=== PATIENT | male | born 1965 | race Two or more races ===

== ENCOUNTER 2017-03-05 12:26 | Inpatient (IN) | payer MEDICAID ==
[~2017-03-05] VITALS: Ht 182.9 cm; Wt 83.9 kg
[~2017-03-05 12:26] MED LIST: ACETAMINOP500 MG/51 GT; ATIVAN0.5 MG GT; COREG12.5 MG GT; DEPAKENE L250 MG/5 M GT; FERROUS SU220 MG/53 GT; KEPPRA LIQ100 MG/1 M GT; MULTIVITAM9 MG/15 M1 GT; NORCO 5-325 TA1 EACH GT; RESTORIL15 MG GT; RISPERDAL0.25 MG ORAL; SEROQUEL25 MG GT; SPIRONOLACTONE25 MG GT; VALPROIC A250 MG/5 M GT; VITAMIN D1000 UNI1 GT
[2017-03-05 12:37] VITALS: BP 99/69
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
[2017-03-05] MEDS ORDERED: Haloperidol 5mg/ml Inj IM ONE (13:15)
[2017-03-05] MEDS ORDERED: Midazolam 2mg/2ml Inj IVP ONE (13:15)
[2017-03-05 13:25] LABS: MEAN CORPUSCULAR HEMOGLOBIN 34.4 PG (27.0-31.0); MEAN CORPUSCULAR HGB CONC 34.8 G/DL (32.0-36.0); MEAN CORPUSCULAR VOLUME 99 FL (80-99); MEAN PLATELET VOLUME 8.7 FL (6.5-10.1); PLATELET COUNT 139 K/UL (150-450); RED BLOOD COUNT 4.11 M/UL (4.70-6.10); RED CELL DISTRIBUTION WIDTH 11.6 % (11.6-14.8); WHITE BLOOD COUNT 5.2 K/UL (4.8-10.8)
[2017-03-05 13:37] LABS: TROPONIN I < 0.30 ng/mL (<=0.30)
[2017-03-05 13:40] LABS: ALANINE AMINOTRANSFERASE 12 U/L (3-41); ALBUMIN/GLOBULIN RATIO 1.3 (1.0-2.7); ANION GAP 12 (5-15); ASPARTATE AMINO TRANSFERASE 20 U/L (5-40); CALCIUM 9.7 mg/dL (8.6-10.2); CARBON DIOXIDE 27 mEQ/L (20-30); CHLORIDE 100 mEQ/L (98-107); CREATININE 0.8 mg/dL (0.7-1.2); GLOMERULAR FILTRATION RATE > 60 mL/min (>60); HEMOLYSIS 12; POTASSIUM 4.1 mEQ/L (3.4-4.9); SODIUM 139 mEQ/L (135-145); TOTAL PROTEIN 7.4 g/dL (6.6-8.7)
[2017-03-05 13:45] VITALS: BP 114/88
[2017-03-05 13:50] LABS: CKMB 2.8 ng/mL (< 6.7)
[2017-03-05 13:52] LABS: BAND NEUTROPHILS % (MANUAL) 0 % (0-8); BASOPHILS % (MANUAL) 0 % (0-2); EOSINOPHILS % (MANUAL) 1 % (0-3); LYMPHOCYTES % (MANUAL) 41 % (20-45); NEUTROPHILS % (MANUAL) 46 % (45-75); PLATELET ESTIMATE DECREASED; PLATELET MORPHOLOGY NORMAL; TOTAL CELLS COUNTED 100
[2017-03-05 14:23] LABS: APPEARANCE,URINE CLEAR; KETONES,URINE NEGATIVE (NEGATIVE); LEUKOCYTE ESTERASE ,URINE 1+ (NEGATIVE); NITRITE,URINE NEGATIVE (NEGATIVE); PH,URINE 7 (4.5-8.0); PROTEIN,URINE 1+ (NEGATIVE); UROBILINOGEN,URINE 4 MG/DL (0.0-1.0)
[2017-03-05 14:24] LABS: BACTERIA,URINE OCCASIONAL /HPF; RBC,URINE 0-2 /HPF (0 - 0); SQUAMOUS EPITHELIAL CELL,UR OCCASIONAL /LPF (NONE/OCC)
--- NOTE | 2017-03-05 14:39 | Diagnostic Imaging Report ---
Indications: Altered mental status Technique: Spiral acquisitions obtained through the brain. Angled axial and coronal 5 x 5 mm slices were reconstructed. Total dose length product 1487 mGycm. CTDI vol(s) 70 mGy. Dose reduction achieved using automated exposure control Comparison: 03/14/2016 Findings: Exam is somewhat limited, due to limited ability the patient to cooperate. Again demonstrated is a large right frontotemporoparietal craniectomy defect. Again demonstrated is extensive underlying frontal, parietal, and temporal encephalomalacia, resultant ex vacuo dilatation of the right lateral ventricle. Less extensive but still large area of encephalomalacia is also seen in the left parietal and posterior temporal lobe. When compared to the prior study, the cranial contents herniates somewhat more beyond the expected confines of the calvarium than previously and the ventricular dilatation appears slightly increased. There is also generalized enlargement of ventricles and extra axial CSF spaces. The amount of cystic encephalomalacia may have increased somewhat since prior study. No acute hemorrhage. The included orbits and sinuses are unremarkable. The mastoids are clear. No definite mass effect. Normal eason-white differentiation. Impression: Large right frontotemporoparietal craniectomy, with extensive underlying encephalomalacia. There is interim slight increase in degree of herniation of cranial contents into the craniectomy defect. The significance of this is uncertain. Large area of encephalomalacia in the left temporal and parietal lobes. Negative for acute intracranial bleed. No definite mass effect. Rightward midline shift is presumably an extra-axial phenomenon. The CT scanner at [facility] is accredited by the [employer] and the scans are performed using protocols designed to limit radiation exposure to as low as reasonably achievable to attain images of sufficient resolution adequate for diagnostic evaluation.
[2017-03-05] MEDS ORDERED: Mylanta II UD 30ml ORAL PRN (14:45)
[2017-03-05] MEDS ORDERED: Miralax 17gm pkt ORAL PRN (14:45)
[2017-03-05] MEDS ORDERED: Zolpidem 5mg tab ORAL PRN (14:45)
[2017-03-05] MEDS ORDERED: Norco 5mg/325mg tab GT PRN (14:45)
[2017-03-05] MEDS ORDERED: LORazepam Inj 2mg/ml 1ml IV PRN (14:45)
[2017-03-05] MEDS ORDERED: DOCUSATE SODIU100 MG GT (14:48)
[2017-03-05] MEDS ORDERED: MILK OF MA2400 MG/10 ORAL (14:48)
[2017-03-05] MEDS ORDERED: BENZTROPINE MESY1 MG GT (14:48)
[2017-03-05] MEDS ORDERED: QUETIAPINE FUMA25 MG GT (14:51)
--- NOTE | 2017-03-05 14:54 | Diagnostic Imaging Report ---
Indication: Chest pain Technique: One view of the chest Comparison: 03/31/2016 Findings: Left chest bifocal AICD is again demonstrated. The heart is upper limits of normal in size. The lungs and pleural spaces are clear Impression: No acute process. Findings as noted
[2017-03-05 15:54] VITALS: BP 122/43
--- NOTE | 2017-03-05 18:29 | History and Physical ---
History of Present Illness General Date patient seen: Mar 05, 2017 Reason for Hospitalization: General Complaint Present Illness HPI 51 year old male with OBI, s/p craniotomy, seizures, psychiatric disorder presented from nursing facility with reports of agitation In route the patient was given 5 mg of Versed and present ed to ER fairly sedated Patient is responsive to physical stimuli. There are no other information available. Allergies: Coded Allergies: No Known Allergies (Unverified , 03/14/16) Medication History Scheduled Benztropine Mesylate* (Benztropine Mesylate*), 0.5 MG GT BID, (Reported) Carvedilol (Coreg), 12.5 MG GT BID, (Reported) Cholecalciferol (Vitamin D3)* (Vitamin D*), 5,000 UNITS GT DAILY, (Reported) Docusate Sodium* (Docusate Sodium*), 100 MG GT TWICE A DAY, (Reported) Ferrous Sulfate (Ferrous Sulfate), 7.5 ML GT BID, (Reported) Levetiracetam (Keppra), 5 ML GT BID, (Reported) Levetiracetam (Keppra), 1,000 MG GT Q12HR Lorazepam* (Ativan*), 0.5 MG GT EVERY 4 HOURS, (Reported) Magnesium Hydroxide* (Milk Of Magnesia*), 30 ML ORAL EVERY 8 HOURS, (Reported) Multivits W-Min/Ferrous Gluc (Multivitamin-Mineral Liquid), 15 ML GT DAILY, ( Reported) Quetiapine Fumarate* (Seroquel*), 25 MG GT THREE TIMES A DAY, (Reported) Quetiapine Fumarate* (Seroquel*), 25 MG GT BID, (Reported) Risperidone* (Risperdal*), 0.5 MG ORAL TID Spironolactone* (Aldactone*), 25 MG GT DAILY, (Reported) Valproate Sodium (Valproic Acid), 5 ML GT BID, (Reported) Valproic Acid (Valproic Acid), 500 MG GT EVERY 12 HOURS Scheduled PRN Acetaminophen (Acetaminophen), 640 MG GT EVERY 6 HOURS PRN for mild pain, ( Reported) Hydrocodone Bit/Acetaminophen 5-325* ([place] 5-325*), 1 TAB GT EVERY 8 HOURS PRN for For Pain, (Reported) Temazepam* (Restoril*), 15 MG GT BEDTIME PRN for Insomnia, (Reported) Patient History Healthcare decision maker Resuscitation status Full Code Advanced Directive on File Past Medical/Surgical History Past Medical/Surgical History: (1) Agitation (2) Feeding by G-tube (3) Neurologic disorder Review of Systems All Other Systems: negative except mentioned in HPI Physical Exam General Appearance: cachetic Lines, tubes and drains: peripheral HEENT: normocephalic, atraumatic Neck: non-tender, normal alignment Respiratory/Chest: chest wall non-tender, lungs clear Cardiovascular/Chest: normal peripheral pulses, normal rate Last 24 Hour Vital Signs Date Time Temp Pulse Resp B/P Pulse Ox O2 Delivery O2 Flow Rate FiO2 03/05/17 15:54 96.5 91 15 122/43 98 Room Air 03/05/17 15:25 94 20 134/74 96 Room Air 03/05/17 13:45 81 20 114/88 99 Room Air 03/05/17 12:37 20 99/69 99 Room Air 03/05/17 12:34 83 20 99/69 99 Room Air Laboratory Tests Test 03/05/17 13:00 03/05/17 13:15 White Blood Count 5.2 K/UL (4.8-10.8) Red Blood Count 4.11 M/UL (4.70-6.10) L Hemoglobin 14.1 G/DL (14.2-18.0) L Hematocrit 40.6 % (42.0-52.0) L Mean Corpuscular Volume 99 FL (80-99) Mean Corpuscular Hemoglobin 34.4 PG (27.0-31.0) H Mean Corpuscular Hemoglobin Concent 34.8 G/DL (32.0-36.0) Red Cell Distribution Width 11.6 % (11.6-14.8) Platelet Count 139 K/UL (150-450) L Mean Platelet Volume 8.7 FL (6.5-10.1) Neutrophils (%) (Auto) % (45.0-75.0) Lymphocytes (%) (Auto) % (20.0-45.0) Monocytes (%) (Auto) % (1.0-10.0) Eosinophils (%) (Auto) % (0.0-3.0) Basophils (%) (Auto) % (0.0-2.0) Differential Total Cells Counted 100 Neutrophils % (Manual) 46 % (45-75) Lymphocytes % (Manual) 41 % (20-45) Monocytes % (Manual) 12 % (1-10) H Eosinophils % (Manual) 1 % (0-3) Basophils % (Manual) 0 % (0-2) Band Neutrophils 0 % (0-8) Platelet Estimate Decreased L Platelet Morphology Normal Sodium Level 139 mEQ/L (135-145) Potassium Level 4.1 mEQ/L (3.4-4.9) Chloride Level 100 mEQ/L (98-107) Carbon Dioxide Level 27 mEQ/L (20-30) Anion Gap 12 (5-15) Blood Urea Nitrogen 22 mg/dL (7-23) Creatinine 0.8 mg/dL (0.7-1.2) Estimat Glomerular Filtration Rate > 60 mL/min (>60) Glucose Level 77 mg/dL (74-106) Calcium Level 9.7 mg/dL (8.6-10.2) Total Bilirubin 0.4 mg/dL (0.0-1.2) Aspartate Amino Transf (AST/SGOT) 20 U/L (5-40) Alanine Aminotransferase (ALT/SGPT) 12 U/L (3-41) Alkaline Phosphatase 68 U/L (40-129) Total Creatine Kinase 117 U/L (38-174) Creatine Kinase MB 2.8 ng/mL (< 6.7) Creatine Kinase MB Relative Index 2.3 Troponin I < 0.30 ng/mL (<=0.30) Total Protein 7.4 g/dL (6.6-8.7) Albumin 4.3 g/dL (3.5-5.2) Globulin 3.1 g/dL Albumin/Globulin Ratio 1.3 (1.0-2.7) Valproic Acid (Depakene) Level 93 ug/mL (50-100) Urine Color Yellow Urine Appearance Clear Urine pH 7 (4.5-8.0) Urine Specific [place] 1.005 (1.005-1.035) Urine Protein 1+ (NEGATIVE) H Urine Glucose (UA) Negative (NEGATIVE) Urine Ketones Negative (NEGATIVE) Urine Occult Blood Negative (NEGATIVE) Urine Nitrite Negative (NEGATIVE) Urine Bilirubin Negative (NEGATIVE) Urine Urobilinogen 4 MG/DL (0.0-1.0) H Urine Leukocyte Esterase 1+ (NEGATIVE) H Urine RBC 0-2 /HPF (0 - 0) H Urine WBC 2-4 /HPF (0 - 0) Urine Squamous Epithelial Cells Occasional /LPF Urine Bacteria Occasional /HPF (NONE) Height (Feet): 6 Height (Inches): 0.00 Weight (Pounds): 185 Medications Current Medications Medications (Trade) Dose Ordered Sig/[place] Route PRN Reason Start Time Stop Time Status Last Admin Dose Admin Acetaminophen (Tylenol) 650 mg Q4H PRN ORAL fever 03/05/17 14:45 04/04/17 14:44 Acetaminophen/ Hydrocodone Bitart ([place] 5/325) 1 tab Q8H PRN GT For Pain 4-6 03/05/17 14:45 03/12/17 14:44 Al Hydroxide/Mg Hydroxide (Mylanta II) 30 ml Q6H PRN ORAL dyspepsia 03/05/17 14:45 04/04/17 14:44 Carvedilol (Coreg) 12.5 mg BID GT 03/05/17 18:00 04/04/17 17:59 Dextrose (Dextrose 50%) STAT PRN IV Hypoglycemia 03/05/17 14:45 04/04/17 14:44 Levetiracetam (Keppra) 1,000 mg Q12HR GT 03/05/17 21:00 04/04/17 20:59 Lorazepam (Ativan 2mg/ml 1ml) 0.5 mg Q4H PRN IV For Anxiety 03/05/17 14:45 03/12/17 14:44 03/05/17 17:40 Morphine Sulfate (Morphine Sulfate) 1 mg Q4H PRN IVP For Pain 7-10 03/05/17 14:45 03/12/17 14:44 Ondansetron HCl (Zofran) 4 mg Q6H PRN IVP Nausea & Vomiting 03/05/17 14:45 04/04/17 14:44 Polyethylene Glycol (Miralax) 17 gm HSPRN PRN ORAL Constipation 03/05/17 14:45 04/04/17 14:44 Quetiapine Fumarate (SEROquel) 25 mg THREE TIMES A DAY GT 03/05/17 18:00 04/04/17 17:59 Risperidone (RisperDAL) 0.5 mg TID GT 03/05/17 18:00 04/04/17 17:59 Temazepam (Restoril) 15 mg HSPRN PRN GT Insomnia 03/05/17 14:45 03/12/17 14:44 Valproic Acid (Depakene) 500 mg EVERY 12 HOURS GT 03/05/17 21:00 04/04/17 20:59 Zolpidem Tartrate (Ambien) 5 mg HSPRN PRN ORAL Insomnia 03/05/17 14:45 04/04/17 14:44 UNV Assessment/Plan Problem List: (1) Encephalopathy acute ICD Codes: G93.40 - Encephalopathy, unspecified SNOMED: 2707407 (2) Tachycardia ICD Codes: R00.0 - Tachycardia, unspecified SNOMED: 2020268 (3) Feeding by G-tube ICD Codes: Z93.1 - Gastrostomy status SNOMED: 506218270, 993363164 (4) Psychomotor agitation ICD Codes: R45.1 - Restlessness and agitation SNOMED: 80214757 Assessment/Plan telemetry monitoring b/o tachycardia psych evaluation. resume gtube feeding resume psych meds BRIDGET SUMMERS Mar 05, 2017 18:29
[2017-03-05] MEDS: Carvedilol 12.5mg tab GT SCH (18:47)
[2017-03-05 19:44] VITALS: BP 129/84
[2017-03-05] MEDS: levETIRAcetam 500mg/5ml Liquid GT SCH (21:07)
[2017-03-05] MEDS: Valproic Acid 250mg/5ml Liquid GT SCH (21:07)
[2017-03-05] MEDS: LORazepam Inj 2mg/ml 1ml IV PRN (23:32)
[2017-03-06 03:14] VITALS: BP 144/81
[2017-03-06] MEDS: LORazepam Inj 2mg/ml 1ml IV PRN ×3 (03:52→22:24)
[2017-03-06 07:11] VITALS: BP 116/78
--- NOTE | 2017-03-06 07:44 | Pulmonology Progress Note ---
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 psychomotor agitation psychiatric disorder hx of R craniectomy 2 to cerebral hemorrhage seizure disorder functional quadriplegia PLAN OF CARE tele CT head no acute IC pathology on tele due to initial tachy ST on tele, no A fib BB continue lipid panel with elevated TG and LDL recheck in 3 months TSH WNL venous Duplex psych eval psych meds resumed seizure precautions, continue Depakote and Keppra sitter at the bedside transfer to [place] case discussed and evaluated by supervising physician Subjective Allergies: Coded Allergies: No Known Allergies (Unverified , 03/14/16) Subjective anxious, no chest pain no SOB sitter at the bedside for safety Objective Last 24 Hour Vital Signs Date Time Temp Pulse Resp B/P Pulse Ox O2 Delivery O2 Flow Rate FiO2 03/06/17 07:11 98.6 78 22 116/78 98 Room Air 03/06/17 03:14 144/81 03/06/17 00:00 79 03/05/17 20:00 70 03/05/17 19:44 98.3 62 22 129/84 95 Room Air 03/05/17 18:47 67 122/43 03/05/17 16:00 98 03/05/17 15:54 96.5 91 15 122/43 98 Room Air 03/05/17 15:25 94 20 134/74 96 Room Air 03/05/17 13:45 81 20 114/88 99 Room Air 03/05/17 12:37 20 99/69 99 Room Air 03/05/17 12:34 83 20 99/69 99 Room Air Intake and Output 03/05/17 03/06/17 19:00 07:00 Intake Total 0 ml Balance 0 ml Intake Oral 0 ml # Voids 2 2 # Bowel Movements 1 General Appearance: no acute distress HEENT: other - R scalp defect 2 to craniectomy Respiratory/Chest: chest wall non-tender, lungs clear, no respiratory distress , no accessory muscle use Cardiovascular: normal rate, regular rhythm - SR on tele with some PAC and PVC Abdomen: soft, non tender, non distended, other - G tube Extremities: no edema, pedal pulses normal Neurologic/Psychiatric: abnormal gait, other - Left hemiparesis Musculoskeletal: atrophy - BLE Laboratory Tests 03/05/17 13:00: White Blood Count 5.2, Red Blood Count 4.11L, Hemoglobin 14.1L, Hematocrit 40.6L , Mean Corpuscular Volume 99, Mean Corpuscular Hemoglobin 34.4H, Mean Corpuscular Hemoglobin Concent 34.8, Red Cell Distribution Width 11.6, Platelet Count 139L, Mean Platelet Volume 8.7, Neutrophils (%) (Auto) , Lymphocytes (%) ( Auto) , Monocytes (%) (Auto) , Eosinophils (%) (Auto) , Basophils (%) (Auto) , Differential Total Cells Counted 100, Neutrophils % (Manual) 46, Lymphocytes % ( Manual) 41, Monocytes % (Manual) 12H, Eosinophils % (Manual) 1, Basophils % ( Manual) 0, Band Neutrophils 0, Platelet Estimate DecreasedL, Platelet Morphology Normal, Sodium Level 139, Potassium Level 4.1, Chloride Level 100, Carbon Dioxide Level 27, Anion Gap 12, Blood Urea Nitrogen 22, Creatinine 0.8, Estimat Glomerular Filtration Rate > 60, Glucose Level 77, Calcium Level 9.7, Total Bilirubin 0.4, Aspartate Amino Transf (AST/SGOT) 20, Alanine Aminotransferase (ALT/SGPT) 12, Alkaline Phosphatase 68, Total Creatine Kinase 117, Creatine Kinase MB 2.8, Creatine Kinase MB Relative Index 2.3, Troponin I < 0.30, Total Protein 7.4, Albumin 4.3, Globulin 3.1, Albumin/Globulin Ratio 1.3 , Valproic Acid (Depakene) Level 93 03/05/17 13:15: Urine Color Yellow, Urine Appearance Clear, Urine pH 7, Urine Specific [place] 1.005, Urine Protein 1+H, Urine Glucose (UA) Negative, Urine Ketones Negative, Urine Occult Blood Negative, Urine Nitrite Negative, Urine Bilirubin Negative, Urine Urobilinogen 4H, Urine Leukocyte Esterase 1+H, Urine RBC 0-2H, Urine WBC 2 -4, Urine Squamous Epithelial Cells Occasional, Urine Bacteria Occasional Current Medications Medications (Trade) Dose Ordered Sig/[place] Route PRN Reason Start Time Stop Time Status Last Admin Dose Admin Acetaminophen (Tylenol) 650 mg Q4H PRN ORAL fever 03/05/17 14:45 04/04/17 14:44 Acetaminophen/ Hydrocodone Bitart ([place] 5/325) 1 tab Q8H PRN GT For Pain 4-6 03/05/17 14:45 03/12/17 14:44 Al Hydroxide/Mg Hydroxide (Mylanta II) 30 ml Q6H PRN ORAL dyspepsia 03/05/17 14:45 04/04/17 14:44 Carvedilol (Coreg) 12.5 mg BID GT 03/05/17 18:00 04/04/17 17:59 03/05/17 18:47 Dextrose (Dextrose 50%) STAT PRN IV Hypoglycemia 03/05/17 14:45 04/04/17 14:44 Levetiracetam (Keppra) 1,000 mg Q12HR GT 03/05/17 21:00 04/04/17 20:59 03/05/17 21:07 Lorazepam (Ativan 2mg/ml 1ml) 2 mg Q4H PRN IV For Anxiety 03/05/17 18:45 03/12/17 18:44 03/06/17 03:52 Morphine Sulfate (Morphine Sulfate) 1 mg Q4H PRN IVP For Pain 7-10 03/05/17 14:45 03/12/17 14:44 Ondansetron HCl (Zofran) 4 mg Q6H PRN IVP Nausea & Vomiting 03/05/17 14:45 04/04/17 14:44 Polyethylene Glycol (Miralax) 17 gm HSPRN PRN ORAL Constipation 03/05/17 14:45 04/04/17 14:44 Quetiapine Fumarate (SEROquel) 25 mg THREE TIMES A DAY GT 03/05/17 18:00 04/04/17 17:59 03/05/17 18:45 Risperidone (RisperDAL) 0.5 mg TID GT 03/05/17 18:00 04/04/17 17:59 03/05/17 18:45 Valproic Acid (Depakene) 500 mg EVERY 12 HOURS GT 03/05/17 21:00 04/04/17 20:59 03/05/17 21:07 Zolpidem Tartrate (Ambien) 5 mg HSPRN PRN ORAL Insomnia 03/05/17 14:45 04/04/17 14:44 Nancy Zambrano NP ([facility]) Mar 06, 2017 07:44
[2017-03-06 08:04] LABS: RED BLOOD COUNT 4.24 M/UL (4.70-6.10); WHITE BLOOD COUNT 4.6 K/UL (4.8-10.8)
[2017-03-06 08:05] LABS: BASOPHILS % (AUTO) 0.9 % (0.0-2.0); EOSINOPHILS % (AUTO) 2.6 % (0.0-3.0); LYMPHOCYTES % (AUTO) 36.8 % (20.0-45.0); MEAN CORPUSCULAR HEMOGLOBIN 35.2 PG (27.0-31.0); MEAN CORPUSCULAR HGB CONC 35.4 G/DL (32.0-36.0); MEAN CORPUSCULAR VOLUME 99 FL (80-99); MEAN PLATELET VOLUME 9.7 FL (6.5-10.1); NEUTROPHILS % (AUTO) 50.8 % (45.0-75.0); PLATELET COUNT 134 K/UL (150-450); RED CELL DISTRIBUTION WIDTH 11.5 % (11.6-14.8)
[2017-03-06 08:52] LABS: ALANINE AMINOTRANSFERASE 14 U/L (3-41); ALBUMIN/GLOBULIN RATIO 1.3 (1.0-2.7); ANION GAP 13 (5-15); ASPARTATE AMINO TRANSFERASE 32 U/L (5-40); CALCIUM 9.8 mg/dL (8.6-10.2); CARBON DIOXIDE 26 mEQ/L (20-30); CHLORIDE 105 mEQ/L (98-107); CHOLESTEROL 184 mg/dL (< 200); CHOLESTEROL/HDL RATIO 4.5 (3.3-4.4); CREATININE 0.7 mg/dL (0.7-1.2); GLOMERULAR FILTRATION RATE > 60 mL/min (>60); HEMOLYSIS 15; LDL CHOLESTEROL (CALC.) 107 mg/dL (60-99); POTASSIUM 3.9 mEQ/L (3.4-4.9); SODIUM 144 mEQ/L (135-145); TOTAL PROTEIN 7.6 g/dL (6.6-8.7)
[2017-03-06] MEDS: Carvedilol 12.5mg tab GT SCH ×2 (09:00→17:32)
[2017-03-06] MEDS: levETIRAcetam 500mg/5ml Liquid GT SCH ×2 (09:08→20:24)
[2017-03-06] MEDS: Valproic Acid 250mg/5ml Liquid GT SCH ×2 (09:09→20:23)
[2017-03-06 11:49] VITALS: BP 127/81
[2017-03-06 16:01] VITALS: BP 127/82
[2017-03-06 20:00] VITALS: BP 111/69
[2017-03-06] MEDS: Morphine Sulfate 2mg/ml Inj IVP PRN (23:29)
[2017-03-07] VITALS: BP 123/70
[2017-03-07 04:00] VITALS: BP 132/70
[2017-03-07] MEDS: Morphine Sulfate 2mg/ml Inj IVP PRN (04:09)
[2017-03-07] MEDS: LORazepam Inj 2mg/ml 1ml IV PRN ×2 (07:14→12:52)
[2017-03-07] MEDS: levETIRAcetam 500mg/5ml Liquid GT SCH ×2 (09:00→21:20)
[2017-03-07] MEDS: Valproic Acid 250mg/5ml Liquid GT SCH ×2 (09:44→21:19)
[2017-03-07] MEDS: Carvedilol 12.5mg tab GT SCH ×2 (09:47→18:46)
--- NOTE | 2017-03-07 10:58 | Pulmonology Progress Note ---
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 psychomotor agitation psychiatric disorder hx of R craniectomy 2 to cerebral hemorrhage seizure disorder functional quadriplegia PLAN OF CARE on tele due to intiial atchy ( resolved) CT head no acute IC pathology BB continue lipid panel with elevated TG and LDL recheck in 3 months TSH WNL venous Duplex psych eval psych meds resumed seizure precautions, continue Depakote and Keppra sitter at the bedside transfer to [place] and await for psych eval case discussed and evaluated by supervising physician Subjective Allergies: Coded Allergies: No Known Allergies (Unverified , 03/14/16) Subjective anxious, banging on the side rail no chest pain no SOB sitter at the bedside for safety Objective Last 24 Hour Vital Signs Date Time Temp Pulse Resp B/P Pulse Ox O2 Delivery O2 Flow Rate FiO2 03/07/17 09:47 90 140/70 03/07/17 04:39 97.8 03/07/17 04:00 97.8 80 20 132/70 99 Room Air 03/07/17 01:28 97.8 03/07/17 00:00 97.8 97 22 123/70 99 Room Air 03/06/17 20:00 97.8 82 20 111/69 99 Room Air 03/06/17 17:32 86 127/82 03/06/17 16:01 98.0 86 20 127/82 96 Room Air 03/06/17 12:00 80 03/06/17 11:49 97.8 88 20 127/81 97 Room Air Intake and Output 03/06/17 03/07/17 19:00 07:00 Intake Total 350 ml Balance 350 ml Free Water 20 ml Tube Feeding 330 ml # Voids 2 3 Objective General Appearance: no acute distress HEENT: other - R scalp defect 2 to craniectomy Respiratory/Chest: chest wall non-tender, lungs clear, no respiratory distress , no accessory muscle use Cardiovascular: normal rate, regular rhythm - SR on tele with some PAC and PVC Abdomen: soft, non tender, non distended, other - G tube Extremities: no edema, pedal pulses normal Neurologic/Psychiatric: abnormal gait, other - Left hemiparesis Musculoskeletal: atrophy - BLE Microbiology Date/Time Source Procedure Growth Status 03/05/17 13:15 Nasal Nares MRSA Culture - Final NO METHICILLIN RESISTANT STAPH AUREUS... Complete Current Medications Medications (Trade) Dose Ordered Sig/[place] Route PRN Reason Start Time Stop Time Status Last Admin Dose Admin Acetaminophen (Tylenol) 650 mg Q4H PRN ORAL fever 03/05/17 14:45 04/04/17 14:44 Acetaminophen/ Hydrocodone Bitart ([place] 5/325) 1 tab Q8H PRN GT For Pain 4-6 03/05/17 14:45 03/12/17 14:44 03/07/17 00:29 Al Hydroxide/Mg Hydroxide (Mylanta II) 30 ml Q6H PRN ORAL dyspepsia 03/05/17 14:45 04/04/17 14:44 Carvedilol (Coreg) 12.5 mg BID GT 03/05/17 18:00 04/04/17 17:59 03/07/17 09:47 Dextrose (Dextrose 50%) STAT PRN IV Hypoglycemia 03/05/17 14:45 04/04/17 14:44 Levetiracetam (Keppra) 1,000 mg Q12HR GT 03/05/17 21:00 04/04/17 20:59 03/07/17 09:00 Lorazepam (Ativan 2mg/ml 1ml) 2 mg Q4H PRN IV For Anxiety 03/05/17 18:45 03/12/17 18:44 03/07/17 07:14 Morphine Sulfate (Morphine Sulfate) 1 mg Q4H PRN IVP For Pain 7-10 03/05/17 14:45 03/12/17 14:44 03/07/17 04:09 Ondansetron HCl (Zofran) 4 mg Q6H PRN IVP Nausea & Vomiting 03/05/17 14:45 04/04/17 14:44 Polyethylene Glycol (Miralax) 17 gm HSPRN PRN ORAL Constipation 03/05/17 14:45 04/04/17 14:44 Quetiapine Fumarate (SEROquel) 25 mg THREE TIMES A DAY GT 03/05/17 18:00 04/04/17 17:59 03/07/17 09:47 Risperidone (RisperDAL) 0.5 mg TID GT 03/05/17 18:00 04/04/17 17:59 03/07/17 09:47 Valproic Acid (Depakene) 500 mg EVERY 12 HOURS GT 03/05/17 21:00 04/04/17 20:59 03/07/17 09:44 Zolpidem Tartrate (Ambien) 5 mg HSPRN PRN ORAL Insomnia 03/05/17 14:45 04/04/17 14:44 Juan Manuel ([facility])Nancy NP Mar 07, 2017 10:58
[2017-03-07 12:21] VITALS: BP 98/56
[2017-03-07] MEDS ORDERED: Sterile Water Irrig 1000ml IRRIG ONE (15:47)
--- NOTE | 2017-03-07 17:12 | Cardiology Report ---
APPROVED REPORT EKG Measurement Heart [id number] Sinus rhythm with occasional premature ventricular complexes Incomplete left bundle branch block Borderline ECG
--- NOTE | 2017-03-07 17:48 | Diagnostic Imaging Report ---
APPROVED REPORT CPT Code: 63551 Present Symptoms Lower Extremity Pain: Bilateral Comments: Difficult study due to the patient being combartive. BILATERAL: Imaging reveals a patent deep venous system bilaterally. There is no evidence of thrombus within the femoral, popliteal or tibial segments. The greater saphenous veins are also within normal limits. Doppler indicates normal spontaneous flow within these segments.
--- NOTE | 2017-03-07 18:14 | Consultation ---
History of Present Illness General Date patient seen: Mar 07, 2017 Chief Complaint: General Complaint Present Illness HPI 51 year old male with OBI, s/p craniotomy, seizures, psychiatric disorder presented from nursing facility with reports of agitation In route the patient was given 5 mg of Versed and present ed sedated, During the eval the pt is agitated and banging his head against the bed rails. the pt was confused and was unable to remain focused. disorganized. has cognitive impairment. Allergies: Coded Allergies: No Known Allergies (Unverified , 03/14/16) Medication History Scheduled Benztropine Mesylate* (Benztropine Mesylate*), 0.5 MG GT BID, (Reported) Carvedilol (Coreg), 12.5 MG GT BID, (Reported) Cholecalciferol (Vitamin D3)* (Vitamin D*), 5,000 UNITS GT DAILY, (Reported) Docusate Sodium* (Docusate Sodium*), 100 MG GT TWICE A DAY, (Reported) Ferrous Sulfate (Ferrous Sulfate), 7.5 ML GT BID, (Reported) Levetiracetam (Keppra), 5 ML GT BID, (Reported) Levetiracetam (Keppra), 1,000 MG GT Q12HR Lorazepam* (Ativan*), 0.5 MG GT EVERY 4 HOURS, (Reported) Magnesium Hydroxide* (Milk Of Magnesia*), 30 ML ORAL EVERY 8 HOURS, (Reported) Multivits W-Min/Ferrous Gluc (Multivitamin-Mineral Liquid), 15 ML GT DAILY, ( Reported) Quetiapine Fumarate* (Seroquel*), 25 MG GT THREE TIMES A DAY, (Reported) Quetiapine Fumarate* (Seroquel*), 25 MG GT BID, (Reported) Risperidone* (Risperdal*), 0.5 MG ORAL TID Spironolactone* (Aldactone*), 25 MG GT DAILY, (Reported) Valproate Sodium (Valproic Acid), 5 ML GT BID, (Reported) Valproic Acid (Valproic Acid), 500 MG GT EVERY 12 HOURS Scheduled PRN Acetaminophen (Acetaminophen), 640 MG GT EVERY 6 HOURS PRN for mild pain, ( Reported) Hydrocodone Bit/Acetaminophen 5-325* ([place] 5-325*), 1 TAB GT EVERY 8 HOURS PRN for For Pain, (Reported) Temazepam* (Restoril*), 15 MG GT BEDTIME PRN for Insomnia, (Reported) Patient History Limited by: medical condition History Provided By: Patient, Medical Record, PMD Healthcare decision maker Resuscitation status Full Code Advanced Directive on File Past Medical/Surgical History Past Medical/Surgical History: (1) Proteinuria (2) Thrombocytopenia (3) Psychomotor agitation (4) Agitation (5) Neurologic disorder (6) Feeding by G-tube (7) Encephalopathy acute (8) Tachycardia (9) Schizophrenia Review of Systems Psychiatric: Reports: anxiety, emotional problems, hallucinations, prior hx Physical Exam General Appearance: no apparent distress, confused, agitated Neurologic: disoriented Last 24 Hour Vital Signs Date Time Temp Pulse Resp B/P Pulse Ox O2 Delivery O2 Flow Rate FiO2 03/07/17 12:21 98.1 57 22 98/56 92 Room Air 03/07/17 09:47 90 140/70 03/07/17 04:39 97.8 03/07/17 04:00 97.8 80 20 132/70 99 Room Air 03/07/17 01:28 97.8 03/07/17 00:00 97.8 97 22 123/70 99 Room Air 03/06/17 20:00 97.8 82 20 111/69 99 Room Air Intake and Output 03/06/17 03/07/17 19:00 07:00 Intake Total 350 ml Balance 350 ml Free Water 20 ml Tube Feeding 330 ml # Voids 2 3 Height (Feet): 6 Height (Inches): 0.00 Weight (Pounds): 185 Medications Current Medications Medications (Trade) Dose Ordered Sig/[place] Route PRN Reason Start Time Stop Time Status Last Admin Dose Admin Acetaminophen (Tylenol) 650 mg Q4H PRN ORAL fever 03/07/17 18:45 04/06/17 18:44 Acetaminophen/ Hydrocodone Bitart ([place] 5/325) 1 tab Q8H PRN GT For Pain 4-6 03/07/17 22:45 03/14/17 22:44 Al Hydroxide/Mg Hydroxide (Mylanta II) 30 ml Q6H PRN ORAL dyspepsia 03/07/17 20:45 04/06/17 20:44 Carvedilol (Coreg) 12.5 mg BID GT 03/07/17 18:00 04/06/17 17:59 Dextrose (Dextrose 50%) STAT PRN IV Hypoglycemia 03/08/17 14:45 04/07/17 14:44 Levetiracetam (Keppra) 1,000 mg Q12HR GT 03/07/17 21:00 04/06/17 20:59 Lorazepam (Ativan 2mg/ml 1ml) 2 mg EVERY 6 HOURS PRN IV For Anxiety 03/08/17 00:00 03/15/17 00:00 Morphine Sulfate (Morphine Sulfate) 1 mg Q4H PRN IVP For Pain 7-10 03/07/17 18:45 03/14/17 18:44 Ondansetron HCl (Zofran) 4 mg Q6H PRN IVP Nausea & Vomiting 03/07/17 20:45 04/06/17 20:44 Polyethylene Glycol (Miralax) 17 gm HSPRN PRN ORAL Constipation 03/08/17 14:45 04/07/17 14:44 Quetiapine Fumarate (SEROquel) 50 mg Q4H PRN GT agitation 03/07/17 21:00 04/06/17 20:59 Valproic Acid (Depakene) 500 mg EVERY 12 HOURS GT 03/07/17 21:00 04/06/17 20:59 Zolpidem Tartrate (Ambien) 5 mg HSPRN PRN ORAL Insomnia 03/08/17 14:45 04/07/17 14:44 Assessment/Plan Status: not improved, unchanged Assessment/Plan Delirium Agitation head trauma -dc risperdal -seroquel 50q 4hr/prn -decrease ativan -dc Jeffrey Rollins M.D. Mar 07, 2017 18:14
[2017-03-07] MEDS ORDERED: Zolpidem 5mg tab ORAL PRN (18:30)
[2017-03-07 18:40] VITALS: BP 110/56
[2017-03-07] MEDS ORDERED: Morphine Sulfate 2mg/ml Inj IVP PRN (18:45)
[2017-03-07] MEDS ORDERED: LORazepam Inj 2mg/ml 1ml IV PRN ×2 (18:45)
[2017-03-07 20:00] VITALS: BP 109/55
[2017-03-07] MEDS ORDERED: Mylanta II UD 30ml ORAL PRN (20:45)
[2017-03-08] VITALS: BP 105/46
[2017-03-08] MEDS ORDERED: LORazepam Inj 2mg/ml 1ml IV PRN
--- NOTE | 2017-03-08 01:45 | Progress Note ---
DATE: 03/07/2017 SUBJECTIVE: The patient is awake, alert, afebrile. He is not agitated. PHYSICAL EXAMINATION: VITAL SIGNS: Blood pressure is 98/66, his pulse is 57, respirations 22, and temperature 98.1 degrees. HEENT: Eyes were normal. ENT, mucous membranes were moist and intact. NECK: Supple with no JVD without lymph nodes. LUNGS: Clear. HEART: Normal sounds with irregular beats. There is no S3, S4, or pericardial rub. ABDOMEN: Soft and nontender with normal bowel sounds. Gastrostomy site is clean. EXTREMITIES: Warm without cyanosis, clubbing, or edema. LABORATORY DATA: No new laboratory data is available at the time of this dictation. His last laboratory tests are from 03/06/2017 in ICU the patient refused laboratory taking as he does frequently in the extended care facility. However, the patient will need psychiatric assessment prior to discharge as well as 2D echo cardiomyopathy, ejection fraction 20, however, clinically, congestive heart failure is stage 2 by [place] [employer] classification or class C by [place] [employer] classification. A 2D echo has been ordered. Geo Pop M.D. DR: CELIO JOB#: [id number] CC:
[2017-03-08 04:00] VITALS: BP 140/83
[2017-03-08 07:50] VITALS: BP 108/67
[2017-03-08] MEDS: Valproic Acid 250mg/5ml Liquid GT SCH ×2 (08:00→20:56)
[2017-03-08] MEDS: levETIRAcetam 500mg/5ml Liquid GT SCH ×2 (08:00→20:56)
[2017-03-08] MEDS: Carvedilol 12.5mg tab GT SCH ×2 (08:01→18:00)
[2017-03-08] MEDS: Norco 5mg/325mg tab GT PRN (08:03)
--- NOTE | 2017-03-08 10:46 | Consultation ---
DATE OF CONSULTATION: RHEUMATOLOGICAL CONSULTATION REASON FOR CONSULTATION: I was asked by Dr. Molina to assess this 51-year-old patient on his admission to [facility] telemetry unit. HISTORY OF PRESENT ILLNESS: The patient is a resident of an extended care facility where he has been in stable condition for the last two years. 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 He was discharged with tracheostomy and gastrostomy and remained one year respirator dependent. More than a year ago, he was successfully weaned from the respirator. He is known to have chronic psychosis for many years that was aggravated by the traumatic brain injury. He had seizure disorder following his injury. He developed seizure in more than a year ago. He has intermittent atrial fibrillation secondary to cardiomyopathy with ejection fraction of 20, however, he is in congestive heart failure stage II by [place] Heart Association Classification. He had multiple swallowing evaluations and failed either to complete the test or either to swallow. The last one was few months ago. He had AICD inserted more than three years ago at [facility]. However, he is able to communicate verbally and has multiple episodes during which he is compliant, communicative, interrupted by acute psychotic episode. He has been followed by psychiatrist for the last several days. ALLERGIES: No known drug allergies. Medications: The patient is on levetiracetam 1000 mg q.12 h., folic acid 500 mg q.12 hours. He is currently on lorazepam 2 mg IV push q.4 h. p.r.n. He is on carvedilol 12.5 mg b.i.d., Seroquel 25 mg t.i.d., and Risperdal 0.5 mg b.i.d. He is on hydrocodone one tablet 04:05 temazepam 15 mg at bedtime. He has multiple p.r.n. medications for motility disorder. He did receive 04:[address] hospital as well as haloperidol. Family History: Medical history of his parents is unknown. They are in [place] and 05:12. He has one sister in good health. He has no children. Social History: He is single. He was born in [place] and medically following up here for many years prior to 05:24. He was unemployed as well. HABITS: The patient does not smoke, drink, or use illicit drugs. Clean for three years. REVIEW OF SYSTEMS: The patient is unable to give any information regarding his state of health. PHYSICAL EXAMINATION: VITAL SIGNS: Blood pressure is 116/78, pulse is 78, respirations 22, and temperature 98.6. HEENT: Eyes were normal. Pupils were round, equal, and reactive to light. Sclerae was white. Conjunctiva was pink. Extraocular movements could not be assessed, but probably normal. Temporal arteries were palpable bilaterally. There was no bilateral temporal wasting. Visual smallwood to confrontation. Neglect sign could not be assessed. ENT, mucous membranes 06:14 were not dehydrated. Auditory canals were clear and tympanic membranes could not be visualized. Nasal cavity was not congested. Nasal septum was intact. Soft palate was free of ulcerations. Pharynx was clear from exudate and tonsillar hypertrophy. Uvula alise to phonation. Tongue was moist, midline, and normally papillated. NECK: Supple. There was no goiter. No mass. No lymphadenopathy. There was no JVD, no bruit. Carotid upstroke was 2+. Tracheostomy site was closed and clean. LUNGS: Clear. HEART: PMI was at fifth left intercostal space in midclavicular line. Normal S1 and normal S2. There was no murmur. No arrhythmia. No S3. No S4. No pericardial rub. ABDOMEN: Soft and nontender without organomegaly. There were no masses palpable. Normal bowel sounds without bruit. There was no guarding. No rebound tenderness. No ascites. No hernia. No CVA tenderness. Liver span was 8 cm, mostly nontender. EXTREMITIES: No cyanosis, no clubbing, and no edema. Extremities were warm. NEUROLOGIC: Reflexes in biceps, triceps, and brachioradialis were present. Patellar retinaculum was present. Plantars were in extension on the right, flexion on the left. Cranial nerves from II through XII were symmetric and equal. Cerebellar function, there was no tremor. No nystagmus. No extrapyramidal rigidity. Sensory exam to pinprick, cotton touch, position, and motor strength could not be assessed because of the patient's agitation, but presumed normal except the right hemiparesis of the patient. LABORATORY DATA: Hemoglobin 14.1, hematocrit 40.6, MCV of 79, WBC of 5.2, and platelets 139,000. His BUN and creatinine is 22 and 0.8 respectively. Sodium is 129, potassium 4.1, chloride 100, and CO2 is 27. His liver function tests are normal. His troponin was undetected. His albumin is 4.3 and total protein is 7.4. IMPRESSION AND PLAN: 1. The patient has hypoxia in the extended care facility, for which reason the patient was transferred by emergency medical services 911 and not by regular ambulance. 2. The patient has multiple chronic medical syndromes, 09:14 is chronic psychosis with agitation. In addition, the patient has chronic obstructive pulmonary disease, cardiomyopathy, hyperlipidemia, hypervitaminosis D, status post craniotomy, status post tracheostomy, and decannulation. The patient is already undergoing extensive examination. Psychiatric customs consultant has been called to assist in the management of this case. Geo Pop M.D. DR: ARMINDA JOB#: [id number] CC:
[2017-03-08 12:07] VITALS: BP 99/54
--- NOTE | 2017-03-08 13:10 | Wound Care Consultation ---
Wound Assessment Wound Assessment #1: Wound Number: #1 Wound Present on Admission: Yes New Wound: No Status Change of Wound: No Wound Location Body Site Modif: left, anterior Wound Location Body Site: toe - big Wound Type: traumatic injury Karen Test: Does not Karen Wound Thickness: Partial Thickness Wound Length: 1.5 Wound Width: 1.0 Wound Depth: 0.1 Percent of Wound Primera/Red: 100 Wound Drainage Description: Serosanguineous Wound Drainage Amount: Scant Wound Drainage Odor: None/Absent Tissue Surrounding Wound: Intact Wound General Appearance: Reddened Wound Assessment #2: Wound Number: #2 Wound Present on Admission: Yes New Wound: No Status Change of Wound: No Wound Location Body Site Modif: left, lower Wound Location Body Site: leg Wound Type: scab - scattered Karen Test: Does not Karen Wound Drainage Amount: None Wound Drainage Odor: None/Absent Tissue Surrounding Wound: Intact Wound General Appearance: Asymptomatic Wound Assessment #3: Wound Number: #3 Wound Present on Admission: Yes New Wound: No Status Change of Wound: No Wound Location Body Site Modif: left Wound Location Body Site: hand Wound Type: traumatic injury Karen Test: Does not Karen Wound Thickness: Partial Thickness Wound Length: 4.0 Wound Width: 4.0 Wound Depth: 0.1 Percent of Wound Primera/Red: 100 Wound Drainage Amount: None Wound Drainage Odor: None/Absent Tissue Surrounding Wound: Intact Wound General Appearance: Reddened, Draining Wound Comment #1 Skin tear on left hand #2 Left lower leg with scattered scabs #3 Left anterior big toe skin tear Recommendation -Turn and reposition -Keep clean and dry -Optimize nutrition -Local wound care per protocol -Offload both heels -Heel protector on both heels -Assess and f/u accordingly for any changes MICHEL HOPPER RN Mar 08, 2017 13:10
[2017-03-08] MEDS ORDERED: Zolpidem 5mg tab ORAL PRN (14:45)
[2017-03-08] MEDS ORDERED: Miralax 17gm pkt ORAL PRN (14:45)
[2017-03-08 15:36] VITALS: BP 99/65
--- NOTE | 2017-03-08 19:15 | Pulmonology Progress Note ---
Assessment/Plan Problems: (1) Encephalopathy acute (2) Tachycardia (3) Feeding by G-tube (4) Psychomotor agitation Assessment/Plan xr today respiratory treatment f/u clinically psych evaluation appreciated Subjective ROS Limited/Unobtainable: No Interval Events: was SOB and wheezing Allergies: Coded Allergies: No Known Allergies (Unverified , 03/14/16) Objective Last 24 Hour Vital Signs Date Time Temp Pulse Resp B/P Pulse Ox O2 Delivery O2 Flow Rate FiO2 03/08/17 18:00 82 99/65 03/08/17 15:36 97.2 82 19 99/65 97 Nasal Cannula 2.0 03/08/17 12:07 97.0 75 19 99/54 95 Nasal Cannula 2.0 03/08/17 08:01 94 108/67 03/08/17 07:50 97.0 94 21 108/67 95 Nasal Cannula 2.0 03/08/17 04:00 97.2 60 20 140/83 98 Nasal Cannula 2.0 03/08/17 00:00 97.0 81 20 105/46 97 Nasal Cannula 2.0 03/07/17 20:00 98.6 89 21 109/55 93 Room Air Intake and Output 03/07/17 03/08/17 19:00 07:00 Intake Total 350 ml Balance 350 ml Free Water 200 ml Tube Feeding 150 ml # Voids 2 5 General Appearance: WD/WN HEENT: normocephalic, atraumatic Respiratory/Chest: chest wall non-tender, lungs clear Cardiovascular: normal peripheral pulses, normal rate Abdomen: normal bowel sounds, soft, non tender Genitourinary: normal external genitalia Extremities: no cyanosis Neurologic/Psychiatric: legal support manager II-XII grossly normal Lymphatic: no neck adenopathy Musculoskeletal: normal muscle bulk Current Medications Medications (Trade) Dose Ordered Sig/[place] Route PRN Reason Start Time Stop Time Status Last Admin Dose Admin Acetaminophen (Tylenol) 650 mg Q4H PRN ORAL fever 03/07/17 18:45 04/06/17 18:44 Acetaminophen/ Hydrocodone Bitart ([place] 5/325) 1 tab Q8H PRN GT For Pain 4-6 03/07/17 22:45 03/14/17 22:44 03/08/17 08:03 Al Hydroxide/Mg Hydroxide (Mylanta II) 30 ml Q6H PRN ORAL dyspepsia 03/07/17 20:45 04/06/17 20:44 Carvedilol (Coreg) 12.5 mg BID GT 03/07/17 18:00 04/06/17 17:59 03/07/17 18:46 Dextrose (Dextrose 50%) STAT PRN IV Hypoglycemia 03/08/17 14:45 04/07/17 14:44 Levetiracetam (Keppra) 1,000 mg Q12HR GT 03/07/17 21:00 04/06/17 20:59 03/08/17 08:00 Lorazepam (Ativan 2mg/ml 1ml) 2 mg EVERY 6 HOURS PRN IV For Anxiety 03/07/17 18:45 03/14/17 18:44 03/07/17 18:46 Morphine Sulfate (Morphine Sulfate) 1 mg Q4H PRN IVP For Pain 7-10 03/07/17 18:45 03/14/17 18:44 Ondansetron HCl (Zofran) 4 mg Q6H PRN IVP Nausea & Vomiting 03/07/17 20:45 04/06/17 20:44 Polyethylene Glycol (Miralax) 17 gm HSPRN PRN ORAL Constipation 03/08/17 14:45 04/07/17 14:44 Quetiapine Fumarate (SEROquel) 50 mg Q4H PRN GT agitation 03/07/17 21:00 04/06/17 20:59 03/08/17 08:00 Valproic Acid (Depakene) 500 mg EVERY 12 HOURS GT 03/07/17 21:00 04/06/17 20:59 03/08/17 08:00 Zolpidem Tartrate (Ambien) 5 mg HSPRN PRN ORAL Insomnia 03/07/17 18:30 04/06/17 18:29 03/07/17 21:20 BRIDGET SUMMERS Mar 08, 2017 19:15
[2017-03-08 19:55] VITALS: BP 87/61
--- NOTE | 2017-03-08 22:30 | Progress Note ---
DATE: 03/08/2017 SUBJECTIVE: The patient is calmer and was found asleep, more cooperative, and less agitated. No self injurious behavior. MENTAL STATUS EXAMINATION: The patient is confused. No behavior issues. Mood is neutral. Affect is constricted. Congruent with mood. Thought process is concrete. Thought content, no suicidal or homicidal ideation. ASSESSMENT: Stable. PLAN: The patient will be continued on current medication. We will continue to follow and readjust the medications. Jeffrey Stern M.D. DR: DINA JOB#: [id number] CC:
[2017-03-09 00:28] VITALS: BP 99/69
[2017-03-09 04:00] VITALS: BP 96/56
[2017-03-09 08:00] VITALS: BP 100/55
[2017-03-09] MEDS: Carvedilol 12.5mg tab GT SCH (08:43)
[2017-03-09] MEDS: Norco 5mg/325mg tab GT PRN (08:43)
[2017-03-09] MEDS: Valproic Acid 250mg/5ml Liquid GT SCH (08:43)
[2017-03-09] MEDS: levETIRAcetam 500mg/5ml Liquid GT SCH (08:44)
--- NOTE | 2017-03-09 08:44 | Cardiology Report ---
APPROVED REPORT EXAM: Two-dimensional and M-mode echocardiogram with Doppler and color Doppler. INDICATION Pericardial disease M-Mode DIMENSIONS IVSd1.6 (0.7-1.1cm)Left Atrium (MM)2.9 (1.6-4.0cm) LVDd5.0 (3.5-5.6cm)Aortic Root2.9 (2.0-3.7cm) PWd0.9 (0.7-1.1cm)Aortic Cusp Exc.2.0 (1.5-2.0cm) LVDs4.3 (2.5-4.0cm) PWs1.3 cm Technically difficult study due to poor acoustic windows. Normal left ventricular chamber size. Mid to distal septal and apical septal hypokinesis. Left ventricular ejection fraction estimated to be 50 %. Mild left ventricular hypertrophy. Small posterior pericardial fat or effusion. Mild bi-atrial enlargement by 2D. Focal aortic valve sclerosis with adequate cusp excursion Thickened mitral valve leaflets with normal excursion. Mitral annulus and aortic root calcification. Pulmonic valve not well visualized. Normal tricuspid valve structure. IVC is normal in size with physiological collapse. Probable pacemaker wire present in the right side chambers. A color flow and spectral Doppler study was performed and revealed: No aortic regurgitation. Mild mitral regurgitation (2 jets). Left ventricular diastolic dysfunction grade 1. No tricuspid regurgitation.
--- NOTE | 2017-03-09 10:15 | Progress Note ---
DATE: 03/08/2017 SUBJECTIVE: The patient assessed yesterday by the psychiatrist, who has made several changes in psychiatric management. PHYSICAL EXAMINATION: VITAL SIGNS: Blood pressure is 87/61, his pulse is 78, respirations were 18, and temperature 98.1 degrees. HEENT: Eyes were normal. ENT, mucous membranes were moist and intact. NECK: Supple with no JVD without lymph nodes. LUNGS: Clear. HEART: Normal sounds with regular beat. There is no tachycardia at rest. ABDOMEN: Soft and nontender with normal bowel sounds. Gastrostomy site is clean. EXTREMITIES: Warm without cyanosis, clubbing, or edema. LABORATORY DATA: No new laboratory data was available at the time of this dictation. IMPRESSION AND PLAN: The patient has severe agitation. had been discontinued q.4 h. Benzodiazepine would be reduced. Benztropine will be discontinued. Repeat laboratory tests will be done in the morning. The patient's condition is moderately improved, but he remained agitated and he cannot be discharged in this status back to the extended care facility. Geo Pop M.D. DR: Nilam JOB#: [id number] CC:
[2017-03-09 10:41] LABS: BASOPHILS % (AUTO) 0.2 % (0.0-2.0); EOSINOPHILS % (AUTO) 1.4 % (0.0-3.0); LYMPHOCYTES % (AUTO) 21.3 % (20.0-45.0); MEAN CORPUSCULAR HGB CONC 35.2 G/DL (32.0-36.0); MEAN CORPUSCULAR VOLUME 99 FL (80-99); MEAN PLATELET VOLUME 9.3 FL (6.5-10.1); MONOCYTES % (AUTO) 10.1 % (1.0-10.0); PLATELET COUNT 124 K/UL (150-450); RED BLOOD COUNT 3.69 M/UL (4.70-6.10); RED CELL DISTRIBUTION WIDTH 11.4 % (11.6-14.8); WHITE BLOOD COUNT 6.3 K/UL (4.8-10.8)
[2017-03-09 10:59] LABS: ALANINE AMINOTRANSFERASE 11 U/L (3-41); ALBUMIN/GLOBULIN RATIO 1.1 (1.0-2.7); ANION GAP 12 (5-15); ASPARTATE AMINO TRANSFERASE 23 U/L (5-40); CALCIUM 9.3 mg/dL (8.6-10.2); CARBON DIOXIDE 27 mEQ/L (20-30); CHLORIDE 108 mEQ/L (98-107); CREATININE 0.8 mg/dL (0.7-1.2); GLOMERULAR FILTRATION RATE > 60 mL/min (>60); HEMOLYSIS 5; MAGNESIUM 2.2 mg/dL (1.7-2.5); POTASSIUM 3.9 mEQ/L (3.4-4.9); SODIUM 147 mEQ/L (135-145)
--- NOTE | 2017-03-09 11:43 | Diagnostic Imaging Report ---
Indications: Shortness of breath Technique: Portable AP chest Findings: Comparison: 03/05/17 Cardiac silhouette remains normal in size. Pulmonary vasculature remains within normal limits. Lungs and pleura remain clear. Left chest wall pacemaker remains in place.. IMPRESSION: No evidence of acute disease, unchanged Stable chronic changes as described
[2017-03-09 12:00] VITALS: BP 89/47
--- NOTE | 2017-03-09 15:13 | Pulmonology Progress Note ---
Assessment/Plan Problems: (1) Encephalopathy acute (2) Tachycardia (3) Feeding by G-tube (4) Psychomotor agitation Assessment/Plan cxr from today reviewed, all clear. respiratory treatment f/u clinically psych evaluation appreciated dc to snif Subjective ROS Limited/Unobtainable: No Constitutional: Reports: no symptoms HEENT: Repors: no symptoms Respiratory: Reports: no symptoms Allergies: Coded Allergies: No Known Allergies (Unverified , 03/14/16) Objective Last 24 Hour Vital Signs Date Time Temp Pulse Resp B/P Pulse Ox O2 Delivery O2 Flow Rate FiO2 03/09/17 12:00 98.1 87 19 89/47 97 Nasal Cannula 03/09/17 10:50 97.9 03/09/17 08:43 69 100/55 03/09/17 08:00 97.9 69 19 100/55 96 Nasal Cannula 03/09/17 04:00 98.1 90 18 96/56 93 Nasal Cannula 2.0 03/09/17 00:28 98.2 78 19 99/69 100 Nasal Cannula 2.5 03/08/17 19:55 98.1 78 18 87/61 99 Nasal Cannula 2.5 03/08/17 18:00 82 99/65 03/08/17 15:36 97.2 82 19 99/65 97 Nasal Cannula 2.0 Intake and Output 03/08/17 03/09/17 19:00 07:00 Intake Total 430 ml 30 ml Balance 430 ml 30 ml Free Water 100 ml Tube Feeding 330 ml 30 ml # Voids 1 3 General Appearance: WD/WN HEENT: normocephalic, atraumatic Respiratory/Chest: chest wall non-tender, lungs clear Cardiovascular: normal peripheral pulses, normal rate Extremities: no cyanosis Neurologic/Psychiatric: smocker II-XII grossly normal, abnormal gait Laboratory Tests 03/09/17 10:30: White Blood Count 6.3, Red Blood Count 3.69L, Hemoglobin 12.9L, Hematocrit 36.7L , Mean Corpuscular Volume 99, Mean Corpuscular Hemoglobin 35.0H, Mean Corpuscular Hemoglobin Concent 35.2, Red Cell Distribution Width 11.4L, Platelet Count 124L, Mean Platelet Volume 9.3, Neutrophils (%) (Auto) 67.0, Lymphocytes (%) (Auto) 21.3, Monocytes (%) (Auto) 10.1H, Eosinophils (%) (Auto) 1.4, Basophils (%) (Auto) 0.2, Sodium Level 147H, Potassium Level 3.9, Chloride Level 108H, Carbon Dioxide Level 27, Anion Gap 12, Blood Urea Nitrogen 25H, Creatinine 0.8, Estimat Glomerular Filtration Rate > 60, Glucose Level 116H, Calcium Level 9.3, Phosphorus Level 3.0, Magnesium Level 2.2, Total Bilirubin 0.8, Aspartate Amino Transf (AST/SGOT) 23, Alanine Aminotransferase (ALT/SGPT) 11, Alkaline Phosphatase 64, Total Protein 7.0, Albumin 3.8, Globulin 3.2, Albumin/Globulin Ratio 1.1 Current Medications Medications (Trade) Dose Ordered Sig/[place]onte Route PRN Reason Start Time Stop Time Status Last Admin Dose Admin Acetaminophen (Tylenol) 650 mg Q4H PRN ORAL fever 03/07/17 18:45 04/06/17 18:44 Acetaminophen/ Hydrocodone Bitart ([place] 5/325) 1 tab Q8H PRN GT For Pain 4-6 03/07/17 22:45 03/14/17 22:44 03/09/17 08:43 Al Hydroxide/Mg Hydroxide (Mylanta II) 30 ml Q6H PRN ORAL dyspepsia 03/07/17 20:45 04/06/17 20:44 Carvedilol (Coreg) 12.5 mg BID GT 03/07/17 18:00 04/06/17 17:59 03/07/17 18:46 Dextrose (Dextrose 50%) STAT PRN IV Hypoglycemia 03/08/17 14:45 04/07/17 14:44 Levetiracetam (Keppra) 1,000 mg Q12HR GT 03/07/17 21:00 04/06/17 20:59 03/09/17 08:44 Lorazepam (Ativan 2mg/ml 1ml) 2 mg EVERY 6 HOURS PRN IV For Anxiety 03/07/17 18:45 03/14/17 18:44 03/07/17 18:46 Morphine Sulfate (Morphine Sulfate) 1 mg Q4H PRN IVP For Pain 7-10 03/07/17 18:45 03/14/17 18:44 Ondansetron HCl (Zofran) 4 mg Q6H PRN IVP Nausea & Vomiting 03/07/17 20:45 04/06/17 20:44 Polyethylene Glycol (Miralax) 17 gm HSPRN PRN ORAL Constipation 03/08/17 14:45 04/07/17 14:44 Quetiapine Fumarate (SEROquel) 50 mg Q4H PRN GT agitation 03/07/17 21:00 04/06/17 20:59 03/09/17 13:55 Valproic Acid (Depakene) 500 mg EVERY 12 HOURS GT 03/07/17 21:00 04/06/17 20:59 03/09/17 08:43 Zolpidem Tartrate (Ambien) 5 mg HSPRN PRN ORAL Insomnia 03/07/17 18:30 04/06/17 18:29 03/07/17 21:20 BRIDGET SUMMERS Mar 09, 2017 15:13
[2017-03-09 16:01] VITALS: BP 100/60
--- NOTE | 2017-03-10 00:30 | Progress Note ---
DATE: 03/09/2017 SUBJECTIVE: The patient has been calmer last night. Note that he has been on one-to-one for safety issues and agitation. The patient is now presenting with self injuries behaviors. He is still confused, disoriented, and not engaged during the evaluation. MENTAL STATUS EXAMINATION: The patient was found in no acute distress. Still has episodes of agitation. Mood is neutral during the evaluation. Affect is constricted, congruent with mood. Thought process is concrete. Thought content, there is no suicidal or homicidal ideation. Cognition is impaired. ASSESSMENT: 1. Encephalopathy. 2. Agitation. PLAN: 1. We will continue the Seroquel 50 mg q.4 hours as needed. 2. We will continue to follow and readjust the medication. Jeffrey Stern M.D. DR: GALINA JOB#: [id number] CC:
--- NOTE | 2017-03-11 10:54 | Discharge Summary ---
Discharge Summary Hospital Course Date of Admission Mar 05, 2017 at 13:20 Date of Discharge Mar 09, 2017 at 18:00 Admitting Diagnosis encephalopathy, ams HPI Raheem Jimenez is a 51 year old male who was admitted on Mar 05, 2017 at 13:20 for Encephalopathy, Altered Mental Status Hospital Course [id number] Discharge Discharge Disposition Patient was discharged to snf Discharge Diagnoses: Kirstin Avila NP Mar 11, 2017 10:54
--- NOTE | 2017-03-12 06:01 | Discharge Summary 2 SIG ---
DATE OF ADMISSION: 03/05/2017 DATE OF DISCHARGE: 03/09/2017 CONSULTANTS: 1. Jeffrey Stern M.D. 2. Geo Pop M.D. BRIEF HOSPITAL COURSE: The patient is a 51-year-old male with organic brain injury, status post craniotomy, seizure disorder, and psychiatric disorder, presented from long term facility due to reports of agitation. He was found to be agitated and was aggressive physically. En route, was given 5 mg of Versed and on arrival to ED, was fairly sedated, responsive to physical stimuli. On work-up at ED, Depakote level 93. Head CT showed a large right frontotemporoparietal craniectomy with extensive encephalomalacia, negative for acute intracranial bleed with a rightward midline shift presumably extraaxial phenomenon. He was then admitted to telemetry for acute encephalopathy and agitation. The patient is not appropriate candidate for alf and required further inpatient intervention. He was provided a sitter for patient safety and was placed on seizure precautions. He was continued on Depakote and Keppra. He was initially tachycardic on presentation, which eventually resolved. He had psychiatric evaluation done. The patient remained confused and unable to focus. He was disorganized and had cognitive impairment. Risperdal and benztropine were discontinued and was given Seroquel q.4 hours p.r.n. He was eventually downgraded to medical floor. Venous duplex of lower extremity was negative for DVT. He had echocardiogram done that showed left ventricular ejection fraction of 50% with grade 1 diastolic dysfunction. Chest x-ray was clear. He came in with a skin tear on the left hand and left big toe and was provided local wound care.The patient was eventually discharged back to SNF. FINAL DIAGNOSES: 1. Acute encephalopathy. 2. Tachycardia. 3. Psychomotor agitation. 4. Feeding by G-tube. 5. Paroxysmal atrial fibrillation. 6. 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 7. Right craniectomy secondary to cerebral hemorrhage. 8. Seizure disorder. 9. Agitation. 10. Delirium. 11. Head trauma. 12. Skin tear on left hand and foot, present on admission. DISPOSITION: The patient was discharged to [place]. DISCHARGE MEDICATIONS: Refer to medication list. Aris Molina M.D. I have been assigned to dictate discharge summary on this account and I was not involved in the patient's management. Kristin Avila N.P. DR: MIRELLA JOB#: [id number] CC: BLAKE
== END 2017-03-09 18:00 | DRG 52 ==
LOC: EDBD 12:26 → EMR 12:55 → EDBEDREQ 13:04 → 2E 13:20 → EDBEDREQ 13:34 → 4W 03-07 15:13
DX: G93.41 Metabolic encephalopathy (principal); I50.9 Heart failure, unspecified; Z43.0 Encounter for attention to tracheostomy; I48.0 Paroxysmal atrial fibrillation; I69.354 Hemiplegia and hemiparesis following cerebral infarction affecting left non-dominant side; R13.10 Dysphagia, unspecified; G40.909 Epilepsy, unspecified, not intractable, without status epilepticus; Z95.810 Presence of automatic (implantable) cardiac defibrillator; R53.2 Functional quadriplegia; Z43.1 Encounter for attention to gastrostomy; R45.1 Restlessness and agitation; R41.0 Disorientation, unspecified; F20.9 Schizophrenia, unspecified; Z87.820 Personal history of traumatic brain injury; F28 Other psychotic disorder not due to a substance or known physiological condition; E78.5 Hyperlipidemia, unspecified; S91.112A Laceration without foreign body of left great toe without damage to nail, initial encounter; X58.XXXA Exposure to other specified factors, initial encounter; R00.0 Tachycardia, unspecified
CPT/HCPCS: 36415; 70450; 71010; 80053; 80061; 80164; 81003; 82550; 82553; 82962; 83735; 84100; 84443; 84484; 85007; 85025; 87081; 93005; 93306; 93970; J2250

== ENCOUNTER 2018-09-06 14:21 | Inpatient (IN) | payer MEDICAID ==
[~2018-09-06] VITALS: Ht 175.3 cm; Wt 82.1 kg
[~2018-09-06 14:21] MED LIST changes: +BENZTROPINE MESY1 MG GT; +DOCUSATE SODIU100 MG GT; +MILK OF MA2400 MG/10 ORAL; +QUETIAPINE FUMA25 MG GT
--- NOTE | 2018-09-06 14:40 | Emergency Room Report ---
History of Present Illness General Chief Complaint: Dyspnea/Respdistress Source: EMS Present Illness HPI Patient is a 53-year-old male brought in by EMS after increased difficulty breathing. Patient was noted to have DNR status. Patient had previous history of tracheostomy placement. At this is been removed. Patient had unspecified encephalopathy and generalized weakness. Prior history of seizure disorder and had been on Keppra. Patient was also on Depakote history is limited by patient' s mental status and acuity. Patient was noted to be markedly short of breath. Allergies: Coded Allergies: No Known Allergies (Unverified , 03/14/16) Nursing Documentation-[facility] Past Medical History: No History, Except For Hx Hypertension: Yes Hx Pacemaker: Yes Hx Cancer: No Hx Gastrointestinal Problems: Yes - GERD History Of Psychiatric Problem: Yes - BIPOLAR, SCHIZO Hx Neurological Problems: Yes Hx Cerebrovascular Accident: Yes - Cerebral hemorrhage Hx Seizures: Yes - EPILEPSY Hx Speech Problem: Yes Hx Weakness: Yes - L sided hemiparesis Physical Exam Vital Signs Date Time Temp Pulse Resp B/P (MAP) Pulse Ox O2 Delivery O2 Flow Rate FiO2 09/06/18 14:18 117 37 145/106 73 Room Air Sp02 EP Interpretation: abnormal General Appearance: alert, Chronically Ill ENT: dry mucus membranes Neck: limited range of motion Respiratory: respiratory distress, wheezing Cardiovascular #1: normal inspection, JVD Gastrointestinal: normal inspection, non tender, soft Neurologic: responsive, motor weakness - moves upper extremity, other - confused Skin: cyanosis, diaphoresis Procedures Critical Care Time Critical Care Time Patient had a critical medical condition which untreated could potentially result in life or limb threatening injury. Total critical care time excluding procedures approximately 45 minutes. Medical Decision Making Diagnostic Impression: Primary Impression: Acute respiratory failure Additional Impressions: Encephalopathy acute Metabolic acidosis ER Course Patient is a 53-year-old male presented after increased shortness of breath. Differential diagnosis include was not limited to congestive heart failure, pneumothorax, COPD exacerbation among others. Because of complexity of patient' s case laboratory testing and imaging studies were ordered.Patient was noted to have severe difficulty breathing. Per patient's paperwork patient is not to be intubated or resuscitated. Patient started on BiPAP. Patient was given IV fluids as well as IV antibiotics. Patient was noted to have initial metabolic acidosis with initial lactate greater than 5. Patient was noted to have improvement and repeat lactate. Patient was noted to have some drop in his blood pressure. Patient was admitted to stepdown unit. Dr. Axel Saez was contacted for inpatient management due to covering physician for Dr. Kong. Laboratory Tests Test 09/06/18 14:40 White Blood Count 10.0 K/UL (4.8-10.8) Red Blood Count 4.44 M/UL (4.70-6.10) L Hemoglobin 15.1 G/DL (14.2-18.0) Hematocrit 45.1 % (42.0-52.0) Mean Corpuscular Volume 102 FL (80-99) H Mean Corpuscular Hemoglobin 34.0 PG (27.0-31.0) H Mean Corpuscular Hemoglobin Concent 33.5 G/DL (32.0-36.0) Red Cell Distribution Width 12.9 % (11.6-14.8) Platelet Count 149 K/UL (150-450) L Mean Platelet Volume 9.1 FL (6.5-10.1) Neutrophils (%) (Auto) 69.3 % (45.0-75.0) Lymphocytes (%) (Auto) 22.4 % (20.0-45.0) Monocytes (%) (Auto) 6.0 % (1.0-10.0) Eosinophils (%) (Auto) 1.3 % (0.0-3.0) Basophils (%) (Auto) 1.0 % (0.0-2.0) Sodium Level 148 MMOL/L (136-145) H Potassium Level 4.4 MMOL/L (3.5-5.1) Chloride Level 107 MMOL/L (98-107) Carbon Dioxide Level 26 MMOL/L (21-32) Anion Gap 15 mmol/L (5-15) Blood Urea Nitrogen 27 mg/dL (7-18) H Creatinine 1.3 MG/DL (0.55-1.30) Estimate Glomerular Filtration Rate 57.7 mL/min (>60) Glucose Level 397 MG/DL (74-106) H Lactic Acid Level 5.70 mmol/L (0.4-2.0) H 2.90 mmol/L (0.66-2.22) H Calcium Level 8.7 MG/DL (8.5-10.1) Phosphorus Level 8.0 MG/DL (2.5-4.9) H Magnesium Level 2.1 MG/DL (1.8-2.4) Total Bilirubin 0.7 MG/DL (0.2-1.0) Aspartate Amino Transferase (AST) 18 U/L (15-37) Alanine Aminotransferase (ALT) 13 U/L (12-78) Alkaline Phosphatase 69 U/L (46-116) Total Creatine Kinase 100 U/L (26-308) Creatine Kinase MB 1.2 NG/ML (0.0-3.6) Creatine Kinase MB Relative Index 1.2 Troponin I 0.018 ng/mL (0.000-0.056) Total Protein 8.0 G/DL (6.4-8.2) Albumin 3.2 G/DL (3.4-5.0) L Globulin 4.8 g/dL Albumin/Globulin Ratio 0.7 (1.0-2.7) L Urine Color Yellow Urine Appearance Cloudy Urine pH 5 (4.5-8.0) Urine Specific [place] 1.020 (1.005-1.035) Urine Protein 3+ (NEGATIVE) H Urine Glucose (UA) Negative (NEGATIVE) Urine Ketones 1+ (NEGATIVE) H Urine Blood 4+ (NEGATIVE) H Urine Nitrite Negative (NEGATIVE) Urine Bilirubin Negative (NEGATIVE) Urine Urobilinogen 1 MG/DL (0.0-1.0) H Urine Leukocyte Esterase 2+ (NEGATIVE) H Urine RBC 40-60 /HPF (0 - 0) H Urine WBC 40-60 /HPF (0 - 0) H Urine Squamous Epithelial Cells Few /LPF (NONE/OCC) Urine Bacteria Few /HPF (NONE) Urine Coarse Granular Casts 0-2 /LPF (NONE) H Differential Total Cells Counted Neutrophils % (Manual) Lymphocytes % (Manual) Monocytes % (Manual) Eosinophils % (Manual) Basophils % (Manual) Band Neutrophils Platelet Estimate Platelet Morphology Red Blood Cell Morphology Test 09/07/18 09:20 Arterial Blood pH 7.428 (7.350-7.450) Arterial Blood Partial Pressure CO2 42.7 mmHg (35.0-45.0) Arterial Blood Partial Pressure O2 181.5 mmHg (75.0-100.0) H Arterial Blood HCO3 27.6 mmol/L (22.0-26.0) H Arterial Blood Oxygen Saturation 98.8 % (95-100) Arterial Blood Base Excess 2.9 (-2-2) H Booker Test Positive Last Vital Signs Date Time Temp Pulse Resp B/P (MAP) Pulse Ox O2 Delivery O2 Flow Rate FiO2 09/06/18 14:18 117 37 145/106 73 Room Air Status: unchanged Disposition: ADMITTED INPATIENT Condition: Serious Hudson Hawley MD Sep 06, 2018 14:40
[2018-09-06] MEDS ORDERED: Albuterol/Ipratropium 3ml neb HHN ONE (14:45)
--- NOTE | 2018-09-06 15:26 | NUR ---
ED Nurse Note: Pt BIBA from [facility] due to low oxygen saturation. Pt appeared blue in color upon arrival to the ED. Pt was appeared to be restless. ERMD ordered bipap with settings of 12/ RW 16 at 100%. Pt skin cool to touch and clammy. Pt nonverbal and a DNR. Pt's eye red in color. Pt saturation went up to 100% on bipap. Xray has been completed.
[2018-09-06 15:28] VITALS: BP 145/106
[2018-09-06] MEDS ORDERED: Piperacillin/Tazobactam 3.375 GM in NS 110 ML IVPB ONE (15:30)
[2018-09-06 15:31] LABS: EOSINOPHILS % (AUTO) 1.3 % (0.0-3.0); HEMATOCRIT 45.1 % (42.0-52.0); HEMOGLOBIN 15.1 G/DL (14.2-18.0); LYMPHOCYTES % (AUTO) 22.4 % (20.0-45.0); MEAN CORPUSCULAR VOLUME 102 FL (80-99); NEUTROPHILS % (AUTO) 69.3 % (45.0-75.0); PLATELET COUNT 149 K/UL (150-450); RED BLOOD COUNT 4.44 M/UL (4.70-6.10); RED CELL DISTRIBUTION WIDTH 12.9 % (11.6-14.8)
[2018-09-06 15:36] LABS: ANION GAP 15 mmol/L (5-15); BLOOD UREA NITROGEN 27 mg/dL (7-18); CALCIUM 8.7 MG/DL (8.5-10.1); CARBON DIOXIDE 26 MMOL/L (21-32); CHLORIDE 107 MMOL/L (98-107); CREATININE 1.3 MG/DL (0.55-1.30); POTASSIUM 4.4 MMOL/L (3.5-5.1); SODIUM 148 MMOL/L (136-145)
[2018-09-06 15:50] LABS: ALANINE AMINOTRANSFERASE 13 U/L (12-78); ALBUMIN 3.2 G/DL (3.4-5.0); ALBUMIN/GLOBULIN RATIO 0.7 (1.0-2.7); ALKALINE PHOSPHATASE 69 U/L (46-116); ASPARTATE AMINO TRANSFERASE 18 U/L (15-37); BILIRUBIN,TOTAL 0.7 MG/DL (0.2-1.0); CKMB 1.2 NG/ML (0.0-3.6); CREATINE KINASE 100 U/L (26-308)
--- NOTE | 2018-09-06 15:56 | NUR ---
ED Nurse Note: Pt noted to have a gtube site on the mid abdomen. Dressing dry and intact.
[2018-09-06 16:50] VITALS: BP 80/58
[2018-09-06] MEDS ORDERED: Acetaminophen 650mg/20.3ml GT PRN (17:00)
[2018-09-06] MEDS ORDERED: Miralax 17gm pkt ORAL PRN (17:00)
[2018-09-06] MEDS ORDERED: Albuterol/Ipratropium 3ml neb HHN PRN (17:00)
--- NOTE | 2018-09-06 17:19 | Diagnostic Imaging Report ---
Indication: Chest pain, shortness of breath Technique: One view of the chest Comparison: 03/09/2017 Findings: Interim development of bilateral interstitial and airspace opacities, left greater than right, mostly perihilar an infrahilar on the left, suprahilar on the right. The pleural spaces are grossly clear. The heart size is upper limits of normal. Left chest AICD is again demonstrated Impression: Bilateral left greater than right infiltrates versus edema
--- NOTE | 2018-09-06 17:21 | NUR ---
ED Nurse Note: Lactic acid reflex sent down to lab.
--- NOTE | 2018-09-06 17:31 | NUR ---
ED Nurse Note: Roberta telephone report to HETAL Ayala. Waiting for admission packet.
--- NOTE | 2018-09-06 17:44 | NUR ---
ED Nurse Note: Pt transferred up to unit w/ RT and RN. No acute distress noted. Pt did not have belongings.
--- NOTE | 2018-09-06 17:50 | NUR ---
NURSE NOTES: Received patient from ER. Placed comfortably in bed by 4 staff. Patient is agitated and combative at this time. Placed patient on Bipap per order. Contact isolation observed. Condom catheter placed. One bowel movement noted. GT noted. Will admit to SDU standard level of care. host/hostess restaurant applied.
[2018-09-06 18:00] VITALS: BP 103/62
[2018-09-06] MEDS ORDERED: Benztropine 1mg tab GT SCH (18:00)
--- NOTE | 2018-09-06 19:24 | NUR ---
HAND-OFF: Report given to Raegan Collier RN.
--- NOTE | 2018-09-06 19:25 | NUR ---
NURSE NOTES: Received patient from [facility] FONG.Patient is confused and agitated. on BiPAP / 60% rate 16 with good seal around mask, no leaks. no respiratory distress noted. SR w/BBB on monitor. BP 121/76 HR 77 Temp 97.9. no sign of pain at this time.condom cath in place with straw urine . skin intact. keep clean and dry. 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
[2018-09-06 20:00] VITALS: BP 121/76
[2018-09-06] MEDS ORDERED: Vancomycin 1.5gm/D5W 275ml IVPB SCH (20:00)
[2018-09-06] MEDS ORDERED: CRANBERRY425 MG GT (20:41)
[2018-09-06] MEDS ORDERED: QUETIAPINE FUMA50 MG GT (20:48)
[2018-09-06] MEDS ORDERED: OMEPRAZOLE20 M2 GT (20:48)
[2018-09-06] MEDS ORDERED: MULTIVITAMINS1 EAC8 GT (20:48)
[2018-09-06] MEDS ORDERED: LEVETIRACE100 MG/1 M GT (20:48)
[2018-09-06] MEDS ORDERED: MELATONIN3 MG GT (20:48)
[2018-09-06] MEDS ORDERED: DEPAKENE L250 MG/5 M GT (20:48)
[2018-09-06] MEDS ORDERED: BACITRACIN ZIN1 EACH TOPIC (20:51)
[2018-09-06] MEDS: Benztropine 1mg tab GT SCH (22:04)
[2018-09-06] MEDS: levETIRAcetam 500mg/5ml Liquid GT SCH (22:05)
[2018-09-06] MEDS: Piperacillin/Tazobactam 3.375 GM in NS 110 ML IVPB SCH (22:05)
[2018-09-06] MEDS: Valproic Acid 250mg/5ml Liquid GT SCH (22:05)
[2018-09-06] MEDS: Heparin 5000 units/ml inj SUBQ SCH (22:07)
[2018-09-06] MEDS ORDERED: ACETAMINOP160 MG/5 M GT (22:33)
[2018-09-07] VITALS (11 sets, daily range): BP systolic 106–137; BP diastolic 63–89
[2018-09-07] MEDS ORDERED: Haloperidol 5mg/ml Inj IM PRN
[2018-09-07 00:09] LABS: BILIRUBIN, URINE NEGATIVE (NEGATIVE); GLUCOSE, URINE (UA) NEGATIVE (NEGATIVE); KETONES,URINE 1+ (NEGATIVE); LEUKOCYTE ESTERASE ,URINE 2+ (NEGATIVE); NITRITE,URINE NEGATIVE (NEGATIVE); PH,URINE 5 (4.5-8.0); PROTEIN,URINE 3+ (NEGATIVE); UROBILINOGEN,URINE 1 MG/DL (0.0-1.0)
[2018-09-07 00:19] LABS: APPEARANCE,URINE CLOUDY; COLOR,URINE YELLOW
--- NOTE | 2018-09-07 02:33 | NUR ---
NURSE NOTES: patient asleep . continue on BiPAP with no respiratory distress noted.o2 saturation is 98-100%.SR w/ BBB on monitor. HR of 82. no sign of pain. no episode of seizures. keep patient comfortable.
[2018-09-07 06:21] LABS: HEMATOCRIT 34.1 % (42.0-52.0); HEMOGLOBIN 11.7 G/DL (14.2-18.0); MEAN CORPUSCULAR VOLUME 99 FL (80-99); PLATELET COUNT 88 K/UL (150-450); RED BLOOD COUNT 3.46 M/UL (4.70-6.10); RED CELL DISTRIBUTION WIDTH 12.8 % (11.6-14.8); WHITE BLOOD COUNT 5.9 K/UL (4.8-10.8)
[2018-09-07 06:55] LABS: ALBUMIN 2.6 G/DL (3.4-5.0); ANION GAP 7 mmol/L (5-15); BLOOD UREA NITROGEN 28 mg/dL (7-18); CALCIUM 8.5 MG/DL (8.5-10.1); CARBON DIOXIDE 30 MMOL/L (21-32); CHLORIDE 112 MMOL/L (98-107); CREATININE 0.8 MG/DL (0.55-1.30); POTASSIUM 3.8 MMOL/L (3.5-5.1); SODIUM 149 MMOL/L (136-145)
[2018-09-07] MEDS: Piperacillin/Tazobactam 3.375 GM in NS 110 ML IVPB SCH ×2 (07:15→14:19)
--- NOTE | 2018-09-07 07:33 | NUR ---
HAND-OFF: Report given to DONAVANRN at bedside using SBAR.no respiratory distress noted with BiPAP.
--- NOTE | 2018-09-07 07:34 | NUR ---
NURSE NOTES: Received patient from HETAL Carlin. Patient in bed and currently on bipap. No respiratory distress. scene painter in placed. IV site is asymptomatic. Bed in lowest position with side rails up. Will continue to follow plan of care.
[2018-09-07] MEDS: Vancomycin 750mg/NS 275ml IVPB SCH ×4 (08:29→20:32)
[2018-09-07] MEDS: Valproic Acid 250mg/5ml Liquid GT SCH ×2 (08:29→20:33)
[2018-09-07] MEDS: Benztropine 1mg tab GT SCH ×2 (08:30→20:33)
[2018-09-07] MEDS: levETIRAcetam 500mg/5ml Liquid GT SCH ×2 (08:30→20:33)
[2018-09-07] MEDS: Heparin 5000 units/ml inj SUBQ SCH ×2 (08:31→20:34)
[2018-09-07] MEDS ORDERED: Pantoprazole Inj IV SCH (09:00)
--- NOTE | 2018-09-07 10:20 | NUR ---
*-* INSRUANCE *-* ALL CLINICALS HAVE BEEN FAXED Elle [facility] NCM: PEND F:[phone]
--- NOTE | 2018-09-07 10:21 | Consultation ---
History of Present Illness General Chief Complaint: Dyspnea/Respdistress Present Illness HPI 53-year-old male with hx of schizophrenia who brought in by EMS after increased difficulty breathing. The pt is pw waxing and waning of consciousness. the pt has psychomotor agitation and is responding to internal stimuli. the pt has memory impairment. the pt is delirious and is unable to provide any hx. Allergies: Coded Allergies: No Known Allergies (Unverified , 03/14/16) Medication History Scheduled Bacitracin Zinc* (Bacitracin Zinc*), 1 APPLIC TOPIC DAILY, (Reported) Benztropine Mesylate* (Benztropine Mesylate*), 0.5 MG GT BID, (Reported) Carvedilol (Coreg), 12.5 MG GT BID, (Reported) Cranberry Extract (Cranberry), 425 MG GT BID, (Reported) Levetiracetam* (Levetiracetam*), 1,500 MG GT BID, (Reported) Melatonin (Melatonin), 3 MG GT BEDTIME, (Reported) Multivitamin With Minerals (Multivitamins With Minerals*), 1 TAB GT DAILY, ( Reported) Omeprazole (Omeprazole), 20 MG GT DAILY, (Reported) Quetiapine Fumarate* (Quetiapine Fumarate*), 50 MG GT BID, (Reported) Spironolactone* (Aldactone*), 25 MG GT DAILY, (Reported) Valproic Acid (Valproic Acid), 500 MG GT TID, (Reported) Scheduled PRN Acetaminophen (Acetaminophen), 640 MG GT EVERY 6 HOURS PRN for mild pain, ( Reported) Acetaminophen 160MG/5ML* (Acetaminophen*), 20 ML GT Q4HR PRN for Pain Scale (3-5 ), (Reported) Acetaminophen 160MG/5ML* (Acetaminophen*), 20 ML GT Q4HR PRN for Mild Pain/Temp > 100.5, (Reported) Magnesium Hydroxide* (Milk Of Magnesia*), 30 ML ORAL EVERY 8 HOURS PRN for Constipation, (Reported) Discontinued Medications Cholecalciferol (Vitamin D3)* (Vitamin D*), 5,000 UNITS GT DAILY, (Reported) Discontinued Reason: Pt stopped taking med Docusate Sodium* (Docusate Sodium*), 100 MG GT TWICE A DAY, (Reported) Discontinued Reason: Pt stopped taking med Ferrous Sulfate (Ferrous Sulfate), 7.5 ML GT BID, (Reported) Discontinued Reason: Pt stopped taking med Hydrocodone Bit/Acetaminophen 5-325* ([place] 5-325*), 1 TAB GT EVERY 8 HOURS PRN for For Pain, (Reported) Discontinued Reason: Pt stopped taking med Levetiracetam (Keppra), 1,000 MG GT Q12HR Discontinued Reason: Pt stopped taking med Lorazepam* (Ativan*), 0.5 MG GT EVERY 4 HOURS, (Reported) Discontinued Reason: Pt stopped taking med Multivits W-Min/Ferrous Gluc (Multivitamin-Mineral Liquid), 15 ML GT DAILY, ( Reported) Discontinued Reason: Prescription changed Quetiapine Fumarate* (Seroquel*), 25 MG GT BID, (Reported) Discontinued Reason: Prescription changed Risperidone* (Risperdal*), 0.5 MG ORAL TID Discontinued Reason: Pt stopped taking med Temazepam* (Restoril*), 15 MG GT BEDTIME PRN for Insomnia, (Reported) Discontinued Reason: Pt stopped taking med Valproate Sodium (Valproic Acid), 5 ML GT BID, (Reported) Discontinued Reason: Pt stopped taking med Valproic Acid (Valproic Acid), 500 MG GT EVERY 12 HOURS Discontinued Reason: Pt stopped taking med Patient History Limited by: medical condition History Provided By: Medical Record, PMD Healthcare decision maker GABRIELA CLAYTON Resuscitation status Do Not Resuscitate Advanced Directive on File No Past Medical/Surgical History Past Medical/Surgical History: (1) Psychomotor agitation (2) Agitation (3) Feeding by G-tube (4) Tachycardia (5) Proteinuria (6) Schizophrenia (7) Thrombocytopenia (8) Neurologic disorder (9) Encephalopathy acute (10) Respiratory failure (11) Respiratory distress Review of Systems Psychiatric: Reports: prior hx, hallucinations ROS Narrative the moans and yells at times. Physical Exam General Appearance: lethargic - waxing and waning , confused, agitated Neurologic: depressed affect Last 24 Hour Vital Signs Date Time Temp Pulse Resp B/P (MAP) Pulse Ox O2 Delivery O2 Flow Rate FiO2 09/07/18 08:57 75 18 99 Facial 60 09/07/18 08:00 Bi-pap 09/07/18 08:00 60 09/07/18 08:00 98.1 79 21 114/75 (88) 100 09/07/18 07:44 74 09/07/18 07:05 78 18 99 Facial 60 09/07/18 05:10 74 19 99 Facial 60 09/07/18 04:00 97.8 79 16 124/75 (91) 96 09/07/18 04:00 60 09/07/18 04:00 Bi-pap 09/07/18 04:00 74 09/07/18 03:30 70 16 98 Full Face 60 09/07/18 01:30 71 16 99 Full Face 60 09/07/18 00:00 74 09/07/18 00:00 60 09/07/18 00:00 98.2 77 17 110/63 (79) 99 09/07/18 00:00 Bi-pap 09/06/18 23:47 71 16 99 Facial 60 09/06/18 21:30 70 18 100 Facial 60 09/06/18 20:00 60 09/06/18 20:00 74 09/06/18 20:00 97.9 77 17 121/76 (91) 100 09/06/18 20:00 Bi-pap 09/06/18 19:30 72 18 99 Facial 60 09/06/18 19:00 Bi-pap 09/06/18 18:37 77 09/06/18 18:00 96.3 78 29 103/62 (76) 100 09/06/18 17:43 98.3 89 10 103/54 100 Bi-pap 09/06/18 17:00 105 30 100 Facial 100 09/06/18 16:50 98.2 91 24 80/58 100 Bi-pap 100 09/06/18 15:28 98.2 109 33 145/106 100 Bi-pap 100 09/06/18 15:28 109 33 Bi-pap 100 09/06/18 14:40 100 30 99 Bi-pap 100 09/06/18 14:30 113 36 98 Facial 100 09/06/18 14:30 110 34 94 Bi-pap 100 09/06/18 14:18 117 37 145/106 73 Room Air Intake and Output 09/06/18 09/07/18 19:00 07:00 Intake Total 2200 ml 560.0 ml Output Total 800 ml Balance 2200 ml -240.0 ml Intake Free Water 150 ml IV Total 2200 ml 110.0 ml Tube Feeding 300 ml Output Urine Total 800 ml # Bowel Movements 1 Laboratory Tests Test 09/06/18 14:40 09/06/18 17:00 09/06/18 23:30 09/07/18 02:40 White Blood Count 10.0 K/UL (4.8-10.8) 5.9 K/UL (4.8-10.8) Red Blood Count 4.44 M/UL (4.70-6.10) L 3.46 M/UL (4.70-6.10) L Hemoglobin 15.1 G/DL (14.2-18.0) 11.7 G/DL (14.2-18.0) L Hematocrit 45.1 % (42.0-52.0) 34.1 % (42.0-52.0) L Mean Corpuscular Volume 102 FL (80-99) H 99 FL (80-99) Mean Corpuscular Hemoglobin 34.0 PG (27.0-31.0) H 33.8 PG (27.0-31.0) H Mean Corpuscular Hemoglobin Concent 33.5 G/DL (32.0-36.0) 34.3 G/DL (32.0-36.0) Red Cell Distribution Width 12.9 % (11.6-14.8) 12.8 % (11.6-14.8) Platelet Count 149 K/UL (150-450) L 88 K/UL (150-450) L Mean Platelet Volume 9.1 FL (6.5-10.1) 8.7 FL (6.5-10.1) Neutrophils (%) (Auto) 69.3 % (45.0-75.0) % (45.0-75.0) Lymphocytes (%) (Auto) 22.4 % (20.0-45.0) % (20.0-45.0) Monocytes (%) (Auto) 6.0 % (1.0-10.0) % (1.0-10.0) Eosinophils (%) (Auto) 1.3 % (0.0-3.0) % (0.0-3.0) Basophils (%) (Auto) 1.0 % (0.0-2.0) % (0.0-2.0) Sodium Level 148 MMOL/L (136-145) H 149 MMOL/L (136-145) H Potassium Level 4.4 MMOL/L (3.5-5.1) 3.8 MMOL/L (3.5-5.1) Chloride Level 107 MMOL/L (98-107) 112 MMOL/L (98-107) H Carbon Dioxide Level 26 MMOL/L (21-32) 30 MMOL/L (21-32) Anion Gap 15 mmol/L (5-15) 7 mmol/L (5-15) Blood Urea Nitrogen 27 mg/dL (7-18) H 28 mg/dL (7-18) H Creatinine 1.3 MG/DL (0.55-1.30) 0.8 MG/DL (0.55-1.30) Estimat Glomerular Filtration Rate 57.7 mL/min (>60) > 60 mL/min (>60) Glucose Level 397 MG/DL (74-106) H 91 MG/DL (74-106) # Lactic Acid Level 5.70 mmol/L (0.4-2.0) H 2.90 mmol/L (0.66-2.22) H Calcium Level 8.7 MG/DL (8.5-10.1) 8.5 MG/DL (8.5-10.1) Phosphorus Level 8.0 MG/DL (2.5-4.9) H 3.0 MG/DL (2.5-4.9) Magnesium Level 2.1 MG/DL (1.8-2.4) Total Bilirubin 0.7 MG/DL (0.2-1.0) Aspartate Amino Transf (AST/SGOT) 18 U/L (15-37) Alanine Aminotransferase (ALT/SGPT) 13 U/L (12-78) Alkaline Phosphatase 69 U/L (46-116) Total Creatine Kinase 100 U/L (26-308) Creatine Kinase MB 1.2 NG/ML (0.0-3.6) Creatine Kinase MB Relative Index 1.2 Troponin I 0.018 ng/mL (0.000-0.056) Total Protein 8.0 G/DL (6.4-8.2) Albumin 3.2 G/DL (3.4-5.0) L 2.6 G/DL (3.4-5.0) L Globulin 4.8 g/dL Albumin/Globulin Ratio 0.7 (1.0-2.7) L Urine Color Yellow Urine Appearance Cloudy Urine pH 5 (4.5-8.0) Urine Specific [place] 1.020 (1.005-1.035) Urine Protein 3+ (NEGATIVE) H Urine Glucose (UA) Negative (NEGATIVE) Urine Ketones 1+ (NEGATIVE) H Urine Blood 4+ (NEGATIVE) H Urine Nitrite Negative (NEGATIVE) Urine Bilirubin Negative (NEGATIVE) Urine Urobilinogen 1 MG/DL (0.0-1.0) H Urine Leukocyte Esterase 2+ (NEGATIVE) H Urine RBC 40-60 /HPF (0 - 0) H Urine WBC 40-60 /HPF (0 - 0) H Urine Squamous Epithelial Cells Few /LPF (NONE/OCC) Urine Bacteria Few /HPF (NONE) Urine Coarse Granular Casts 0-2 /LPF (NONE) H Neutrophils % (Manual) Pending Lymphocytes % (Manual) Pending Platelet Estimate Pending Platelet Morphology Pending Test 09/07/18 09:20 Arterial Blood pH 7.428 (7.350-7.450) Arterial Blood Partial Pressure CO2 42.7 mmHg (35.0-45.0) Arterial Blood Partial Pressure O2 181.5 mmHg (75.0-100.0) H Arterial Blood HCO3 27.6 mmol/L (22.0-26.0) H Arterial Blood Oxygen Saturation 98.8 % (95-100) Arterial Blood Base Excess 2.9 (-2-2) H Booker Test Positive Height (Feet): 5 Height (Inches): 9.00 Weight (Pounds): 181 Medications Current Medications Medications (Trade) Dose Ordered Sig/[place] Route PRN Reason Start Time Stop Time Status Last Admin Dose Admin Acetaminophen (Tylenol) 650 mg Q4H PRN GT FEVER 09/06/18 17:00 10/06/18 16:59 Albuterol/ Ipratropium (Albuterol/ Ipratropium) 3 ml Q4H PRN HHN Shortness of Breath 09/06/18 17:00 09/11/18 16:59 Benztropine Mesylate (Cogentin) 0.5 mg EVERY 12 HOURS GT 09/06/18 21:00 10/06/18 17:59 09/07/18 08:30 Dextrose (Dextrose 50%) 25 ml Q30M PRN IV Hypoglycemia 09/06/18 17:00 10/06/18 16:59 Dextrose (Dextrose 50%) 50 ml Q30M PRN IV Hypoglycemia 09/06/18 17:00 10/06/18 16:59 Heparin Sodium (Porcine) (Heparin 5000 units/ml) 5,000 units EVERY 12 HOURS SUBQ 09/06/18 21:00 10/06/18 20:59 09/06/18 22:07 Levetiracetam (Keppra) 1,000 mg Q12HR GT 09/06/18 21:00 10/06/18 20:59 09/07/18 08:30 Ondansetron HCl (Zofran) 4 mg Q6H PRN IVP Nausea & Vomiting 09/06/18 17:00 10/06/18 16:59 Pantoprazole (Protonix) 40 mg DAILY IV 09/07/18 09:00 10/07/18 08:59 09/07/18 08:29 Piperacillin Sod/ Tazobactam Sod 3.375 gm/Sodium Chloride 110 ml @ 27.5 mls/hr Q8H IVPB 09/06/18 23:00 09/13/18 22:59 09/07/18 07:15 Polyethylene Glycol (Miralax) 17 gm DAILYPRN PRN ORAL Constipation 09/06/18 17:00 10/06/18 16:59 Quetiapine Fumarate (SEROquel) 25 mg BID GT 09/06/18 18:00 10/06/18 17:59 09/07/18 08:30 Risperidone (RisperDAL) 0.5 mg TID ORAL 09/06/18 18:00 10/06/18 17:59 09/07/18 08:29 Temazepam (Restoril) 15 mg HSPRN PRN ORAL Insomnia 09/06/18 17:00 09/13/18 16:59 Valproic Acid (Depakene) 500 mg EVERY 12 HOURS GT 09/06/18 21:00 10/06/18 20:59 09/07/18 08:29 Vancomycin HCl (Vanco rx to dose) 1 ea DAILY PRN MISC Per rx protocol 09/06/18 17:45 10/06/18 17:44 Vancomycin HCl 750 mg/Sodium Chloride 275 ml @ 183.333 mls/hr Q12H IVPB 09/07/18 08:00 09/12/18 07:59 09/07/18 08:29 Assessment/Plan Problem List: (1) Schizophrenia ICD Codes: F20.9 - Schizophrenia, unspecified SNOMED: 88960424 (2) acute toxic encephalopathy Status: unchanged Assessment/Plan dc Risperdal increase Seroquel 25mg po tid Haldol IM prn for agitation soft restraints Jeffrey Stern MD Sep 07, 2018 10:20
[2018-09-07] MEDS ORDERED: Haloperidol Lactate 5 MG in D5W 55 ML IVPB PRN (10:30)
--- NOTE | 2018-09-07 10:57 | NUR ---
NURSE NOTES: Dr. Molina aware of patient's sodium of 149 and PLT 88. Hold Heparin.
--- NOTE | 2018-09-07 11:33 | Pulmonolgy Critical Care Note ---
Critical Care - Asmt/Plan Problems: (1) Acute respiratory failure (2) ICD (implantable cardioverter-defibrillator) in place (3) History of schizophrenia (4) Feeding by G-tube Respiratory: monitor respiratory rate, CXR Cardiac: continue to monitor HR/BP Renal: F/U I&O Infectious Disease: check cultures Gastrointestinal: continue feedings/current rate Endocrine: monitor blood sugar Hematologic: monitor H/H, transfuse if hgb<8.5 Neurologic: PRN Ativan, keep patient comfortable Prophylaxis: Protonix Disposition: keep in ICU Time Spent (Minutes): 40 Notes Reviewed: renal Discussed with: nurses, consultants, case management coordinatormanager client - Objective Last 24 Hour Vital Signs Date Time Temp Pulse Resp B/P (MAP) Pulse Ox O2 Delivery O2 Flow Rate FiO2 09/07/18 11:00 83 26 99 Facial 40 09/07/18 08:57 75 18 99 Facial 60 09/07/18 08:00 Bi-pap 09/07/18 08:00 60 09/07/18 08:00 98.1 79 21 114/75 (88) 100 09/07/18 07:44 74 09/07/18 07:05 78 18 99 Facial 60 09/07/18 05:10 74 19 99 Facial 60 09/07/18 04:00 97.8 79 16 124/75 (91) 96 09/07/18 04:00 60 09/07/18 04:00 Bi-pap 09/07/18 04:00 74 09/07/18 03:30 70 16 98 Full Face 60 09/07/18 01:30 71 16 99 Full Face 60 09/07/18 00:00 74 09/07/18 00:00 60 09/07/18 00:00 98.2 77 17 110/63 (79) 99 09/07/18 00:00 Bi-pap 09/06/18 23:47 71 16 99 Facial 60 09/06/18 21:30 70 18 100 Facial 60 09/06/18 20:00 60 09/06/18 20:00 74 09/06/18 20:00 97.9 77 17 121/76 (91) 100 09/06/18 20:00 Bi-pap 09/06/18 19:30 72 18 99 Facial 60 09/06/18 19:00 Bi-pap 09/06/18 18:37 77 09/06/18 18:00 96.3 78 29 103/62 (76) 100 09/06/18 17:43 98.3 89 10 103/54 100 Bi-pap 09/06/18 17:00 105 30 100 Facial 100 09/06/18 16:50 98.2 91 24 80/58 100 Bi-pap 100 09/06/18 15:28 98.2 109 33 145/106 100 Bi-pap 100 09/06/18 15:28 109 33 Bi-pap 100 09/06/18 14:40 100 30 99 Bi-pap 100 09/06/18 14:30 113 36 98 Facial 100 09/06/18 14:30 110 34 94 Bi-pap 100 09/06/18 14:18 117 37 145/106 73 Room Air Status: awake Condition: critical HEENT: atraumatic, normocephalic Lungs: rales, rhonchi Heart: HR/BP stable Abdomen: soft, non-tender Extremities: no C/C/E, edema Decubiti: location Critical Care - Subjective ROS Limited/Unobtainable: Yes Interval Events: still on BIPAP Condition: critical IV Access: PICC FI02: 40 Vent Support Breath Rate: 16 Vent Support Mode: BiLevel Sputum Amount: None Tube Feeding Amount: 30 I&O: Intake and Output 09/06/18 09/07/18 19:00 07:00 Intake Total 2200 ml 560.0 ml Output Total 800 ml Balance 2200 ml -240.0 ml Intake Free Water 150 ml IV Total 2200 ml 110.0 ml Tube Feeding 300 ml Output Urine Total 800 ml # Bowel Movements 1 CXR: bilateral pulmonary edema Labs: Laboratory Tests Test 09/06/18 14:40 09/06/18 17:00 09/06/18 23:30 09/07/18 02:40 White Blood Count 10.0 K/UL (4.8-10.8) 5.9 K/UL (4.8-10.8) Red Blood Count 4.44 M/UL (4.70-6.10) L 3.46 M/UL (4.70-6.10) L Hemoglobin 15.1 G/DL (14.2-18.0) 11.7 G/DL (14.2-18.0) L Hematocrit 45.1 % (42.0-52.0) 34.1 % (42.0-52.0) L Mean Corpuscular Volume 102 FL (80-99) H 99 FL (80-99) Mean Corpuscular Hemoglobin 34.0 PG (27.0-31.0) H 33.8 PG (27.0-31.0) H Mean Corpuscular Hemoglobin Concent 33.5 G/DL (32.0-36.0) 34.3 G/DL (32.0-36.0) Red Cell Distribution Width 12.9 % (11.6-14.8) 12.8 % (11.6-14.8) Platelet Count 149 K/UL (150-450) L 88 K/UL (150-450) L Mean Platelet Volume 9.1 FL (6.5-10.1) 8.7 FL (6.5-10.1) Neutrophils (%) (Auto) 69.3 % (45.0-75.0) % (45.0-75.0) Lymphocytes (%) (Auto) 22.4 % (20.0-45.0) % (20.0-45.0) Monocytes (%) (Auto) 6.0 % (1.0-10.0) % (1.0-10.0) Eosinophils (%) (Auto) 1.3 % (0.0-3.0) % (0.0-3.0) Basophils (%) (Auto) 1.0 % (0.0-2.0) % (0.0-2.0) Sodium Level 148 MMOL/L (136-145) H 149 MMOL/L (136-145) H Potassium Level 4.4 MMOL/L (3.5-5.1) 3.8 MMOL/L (3.5-5.1) Chloride Level 107 MMOL/L (98-107) 112 MMOL/L (98-107) H Carbon Dioxide Level 26 MMOL/L (21-32) 30 MMOL/L (21-32) Anion Gap 15 mmol/L (5-15) 7 mmol/L (5-15) Blood Urea Nitrogen 27 mg/dL (7-18) H 28 mg/dL (7-18) H Creatinine 1.3 MG/DL (0.55-1.30) 0.8 MG/DL (0.55-1.30) Estimat Glomerular Filtration Rate 57.7 mL/min (>60) > 60 mL/min (>60) Glucose Level 397 MG/DL (74-106) H 91 MG/DL (74-106) # Lactic Acid Level 5.70 mmol/L (0.4-2.0) H 2.90 mmol/L (0.66-2.22) H Calcium Level 8.7 MG/DL (8.5-10.1) 8.5 MG/DL (8.5-10.1) Phosphorus Level 8.0 MG/DL (2.5-4.9) H 3.0 MG/DL (2.5-4.9) Magnesium Level 2.1 MG/DL (1.8-2.4) Total Bilirubin 0.7 MG/DL (0.2-1.0) Aspartate Amino Transf (AST/SGOT) 18 U/L (15-37) Alanine Aminotransferase (ALT/SGPT) 13 U/L (12-78) Alkaline Phosphatase 69 U/L (46-116) Total Creatine Kinase 100 U/L (26-308) Creatine Kinase MB 1.2 NG/ML (0.0-3.6) Creatine Kinase MB Relative Index 1.2 Troponin I 0.018 ng/mL (0.000-0.056) Total Protein 8.0 G/DL (6.4-8.2) Albumin 3.2 G/DL (3.4-5.0) L 2.6 G/DL (3.4-5.0) L Globulin 4.8 g/dL Albumin/Globulin Ratio 0.7 (1.0-2.7) L Urine Color Yellow Urine Appearance Cloudy Urine pH 5 (4.5-8.0) Urine Specific [place] 1.020 (1.005-1.035) Urine Protein 3+ (NEGATIVE) H Urine Glucose (UA) Negative (NEGATIVE) Urine Ketones 1+ (NEGATIVE) H Urine Blood 4+ (NEGATIVE) H Urine Nitrite Negative (NEGATIVE) Urine Bilirubin Negative (NEGATIVE) Urine Urobilinogen 1 MG/DL (0.0-1.0) H Urine Leukocyte Esterase 2+ (NEGATIVE) H Urine RBC 40-60 /HPF (0 - 0) H Urine WBC 40-60 /HPF (0 - 0) H Urine Squamous Epithelial Cells Few /LPF (NONE/OCC) Urine Bacteria Few /HPF (NONE) Urine Coarse Granular Casts 0-2 /LPF (NONE) H Neutrophils % (Manual) Pending Lymphocytes % (Manual) Pending Platelet Estimate Pending Platelet Morphology Pending Test 09/07/18 09:20 Arterial Blood pH 7.428 (7.350-7.450) Arterial Blood Partial Pressure CO2 42.7 mmHg (35.0-45.0) Arterial Blood Partial Pressure O2 181.5 mmHg (75.0-100.0) H Arterial Blood HCO3 27.6 mmol/L (22.0-26.0) H Arterial Blood Oxygen Saturation 98.8 % (95-100) Arterial Blood Base Excess 2.9 (-2-2) H Booker Test Positive Aris Molina MD Sep 07, 2018 11:33
[2018-09-07] MEDS: Haloperidol 5mg/ml Inj IM PRN ×3 (11:47→19:53)
--- NOTE | 2018-09-07 13:45 | NUR ---
CARDIOLOGY : ATTENDED TO PT'S ROOM TWICE PT IS COMBATIVE AND AGITATED WOULDN'T ABLE TO DO 2-D ECHOCARDIOGRAM . RN IS AWARE .
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
--- NOTE | 2018-09-07 14:48 | NUR ---
DAIRY FARMERSUPERVISING FLOORPERSON 53 YO MALE BIBA FROM [facility] TO ER CC LOW O2 SAT ON RA 73% SI: RESP. FAILURE T. 98.2 HR 117 RR 37 B/P 145/106 BIPAP 12/5 FIO2 100% NA 148 BUN 27 LACTID ACID 5.70 UA+PROTEIN, KETONES,BLOOD,UROBILINOGEN,LEUKOCYTE ESTERASE, RBC,WBC,SQUAMOUS EPITH CELL, BACTERIA CXR= BILATERAL LEFT GREATER THAN RIGHT INFILTRATES VS EDEMA IS: VANCO IV ZOSYN IV IV BOLUS NS X 1 LITER FLAGYL IV DUONEB HHN ADMITTED TO STEP DOWN @ 1745 STEP DOWN STATUS DCP RETURN TO [facility]
--- NOTE | 2018-09-07 15:56 | Cardiology Report ---
APPROVED REPORT EKG Measurement Heart [id number] Sinus tachycardia Ventricular pre-excitation, WPW pattern type B Abnormal ECG
--- NOTE | 2018-09-07 16:11 | NUR ---
NURSE NOTES: Vapor Coater Jackie at bedside and not able to do the 2dEcho because patient is agitated.
[2018-09-07] MEDS ORDERED: dilTIAZem HCl 25mg/5ml Inj IVP SCH (18:00)
--- NOTE | 2018-09-07 18:00 | NUR ---
NURSE NOTES: Patient had an episode of Afib with PVCs. Made Dr. Juarez aware. Received order for cardizem x1. Carried out.
--- NOTE | 2018-09-07 19:00 | NUR ---
NURSE NOTES: Dr. Arnold at bedside. Made aware that patient's HR is still 135-140s even after administering cardizem. Also, aware that patient is very agitated.
--- NOTE | 2018-09-07 19:05 | History & Physical ---
History and Physical History & Physicial Dictated for Int Med-Dr Saez no. [id number]. Delvis Arnold MD Sep 07, 2018 19:05
--- NOTE | 2018-09-07 19:29 | NUR ---
HAND-OFF: Report given to HETAL Jarquin.
--- NOTE | 2018-09-07 19:30 | NUR ---
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
[2018-09-07] MEDS ORDERED: LORazepam Inj 2mg/ml 1ml IV SCH (20:00)
--- NOTE | 2018-09-07 20:00 | NUR ---
NURSE NOTES: Called regarding patient's condition,episodes of V Tach and HR 201,massage left waiting for Dr's respond.Charge nurse aware
--- NOTE | 2018-09-07 20:25 | NUR ---
NURSE NOTES: Dr. Cantu called back,received a new order to transfer to ICU,and Troponin STAT in a morning.
--- NOTE | 2018-09-07 20:45 | NUR ---
NURSE NOTES: Patient has a prolong VTach and HR 194,Ativan administered,pt anxious and combative,will continue to monitor and preparing to transfer pt.to ICU
--- NOTE | 2018-09-07 20:50 | NUR ---
NURSE NOTES: aware regarding pt's condition,Nursing district plant supervisor notified
--- NOTE | 2018-09-07 21:00 | History and Physical Report ---
DATE OF ADMISSION: 09/06/2018 CHIEF COMPLAINT: The patient is a 53-year-old male, who presents with chief complaint of shortness of breath. HISTORY OF PRESENT ILLNESS: The patient has history of organic brain injury. The patient is a resident of [facility], [place]. The patient has history of previous tracheostomy which has now been reversed. According to staff at [facility], the patient became short of breath on September 06, 2018. The patient was transferred to [facility]. The patient is admitted with dyspnea to rule out pneumonia. REVIEW OF SYSTEMS: Unable to assess secondary to the patient's mental status. PAST MEDICAL HISTORY: Significant for: 1. Organic brain injury. 2. Status post craniotomy. 3. Seizure disorder. 4. Dysphagia. 5. Gastroesophageal reflux disease. 6. Schizophrenia. PAST SURGICAL HISTORY: Significant for: 1. Tracheostomy. 2. Craniotomy. 3. G-tube placement. CURRENT MEDICATIONS: 1. Tylenol 650 mg per G-tube q.4 h. p.r.n. 2. Spironolactone 25 mg per G-tube daily. 3. Benztropine 0.5 mg per G-tube twice daily. 4. Coreg 12.5 mg per G-tube twice daily. 5. Keppra 1000 mg per G-tube twice daily. 6. Melatonin 3 mg per G-tube nightly. 7. Multivitamin per G-tube daily. 8. Omeprazole 20 mg per G-tube daily. 9. Seroquel 50 mg per G-tube twice daily. 10. Valproic acid 500 mg per G-tube 3 times daily. ALLERGIES: No known drug allergies. SOCIAL HISTORY: The patient is a resident of [facility]. The patient denies alcohol or tobacco use. PHYSICAL EXAMINATION: VITAL SIGNS: Temperature 98.2, blood pressure over 54-58, respiratory rate 24-30, pulse 91-105. GENERAL: The patient is a well-developed and well-nourished male, who is essentially nonverbal. The patient only moans. HEENT: Eyes, pupils equal and responsive to light and accommodation. Extraocular movements are intact. NECK: Supple without lymphadenopathy. CHEST: Lungs are clear to auscultation bilaterally without wheezes or rales. CARDIOVASCULAR: Regular rate. S1 and S2 are normal without murmurs, rubs, or gallops. ABDOMEN: Soft, nontender, and nondistended. Positive bowel sounds. No evidence of hepatosplenomegaly. Currently, no rebound or guarding noted. EXTREMITIES: Negative for clubbing, cyanosis, or edema. RECTAL: Not performed. GENITAL: Not performed. NEUROLOGICAL: Cranial nerves II through XII are grossly intact without focal deficits. LABORATORY STUDIES: WBC 10.0, hemoglobin 15.1, hematocrit 45.1, platelets 149,000. Sodium 148, potassium 4.4, chloride 107, CO2 26, BUN 27, creatinine 1.3, glucose elevated at 397. Lactic acid 5.7. Urinalysis showed 4+ blood, 2+ leukocyte esterase with 40-60 rbc's and 40-60 wbc's. Chest x-ray was reported as bilateral left greater than right infiltrates. ASSESSMENT: This is a 53-year-old male with: 1. Dyspnea. 2. Pneumonia. 3. Atrial fibrillation. 4. Seizure disorder. 5. Dysphagia. 6. Gastroesophageal reflux disease. 7. Schizophrenia. TREATMENT: 1. Pneumonia/dyspnea. A Pulmonary consultation has been obtained with Dr. Aris Molina. The patient is currently on a Venturi mask. The patient has been started empirically on vancomycin and Zosyn. We will follow recommendations of Pulmonary. 2. Seizure disorder. Continue Keppra and Depakote as above. 3. Dysphagia. The patient is currently receiving G-tube feeds. 4. Gastroesophageal reflux disease. Continue omeprazole as above. 5. Schizophrenia. A psychiatric consultation has been obtained with Dr. Stern. 6. Atrial fibrillation. A Cardiology consultation is pending. Delvis Arnold M.D. DR: Leigha JOB#: [id number] CC:
--- NOTE | 2018-09-07 21:00 | NUR ---
NURSE NOTES: Report given to HETAL Power.Patient transfer to ICU,no respiratory distress noted
--- NOTE | 2018-09-07 21:20 | NUR ---
NURSE NOTES: Pt transferred to ICU for prolonged episodes of V-tach and a.fib. Current HR: 107. BP: 127/84. RR: 50. O2 saturation: 99%. Pt remains agitated. Alternative measures provided to reduce agitation. playground monitor shows ST. Pt currently on bipap 12/5 @60%. Gt in place with jevity 1.2 running at 30 ml/hr. Condom catheter present, in place, and draining well. No skin issues noted. Pt has a LH20g. Awaiting result of troponin. Will continue to monitor and with patients plan of care.
--- NOTE | 2018-09-07 21:55 | NUR ---
NURSE NOTES: Dr. Cantu contacted in regards of troponin level. Awaiting return call.
[2018-09-07] MEDS ORDERED: Miralax 17gm pkt ORAL PRN (22:00)
[2018-09-07] MEDS ORDERED: Acetaminophen 650mg/20.3ml GT PRN (22:00)
--- NOTE | 2018-09-07 22:30 | NUR ---
NURSE NOTES: Pt now resting comfortably. No longer agitated at the moment. VSS. Will continue to monitor.
[2018-09-07] MEDS ORDERED: Vancomycin 1 GM in D5W 275 ML IV SCH (23:00)
[2018-09-08] VITALS (30 sets, daily range): BP systolic 83–121; BP diastolic 63–93
[2018-09-08] MEDS ORDERED: Haloperidol 5mg/ml Inj IM PRN
[2018-09-08] MEDS: LORazepam Inj 2mg/ml 1ml IV PRN ×4 (00:44→13:17)
[2018-09-08] MEDS: Piperacillin/Tazobactam 3.375 GM in NS 110 ML IVPB SCH ×4 (00:45→22:47)
--- NOTE | 2018-09-08 00:45 | NUR ---
NURSE NOTES: Pt experiencing agitation. 02 saturation decreased. FiO2 increased to 80% and ativan given. Will continue to monitor.
--- NOTE | 2018-09-08 02:00 | NUR ---
NURSE NOTES: Pt currently resting comfortable. VSS. Will continue to monitor.
--- NOTE | 2018-09-08 04:00 | NUR ---
NURSE NOTES: Pt cleaned. Agitation noted. HR erratic. Otherwise VSS. Cardizem increased to 7.5 mg/hr. Will continue to monitor.
[2018-09-08 05:44] LABS: BASOPHILS % (AUTO) 0.4 % (0.0-2.0); EOSINOPHILS % (AUTO) 0.8 % (0.0-3.0); HEMATOCRIT 36.7 % (42.0-52.0); HEMOGLOBIN 12.8 G/DL (14.2-18.0); LYMPHOCYTES % (AUTO) 21.9 % (20.0-45.0); MEAN CORPUSCULAR VOLUME 98 FL (80-99); MONOCYTES % (AUTO) 8.8 % (1.0-10.0); PLATELET COUNT 102 K/UL (150-450); RED BLOOD COUNT 3.75 M/UL (4.70-6.10); RED CELL DISTRIBUTION WIDTH 12.4 % (11.6-14.8); WHITE BLOOD COUNT 5.1 K/UL (4.8-10.8)
[2018-09-08 06:37] LABS: ALANINE AMINOTRANSFERASE 15 U/L (12-78); ALBUMIN 2.9 G/DL (3.4-5.0); ALBUMIN/GLOBULIN RATIO 0.8 (1.0-2.7); ALKALINE PHOSPHATASE 62 U/L (46-116); ANION GAP 7 mmol/L (5-15); ASPARTATE AMINO TRANSFERASE 21 U/L (15-37); BILIRUBIN,TOTAL 0.6 MG/DL (0.2-1.0); BLOOD UREA NITROGEN 22 mg/dL (7-18); CALCIUM 8.6 MG/DL (8.5-10.1); CARBON DIOXIDE 34 MMOL/L (21-32); CHLORIDE 110 MMOL/L (98-107); CREATININE 0.8 MG/DL (0.55-1.30); POTASSIUM 3.5 MMOL/L (3.5-5.1); SODIUM 150 MMOL/L (136-145)
--- NOTE | 2018-09-08 07:55 | NUR ---
RESPIRATORY NOTE: pt on bipap, foam tape has been replaced. no redness or skin tears visible. pt tachypneic with slight agitation when replacing tape. will wean off bipap and cont to monitor.
[2018-09-08] MEDS ORDERED: Vancomycin 750 MG in NS 275 ML IVPB SCH (08:00)
[2018-09-08] MEDS: Vancomycin 750mg/NS 275ml IVPB SCH ×6 (08:00→23:49)
--- NOTE | 2018-09-08 08:00 | NUR ---
NURSE NOTES: Received patient from HETAL [employer]. Current HR: 110. BP: 120/70. RR: 22. O2 saturation: 99%. Pt currently on bipap 12/ @50%. Gt in place with jevity 1.2 running at 30 ml/hr. Condom catheter present, in place, and draining well. No skin issues noted. Pt has a LH20g. Safety measures in place, repositioned patient, side rails padded. Will continue to monitor and with patients plan of care.
[2018-09-08] MEDS: Benztropine 1mg tab GT SCH ×2 (09:00→20:55)
[2018-09-08] MEDS: levETIRAcetam 500mg/5ml Liquid GT SCH ×2 (09:00→20:57)
[2018-09-08] MEDS: Valproic Acid 250mg/5ml Liquid GT SCH ×2 (09:00→20:56)
[2018-09-08] MEDS: Heparin 5000 units/ml inj SUBQ SCH ×2 (09:00→20:58)
[2018-09-08] MEDS: Pantoprazole Inj IV SCH (09:00)
--- NOTE | 2018-09-08 09:57 | NUR ---
RADIOLOGY DEPT CHEST X-RAY DONE.-P.DYE
--- NOTE | 2018-09-08 10:00 | NUR ---
NURSE NOTES: Pt on venturi mask 55%, tolerating well. HR down to 88. Patient asleep at the moment. will continue plan of care.
--- NOTE | 2018-09-08 10:26 | Pulmonolgy Critical Care Note ---
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 Critical Care - Objective Last 24 Hour Vital Signs Date Time Temp Pulse Resp B/P (MAP) Pulse Ox O2 Delivery O2 Flow Rate FiO2 09/08/18 09:21 Venturi Mask 12.0 50 09/08/18 09:21 96 Venturi Mask 12.0 50 09/08/18 07:54 128 29 95 Facial 40 09/08/18 07:00 119 24 119/73 (88) 96 09/08/18 06:30 114 27 109/69 (82) 97 09/08/18 06:00 98.9 117 26 110/79 (89) 98 09/08/18 05:30 116 27 113/88 (96) 98 09/08/18 05:05 112 28 98 Facial 40 09/08/18 05:00 124 26 110/87 (95) 93 09/08/18 04:30 103 20 83/67 (72) 95 09/08/18 04:00 Bi-pap 09/08/18 04:00 40 09/08/18 04:00 91 09/08/18 04:00 104 21 94/63 (73) 98 09/08/18 03:30 108 20 118/82 (94) 98 09/08/18 03:00 85 20 109/77 (88) 98 09/08/18 02:52 90 20 100 Facial 40 09/08/18 02:30 84 20 109/86 (94) 97 09/08/18 02:00 87 20 100/71 (81) 98 09/08/18 01:30 86 23 100/71 (81) 97 09/08/18 01:22 87 23 100 Facial 40 09/08/18 01:00 86 22 107/71 (83) 100 09/08/18 00:00 Bi-pap 09/08/18 00:00 98.6 86 22 105/70 (82) 100 09/08/18 00:00 94 09/07/18 23:33 82 22 100 Facial 40 09/07/18 23:30 84 21 119/77 (91) 100 09/07/18 23:00 88 23 106/73 (84) 100 09/07/18 22:46 90 111/81 09/07/18 22:37 87 22 111/81 (91) 100 09/07/18 22:00 99 27 124/89 (101) 100 09/07/18 21:40 107 34 100 Facial 40 09/07/18 21:17 110 35 127/84 (98) 100 09/07/18 20:00 Venturi Mask 09/07/18 20:00 97.3 146 44 137/76 (96) 95 09/07/18 20:00 40 09/07/18 19:43 201 09/07/18 19:00 147 09/07/18 18:03 84 123/83 09/07/18 17:25 88 09/07/18 16:00 40 09/07/18 16:00 84 09/07/18 16:00 98.8 78 24 123/83 (96) 98 09/07/18 16:00 Venturi Mask 09/07/18 12:00 Bi-pap 09/07/18 12:00 60 09/07/18 12:00 98.6 83 22 125/78 (94) 100 09/07/18 11:50 82 09/07/18 11:00 83 26 99 Facial 40 Status: other - agitated Condition: critical HEENT: atraumatic Neck: full ROM Lungs: rales, rhonchi Heart: HR/BP stable Abdomen: soft, non-tender Extremities: edema Decubiti: location Micro: Microbiology Date/Time Source Procedure Growth Status 09/06/18 14:40 Blood Blood Culture - Preliminary NO GROWTH AFTER 24 HOURS Resulted 09/06/18 14:20 Blood Blood Culture - Preliminary NO GROWTH AFTER 24 HOURS Resulted 09/06/18 15:30 Nasal Nares MRSA Culture - Final NO METHICILLIN RESISTANT STAPH AUREUS... Complete 09/06/18 23:30 Urine,Clean Catch Urine Culture - Preliminary NO GROWTH AFTER 24 HOURS Resulted 09/06/18 15:30 Rectum VRE Culture - Final NO VANCOMYCIN RESISTANT ENTEROCOCCUS ... Complete Critical Care - Subjective ROS Limited/Unobtainable: Yes Interval Events: transferred to ICU b/o episode of afib, currently on cardizem drip Condition: critical EKG Rhythm: Sinus Rhythm FI02: 50 Vent Support Breath Rate: 16 Vent Support Mode: BiLevel Sputum Amount: None Tube Feeding Amount: 30 I&O: Intake and Output 09/07/18 09/08/18 19:00 07:00 Intake Total 778.053 ml 487.42 ml Output Total 2300 ml 650 ml Balance -1521.947 ml -162.58 ml Intake Free Water 60 ml IV Total 388.053 ml 157.42 ml Tube Feeding 330 ml 330 ml Output Urine Total 2300 ml 650 ml # Voids 2 # Bowel Movements 1 CXR: bilateral edema, infiltrate Labs: Laboratory Tests Test 09/07/18 20:51 09/07/18 21:10 09/08/18 04:25 09/08/18 06:45 Arterial Blood pH 7.419 (7.350-7.450) Arterial Blood Partial Pressure CO2 48.7 mmHg (35.0-45.0) H Arterial Blood Partial Pressure O2 66.2 mmHg (75.0-100.0) L Arterial Blood HCO3 30.8 mmol/L (22.0-26.0) H Arterial Blood Oxygen Saturation 93.7 % (95-100) L Arterial Blood Base Excess 5.6 (-2-2) H Booker Test Positive Troponin I 0.067 ng/mL (0.000-0.056) 0.351 ng/mL (0.000-0.056) White Blood Count 5.1 K/UL (4.8-10.8) Red Blood Count 3.75 M/UL (4.70-6.10) L Hemoglobin 12.8 G/DL (14.2-18.0) L Hematocrit 36.7 % (42.0-52.0) L Mean Corpuscular Volume 98 FL (80-99) Mean Corpuscular Hemoglobin 34.2 PG (27.0-31.0) H Mean Corpuscular Hemoglobin Concent 34.9 G/DL (32.0-36.0) Red Cell Distribution Width 12.4 % (11.6-14.8) Platelet Count 102 K/UL (150-450) L Mean Platelet Volume 8.7 FL (6.5-10.1) Neutrophils (%) (Auto) 68.0 % (45.0-75.0) Lymphocytes (%) (Auto) 21.9 % (20.0-45.0) Monocytes (%) (Auto) 8.8 % (1.0-10.0) Eosinophils (%) (Auto) 0.8 % (0.0-3.0) Basophils (%) (Auto) 0.4 % (0.0-2.0) Sodium Level 150 MMOL/L (136-145) H Potassium Level 3.5 MMOL/L (3.5-5.1) Chloride Level 110 MMOL/L (98-107) H Carbon Dioxide Level 34 MMOL/L (21-32) H Anion Gap 7 mmol/L (5-15) Blood Urea Nitrogen 22 mg/dL (7-18) H Creatinine 0.8 MG/DL (0.55-1.30) Estimat Glomerular Filtration Rate > 60 mL/min (>60) Glucose Level 114 MG/DL (74-106) H Calcium Level 8.6 MG/DL (8.5-10.1) Total Bilirubin 0.6 MG/DL (0.2-1.0) Aspartate Amino Transf (AST/SGOT) 21 U/L (15-37) Alanine Aminotransferase (ALT/SGPT) 15 U/L (12-78) Alkaline Phosphatase 62 U/L (46-116) Pro-B-Type Natriuretic Peptide 3724 pg/mL (0-125) H Total Protein 6.7 G/DL (6.4-8.2) Albumin 2.9 G/DL (3.4-5.0) L Globulin 3.8 g/dL Albumin/Globulin Ratio 0.8 (1.0-2.7) L Vancomycin Level Trough 5.1 ug/mL (5.0-12.0) Aris Molina MD Sep 08, 2018 10:26
[2018-09-08] MEDS ORDERED: LORazepam Inj 2mg/ml 1ml IV PRN ×2 (10:30)
--- NOTE | 2018-09-08 10:46 | Diagnostic Imaging Report ---
Indication: Dyspnea Technique: One view of the chest Comparison: 09/06/2018 Findings: Diffuse interstitial and airspace parenchymal disease is again noted. This appears somewhat improved overall on the left, although still persistent. Appears stable in the right lower lobe. However, there is interim development of or increase in dense consolidation of the right upper lobe. The pleural spaces are clear. The heart is enlarged. There is a left chest AICD Impression: Markedly increased dense consolidation of the right upper lobe, over 2 days Slightly improved but persistent generalized interstitial airspace disease throughout the left lung and right lung base
[2018-09-08] MEDS: D5W w/KCl 20mEq 1,000 ML IV SCH (11:00)
--- NOTE | 2018-09-08 12:00 | NUR ---
NURSE NOTES: Pt resting in bed. On venturi mask 45%. VSS, in a.fib HR 95
--- NOTE | 2018-09-08 14:00 | NUR ---
NURSE NOTES: Pt resting in bed. changed and repositioned patient. will continue plan of care.
--- NOTE | 2018-09-08 15:04 | Diagnostic Imaging Report ---
APPROVED REPORT CPT Code: 12146 Present Symptoms Shortness of breath BILATERAL: Imaging reveals a patent deep venous system bilaterally. There is no evidence of thrombus within the common femoral, superficial femoral, popliteal or tibial segments. The greater saphenous veins are within normal limits. Doppler indicates normal spontaneous flow within these segments.
--- NOTE | 2018-09-08 15:07 | NUR ---
*-* INSRUANCE *-* ALL CLINICALS HAVE BEEN FAXED Elle [facility] NCM: PEND F:[phone]
--- NOTE | 2018-09-08 16:00 | NUR ---
NURSE NOTES: Pt RR in 30's switched to bipap and feeding is now off. will continue plan of care.
--- NOTE | 2018-09-08 16:21 | Cardiac Electrophysiology PN ---
Subjective Subjective [id number] Objective Last 24 Hour Vital Signs Date Time Temp Pulse Resp B/P (MAP) Pulse Ox O2 Delivery O2 Flow Rate FiO2 09/08/18 15:03 107 106/75 09/08/18 14:00 107 20 106/75 (85) 97 09/08/18 13:00 111 20 111/71 (84) 97 09/08/18 12:00 99.0 92 26 108/79 (89) 98 09/08/18 12:00 40 09/08/18 12:00 92 09/08/18 12:00 Bi-pap 09/08/18 11:00 95 20 106/71 (83) 97 09/08/18 10:00 85 24 100/73 (82) 96 09/08/18 09:21 Venturi Mask 12.0 50 09/08/18 09:21 96 Venturi Mask 12.0 50 09/08/18 09:00 95 24 110/75 (87) 96 09/08/18 08:00 40 09/08/18 08:00 88 09/08/18 08:00 98.9 110 26 121/79 (93) 98 09/08/18 08:00 Bi-pap 09/08/18 07:54 128 29 95 Facial 40 09/08/18 07:00 119 24 119/73 (88) 96 09/08/18 06:30 114 27 109/69 (82) 97 09/08/18 06:00 98.9 117 26 110/79 (89) 98 09/08/18 05:30 116 27 113/88 (96) 98 09/08/18 05:05 112 28 98 Facial 40 09/08/18 05:00 124 26 110/87 (95) 93 09/08/18 04:30 103 20 83/67 (72) 95 09/08/18 04:00 Bi-pap 09/08/18 04:00 40 09/08/18 04:00 91 09/08/18 04:00 104 21 94/63 (73) 98 09/08/18 03:30 108 20 118/82 (94) 98 09/08/18 03:00 85 20 109/77 (88) 98 09/08/18 02:52 90 20 100 Facial 40 09/08/18 02:30 84 20 109/86 (94) 97 09/08/18 02:00 87 20 100/71 (81) 98 09/08/18 01:30 86 23 100/71 (81) 97 09/08/18 01:22 87 23 100 Facial 40 09/08/18 01:00 86 22 107/71 (83) 100 09/08/18 00:00 Bi-pap 09/08/18 00:00 98.6 86 22 105/70 (82) 100 09/08/18 00:00 94 09/07/18 23:33 82 22 100 Facial 40 09/07/18 23:30 84 21 119/77 (91) 100 09/07/18 23:00 88 23 106/73 (84) 100 09/07/18 22:46 90 111/81 09/07/18 22:37 87 22 111/81 (91) 100 09/07/18 22:00 99 27 124/89 (101) 100 09/07/18 21:40 107 34 100 Facial 40 09/07/18 21:17 110 35 127/84 (98) 100 09/07/18 20:00 Venturi Mask 09/07/18 20:00 97.3 146 44 137/76 (96) 95 09/07/18 20:00 40 09/07/18 19:43 201 09/07/18 19:00 147 09/07/18 18:03 84 123/83 09/07/18 17:25 88 Intake and Output 09/07/18 09/08/18 19:00 07:00 Intake Total 778.053 ml 487.42 ml Output Total 2300 ml 650 ml Balance -1521.947 ml -162.58 ml Intake Free Water 60 ml IV Total 388.053 ml 157.42 ml Tube Feeding 330 ml 330 ml Output Urine Total 2300 ml 650 ml # Voids 2 # Bowel Movements 1 Laboratory Tests Test 09/07/18 20:51 09/07/18 21:10 09/08/18 04:25 09/08/18 06:45 Arterial Blood pH 7.419 (7.350-7.450) Arterial Blood Partial Pressure CO2 48.7 mmHg (35.0-45.0) H Arterial Blood Partial Pressure O2 66.2 mmHg (75.0-100.0) L Arterial Blood HCO3 30.8 mmol/L (22.0-26.0) H Arterial Blood Oxygen Saturation 93.7 % (95-100) L Arterial Blood Base Excess 5.6 (-2-2) H Booker Test Positive Troponin I 0.067 ng/mL (0.000-0.056) 0.351 ng/mL (0.000-0.056) White Blood Count 5.1 K/UL (4.8-10.8) Red Blood Count 3.75 M/UL (4.70-6.10) L Hemoglobin 12.8 G/DL (14.2-18.0) L Hematocrit 36.7 % (42.0-52.0) L Mean Corpuscular Volume 98 FL (80-99) Mean Corpuscular Hemoglobin 34.2 PG (27.0-31.0) H Mean Corpuscular Hemoglobin Concent 34.9 G/DL (32.0-36.0) Red Cell Distribution Width 12.4 % (11.6-14.8) Platelet Count 102 K/UL (150-450) L Mean Platelet Volume 8.7 FL (6.5-10.1) Neutrophils (%) (Auto) 68.0 % (45.0-75.0) Lymphocytes (%) (Auto) 21.9 % (20.0-45.0) Monocytes (%) (Auto) 8.8 % (1.0-10.0) Eosinophils (%) (Auto) 0.8 % (0.0-3.0) Basophils (%) (Auto) 0.4 % (0.0-2.0) Sodium Level 150 MMOL/L (136-145) H Potassium Level 3.5 MMOL/L (3.5-5.1) Chloride Level 110 MMOL/L (98-107) H Carbon Dioxide Level 34 MMOL/L (21-32) H Anion Gap 7 mmol/L (5-15) Blood Urea Nitrogen 22 mg/dL (7-18) H Creatinine 0.8 MG/DL (0.55-1.30) Estimat Glomerular Filtration Rate > 60 mL/min (>60) Glucose Level 114 MG/DL (74-106) H Calcium Level 8.6 MG/DL (8.5-10.1) Total Bilirubin 0.6 MG/DL (0.2-1.0) Aspartate Amino Transf (AST/SGOT) 21 U/L (15-37) Alanine Aminotransferase (ALT/SGPT) 15 U/L (12-78) Alkaline Phosphatase 62 U/L (46-116) Pro-B-Type Natriuretic Peptide 3724 pg/mL (0-125) H Total Protein 6.7 G/DL (6.4-8.2) Albumin 2.9 G/DL (3.4-5.0) L Globulin 3.8 g/dL Albumin/Globulin Ratio 0.8 (1.0-2.7) L Vancomycin Level Trough 5.1 ug/mL (5.0-12.0) Test 09/08/18 10:35 Troponin I 0.264 ng/mL (0.000-0.056) Microbiology Date/Time Source Procedure Growth Status 09/06/18 14:40 Blood Blood Culture - Preliminary NO GROWTH AFTER 24 HOURS Resulted 09/06/18 14:20 Blood Blood Culture - Preliminary NO GROWTH AFTER 24 HOURS Resulted 09/06/18 15:30 Nasal Nares MRSA Culture - Final NO METHICILLIN RESISTANT STAPH AUREUS... Complete 09/06/18 23:30 Urine,Clean Catch Urine Culture - Preliminary NO GROWTH AFTER 24 HOURS Resulted 09/06/18 15:30 Rectum VRE Culture - Final NO VANCOMYCIN RESISTANT ENTEROCOCCUS ... Complete Robby Cantu MD Sep 08, 2018 16:21
--- NOTE | 2018-09-08 19:05 | NUR ---
HAND-OFF: Report given to HETAL Marie.
--- NOTE | 2018-09-08 19:12 | NUR ---
RESPIRATORY NOTE: Received pt on BiPAP 06/22, backup rate 16, 40%. Pt on a Facial mask, skin intact, no redness/breakdowns noted. Foam tape applied on pt's nosebridge/cheeks/chin to prevent any irritations. Pt asleep, restless at this time. B/S buzz. diminished, nonproductive cough. BiPAP plugged into red outlet. Pt torelating current settings, no resp distress noted besides pt being agitated at this time. Will continue to monitor pt.
--- NOTE | 2018-09-08 19:50 | NUR ---
NURSE NOTES: PATIENT OPEN EYES, NO ANSWERING TO QUESTION, ON BIPAP I/E 06/22, RATE 16, FIO2 40%, O2 SATURATION 99% NOTED, ABDOMEN SOFT, G TUBE INTACT AND PATENT, ONGOING JEVITY 1.2 AT 30ML/HR, RESIDUE 20ML NOTED, PALPABLE HARD MATERIAL TO RLQ WITH OLD SURGERY SCAR, NO BOWEL MOVEMENT STATUS, CONDOM CATH INTACT, YELLOW URINE OUTED, PERIPHERAL LINE TO LEFT HAND INTACT AND PATENT, GOOD BLOOD RETURN NOTED, ONGOING DILTIAZEM 10MG/HR, D5W W/KCL 20MEQ AT 50ML/HR VIA PERIPHERAL LINE, KEPT SZ PRECAUTION AND HOB OVER 30 DEGREE, MADE LOWER BED POSITION, 2 POINT SOFT RESTRAINTS FOR SAFETY, PROVIDED CALL LIGHT WITHIN REACH, WILL CONTINUE TO MONITOR.
--- NOTE | 2018-09-08 20:00 | Internal Med Progress Note ---
Subjective Date of Service: Sep 08, 2018 Physician Name Delvis Arnold Attending Physician Axel Saez MD Current Medications Medications (Trade) Dose Ordered Sig/[place]onte Route PRN Reason Start Time Stop Time Status Last Admin Dose Admin Acetaminophen (Tylenol) 650 mg Q4H PRN GT FEVER 09/07/18 22:00 10/07/18 21:59 Albuterol/ Ipratropium (Albuterol/ Ipratropium) 3 ml Q4H PRN HHN Shortness of Breath 09/07/18 22:00 09/12/18 21:59 Benztropine Mesylate (Cogentin) 0.5 mg EVERY 12 HOURS GT 09/08/18 09:00 10/06/18 17:59 09/08/18 09:00 Carvedilol (Coreg) 3.125 mg EVERY 12 HOURS ORAL 09/08/18 21:00 10/08/18 20:59 Dextrose (Dextrose 50%) 25 ml Q30M PRN IV Hypoglycemia 09/07/18 22:00 10/06/18 16:59 Dextrose (Dextrose 50%) 50 ml Q30M PRN IV Hypoglycemia 09/07/18 22:00 10/06/18 16:59 Dextrose/ Electrolytes 1,000 ml @ 50 mls/hr Q20H IV 09/08/18 11:00 10/08/18 10:59 09/08/18 11:00 Diltiazem HCl 125 mg/Dextrose 125 ml @ 0 mls/hr Q24H IV 09/07/18 22:00 09/08/18 21:59 09/08/18 15:03 Furosemide (Lasix) 40 mg EVERY 12 HOURS IV 09/08/18 21:00 10/08/18 20:59 Haloperidol Lactate (Haldol) 5 mg Q4H PRN IM AGITATION 09/08/18 00:00 10/08/18 00:00 Heparin Sodium (Porcine) (Heparin 5000 units/ml) 5,000 units EVERY 12 HOURS SUBQ 09/08/18 09:00 10/06/18 20:59 Levetiracetam (Keppra) 1,000 mg Q12HR GT 09/08/18 09:00 10/06/18 20:59 09/08/18 09:00 Lisinopril (Zestril) 10 mg DAILY ORAL 09/09/18 09:00 10/09/18 08:59 Lorazepam (Ativan 2mg/ml 1ml) 1 mg Q2H PRN IV agitation 09/08/18 10:30 09/15/18 10:29 09/08/18 13:17 Ondansetron HCl (Zofran) 4 mg Q6H PRN IVP Nausea & Vomiting 09/07/18 22:00 10/06/18 21:59 Pantoprazole (Protonix) 40 mg DAILY IV 09/08/18 09:00 10/07/18 08:59 09/08/18 09:00 Piperacillin Sod/ Tazobactam Sod 3.375 gm/Sodium Chloride 110 ml @ 27.5 mls/hr Q8H IVPB 09/07/18 23:00 09/13/18 22:59 09/08/18 15:00 Polyethylene Glycol (Miralax) 17 gm DAILYPRN PRN ORAL Constipation 09/07/18 22:00 10/07/18 21:59 Quetiapine Fumarate (SEROquel) 100 mg TID GT 09/08/18 09:00 10/07/18 12:59 09/08/18 18:00 Temazepam (Restoril) 15 mg HSPRN PRN ORAL Insomnia 09/08/18 17:00 09/13/18 16:59 Valproic Acid (Depakene) 500 mg EVERY 12 HOURS GT 09/08/18 09:00 10/06/18 20:59 09/08/18 09:00 Vancomycin HCl (Vanco rx to dose) 1 ea DAILY PRN MISC Per rx protocol 09/08/18 09:00 10/06/18 17:44 Vancomycin HCl 750 mg/Sodium Chloride 275 ml @ 183.333 mls/hr Q8H IVPB 09/08/18 08:00 09/13/18 07:59 09/08/18 16:00 Allergies: Coded Allergies: No Known Allergies (Unverified , 03/14/16) ROS Limited/Unobtainable: Yes Subjective 53 YO M admitted with respiratory distress. Now pneumonia. Cover for Int Med- Dr Saez. ICU. On full face BIPAP Objective Last Vital Signs Date Time Temp Pulse Resp B/P (MAP) Pulse Ox O2 Delivery O2 Flow Rate FiO2 09/08/18 19:10 99 Bi-pap 40 09/08/18 19:10 101 32 09/08/18 19:00 113/70 (84) 09/08/18 16:00 98.2 09/08/18 09:21 12.0 Laboratory Tests Test 09/07/18 20:51 09/07/18 21:10 09/08/18 04:25 09/08/18 06:45 Arterial Blood pH 7.419 (7.350-7.450) Arterial Blood Partial Pressure CO2 48.7 mmHg (35.0-45.0) H Arterial Blood Partial Pressure O2 66.2 mmHg (75.0-100.0) L Arterial Blood HCO3 30.8 mmol/L (22.0-26.0) H Arterial Blood Oxygen Saturation 93.7 % (95-100) L Arterial Blood Base Excess 5.6 (-2-2) H Booker Test Positive Troponin I 0.067 ng/mL (0.000-0.056) 0.351 ng/mL (0.000-0.056) White Blood Count 5.1 K/UL (4.8-10.8) Red Blood Count 3.75 M/UL (4.70-6.10) L Hemoglobin 12.8 G/DL (14.2-18.0) L Hematocrit 36.7 % (42.0-52.0) L Mean Corpuscular Volume 98 FL (80-99) Mean Corpuscular Hemoglobin 34.2 PG (27.0-31.0) H Mean Corpuscular Hemoglobin Concent 34.9 G/DL (32.0-36.0) Red Cell Distribution Width 12.4 % (11.6-14.8) Platelet Count 102 K/UL (150-450) L Mean Platelet Volume 8.7 FL (6.5-10.1) Neutrophils (%) (Auto) 68.0 % (45.0-75.0) Lymphocytes (%) (Auto) 21.9 % (20.0-45.0) Monocytes (%) (Auto) 8.8 % (1.0-10.0) Eosinophils (%) (Auto) 0.8 % (0.0-3.0) Basophils (%) (Auto) 0.4 % (0.0-2.0) Sodium Level 150 MMOL/L (136-145) H Potassium Level 3.5 MMOL/L (3.5-5.1) Chloride Level 110 MMOL/L (98-107) H Carbon Dioxide Level 34 MMOL/L (21-32) H Anion Gap 7 mmol/L (5-15) Blood Urea Nitrogen 22 mg/dL (7-18) H Creatinine 0.8 MG/DL (0.55-1.30) Estimat Glomerular Filtration Rate > 60 mL/min (>60) Glucose Level 114 MG/DL (74-106) H Calcium Level 8.6 MG/DL (8.5-10.1) Total Bilirubin 0.6 MG/DL (0.2-1.0) Aspartate Amino Transf (AST/SGOT) 21 U/L (15-37) Alanine Aminotransferase (ALT/SGPT) 15 U/L (12-78) Alkaline Phosphatase 62 U/L (46-116) Pro-B-Type Natriuretic Peptide 3724 pg/mL (0-125) H Total Protein 6.7 G/DL (6.4-8.2) Albumin 2.9 G/DL (3.4-5.0) L Globulin 3.8 g/dL Albumin/Globulin Ratio 0.8 (1.0-2.7) L Vancomycin Level Trough 5.1 ug/mL (5.0-12.0) Test 09/08/18 10:35 09/08/18 16:50 Troponin I 0.264 ng/mL (0.000-0.056) 0.161 ng/mL (0.000-0.056) Microbiology Date/Time Source Procedure Growth Status 09/06/18 14:40 Blood Blood Culture - Preliminary NO GROWTH AFTER 24 HOURS Resulted 09/06/18 14:20 Blood Blood Culture - Preliminary NO GROWTH AFTER 24 HOURS Resulted 09/06/18 15:30 Nasal Nares MRSA Culture - Final NO METHICILLIN RESISTANT STAPH AUREUS... Complete 09/06/18 23:30 Urine,Clean Catch Urine Culture - Preliminary NO GROWTH AFTER 24 HOURS Resulted 09/06/18 15:30 Rectum VRE Culture - Final NO VANCOMYCIN RESISTANT ENTEROCOCCUS ... Complete Intake and Output 09/07/18 09/08/18 19:00 07:00 Intake Total 778.053 ml 487.42 ml Output Total 2300 ml 650 ml Balance -1521.947 ml -162.58 ml Intake Free Water 60 ml IV Total 388.053 ml 157.42 ml Tube Feeding 330 ml 330 ml Output Urine Total 2300 ml 650 ml # Voids 2 # Bowel Movements 1 Objective PHYSICAL EXAMINATION: VITAL SIGNS: Temperature 98.2, blood pressure over 54-58, respiratory rate 24-30, pulse 91-105. GENERAL: The patient is a well-developed and well-nourished male, who is essentially nonverbal. The patient only moans. HEENT: Eyes, pupils equal and responsive to light and accommodation. Extraocular movements are intact. NECK: Supple without lymphadenopathy. CHEST: FULL FACE BIPAP; with bilateral wheezes and rales. CARDIOVASCULAR: Regular rate. S1 and S2 are normal without murmurs, rubs, or gallops. ABDOMEN: Soft, nontender, and nondistended. Positive bowel sounds. No evidence of hepatosplenomegaly. Currently, no rebound or guarding noted. EXTREMITIES: Negative for clubbing, cyanosis, or edema. RECTAL: Not performed. GENITAL: Not performed. NEUROLOGICAL: Cranial nerves II through XII are grossly intact without focal deficits. Assessment/Plan Assessment/Plan ASSESSMENT: This is a 53-year-old male with: 1. Dyspnea. 2. Pneumonia. 3. Atrial fibrillation. 4. Seizure disorder. 5. Dysphagia. 6. Gastroesophageal reflux disease. 7. Schizophrenia. 8. RESPIRATORY FAILURE TREATMENT: 1. Pneumonia/dyspnea. A Pulmonary consultation has been obtained with Dr. Aris Molina. The patient is currently on a Venturi mask. Continue vancomycin and Zosyn. We will follow recommendations of Pulmonary. 2. Seizure disorder. Continue Keppra and Depakote as above. 3. Dysphagia. The patient is currently receiving G-tube feeds. 4. Gastroesophageal reflux disease. Continue omeprazole as above. 5. Schizophrenia. A psychiatric consultation has been obtained with Dr. Stern. 6. Atrial fibrillation. A Cardiology consultation is pending. 7. FULL FACE BIPAP; ICU STATUS Delvis Arnold MD Sep 08, 2018 20:00
--- NOTE | 2018-09-08 20:00 | Consultation ---
DATE OF CONSULTATION: 09/08/2018 CARDIAC ELECTROPHYSIOLOGY CONSULTATION CONSULTING PHYSICIAN: Robby Cantu M.D. REFERRING PHYSICIAN: Axel Saez M.D. REASON FOR CONSULTATION: Management of congestive heart failure as well as evaluation of the patient's defibrillator. HISTORY OF PRESENT ILLNESS: The patient is a 53-year-old gentleman with history of hypertension, congestive heart failure as well history of dual-chamber defibrillator implantation, who was brought in from [facility] for increasing shortness of breath. The patient was then transferred to [facility]. The patient also developed atrial fibrillation with rapid ventricular response, heart rate up to 150s. At my request, the patient was then transferred to intensive care unit and started on Cardizem drip. At the time of my evaluation, the patient is nonverbal, is unable to provide any information. REVIEW OF SYSTEMS: Cannot be obtained. PAST MEDICAL HISTORY: 1. Hypertension. 2. History of congestive heart failure. 3. Status post dual-chamber defibrillator. 4. Organic brain injury. 5. History of seizure disorder. 6. Dysphagia, status post PEG placement. 7. History of a craniotomy. 8. History of tracheostomy that was subsequently reversed. MEDICATIONS: Per reconciliation. PHYSICAL EXAMINATION: VITAL SIGNS: Blood pressure is 106/75, pulse 110, respirations 18. HEENT: Status post craniotomy and tracheostomy that has been closed. He is on face mask. LUNGS: Coarse rhonchi bilaterally, defibrillator in the left subclavian. CARDIOVASCULAR: Irregular S1 and S2 with no gallop. ABDOMEN: Soft. NG tube is intact. EXTREMITIES: No pitting edema. LABORATORY AND DIAGNOSTIC DATA: His labs show white count of 5.1, hemoglobin 12.8, hematocrit 36.7, and platelet count is 102. Sodium 150, potassium 3.5, BUN of 20, creatinine 0.8 and glucose of 114. Troponin is 0.06, 0.25, and 0.264. ASSESSMENT AND PLAN: 1. Non-ST elevation myocardial infarction, likely due to atrial fibrillation with rapid ventricular response. The patient's creatinine is within normal range. The echocardiogram has been done that showed ejection fraction of only 20% to 25%. 2. Severe cardiomyopathy with ejection fraction of only 25%. Start the patient on Lasix 40 mg IV b.i.d. Add Coreg 3.125 mg b.i.d. to his medical regimen as well as digoxin to try to control the rate. We will taper off Cardizem if possible. The patient would need LOVE inhibitor as well if the blood pressure allows. 3. Status post dual-chamber defibrillator, no information is available at this point. We will try to find the brand and interrogate device for further evaluation. 4. Dysphagia, status post PEG placement. 5. Respiratory failure. 6. History of schizophrenia. 7. History of traumatic brain injury. Thank you very much, Dr. Saez, for allowing me to participate in the care of this patient. Please do not hesitate to contact me for any questions regarding my evaluation. Sincerely, Robby Cantu M.D. DR: Servando JOB#: [id number] CC:
--- NOTE | 2018-09-08 21:15 | NUR ---
NURSE NOTES: PT'S SON WHO IS TD DECIDED PT'S CODE STATUS TO DNR BUT NO MEDICAL INTERVENTION STATUS AT THIS TIME. Addendum: 09/09/18 at 0257 by DOMINGO ARVIZU RN NURSE NOTES: WRONG PATIENT .
--- NOTE | 2018-09-08 22:00 | NUR ---
NURSE NOTES: REPOSITIONED, RELEASED RESTRAINTS AND REAPPLIED FOR SAFETY.
--- NOTE | 2018-09-08 23:30 | NUR ---
NURSE NOTES: PATIENT SLEEPING ON AND OFF STATUS, WILL CONTINUE TO MONITOR.
[2018-09-09] VITALS (25 sets, daily range): BP systolic 82–134; BP diastolic 51–113
[2018-09-09] MEDS: LORazepam Inj 2mg/ml 1ml IV PRN ×2 (01:31→20:33)
--- NOTE | 2018-09-09 01:31 | NUR ---
NURSE NOTES: PATIENT AGITATED, TRIED TO REMOVE LINE THAT GIVEN ATIVAN 1MG BY IVP PRN ORDERED FOR AGITATION, WILL CONTINUE TO MONITOR.
--- NOTE | 2018-09-09 02:26 | NUR ---
NURSE NOTES: PATIENT ASLEEP STATUS, MADE CALM ENVIRONMENT KEPT SZ PRECAUTION AND PROVIDED CALL LIGHT WITHIN REACH.
--- NOTE | 2018-09-09 04:30 | NUR ---
NURSE NOTES: MORNING CARE WAS DONE, NO BOWEL MOVEMENT STATUS.
--- NOTE | 2018-09-09 06:08 | NUR ---
NURSE NOTES: PATIENT ASLEEP STATUS, ONGOING DILTIAZEM 5MG/HR VIA PERIPHERAL LINE, WILL CONTINUE TO MONITOR.
[2018-09-09] MEDS: Piperacillin/Tazobactam 3.375 GM in NS 110 ML IVPB SCH ×3 (06:45→22:49)
[2018-09-09] MEDS: D5W w/KCl 20mEq 1,000 ML IV SCH (06:46)
--- NOTE | 2018-09-09 07:15 | NUR ---
RESPIRATORY NOTE: Received pt on Bipap /, 40% FiO2. Pt is tolerating well, resting comfortably in bed. No SOB or resp distress noted. Took off mask to check toleration and skin integrity. No redness or skin breakdown noted. Re-applied foam tapes to cheeks, chin and nose bridge to prevent skin breakdown. Alarms are set and audible, Bipap is plugged into the red outlet, ambu bag is at bedside. Will continue to monitor pt.
--- NOTE | 2018-09-09 07:23 | NUR ---
HAND-OFF: Report given to ANI/RN.
[2018-09-09 07:27] LABS: BASOPHILS % (AUTO) 0.8 % (0.0-2.0); EOSINOPHILS % (AUTO) 4.3 % (0.0-3.0); HEMATOCRIT 37.1 % (42.0-52.0); HEMOGLOBIN 12.9 G/DL (14.2-18.0); MEAN CORPUSCULAR VOLUME 97 FL (80-99); MONOCYTES % (AUTO) 8.2 % (1.0-10.0); NEUTROPHILS % (AUTO) 58.8 % (45.0-75.0); PLATELET COUNT 118 K/UL (150-450); RED BLOOD COUNT 3.84 M/UL (4.70-6.10); RED CELL DISTRIBUTION WIDTH 12.8 % (11.6-14.8); WHITE BLOOD COUNT 3.9 K/UL (4.8-10.8)
--- NOTE | 2018-09-09 08:00 | NUR ---
NURSE NOTES: PATIENT OPEN EYES, NO ANSWERING TO QUESTION, ON BIPAP I/E 06/22, RATE 16, FIO2 40%, O2 SATURATION 99% NOTED, ABDOMEN SOFT, G TUBE INTACT AND PATENT, ONGOING JEVITY 1.2 AT 30ML/HR, No RESIDUAL NOTED, PALPABLE HARD MATERIAL TO RLQ WITH OLD SURGERY SCAR, NO BOWEL MOVEMENT STATUS, CONDOM CATH INTACT, YELLOW URINE OUTED, PERIPHERAL LINE TO LEFT HAND INTACT AND PATENT, GOOD BLOOD RETURN NOTED, ONGOING DILTIAZEM 5MG/HR, D5W W/KCL 20MEQ AT 50ML/HR VIA PERIPHERAL LINE, KEPT SZ PRECAUTION AND HOB OVER 30 DEGREE, MADE LOWER BED POSITION, 2 POINT SOFT RESTRAINTS FOR SAFETY, PROVIDED CALL LIGHT WITHIN REACH, WILL CONTINUE TO MONITOR.
[2018-09-09 08:05] LABS: ALANINE AMINOTRANSFERASE 14 U/L (12-78); ALBUMIN 2.7 G/DL (3.4-5.0); ALBUMIN/GLOBULIN RATIO 0.6 (1.0-2.7); ALKALINE PHOSPHATASE 58 U/L (46-116); ANION GAP 4 mmol/L (5-15); ASPARTATE AMINO TRANSFERASE 20 U/L (15-37); BILIRUBIN,TOTAL 0.5 MG/DL (0.2-1.0); BLOOD UREA NITROGEN 22 mg/dL (7-18); CALCIUM 8.9 MG/DL (8.5-10.1); CARBON DIOXIDE 32 MMOL/L (21-32); CHLORIDE 110 MMOL/L (98-107); CREATININE 0.8 MG/DL (0.55-1.30); POTASSIUM 3.1 MMOL/L (3.5-5.1); SODIUM 146 MMOL/L (136-145)
[2018-09-09] MEDS: Lisinopril 10mg tab ORAL SCH (09:00)
[2018-09-09] MEDS: Pantoprazole Inj IV SCH (09:00)
[2018-09-09] MEDS: Heparin 5000 units/ml inj SUBQ SCH ×2 (09:00→20:37)
[2018-09-09] MEDS: levETIRAcetam 500mg/5ml Liquid GT SCH ×2 (09:00→20:36)
--- NOTE | 2018-09-09 09:44 | NUR ---
RADIOLOGY DEPT CHEST X-RAY DONE.-P.DYE
[2018-09-09] MEDS: Vancomycin 1gm/D5W 275ml IVPB SCH ×4 (09:52→17:00)
[2018-09-09] MEDS: Benztropine 1mg tab GT SCH ×2 (09:52→20:33)
[2018-09-09] MEDS: Valproic Acid 250mg/5ml Liquid GT SCH ×2 (09:54→20:33)
--- NOTE | 2018-09-09 10:00 | NUR ---
NURSE NOTES: PATIENT NOW ON VENTURI MASK 10 L 45% PER MD ORDER. TOLERATING WELL. nO DISTRESS NOTED. VSS. TURNED AND REPOSITIONED WITH CHARGE NURSE. WILL CONTINUE PLAN OF CARE.
--- NOTE | 2018-09-09 10:26 | Pulmonolgy Critical Care Note ---
Critical Care - Asmt/Plan Problems: (1) Acute respiratory failure (2) ICD (implantable cardioverter-defibrillator) in place (3) History of schizophrenia (4) Feeding by G-tube Respiratory: monitor respiratory rate, adjust FIO2, CXR Cardiac: continue pressors, continue to monitor HR/BP Renal: F/U I&O Infectious Disease: check cultures, continue antibiotics Gastrointestinal: continue feedings/current rate Endocrine: monitor blood sugar, check TSH Hematologic: monitor H/H, transfuse if hgb<8.5 Neurologic: PRN Morphine, keep patient comfortable Affect: PRN ativan Prophylaxis: Heparin Time Spent (Minutes): 30 Notes Reviewed: cardio, renal Critical Care - Objective Last 24 Hour Vital Signs Date Time Temp Pulse Resp B/P (MAP) Pulse Ox O2 Delivery O2 Flow Rate FiO2 09/09/18 09:52 112 120/90 09/09/18 09:20 124 35 95 Facial 40 09/09/18 09:00 120/90 09/09/18 08:00 Bi-pap 09/09/18 08:00 98.2 96 20 103/84 (90) 99 09/09/18 08:00 40 09/09/18 07:15 93 20 98 Facial 40 09/09/18 07:15 Bi-pap 40 09/09/18 07:15 99 Bi-pap 40 09/09/18 07:00 92 20 100/65 (77) 99 09/09/18 06:00 96 20 102/70 (81) 99 09/09/18 05:06 94 17 99 Facial 40 09/09/18 05:00 91 19 100/88 (92) 98 09/09/18 04:00 97.6 110 34 121/105 (110) 96 09/09/18 04:00 40 09/09/18 04:00 Bi-pap 09/09/18 03:10 80 21 99 Facial 40 09/09/18 03:09 100 09/09/18 03:00 91 18 91/71 (78) 99 09/09/18 02:00 98 21 101/57 (72) 97 09/09/18 01:20 113 30 98 Facial 40 09/09/18 01:00 99 31 127/98 (108) 97 09/09/18 00:00 97.6 85 25 101/79 (86) 98 09/09/18 00:00 Bi-pap 09/08/18 23:41 79 20 96 Facial 40 09/08/18 23:11 80 09/08/18 23:00 75 18 109/71 (84) 97 09/08/18 22:49 70 97/79 09/08/18 22:00 84 19 106/72 (83) 98 09/08/18 21:21 83 21 97 Facial 40 09/08/18 21:00 82 19 106/76 (86) 97 09/08/18 20:56 78 109/86 09/08/18 20:00 98.5 80 18 111/93 (99) 99 09/08/18 20:00 Bi-pap 09/08/18 20:00 40 09/08/18 19:12 114 09/08/18 19:10 99 Bi-pap 40 09/08/18 19:10 Bi-pap 40 09/08/18 19:10 101 32 99 Facial 40 09/08/18 19:00 88 20 113/70 (84) 97 09/08/18 18:00 89 20 95/69 (78) 97 09/08/18 17:31 84 17 96 Facial 40 09/08/18 17:00 95 20 99/75 (83) 97 09/08/18 16:00 40 09/08/18 16:00 82 09/08/18 16:00 98.2 92 25 110/80 (90) 98 09/08/18 16:00 Bi-pap 09/08/18 15:03 107 106/75 09/08/18 15:00 98 20 100/77 (85) 97 09/08/18 14:00 107 20 106/75 (85) 97 09/08/18 13:00 111 20 111/71 (84) 97 09/08/18 12:00 99.0 92 26 108/79 (89) 98 09/08/18 12:00 40 09/08/18 12:00 92 09/08/18 12:00 Venturi Mask 09/08/18 11:00 95 20 106/71 (83) 97 Status: sedated Condition: critical Neck: full ROM Heart: regular Abdomen: non-tender, active bowel sounds Extremities: edema Micro: Microbiology Date/Time Source Procedure Growth Status 09/06/18 14:40 Blood Blood Culture - Preliminary NO GROWTH AFTER 48 HOURS Resulted 09/06/18 14:20 Blood Blood Culture - Preliminary NO GROWTH AFTER 48 HOURS Resulted 09/06/18 15:30 Nasal Nares MRSA Culture - Final NO METHICILLIN RESISTANT STAPH AUREUS... Complete 09/06/18 23:30 Urine,Clean Catch Urine Culture - Final NO GROWTH AFTER 48 HOURS Complete 09/06/18 15:30 Rectum VRE Culture - Final NO VANCOMYCIN RESISTANT ENTEROCOCCUS ... Complete Critical Care - Subjective ROS Limited/Unobtainable: Yes Condition: critical EKG Rhythm: Sinus Rhythm FI02: 40 Vent Support Breath Rate: 16 Vent Support Mode: BiLevel Sputum Amount: None Tube Feeding Amount: 30 I&O: Intake and Output 09/08/18 09/09/18 19:00 07:00 Intake Total 1335.00 ml 1544.0 ml Output Total 650 ml 1100 ml Balance 685.00 ml 444.0 ml Intake Free Water 50 ml IV Total 1005.00 ml 1034.0 ml Tube Feeding 330 ml 360 ml Other 100 ml Output Urine Total 650 ml 1100 ml CXR: pulmonary edema Labs: Laboratory Tests Test 09/08/18 10:35 09/08/18 16:50 09/09/18 07:05 Troponin I 0.264 ng/mL (0.000-0.056) 0.161 ng/mL (0.000-0.056) White Blood Count 3.9 K/UL (4.8-10.8) L Red Blood Count 3.84 M/UL (4.70-6.10) L Hemoglobin 12.9 G/DL (14.2-18.0) L Hematocrit 37.1 % (42.0-52.0) L Mean Corpuscular Volume 97 FL (80-99) Mean Corpuscular Hemoglobin 33.7 PG (27.0-31.0) H Mean Corpuscular Hemoglobin Concent 34.8 G/DL (32.0-36.0) Red Cell Distribution Width 12.8 % (11.6-14.8) Platelet Count 118 K/UL (150-450) L Mean Platelet Volume 8.3 FL (6.5-10.1) Neutrophils (%) (Auto) 58.8 % (45.0-75.0) Lymphocytes (%) (Auto) 28.0 % (20.0-45.0) Monocytes (%) (Auto) 8.2 % (1.0-10.0) Eosinophils (%) (Auto) 4.3 % (0.0-3.0) H Basophils (%) (Auto) 0.8 % (0.0-2.0) Sodium Level 146 MMOL/L (136-145) H Potassium Level 3.1 MMOL/L (3.5-5.1) L Chloride Level 110 MMOL/L (98-107) H Carbon Dioxide Level 32 MMOL/L (21-32) Anion Gap 4 mmol/L (5-15) L Blood Urea Nitrogen 22 mg/dL (7-18) H Creatinine 0.8 MG/DL (0.55-1.30) Estimat Glomerular Filtration Rate > 60 mL/min (>60) Glucose Level 158 MG/DL (74-106) H Calcium Level 8.9 MG/DL (8.5-10.1) Total Bilirubin 0.5 MG/DL (0.2-1.0) Aspartate Amino Transf (AST/SGOT) 20 U/L (15-37) Alanine Aminotransferase (ALT/SGPT) 14 U/L (12-78) Alkaline Phosphatase 58 U/L (46-116) Pro-B-Type Natriuretic Peptide 2424 pg/mL (0-125) H Total Protein 6.9 G/DL (6.4-8.2) Albumin 2.7 G/DL (3.4-5.0) L Globulin 4.2 g/dL Albumin/Globulin Ratio 0.6 (1.0-2.7) L Vancomycin Level Trough 11.9 ug/mL (5.0-12.0) Aris Molina MD Sep 09, 2018 10:26
--- NOTE | 2018-09-09 10:50 | NUR ---
RESPIRATORY NOTE: Took pt off Bipap per Dr. Molina's order. Pt is on Venturi mask 10L 45% FiO2. Pt is tolerating well, no distress or SOB noted, saturates at 96%. RN Mally made aware.
[2018-09-09] MEDS ORDERED: Potassium Chloride 40 MEQ in Sodium Chloride 550 ML IVPB ONE (12:00)
--- NOTE | 2018-09-09 12:00 | NUR ---
NURSE NOTES: Patient turned and repositioned. Sister in law at bedside - language barrier as she is hebrew speaking. Updated as much as possible on plan of care. Will continue plan of care.
--- NOTE | 2018-09-09 12:11 | Diagnostic Imaging Report ---
Indication: Dyspnea Comparison: 09/08/2018 A single view chest radiograph was obtained. Findings: Vascular and interstitial prominence demonstrated. There is airspace disease at the left lung base and right upper lobe/perihilar region. Findings appear stable. Pacemaker again noted. Cardiomegaly is stable. 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 No change
--- NOTE | 2018-09-09 13:21 | Internal Med Progress Note ---
Subjective Physician Name Axel Saez Attending Physician Axel Saez MD Current Medications Medications (Trade) Dose Ordered Sig/Davonte Route PRN Reason Start Time Stop Time Status Last Admin Dose Admin Acetaminophen (Tylenol) 650 mg Q4H PRN GT FEVER 09/07/18 22:00 10/07/18 21:59 Albuterol/ Ipratropium (Albuterol/ Ipratropium) 3 ml Q4H PRN HHN Shortness of Breath 09/07/18 22:00 09/12/18 21:59 Benztropine Mesylate (Cogentin) 0.5 mg EVERY 12 HOURS GT 09/08/18 09:00 10/06/18 17:59 09/09/18 09:52 Carvedilol (Coreg) 3.125 mg EVERY 12 HOURS ORAL 09/08/18 21:00 10/08/18 20:59 09/09/18 09:52 Dextrose (Dextrose 50%) 25 ml Q30M PRN IV Hypoglycemia 09/07/18 22:00 10/06/18 16:59 Dextrose (Dextrose 50%) 50 ml Q30M PRN IV Hypoglycemia 09/07/18 22:00 10/06/18 16:59 Diltiazem HCl 125 mg/Dextrose 125 ml @ 0 mls/hr Q24H IV 09/08/18 22:15 09/09/18 22:14 09/08/18 22:49 Furosemide (Lasix) 40 mg EVERY 12 HOURS IV 09/08/18 21:00 10/08/18 20:59 09/09/18 09:53 Haloperidol Lactate (Haldol) 5 mg Q4H PRN IM AGITATION 09/08/18 00:00 10/08/18 00:00 Heparin Sodium (Porcine) (Heparin 5000 units/ml) 5,000 units EVERY 12 HOURS SUBQ 09/08/18 09:00 10/06/18 20:59 09/09/18 09:00 Levetiracetam (Keppra) 1,000 mg Q12HR GT 09/08/18 09:00 10/06/18 20:59 09/09/18 09:00 Lisinopril (Zestril) 10 mg DAILY ORAL 09/09/18 09:00 10/09/18 08:59 Lorazepam (Ativan 2mg/ml 1ml) 1 mg Q2H PRN IV agitation 09/08/18 10:30 09/15/18 10:29 09/09/18 01:31 Ondansetron HCl (Zofran) 4 mg Q6H PRN IVP Nausea & Vomiting 09/07/18 22:00 10/06/18 21:59 Pantoprazole (Protonix) 40 mg DAILY IV 09/08/18 09:00 10/07/18 08:59 09/09/18 09:00 Piperacillin Sod/ Tazobactam Sod 3.375 gm/Sodium Chloride 110 ml @ 27.5 mls/hr Q8H IVPB 09/07/18 23:00 09/13/18 22:59 09/09/18 06:45 Polyethylene Glycol (Miralax) 17 gm DAILYPRN PRN ORAL Constipation 09/07/18 22:00 10/07/18 21:59 Potassium Chloride 100 ml @ 100 mls/hr Q1H IVPB 09/09/18 13:00 09/09/18 16:59 09/09/18 12:29 Quetiapine Fumarate (SEROquel) 100 mg TID GT 09/08/18 09:00 10/07/18 12:59 09/09/18 12:29 Temazepam (Restoril) 15 mg HSPRN PRN ORAL Insomnia 09/08/18 17:00 09/13/18 16:59 Valproic Acid (Depakene) 500 mg EVERY 12 HOURS GT 09/08/18 09:00 10/06/18 20:59 09/09/18 09:54 Vancomycin HCl (Vanco rx to dose) 1 ea DAILY PRN MISC Per rx protocol 09/08/18 09:00 10/06/18 17:44 Vancomycin HCl 1 gm/Dextrose 275 ml @ 183.708 mls/hr Q8HR@0100,0900,1700 IVPB 09/09/18 09:00 09/14/18 08:59 09/09/18 09:52 Allergies: Coded Allergies: No Known Allergies (Unverified , 03/14/16) Subjective Patient is in ICU unable to follow command, weaned off the BiPAP, on a Ventimask at this time. Objective Last Vital Signs Date Time Temp Pulse Resp B/P (MAP) Pulse Ox O2 Delivery O2 Flow Rate FiO2 09/09/18 11:00 104 20 105/51 (69) 99 09/09/18 09:20 Facial 40 09/09/18 08:00 98.2 09/08/18 09:21 12.0 Laboratory Tests Test 09/08/18 16:50 09/09/18 07:05 Troponin I 0.161 ng/mL (0.000-0.056) White Blood Count 3.9 K/UL (4.8-10.8) L Red Blood Count 3.84 M/UL (4.70-6.10) L Hemoglobin 12.9 G/DL (14.2-18.0) L Hematocrit 37.1 % (42.0-52.0) L Mean Corpuscular Volume 97 FL (80-99) Mean Corpuscular Hemoglobin 33.7 PG (27.0-31.0) H Mean Corpuscular Hemoglobin Concent 34.8 G/DL (32.0-36.0) Red Cell Distribution Width 12.8 % (11.6-14.8) Platelet Count 118 K/UL (150-450) L Mean Platelet Volume 8.3 FL (6.5-10.1) Neutrophils (%) (Auto) 58.8 % (45.0-75.0) Lymphocytes (%) (Auto) 28.0 % (20.0-45.0) Monocytes (%) (Auto) 8.2 % (1.0-10.0) Eosinophils (%) (Auto) 4.3 % (0.0-3.0) H Basophils (%) (Auto) 0.8 % (0.0-2.0) Sodium Level 146 MMOL/L (136-145) H Potassium Level 3.1 MMOL/L (3.5-5.1) L Chloride Level 110 MMOL/L (98-107) H Carbon Dioxide Level 32 MMOL/L (21-32) Anion Gap 4 mmol/L (5-15) L Blood Urea Nitrogen 22 mg/dL (7-18) H Creatinine 0.8 MG/DL (0.55-1.30) Estimat Glomerular Filtration Rate > 60 mL/min (>60) Glucose Level 158 MG/DL (74-106) H Calcium Level 8.9 MG/DL (8.5-10.1) Total Bilirubin 0.5 MG/DL (0.2-1.0) Aspartate Amino Transf (AST/SGOT) 20 U/L (15-37) Alanine Aminotransferase (ALT/SGPT) 14 U/L (12-78) Alkaline Phosphatase 58 U/L (46-116) Pro-B-Type Natriuretic Peptide 2424 pg/mL (0-125) H Total Protein 6.9 G/DL (6.4-8.2) Albumin 2.7 G/DL (3.4-5.0) L Globulin 4.2 g/dL Albumin/Globulin Ratio 0.6 (1.0-2.7) L Vancomycin Level Trough 11.9 ug/mL (5.0-12.0) Microbiology Date/Time Source Procedure Growth Status 09/06/18 14:40 Blood Blood Culture - Preliminary Resulted 09/06/18 14:20 Blood Blood Culture - Preliminary NO GROWTH AFTER 48 HOURS Resulted 09/06/18 15:30 Nasal Nares MRSA Culture - Final NO METHICILLIN RESISTANT STAPH AUREUS... Complete 09/06/18 23:30 Urine,Clean Catch Urine Culture - Final NO GROWTH AFTER 48 HOURS Complete 09/06/18 15:30 Rectum VRE Culture - Final NO VANCOMYCIN RESISTANT ENTEROCOCCUS ... Complete Intake and Output 09/08/18 09/09/18 19:00 07:00 Intake Total 1335.00 ml 1544.0 ml Output Total 650 ml 1100 ml Balance 685.00 ml 444.0 ml Intake Free Water 50 ml IV Total 1005.00 ml 1034.0 ml Tube Feeding 330 ml 360 ml Other 100 ml Output Urine Total 650 ml 1100 ml Objective General: No acute distress the Ventimask, unable to follow commands. HEENT: NCAT, sclera anicteric, PERRL, scalp deformity on the right side. Neck: Supple, no significant jugular venous distention, Lungs: Decreased air in the bases, no Wheeze or Rales. Heart: Irregular status post of rate and rhythm, normal S1/S2, no murmur, AICD. Abdomen: soft, nontender, nondistended. Normoactive bowel sounds. PEG site is clean. Extremities: No Cyanosis , clubbing or edema. Neuro: Unable to follow commands however is moving the right extremity spontaneously. Assessment/Plan Assessment/Plan 1. Acute hypoxemic respiratory failure presently off the BiPAP. 2. Pneumonia. 3. Atrial fibrillation with RVR, rate better controlled now 4. Seizure disorder. 5. Dysphagia status post PEG placement, 6. Gastroesophageal reflux disease. 7. Schizophrenia. TREATMENT: 1. Pneumonia/dyspnea. A Pulmonary consultation has been obtained with Dr. Aris Molina. The patient is currently on a Venturi mask. Continue vancomycin and Zosyn. 2. Seizure disorder. Continue Keppra and Depakote as above. 3. Dysphagia. The patient is currently receiving G-tube feeds. 4. Gastroesophageal reflux disease. Continue omeprazole as above. 5. Schizophrenia. A psychiatric consultation has been obtained with Dr. Stern. 6. Atrial fibrillation. A Cardiology consultation is Dr. Cantu. 7. FULL FACE, off BIPAP; ICU STATUS Axel Saez MD Sep 09, 2018 13:21
--- NOTE | 2018-09-09 14:00 | NUR ---
NURSE NOTES: Few episodes of 4-[address] Saez notified. No new orders.
--- NOTE | 2018-09-09 16:00 | NUR ---
NURSE NOTES: Dr. Molina at bedside again, stated that he does not want patient on bipap EVER, even at night. Input MD order under other nursing orders. Will continue plam of care. stable at this time. Dr. Betancourt aware of gram + cocci in 1 bottle.
--- NOTE | 2018-09-09 16:54 | Consultation ---
History of Present Illness General Date patient seen: Sep 09, 2018 Chief Complaint: Dyspnea/Respdistress Present Illness HPI 53 y/o M with hx of HTN, CHF, severe cardiomyopathy EF 25% s/p AICD, GERD, schizophrenia, seizure disorder, dysphagia s/p peg, craniotomy, hx of trach now reversed, SNF resident presents to ED on 09/06 with SOB. Upon admission patient with Afib with RVR and was admitted to ICU. Allergies: Coded Allergies: No Known Allergies (Unverified , 03/14/16) Medication History Scheduled Bacitracin Zinc* (Bacitracin Zinc*), 1 APPLIC TOPIC DAILY, (Reported) Benztropine Mesylate* (Benztropine Mesylate*), 0.5 MG GT BID, (Reported) Carvedilol (Coreg), 12.5 MG GT BID, (Reported) Cranberry Extract (Cranberry), 425 MG GT BID, (Reported) Levetiracetam* (Levetiracetam*), 1,500 MG GT BID, (Reported) Melatonin (Melatonin), 3 MG GT BEDTIME, (Reported) Multivitamin With Minerals (Multivitamins With Minerals*), 1 TAB GT DAILY, ( Reported) Omeprazole (Omeprazole), 20 MG GT DAILY, (Reported) Quetiapine Fumarate* (Quetiapine Fumarate*), 50 MG GT BID, (Reported) Spironolactone* (Aldactone*), 25 MG GT DAILY, (Reported) Valproic Acid (Valproic Acid), 500 MG GT TID, (Reported) Scheduled PRN Acetaminophen (Acetaminophen), 640 MG GT EVERY 6 HOURS PRN for mild pain, ( Reported) Acetaminophen 160MG/5ML* (Acetaminophen*), 20 ML GT Q4HR PRN for Pain Scale (3-5 ), (Reported) Acetaminophen 160MG/5ML* (Acetaminophen*), 20 ML GT Q4HR PRN for Mild Pain/Temp > 100.5, (Reported) Magnesium Hydroxide* (Milk Of Magnesia*), 30 ML ORAL EVERY 8 HOURS PRN for Constipation, (Reported) Discontinued Medications Cholecalciferol (Vitamin D3)* (Vitamin D*), 5,000 UNITS GT DAILY, (Reported) Discontinued Reason: Pt stopped taking med Docusate Sodium* (Docusate Sodium*), 100 MG GT TWICE A DAY, (Reported) Discontinued Reason: Pt stopped taking med Ferrous Sulfate (Ferrous Sulfate), 7.5 ML GT BID, (Reported) Discontinued Reason: Pt stopped taking med Hydrocodone Bit/Acetaminophen 5-325* ([place] 5-325*), 1 TAB GT EVERY 8 HOURS PRN for For Pain, (Reported) Discontinued Reason: Pt stopped taking med Levetiracetam (Keppra), 1,000 MG GT Q12HR Discontinued Reason: Pt stopped taking med Lorazepam* (Ativan*), 0.5 MG GT EVERY 4 HOURS, (Reported) Discontinued Reason: Pt stopped taking med Multivits W-Min/Ferrous Gluc (Multivitamin-Mineral Liquid), 15 ML GT DAILY, ( Reported) Discontinued Reason: Prescription changed Quetiapine Fumarate* (Seroquel*), 25 MG GT BID, (Reported) Discontinued Reason: Prescription changed Risperidone* (Risperdal*), 0.5 MG ORAL TID Discontinued Reason: Pt stopped taking med Temazepam* (Restoril*), 15 MG GT BEDTIME PRN for Insomnia, (Reported) Discontinued Reason: Pt stopped taking med Valproate Sodium (Valproic Acid), 5 ML GT BID, (Reported) Discontinued Reason: Pt stopped taking med Valproic Acid (Valproic Acid), 500 MG GT EVERY 12 HOURS Discontinued Reason: Pt stopped taking med Patient History Healthcare decision maker GABRIELA CLAYTON Resuscitation status Do Not Resuscitate Advanced Directive on File No Patient History Narrative Pmhx: as above Shx: The patient is a resident of [facility]. The patient denies alcohol or tobacco use. Fhx: non contributory Review of Systems All Other Systems: negative except mentioned in HPI Physical Exam Physical Exam Narrative GENERAL: The patient is a well-developed and well-nourished male, who is essentially nonverbal. The patient only moans. HEENT: Eyes, pupils equal and responsive to light and accommodation. Extraocular movements are intact. NECK: Supple without lymphadenopathy. CHEST: Lungs are clear to auscultation bilaterally without wheezes or rales. CARDIOVASCULAR: Regular rate. S1 and S2 are normal without murmurs, rubs, or gallops. ABDOMEN: Soft, nontender, and nondistended. Positive bowel sounds. No evidence of hepatosplenomegaly. Currently, no rebound or guarding noted. EXTREMITIES: Negative for clubbing, cyanosis, or edema. NEUROLOGICAL: Cranial nerves II through XII are grossly intact without focal deficits. Last 24 Hour Vital Signs Date Time Temp Pulse Resp B/P (MAP) Pulse Ox O2 Delivery O2 Flow Rate FiO2 09/09/18 14:00 105 20 97/83 (88) 99 09/09/18 13:00 108 20 122/55 (77) 99 09/09/18 12:00 105 20 125/60 (81) 99 09/09/18 12:00 40 09/09/18 12:00 Bi-pap 09/09/18 11:00 104 20 105/51 (69) 99 09/09/18 10:50 89 22 96 09/09/18 10:00 110 20 82/51 (61) 99 09/09/18 09:52 112 120/90 09/09/18 09:20 124 35 95 Facial 40 09/09/18 09:00 120/90 09/09/18 09:00 100 20 120/84 (96) 99 09/09/18 08:00 79 09/09/18 08:00 Bi-pap 09/09/18 08:00 98.2 96 20 103/84 (90) 99 09/09/18 08:00 40 09/09/18 07:15 93 20 98 Facial 40 09/09/18 07:15 Bi-pap 40 09/09/18 07:15 99 Bi-pap 40 09/09/18 07:00 92 20 100/65 (77) 99 09/09/18 06:00 96 20 102/70 (81) 99 09/09/18 05:06 94 17 99 Facial 40 09/09/18 05:00 91 19 100/88 (92) 98 09/09/18 04:00 97.6 110 34 121/105 (110) 96 09/09/18 04:00 40 09/09/18 04:00 Bi-pap 09/09/18 03:10 80 21 99 Facial 40 09/09/18 03:09 100 09/09/18 03:00 91 18 91/71 (78) 99 09/09/18 02:00 98 21 101/57 (72) 97 09/09/18 01:20 113 30 98 Facial 40 09/09/18 01:00 99 31 127/98 (108) 97 09/09/18 00:00 97.6 85 25 101/79 (86) 98 09/09/18 00:00 Bi-pap 09/08/18 23:41 79 20 96 Facial 40 09/08/18 23:11 80 09/08/18 23:00 75 18 109/71 (84) 97 09/08/18 22:49 70 97/79 09/08/18 22:00 84 19 106/72 (83) 98 09/08/18 21:21 83 21 97 Facial 40 09/08/18 21:00 82 19 106/76 (86) 97 09/08/18 20:56 78 109/86 09/08/18 20:00 98.5 80 18 111/93 (99) 99 09/08/18 20:00 Bi-pap 09/08/18 20:00 40 09/08/18 19:12 114 09/08/18 19:10 99 Bi-pap 40 09/08/18 19:10 Bi-pap 40 09/08/18 19:10 101 32 99 Facial 40 09/08/18 19:00 88 20 113/70 (84) 97 09/08/18 18:00 89 20 95/69 (78) 97 09/08/18 17:31 84 17 96 Facial 40 09/08/18 17:00 95 20 99/75 (83) 97 Intake and Output 09/08/18 09/09/18 19:00 07:00 Intake Total 1335.00 ml 1544.0 ml Output Total 650 ml 1100 ml Balance 685.00 ml 444.0 ml Intake Free Water 50 ml IV Total 1005.00 ml 1034.0 ml Tube Feeding 330 ml 360 ml Other 100 ml Output Urine Total 650 ml 1100 ml Laboratory Tests Test 09/08/18 16:50 09/09/18 07:05 Troponin I 0.161 ng/mL (0.000-0.056) White Blood Count 3.9 K/UL (4.8-10.8) L Red Blood Count 3.84 M/UL (4.70-6.10) L Hemoglobin 12.9 G/DL (14.2-18.0) L Hematocrit 37.1 % (42.0-52.0) L Mean Corpuscular Volume 97 FL (80-99) Mean Corpuscular Hemoglobin 33.7 PG (27.0-31.0) H Mean Corpuscular Hemoglobin Concent 34.8 G/DL (32.0-36.0) Red Cell Distribution Width 12.8 % (11.6-14.8) Platelet Count 118 K/UL (150-450) L Mean Platelet Volume 8.3 FL (6.5-10.1) Neutrophils (%) (Auto) 58.8 % (45.0-75.0) Lymphocytes (%) (Auto) 28.0 % (20.0-45.0) Monocytes (%) (Auto) 8.2 % (1.0-10.0) Eosinophils (%) (Auto) 4.3 % (0.0-3.0) H Basophils (%) (Auto) 0.8 % (0.0-2.0) Sodium Level 146 MMOL/L (136-145) H Potassium Level 3.1 MMOL/L (3.5-5.1) L Chloride Level 110 MMOL/L (98-107) H Carbon Dioxide Level 32 MMOL/L (21-32) Anion Gap 4 mmol/L (5-15) L Blood Urea Nitrogen 22 mg/dL (7-18) H Creatinine 0.8 MG/DL (0.55-1.30) Estimat Glomerular Filtration Rate > 60 mL/min (>60) Glucose Level 158 MG/DL (74-106) H Calcium Level 8.9 MG/DL (8.5-10.1) Total Bilirubin 0.5 MG/DL (0.2-1.0) Aspartate Amino Transf (AST/SGOT) 20 U/L (15-37) Alanine Aminotransferase (ALT/SGPT) 14 U/L (12-78) Alkaline Phosphatase 58 U/L (46-116) Pro-B-Type Natriuretic Peptide 2424 pg/mL (0-125) H Total Protein 6.9 G/DL (6.4-8.2) Albumin 2.7 G/DL (3.4-5.0) L Globulin 4.2 g/dL Albumin/Globulin Ratio 0.6 (1.0-2.7) L Vancomycin Level Trough 11.9 ug/mL (5.0-12.0) Height (Feet): 5 Height (Inches): 9.00 Weight (Pounds): 181 Medications Current Medications Medications (Trade) Dose Ordered Sig/Davonte Route PRN Reason Start Time Stop Time Status Last Admin Dose Admin Acetaminophen (Tylenol) 650 mg Q4H PRN GT FEVER 09/07/18 22:00 10/07/18 21:59 Albuterol/ Ipratropium (Albuterol/ Ipratropium) 3 ml Q4H PRN HHN Shortness of Breath 09/07/18 22:00 09/12/18 21:59 Benztropine Mesylate (Cogentin) 0.5 mg EVERY 12 HOURS GT 09/08/18 09:00 10/06/18 17:59 09/09/18 09:52 Carvedilol (Coreg) 3.125 mg EVERY 12 HOURS ORAL 09/08/18 21:00 10/08/18 20:59 09/09/18 09:52 Dextrose (Dextrose 50%) 25 ml Q30M PRN IV Hypoglycemia 09/07/18 22:00 10/06/18 16:59 Dextrose (Dextrose 50%) 50 ml Q30M PRN IV Hypoglycemia 09/07/18 22:00 10/06/18 16:59 Diltiazem HCl 125 mg/Dextrose 125 ml @ 0 mls/hr Q24H IV 09/08/18 22:15 09/09/18 22:14 09/08/18 22:49 Furosemide (Lasix) 40 mg EVERY 12 HOURS IV 09/08/18 21:00 10/08/18 20:59 09/09/18 09:53 Haloperidol Lactate (Haldol) 5 mg Q4H PRN IM AGITATION 09/08/18 00:00 10/08/18 00:00 Heparin Sodium (Porcine) (Heparin 5000 units/ml) 5,000 units EVERY 12 HOURS SUBQ 09/08/18 09:00 10/06/18 20:59 09/09/18 09:00 Levetiracetam (Keppra) 1,000 mg Q12HR GT 09/08/18 09:00 10/06/18 20:59 09/09/18 09:00 Lisinopril (Zestril) 10 mg DAILY ORAL 09/09/18 09:00 10/09/18 08:59 Lorazepam (Ativan 2mg/ml 1ml) 1 mg Q2H PRN IV agitation 09/08/18 10:30 09/15/18 10:29 09/09/18 01:31 Morphine Sulfate (Morphine Sulfate) 2 mg Q4H PRN IVP Dyspnea 09/09/18 13:45 09/16/18 13:44 Ondansetron HCl (Zofran) 4 mg Q6H PRN IVP Nausea & Vomiting 09/07/18 22:00 10/06/18 21:59 Pantoprazole (Protonix) 40 mg DAILY IV 09/08/18 09:00 10/07/18 08:59 09/09/18 09:00 Piperacillin Sod/ Tazobactam Sod 3.375 gm/Sodium Chloride 110 ml @ 27.5 mls/hr Q8H IVPB 09/07/18 23:00 09/13/18 22:59 09/09/18 15:00 Polyethylene Glycol (Miralax) 17 gm DAILYPRN PRN ORAL Constipation 09/07/18 22:00 10/07/18 21:59 Potassium Chloride 100 ml @ 100 mls/hr Q1H IVPB 09/09/18 13:00 09/09/18 16:59 09/09/18 15:00 Quetiapine Fumarate (SEROquel) 100 mg TID GT 09/08/18 09:00 10/07/18 12:59 09/09/18 12:29 Temazepam (Restoril) 15 mg HSPRN PRN ORAL Insomnia 09/08/18 17:00 09/13/18 16:59 Valproic Acid (Depakene) 500 mg EVERY 12 HOURS GT 09/08/18 09:00 10/06/18 20:59 09/09/18 09:54 Vancomycin HCl (Vanco rx to dose) 1 ea DAILY PRN MISC Per rx protocol 09/08/18 09:00 10/06/18 17:44 Vancomycin HCl 1 gm/Dextrose 275 ml @ 183.708 mls/hr Q8HR@0100,0900,1700 IVPB 09/09/18 09:00 09/14/18 08:59 09/09/18 09:52 Assessment/Plan Assessment/Plan Abx: IV Vancomycin 09/06- Zosyn 09/06- Flagyl x1 09/06 Assessment: PNA -CXR: Bilateral left greater than right infiltrates versus edema Afebrile NO leukocytosis Gram positive bacteremia- real vs contaminant -09/06 Bcx 1/ GPC clusters Acute resp failure, on Bipap BLAS, SP HTN CHF severe cardiomyopathy EF 25% s/p AICD GERD schizophrenia seizure disorder dysphagia s/p peg craniotomy hx of trach now reversed SNF resident Plan: -COntinue empiric IV Vancomycin and Zosyn #4 pending cultures -Repeat Bcx x2, Sp cx -f/u cx -MOnitor CBC/CMP, temperatures -aspiration precautions Thank you for this consultation. Will continue to follow along with you. Discussed with Anju Delarosa M.D. Sep 09, 2018 16:54
--- NOTE | 2018-09-09 18:00 | NUR ---
NURSE NOTES: Patient turned and repositioned. No new orders at this time. Will continue plan of care.
--- NOTE | 2018-09-09 18:19 | Cardiac Electrophysiology PN ---
Assessment/Plan Assessment/Plan 1. Non-ST elevation myocardial infarction, likely due to atrial fibrillation with rapid ventricular response. The patient's creatinine is within normal range. The echocardiogram has been done that showed ejection fraction of only 20% to 25%. 2. Severe cardiomyopathy with ejection fraction of only 25%. On Lasix 40 mg IV bid, Lisinopril and Coreg 3.125 mg b.i.d. 3. Status post dual-chamber defibrillator. We will try to find the brand and interrogate device for further evaluation. 4. Atrial fib with RVR on Cardizem drip and Coreg and Digoxin 5. Respiratory failure on face Mask DNR 6. History of schizophrenia. 7. History of traumatic brain injury. 8. Dysphagia, status post PEG placement. TEODORO RN Subjective Subjective In ICU in atrial fib with RVR on Cardizem drip. On Face Mask. GT feeding Objective Last 24 Hour Vital Signs Date Time Temp Pulse Resp B/P (MAP) Pulse Ox O2 Delivery O2 Flow Rate FiO2 09/09/18 16:00 100 09/09/18 14:00 105 20 97/83 (88) 99 09/09/18 13:00 108 20 122/55 (77) 99 09/09/18 12:00 105 20 125/60 (81) 99 09/09/18 12:00 82 09/09/18 12:00 40 09/09/18 12:00 Bi-pap 09/09/18 11:00 104 20 105/51 (69) 99 09/09/18 10:50 89 22 96 09/09/18 10:00 110 20 82/51 (61) 99 09/09/18 09:52 112 120/90 09/09/18 09:20 124 35 95 Facial 40 09/09/18 09:00 120/90 09/09/18 09:00 100 20 120/84 (96) 99 09/09/18 08:00 79 09/09/18 08:00 Bi-pap 09/09/18 08:00 98.2 96 20 103/84 (90) 99 09/09/18 08:00 40 09/09/18 07:15 93 20 98 Facial 40 09/09/18 07:15 Bi-pap 40 09/09/18 07:15 99 Bi-pap 40 09/09/18 07:00 92 20 100/65 (77) 99 09/09/18 06:00 96 20 102/70 (81) 99 09/09/18 05:06 94 17 99 Facial 40 09/09/18 05:00 91 19 100/88 (92) 98 09/09/18 04:00 97.6 110 34 121/105 (110) 96 09/09/18 04:00 40 09/09/18 04:00 Bi-pap 09/09/18 03:10 80 21 99 Facial 40 09/09/18 03:09 100 09/09/18 03:00 91 18 91/71 (78) 99 09/09/18 02:00 98 21 101/57 (72) 97 09/09/18 01:20 113 30 98 Facial 40 09/09/18 01:00 99 31 127/98 (108) 97 09/09/18 00:00 97.6 85 25 101/79 (86) 98 09/09/18 00:00 Bi-pap 09/08/18 23:41 79 20 96 Facial 40 09/08/18 23:11 80 09/08/18 23:00 75 18 109/71 (84) 97 09/08/18 22:49 70 97/79 09/08/18 22:00 84 19 106/72 (83) 98 09/08/18 21:21 83 21 97 Facial 40 09/08/18 21:00 82 19 106/76 (86) 97 09/08/18 20:56 78 109/86 09/08/18 20:00 98.5 80 18 111/93 (99) 99 09/08/18 20:00 Bi-pap 09/08/18 20:00 40 09/08/18 19:12 114 09/08/18 19:10 99 Bi-pap 40 09/08/18 19:10 Bi-pap 40 09/08/18 19:10 101 32 99 Facial 40 09/08/18 19:00 88 20 113/70 (84) 97 Intake and Output 09/08/18 09/09/18 19:00 07:00 Intake Total 1335.00 ml 1544.0 ml Output Total 650 ml 1100 ml Balance 685.00 ml 444.0 ml Intake Free Water 50 ml IV Total 1005.00 ml 1034.0 ml Tube Feeding 330 ml 360 ml Other 100 ml Output Urine Total 650 ml 1100 ml Laboratory Tests Test 09/09/18 07:05 White Blood Count 3.9 K/UL (4.8-10.8) L Red Blood Count 3.84 M/UL (4.70-6.10) L Hemoglobin 12.9 G/DL (14.2-18.0) L Hematocrit 37.1 % (42.0-52.0) L Mean Corpuscular Volume 97 FL (80-99) Mean Corpuscular Hemoglobin 33.7 PG (27.0-31.0) H Mean Corpuscular Hemoglobin Concent 34.8 G/DL (32.0-36.0) Red Cell Distribution Width 12.8 % (11.6-14.8) Platelet Count 118 K/UL (150-450) L Mean Platelet Volume 8.3 FL (6.5-10.1) Neutrophils (%) (Auto) 58.8 % (45.0-75.0) Lymphocytes (%) (Auto) 28.0 % (20.0-45.0) Monocytes (%) (Auto) 8.2 % (1.0-10.0) Eosinophils (%) (Auto) 4.3 % (0.0-3.0) H Basophils (%) (Auto) 0.8 % (0.0-2.0) Sodium Level 146 MMOL/L (136-145) H Potassium Level 3.1 MMOL/L (3.5-5.1) L Chloride Level 110 MMOL/L (98-107) H Carbon Dioxide Level 32 MMOL/L (21-32) Anion Gap 4 mmol/L (5-15) L Blood Urea Nitrogen 22 mg/dL (7-18) H Creatinine 0.8 MG/DL (0.55-1.30) Estimat Glomerular Filtration Rate > 60 mL/min (>60) Glucose Level 158 MG/DL (74-106) H Calcium Level 8.9 MG/DL (8.5-10.1) Total Bilirubin 0.5 MG/DL (0.2-1.0) Aspartate Amino Transf (AST/SGOT) 20 U/L (15-37) Alanine Aminotransferase (ALT/SGPT) 14 U/L (12-78) Alkaline Phosphatase 58 U/L (46-116) Pro-B-Type Natriuretic Peptide 2424 pg/mL (0-125) H Total Protein 6.9 G/DL (6.4-8.2) Albumin 2.7 G/DL (3.4-5.0) L Globulin 4.2 g/dL Albumin/Globulin Ratio 0.6 (1.0-2.7) L Vancomycin Level Trough 11.9 ug/mL (5.0-12.0) Microbiology Date/Time Source Procedure Growth Status 09/06/18 23:30 Urine,Clean Catch Urine Culture - Final NO GROWTH AFTER 48 HOURS Complete Objective HEENT: Status post craniotomy and tracheostomy that has been closed. He is on face mask. LUNGS: Coarse rhonchi bilaterally, defibrillator in the left subclavian. CARDIOVASCULAR: Irregular S1 and S2 with no gallop. ABDOMEN: Soft. PEG is intact. EXTREMITIES: 1 plus pitting edema. Robby Cantu MD Sep 09, 2018 18:19
[2018-09-09] MEDS ORDERED: Digoxin 0.5mg/2ml Inj IVP SCH (18:30)
--- NOTE | 2018-09-09 18:30 | NUR ---
CASE MANAGEMENT: REVIEW SI: RESP FAILURE . A-FIB w/ RVR T 98.2 HR 124 RR 35 BP 82/51 SAT 95% BIPAP FIO2 40 WBC 3.9 NA 146 K 3.1 BNP 2424 IS: DIGOXIN IV X1 VANCO IV Q8HR CARDIZEM IV Q24HR LASIX IV Q12HR COREG PO Q12HR PROTONIX IV QD ICU STATUS DCP: PATIENT IS FROM [facility]
--- NOTE | 2018-09-09 19:11 | NUR ---
HAND-OFF: Report given to Isaac RN using SBAR. VSS. No distress noted.
--- NOTE | 2018-09-09 19:50 | NUR ---
NURSE NOTES: PATIENT OPEN EYES, NO ANSWERING TO QUESTION, ON VENTURI MASK, FIO2 45%, O2 SATURATION 95% NOTED, TRACH STOMA OPENED STATUS, ABDOMEN SOFT, G TUBE INTACT AND PATENT, ONGOING JEVITY 1.2 AT 30ML/HR, RESIDUE 60ML NOTED, PALPABLE HARD TO RLQ WITH OLD SURGERY SCAR AREA, NO BOWEL MOVEMENT STATUS, CONDOM CATH INTACT, YELLOW URINE OUTED, PERIPHERAL LINE TO BOTH FORE ARM AND RIGHT AC INTACT AND PATENT, GOOD BLOOD RETURN NOTED, ONGOING DILTIAZEM 8MG/HR, KEPT SZ PRECAUTION AND HOB OVER 30 DEGREE, MADE LOWER BED POSITION, 2 POINT SOFT RESTRAINTS FOR SAFETY, PROVIDED CALL LIGHT WITHIN REACH, WILL CONTINUE TO MONITOR.
[2018-09-09] MEDS ORDERED: Tubing IV Secondary IV ONE ×3 (20:24→20:59)
--- NOTE | 2018-09-09 20:33 | NUR ---
NURSE NOTES: PATIENT AGITATED, RESTLESSNESS AN TRIED TO OUT OF BED. GIVEN ATIVAN 1MG BY IVP PRN ORDERED, WILL CONTINUE TO MONITOR.
[2018-09-09] MEDS ORDERED: NS 275ml ONE ×2 (20:51→20:59)
[2018-09-09] MEDS: Morphine Sulfate 2mg/ml Inj(IV/IM USE ONLY) IVP PRN (21:26)
--- NOTE | 2018-09-09 21:26 | NUR ---
NURSE NOTES: TACHYPNEA OVER 34/MIN NOTED THAT GIVEN MORPHINE 2MG BY IVP SLOWLY PRN ORDERED, WILL CONTINUE TO MONITOR.
[2018-09-09] MEDS: Albuterol/Ipratropium 3ml neb HHN PRN (23:13)
--- NOTE | 2018-09-09 23:55 | NUR ---
NURSE NOTES: KEPT 2 POINT SOFT RESTRAINTS FOR SAFETY, REPOSITIONED, WILL CONTINUE PLAN OF CARE.
[2018-09-10] VITALS (27 sets, daily range): BP systolic 80–132; BP diastolic 62–92
[2018-09-10] MEDS: Vancomycin 1gm/D5W 275ml IVPB SCH ×6 (00:48→17:00)
--- NOTE | 2018-09-10 02:00 | NUR ---
NURSE NOTES: PATIENT ASLEEP STATUS.
[2018-09-10] MEDS: LORazepam Inj 2mg/ml 1ml IV PRN ×2 (03:08→09:30)
--- NOTE | 2018-09-10 03:08 | NUR ---
NURSE NOTES: PATIENT AGITATED, RESTLESSNESS AN TRIED TO OUT OF BED. GIVEN ATIVAN 1MG BY IVP PRN ORDERED, WILL CONTINUE TO MONITOR.
--- NOTE | 2018-09-10 04:20 | NUR ---
NURSE NOTES: PATIENT RESISTANCE TO CARE, TRIED TO REMOVE VENTURI MASK WHEN RELEASED RESTRAINTS, NO BOWEL MOVEMENT STATUS.
[2018-09-10] MEDS: Morphine Sulfate 2mg/ml Inj(IV/IM USE ONLY) IVP PRN (04:51)
--- NOTE | 2018-09-10 04:51 | NUR ---
NURSE NOTES: RESPIRATION IRREGULAR, LABORED, TACHYPNEA OVER 35/MIN NOTED, THAT GIVEN MORPHINE 2MG BY IVP SLOWLY PRN ORDERED, WILL CONTINUE TO MONITOR.
--- NOTE | 2018-09-10 05:26 | NUR ---
NURSE NOTES: RESPIRATION REGULAR, UNLABORED, O2 SATURATION 95% NOTED, MADE CALM ENVIRONMENT, WILL CONTINUE TO MONITOR.
[2018-09-10] MEDS: Piperacillin/Tazobactam 3.375 GM in NS 110 ML IVPB SCH ×3 (06:36→22:29)
--- NOTE | 2018-09-10 07:12 | NUR ---
HAND-OFF: Report given to HETAL Llamas.
[2018-09-10] MEDS: Albuterol/Ipratropium 3ml neb HHN PRN (07:19)
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
--- NOTE | 2018-09-10 08:00 | NUR ---
NURSE NOTES: Received patient from HETAL Gray. PATIENT OPEN EYES, NO ANSWERING TO QUESTION, ON VENTURI MASK, FIO2 45%, O2 SATURATION 97% NOTED, TRACH STOMA OPENED STATUS, ABDOMEN SOFT, G TUBE INTACT AND PATENT, ONGOING JEVITY 1.2 AT 30ML/HR, PALPABLE HARD TO RLQ WITH OLD SURGERY SCAR AREA, NO BOWEL MOVEMENT STATUS, CONDOM CATH INTACT, YELLOW URINE OUTED, PERIPHERAL LINE TO BOTH FORE ARM AND RIGHT AC INTACT AND PATENT, GOOD BLOOD RETURN NOTED, ONGOING DILTIAZEM 10MG/HR, KEPT SZ PRECAUTION AND HOB OVER 30 DEGREE, MADE LOWER BED POSITION, 2 POINT SOFT RESTRAINTS FOR SAFETY, PROVIDED CALL LIGHT WITHIN REACH, WILL CONTINUE TO MONITOR.
[2018-09-10] MEDS: Valproic Acid 250mg/5ml Liquid GT SCH ×2 (09:00→20:40)
[2018-09-10] MEDS: Benztropine 1mg tab GT SCH ×2 (09:00→20:40)
[2018-09-10] MEDS: levETIRAcetam 500mg/5ml Liquid GT SCH ×2 (09:00→20:41)
[2018-09-10] MEDS: Lisinopril 10mg tab ORAL SCH (09:00)
[2018-09-10] MEDS: Pantoprazole Inj IV SCH (09:00)
[2018-09-10] MEDS: Heparin 5000 units/ml inj SUBQ SCH ×2 (09:00→20:42)
--- NOTE | 2018-09-10 09:49 | Infectious Diseases Prog Note ---
Assessment/Plan Assessment/Plan Abx: IV Vancomycin 09/06- Zosyn 09/06- Flagyl x1 09/06 Assessment: PNA -CXR: Bilateral left greater than right infiltrates versus edema -sp cx p Afebrile NO leukocytosis Gram positive bacteremia- real vs contaminant -09/06 Bcx 1/4 GPC clusters; 09/09 Bcx p Acute resp failure, on Bipap- now on VM BLAS, SP HTN CHF severe cardiomyopathy EF 25% s/p AICD GERD schizophrenia seizure disorder dysphagia s/p peg craniotomy hx of trach now reversed SNF resident Plan: -COntinue empiric IV Vancomycin and Zosyn #5 pending cultures -09/06 SP Flagyl x1 -f/u Repeat Bcx x2, Sp cx -f/u cx -MOnitor CBC/CMP, temperatures -aspiration precautions Thank you for this consultation. Will continue to follow along with you. Discussed with RN Subjective Allergies: Coded Allergies: No Known Allergies (Unverified , 03/14/16) Subjective afebrile no leukocytosis on ICU VM 45%, 10 L repeat Bcx p Objective Vital Signs Last 24 Hour Vital Signs Date Time Temp Pulse Resp B/P (MAP) Pulse Ox O2 Delivery O2 Flow Rate FiO2 09/10/18 07:22 116 20 96 Venturi Mask 10.0 45 09/10/18 07:22 124 20 97 Venturi Mask 10.0 45 09/10/18 07:21 Venturi Mask 10.0 45 09/10/18 07:20 96 Venturi Mask 10.0 45 09/10/18 06:00 124 26 100/72 (81) 95 09/10/18 05:00 114 26 96/75 (82) 99 09/10/18 04:00 98.2 119 30 132/87 (102) 95 09/10/18 04:00 Venturi Mask 10.0 09/10/18 03:04 87 09/10/18 03:00 90 25 101/87 (92) 99 09/10/18 02:00 91 20 87/65 (72) 99 09/10/18 01:00 78 18 92/68 (76) 99 09/10/18 00:01 75 09/10/18 00:00 98.6 75 18 80/62 (68) 97 09/10/18 00:00 Venturi Mask 10.0 09/09/18 23:26 80 20 97 Venturi Mask 10.0 45 09/09/18 23:15 97 24 96 Venturi Mask 10.0 45 09/09/18 23:00 84 23 102/64 (77) 95 09/09/18 22:49 100 108/77 09/09/18 22:00 102 21 91/63 (72) 95 09/09/18 21:00 119 32 116/96 (103) 99 09/09/18 20:34 103 125/104 09/09/18 20:30 106 24 125/104 (111) 99 09/09/18 20:00 98.4 108 28 134/113 (120) 99 09/09/18 20:00 Venturi Mask 10.0 09/09/18 20:00 Venturi Mask 10.0 45 09/09/18 20:00 129 24 Venturi Mask 10.0 45 09/09/18 19:59 96 Venturi Mask 10.0 45 09/09/18 19:35 112 09/09/18 19:00 98 20 98/70 (79) 99 09/09/18 18:51 115 09/09/18 18:00 102 20 108/80 (89) 99 09/09/18 17:00 106 20 102/77 (85) 99 09/09/18 16:00 Bi-pap 09/09/18 16:00 100 09/09/18 16:00 108 20 100/80 (87) 99 09/09/18 15:00 98.6 110 20 95/77 (83) 99 09/09/18 14:00 105 20 97/83 (88) 99 09/09/18 13:00 108 20 122/55 (77) 99 09/09/18 12:00 105 20 125/60 (81) 99 09/09/18 12:00 82 09/09/18 12:00 40 09/09/18 12:00 Bi-pap 09/09/18 11:00 104 20 105/51 (69) 99 09/09/18 10:50 89 22 96 09/09/18 10:00 110 20 82/51 (61) 99 09/09/18 09:52 112 120/90 Height (Feet): 5 Height (Inches): 9.00 Weight (Pounds): 181 Objective GENERAL: The patient is a well-developed and well-nourished male, who is essentially nonverbal. The patient only moans. HEENT: Eyes, pupils equal and responsive to light and accommodation. Extraocular movements are intact. NECK: Supple without lymphadenopathy. CHEST: Lungs are clear to auscultation bilaterally without wheezes or rales. CARDIOVASCULAR: Regular rate. S1 and S2 are normal without murmurs, rubs, or gallops. ABDOMEN: Soft, nontender, and nondistended. Positive bowel sounds. No evidence of hepatosplenomegaly. Currently, no rebound or guarding noted. EXTREMITIES: Negative for clubbing, cyanosis, or edema. NEUROLOGICAL: Cranial nerves II through XII are grossly intact without focal deficits. Laboratory Tests Test 09/09/18 18:25 09/10/18 05:40 Digoxin Level < 0.2 NG/ML (0.5-2.0) L 0.4 NG/ML (0.5-2.0) L Current Medications Medications (Trade) Dose Ordered Sig/Davonte Route PRN Reason Start Time Stop Time Status Last Admin Dose Admin Acetaminophen (Tylenol) 650 mg Q4H PRN GT FEVER 09/07/18 22:00 10/07/18 21:59 Albuterol/ Ipratropium (Albuterol/ Ipratropium) 3 ml Q4H PRN HHN Shortness of Breath 09/07/18 22:00 09/12/18 21:59 09/10/18 07:19 Benztropine Mesylate (Cogentin) 0.5 mg EVERY 12 HOURS GT 09/08/18 09:00 10/06/18 17:59 09/09/18 20:33 Carvedilol (Coreg) 3.125 mg EVERY 12 HOURS ORAL 09/08/18 21:00 10/08/18 20:59 09/09/18 20:34 Dextrose (Dextrose 50%) 25 ml Q30M PRN IV Hypoglycemia 09/07/18 22:00 10/06/18 16:59 Dextrose (Dextrose 50%) 50 ml Q30M PRN IV Hypoglycemia 09/07/18 22:00 10/06/18 16:59 Digoxin (Lanoxin) 0.25 mg DAILY ORAL 09/10/18 09:00 10/10/18 08:59 Diltiazem HCl 125 mg/Dextrose 125 ml @ 0 mls/hr Q24H IV 09/09/18 22:00 09/10/18 21:59 09/09/18 22:49 Furosemide (Lasix) 40 mg EVERY 12 HOURS IV 09/08/18 21:00 10/08/18 20:59 09/09/18 20:34 Haloperidol Lactate (Haldol) 5 mg Q4H PRN IM AGITATION 09/08/18 00:00 10/08/18 00:00 Heparin Sodium (Porcine) (Heparin 5000 units/ml) 5,000 units EVERY 12 HOURS SUBQ 09/08/18 09:00 10/06/18 20:59 09/09/18 20:37 Levetiracetam (Keppra) 1,000 mg Q12HR GT 09/08/18 09:00 10/06/18 20:59 09/09/18 20:36 Lisinopril (Zestril) 10 mg DAILY ORAL 09/09/18 09:00 10/09/18 08:59 Lorazepam (Ativan 2mg/ml 1ml) 1 mg Q2H PRN IV agitation 09/08/18 10:30 09/15/18 10:29 09/10/18 03:08 Morphine Sulfate (Morphine Sulfate) 2 mg Q4H PRN IVP Dyspnea 09/09/18 13:45 09/16/18 13:44 09/10/18 04:51 Ondansetron HCl (Zofran) 4 mg Q6H PRN IVP Nausea & Vomiting 09/07/18 22:00 10/06/18 21:59 Pantoprazole (Protonix) 40 mg DAILY IV 09/08/18 09:00 10/07/18 08:59 09/09/18 09:00 Piperacillin Sod/ Tazobactam Sod 3.375 gm/Sodium Chloride 110 ml @ 27.5 mls/hr Q8H IVPB 09/07/18 23:00 09/13/18 22:59 09/10/18 06:36 Polyethylene Glycol (Miralax) 17 gm DAILYPRN PRN ORAL Constipation 09/07/18 22:00 10/07/18 21:59 Quetiapine Fumarate (SEROquel) 100 mg TID GT 09/08/18 09:00 10/07/18 12:59 09/09/18 18:17 Temazepam (Restoril) 15 mg HSPRN PRN ORAL Insomnia 09/08/18 17:00 09/13/18 16:59 Valproic Acid (Depakene) 500 mg EVERY 12 HOURS GT 09/08/18 09:00 10/06/18 20:59 09/09/18 20:33 Vancomycin HCl (Vanco rx to dose) 1 ea DAILY PRN MISC Per rx protocol 09/08/18 09:00 10/06/18 17:44 Vancomycin HCl 1 gm/Dextrose 275 ml @ 183.708 mls/hr Q8HR@0100,0900,1700 IVPB 09/09/18 09:00 09/14/18 08:59 09/10/18 00:48 Anju Cooper M.D. Sep 10, 2018 09:49
--- NOTE | 2018-09-10 10:00 | NUR ---
NURSE NOTES: turned, cleaned, repositioned pt. WIll continue plan of care.
--- NOTE | 2018-09-10 12:00 | NUR ---
NURSE NOTES: Patients vitals stable- in a.fib HR 95. cleaned, turned, repositioned.
--- NOTE | 2018-09-10 13:48 | Cardiac Electrophysiology PN ---
Assessment/Plan Assessment/Plan 1. Non-ST elevation myocardial infarction, likely due to atrial fibrillation with RVR. The patient's creatinine is within normal range. The echocardiogram showed EF 20% to 25%. 2. Severe cardiomyopathy with ejection fraction of only 25%. On Lasix 40 mg IV bid, Lisinopril. DC Coreg and Cardizem drip. 3. Status post dual-chamber defibrillator. We will try to find the brand and interrogate device for further evaluation. 4. Atrial fib with RVR . DC Cardizem drip and Coreg. Add Lopressor 50 bid and continue Digoxin 5. Respiratory failure on face Mask. DNR and DNI 6. History of schizophrenia. 7. History of traumatic brain injury. 8. Dysphagia, status post PEG placement. TEODORO RN Subjective Subjective In ICU in atrial fib withcontrolled rate on Cardizem drip 10 mg/hr. On Face Mask. Objective Last 24 Hour Vital Signs Date Time Temp Pulse Resp B/P (MAP) Pulse Ox O2 Delivery O2 Flow Rate FiO2 09/10/18 10:00 118 26 119/88 (98) 95 09/10/18 09:00 121 09/10/18 09:00 100/72 09/10/18 09:00 116 100/72 09/10/18 09:00 124 26 100/72 (81) 95 09/10/18 08:00 98.2 120 30 110/87 (95) 95 09/10/18 08:00 109 09/10/18 08:00 Venturi Mask 10.0 09/10/18 07:22 116 20 96 Venturi Mask 10.0 45 09/10/18 07:22 124 20 97 Venturi Mask 10.0 45 09/10/18 07:21 Venturi Mask 10.0 45 09/10/18 07:20 96 Venturi Mask 10.0 45 09/10/18 07:00 119 26 105/72 (83) 95 09/10/18 06:00 124 26 100/72 (81) 95 09/10/18 05:00 114 26 96/75 (82) 99 09/10/18 04:00 98.2 119 30 132/87 (102) 95 09/10/18 04:00 Venturi Mask 10.0 09/10/18 03:04 87 09/10/18 03:00 90 25 101/87 (92) 99 09/10/18 02:00 91 20 87/65 (72) 99 09/10/18 01:00 78 18 92/68 (76) 99 09/10/18 00:01 75 09/10/18 00:00 98.6 75 18 80/62 (68) 97 09/10/18 00:00 Venturi Mask 10.0 09/09/18 23:26 80 20 97 Venturi Mask 10.0 45 09/09/18 23:15 97 24 96 Venturi Mask 10.0 45 09/09/18 23:00 84 23 102/64 (77) 95 09/09/18 22:49 100 108/77 09/09/18 22:00 102 21 91/63 (72) 95 09/09/18 21:00 119 32 116/96 (103) 99 09/09/18 20:34 103 125/104 09/09/18 20:30 106 24 125/104 (111) 99 09/09/18 20:00 98.4 108 28 134/113 (120) 99 09/09/18 20:00 Venturi Mask 10.0 09/09/18 20:00 Venturi Mask 10.0 45 09/09/18 20:00 129 24 Venturi Mask 10.0 45 09/09/18 19:59 96 Venturi Mask 10.0 45 09/09/18 19:35 112 09/09/18 19:00 98 20 98/70 (79) 99 09/09/18 18:51 115 09/09/18 18:00 102 20 108/80 (89) 99 09/09/18 17:00 106 20 102/77 (85) 99 09/09/18 16:00 Bi-pap 09/09/18 16:00 100 09/09/18 16:00 108 20 100/80 (87) 99 09/09/18 15:00 98.6 110 20 95/77 (83) 99 09/09/18 14:00 105 20 97/83 (88) 99 Intake and Output 09/09/18 09/10/18 19:00 07:00 Intake Total 643 ml 907.0 ml Output Total 250 ml 850 ml Balance 393 ml 57.0 ml IV Total 283 ml 462.0 ml Tube Feeding 360 ml 345 ml Other 100 ml Output Urine Total 250 ml 850 ml Laboratory Tests Test 09/09/18 18:25 09/10/18 05:40 Digoxin Level < 0.2 NG/ML (0.5-2.0) L 0.4 NG/ML (0.5-2.0) L Objective HEENT: Status post craniotomy. Old tracheostomy is closed. He is on face mask. LUNGS: Coarse rhonchi bilaterally, defibrillator in the left subclavian. CARDIOVASCULAR: Irregular S1 and S2 with no gallop. ABDOMEN: Soft. PEG is intact. EXTREMITIES: 1 plus pitting edema. Robby Cantu MD Sep 10, 2018 13:48
[2018-09-10] MEDS ORDERED: Digoxin 0.5mg/2ml Inj IVP SCH (14:00)
--- NOTE | 2018-09-10 14:00 | NUR ---
NURSE NOTES: pt resting in bed. Dr. Cantu rounded. new orders in, will carry out.
--- NOTE | 2018-09-10 16:00 | NUR ---
NURSE NOTES: turned and repositioned patient. will continue plan of care.
--- NOTE | 2018-09-10 18:43 | Internal Med Progress Note ---
Subjective Date of Service: Sep 10, 2018 Physician Name Delvis Arnold Attending Physician Axel Saez MD Current Medications Medications (Trade) Dose Ordered Sig/Davonte Route PRN Reason Start Time Stop Time Status Last Admin Dose Admin Acetaminophen (Tylenol) 650 mg Q4H PRN GT FEVER 09/07/18 22:00 10/07/18 21:59 Albuterol/ Ipratropium (Albuterol/ Ipratropium) 3 ml Q4H PRN HHN Shortness of Breath 09/07/18 22:00 09/12/18 21:59 09/10/18 07:19 Benztropine Mesylate (Cogentin) 0.5 mg EVERY 12 HOURS GT 09/08/18 09:00 10/06/18 17:59 09/10/18 09:00 Dextrose (Dextrose 50%) 25 ml Q30M PRN IV Hypoglycemia 09/07/18 22:00 10/06/18 16:59 Dextrose (Dextrose 50%) 50 ml Q30M PRN IV Hypoglycemia 09/07/18 22:00 10/06/18 16:59 Digoxin (Lanoxin) 0.25 mg DAILY ORAL 09/10/18 09:00 10/10/18 08:59 09/10/18 09:00 Diltiazem HCl 125 mg/Dextrose 125 ml @ 0 mls/hr Q24H IV 09/09/18 22:00 09/10/18 21:59 09/09/18 22:49 Furosemide (Lasix) 40 mg EVERY 12 HOURS IV 09/08/18 21:00 10/08/18 20:59 09/10/18 09:00 Haloperidol Lactate (Haldol) 5 mg Q4H PRN IM AGITATION 09/08/18 00:00 10/08/18 00:00 Heparin Sodium (Porcine) (Heparin 5000 units/ml) 5,000 units EVERY 12 HOURS SUBQ 09/08/18 09:00 10/06/18 20:59 09/09/18 20:37 Levetiracetam (Keppra) 1,000 mg Q12HR GT 09/08/18 09:00 10/06/18 20:59 09/10/18 09:00 Lisinopril (Zestril) 10 mg DAILY ORAL 09/09/18 09:00 10/09/18 08:59 Lorazepam (Ativan 2mg/ml 1ml) 1 mg Q2H PRN IV agitation 09/08/18 10:30 09/15/18 10:29 09/10/18 09:30 Metoprolol Tartrate (Lopressor) 50 mg Q12HR PEG 09/10/18 21:00 10/10/18 20:59 Morphine Sulfate (Morphine Sulfate) 2 mg Q4H PRN IVP Dyspnea 09/09/18 13:45 09/16/18 13:44 09/10/18 04:51 Ondansetron HCl (Zofran) 4 mg Q6H PRN IVP Nausea & Vomiting 09/07/18 22:00 10/06/18 21:59 Pantoprazole (Protonix) 40 mg DAILY IV 09/08/18 09:00 10/07/18 08:59 09/10/18 09:00 Piperacillin Sod/ Tazobactam Sod 3.375 gm/Sodium Chloride 110 ml @ 27.5 mls/hr Q8H IVPB 09/07/18 23:00 09/13/18 22:59 09/10/18 15:00 Polyethylene Glycol (Miralax) 17 gm DAILYPRN PRN ORAL Constipation 09/07/18 22:00 10/07/18 21:59 Quetiapine Fumarate (SEROquel) 100 mg TID GT 09/08/18 09:00 10/07/18 12:59 09/10/18 18:10 Temazepam (Restoril) 15 mg HSPRN PRN ORAL Insomnia 09/08/18 17:00 09/13/18 16:59 Valproic Acid (Depakene) 500 mg EVERY 12 HOURS GT 09/08/18 09:00 10/06/18 20:59 09/10/18 09:00 Vancomycin HCl (Vanco rx to dose) 1 ea DAILY PRN MISC Per rx protocol 09/08/18 09:00 10/06/18 17:44 Vancomycin HCl 1 gm/Dextrose 275 ml @ 183.708 mls/hr Q8HR@0100,0900,1700 IVPB 09/09/18 09:00 09/14/18 08:59 09/10/18 17:00 Allergies: Coded Allergies: No Known Allergies (Unverified , 03/14/16) ROS Limited/Unobtainable: Yes Subjective 53 YO M admitted with respiratory distress. Now pneumonia. Cover for [facility]- Dr Saez. ICU. Tolerating venturi mask Objective Last Vital Signs Date Time Temp Pulse Resp B/P (MAP) Pulse Ox O2 Delivery O2 Flow Rate FiO2 09/10/18 18:00 79 26 107/79 (88) 95 09/10/18 16:00 98.2 09/10/18 16:00 Venturi Mask 10.0 09/10/18 07:22 45 Laboratory Tests Test 09/10/18 05:40 Digoxin Level 0.4 NG/ML (0.5-2.0) L Intake and Output 09/09/18 09/10/18 19:00 07:00 Intake Total 643 ml 907.0 ml Output Total 250 ml 850 ml Balance 393 ml 57.0 ml IV Total 283 ml 462.0 ml Tube Feeding 360 ml 345 ml Other 100 ml Output Urine Total 250 ml 850 ml Objective PHYSICAL EXAMINATION: VITAL SIGNS: Temperature 98.2, blood pressure over 54-58, respiratory rate 24-30, pulse 91-105. GENERAL: The patient is a well-developed and well-nourished male, who is essentially nonverbal. The patient only moans. HEENT: Eyes, pupils equal and responsive to light and accommodation. Extraocular movements are intact. NECK: Supple without lymphadenopathy. CHEST: FULL FACE BIPAP; with bilateral wheezes and rales. CARDIOVASCULAR: Regular rate. S1 and S2 are normal without murmurs, rubs, or gallops. ABDOMEN: Soft, nontender, and nondistended. Positive bowel sounds. No evidence of hepatosplenomegaly. Currently, no rebound or guarding noted. EXTREMITIES: Negative for clubbing, cyanosis, or edema. RECTAL: Not performed. GENITAL: Not performed. NEUROLOGICAL: Cranial nerves II through XII are grossly intact without focal deficits. Assessment/Plan Assessment/Plan ASSESSMENT: This is a 53-year-old male with: 1. Dyspnea. 2. Pneumonia. 3. Atrial fibrillation. 4. Seizure disorder. 5. Dysphagia. 6. Gastroesophageal reflux disease. 7. Schizophrenia. 8. RESPIRATORY FAILURE TREATMENT: 1. Pneumonia/dyspnea. A Pulmonary consultation has been obtained with Dr. Aris Molina. The patient is currently on a Venturi mask. Continue vancomycin and Zosyn. We will follow recommendations of Pulmonary. 2. Seizure disorder. Continue Keppra and Depakote as above. 3. Dysphagia. The patient is currently receiving G-tube feeds. 4. Gastroesophageal reflux disease. Continue omeprazole as above. 5. Schizophrenia. A psychiatric consultation has been obtained with Dr. Stern. 6. Atrial fibrillation. A Cardiology consultation is pending. 7. Venturi mask; ICU STATUS Delvis Arnold MD Sep 10, 2018 18:43
--- NOTE | 2018-09-10 19:04 | NUR ---
HAND-OFF: Report given to HETAL Storm. VSS.
--- NOTE | 2018-09-10 19:30 | NUR ---
NURSE NOTES: Received pt in no apparent distress; calm, half asleep and opens eyes to name. Confused. No breathing difficulty noted; on 40% VM, saturating 96-98. No seizure activity noted. Afib on the monitor but rate controlled. afebrile. BP stable. PIV site on RFA intact; Cardizem gtt still infusing at 2.5mg/h. Bilat soft wrist restraint on.Beds padded; in low position and call light within reach. Will continue to monitor HR/rhythm and will DC Cardizem gtt. Condom cath intact; skin intact.
[2018-09-10] MEDS: Metoprolol Tartrate 50mg tab PEG SCH (20:42)
--- NOTE | 2018-09-10 21:00 | NUR ---
NURSE NOTES: Calm, asleep still on restraints. Condom cath intact. Noted some pacer spikes occasionally. BP stable. Off Cardizem gtt. Heparin dose held due to low platelets.Duplex scan of BLE negative. SCD's applied.
[2018-09-11] VITALS (22 sets, daily range): BP systolic 88–124; BP diastolic 54–93
--- NOTE | 2018-09-11 | NUR ---
NURSE NOTES: Calm and asleep. VSS. No distress, afebrile. Still on controlled Afib. Continues on 40% VM, sats 97%
[2018-09-11] MEDS: Vancomycin 1gm/D5W 275ml IVPB SCH ×6 (00:34→16:03)
--- NOTE | 2018-09-11 02:00 | NUR ---
NURSE NOTES: sleeping, no distress. No seizures. VSS
--- NOTE | 2018-09-11 04:00 | NUR ---
NURSE NOTES: Awake, alert confused and combative, restless. Ativan 1mg IV given. AM care done after pt settled down. No BM, skin dry and intact
[2018-09-11] MEDS: LORazepam Inj 2mg/ml 1ml IV PRN ×3 (04:26→20:10)
--- NOTE | 2018-09-11 06:00 | NUR ---
NURSE NOTES: Started a new saline lock on left hand using g20 angiocath. LFA PIV site still intact. IV running at TKO
[2018-09-11 06:19] LABS: BASOPHILS % (AUTO) 1.2 % (0.0-2.0); EOSINOPHILS % (AUTO) 6.4 % (0.0-3.0); HEMATOCRIT 41.4 % (42.0-52.0); HEMOGLOBIN 14.5 G/DL (14.2-18.0); LYMPHOCYTES % (AUTO) 27.9 % (20.0-45.0); MEAN CORPUSCULAR VOLUME 95 FL (80-99); MONOCYTES % (AUTO) 12.2 % (1.0-10.0); NEUTROPHILS % (AUTO) 52.3 % (45.0-75.0); PLATELET COUNT 174 K/UL (150-450); RED BLOOD COUNT 4.34 M/UL (4.70-6.10); RED CELL DISTRIBUTION WIDTH 12.2 % (11.6-14.8); WHITE BLOOD COUNT 4.2 K/UL (4.8-10.8)
[2018-09-11] MEDS: Piperacillin/Tazobactam 3.375 GM in NS 110 ML IVPB SCH ×3 (06:29→23:25)
--- NOTE | 2018-09-11 06:30 | NUR ---
NURSE NOTES: Restless, combative, confused and agitated. Ativan 1 mg IVP given
[2018-09-11 06:35] LABS: ANION GAP 4 mmol/L (5-15); BLOOD UREA NITROGEN 25 mg/dL (7-18); CALCIUM 9.2 MG/DL (8.5-10.1); CARBON DIOXIDE 35 MMOL/L (21-32); CHLORIDE 106 MMOL/L (98-107); POTASSIUM 4.3 MMOL/L (3.5-5.1); SODIUM 145 MMOL/L (136-145)
--- NOTE | 2018-09-11 07:09 | NUR ---
HAND-OFF: Report given to Mitchell Reese RN.
--- NOTE | 2018-09-11 07:40 | NUR ---
NURSE NOTES: Received the patient from HETAL Correia. Patient resting in bed, easily arousable, opens eyes spontaneously. Patient on venturi mask, fio2 45%, O2 sat 97%. No acute distres noted. Afib with HR 70-80s noted on the design verification engineer. Gtube intact, running Jevity 1.2 at 30ml/hr. HOB elevated. condom cath intact. Right forearm 20G and left hand 20G intact, asymptomatic. Seizure precaution. Bed in lowest position, locked, side rails upx3, bed alarms on. Will continue to monitor.
[2018-09-11] MEDS: Benztropine 1mg tab GT SCH ×2 (08:26→20:10)
[2018-09-11] MEDS: Pantoprazole Inj IV SCH (08:26)
[2018-09-11] MEDS: Lisinopril 10mg tab ORAL SCH (08:26)
[2018-09-11] MEDS: Valproic Acid 250mg/5ml Liquid GT SCH ×2 (08:27→20:09)
[2018-09-11] MEDS: Metoprolol Tartrate 50mg tab PEG SCH ×2 (08:27→20:10)
[2018-09-11] MEDS: Heparin 5000 units/ml inj SUBQ SCH ×2 (08:29→20:11)
[2018-09-11] MEDS: levETIRAcetam 500mg/5ml Liquid GT SCH ×2 (08:29→20:09)
--- NOTE | 2018-09-11 09:57 | NUR ---
CASE MANAGEMENT: REVIEW SI: RESP FAILURE . A-FIB w/ RVR T 98.0 HR 84 RR 19 BP 88/68 SAT 97% VENTURI MASK 10.0 WBC 4.2 BUN 25 IS: DIGOXIN PO QD VANCO IV Q8HR LASIX IV Q12HR PROTONIX IV QD KEPPRA GT Q12HR ICU STATUS DCP: PATIENT IS FROM [facility]
--- NOTE | 2018-09-11 10:37 | NUR ---
NURSE NOTES: patient was turned and repositioned. condom cath intact. vss.
--- NOTE | 2018-09-11 12:13 | NUR ---
NURSE NOTES: Patient asleep in bed, comfortably. no acute distress noted. vss.
--- NOTE | 2018-09-11 14:33 | NUR ---
NURSE NOTES: Patient was turned and repositioned. patient kept clean and dry. Controlled Afib, HR in 80-90s noted.
--- NOTE | 2018-09-11 16:05 | Cardiac Electrophysiology PN ---
Assessment/Plan Assessment/Plan 1. Non-ST elevation myocardial infarction, likely due to atrial fibrillation with RVR. The patient's creatinine is within normal range. EF 20% to 25%. 2. Severe cardiomyopathy with ejection fraction of only 25%. On Lasix 40 mg IV bid, Lisinopril 10 and Lopressor 50 bid 3. Status post dual-chamber defibrillator. Awaiting interrogate device for further evaluation. 4. Atrial fib with RVR. Off Cardizem drip. On Lopressor 50 bid and continue Digoxin 5. Respiratory failure on face Mask. DNR and DNI 6. History of schizophrenia. 7. History of traumatic brain injury. 8. Dysphagia, status post PEG placement. TEODORO RN Subjective Subjective In ICU in atrial fib with controlled rate . Off Cardizem drip Objective Last 24 Hour Vital Signs Date Time Temp Pulse Resp B/P (MAP) Pulse Ox O2 Delivery O2 Flow Rate FiO2 09/11/18 15:00 90 21 91/67 (75) 93 09/11/18 14:00 89 20 96/62 (73) 96 09/11/18 13:00 94 20 95/72 (80) 94 09/11/18 12:00 86 09/11/18 12:00 Venturi Mask 10.0 09/11/18 12:00 98.8 93 24 104/82 (89) 100 09/11/18 11:00 86 20 100/61 (74) 96 09/11/18 10:00 76 18 95/79 (84) 97 09/11/18 09:00 83 21 95/54 (68) 97 09/11/18 08:27 92 113/60 09/11/18 08:27 97 09/11/18 08:26 113/60 09/11/18 08:00 Venturi Mask 10.0 09/11/18 08:00 96 09/11/18 08:00 98.6 91 23 99/69 (79) 95 09/11/18 07:05 92 23 113/60 (77) 97 09/11/18 06:04 99 28 113/93 (100) 98 09/11/18 05:00 88 20 98/57 (71) 96 09/11/18 04:00 97 09/11/18 04:00 98.4 94 23 102/79 (87) 97 09/11/18 04:00 Venturi Mask 10.0 09/11/18 03:00 81 19 104/79 (87) 98 09/11/18 02:00 78 20 104/74 (84) 97 09/11/18 01:05 84 19 88/68 (75) 97 09/11/18 00:00 78 09/11/18 00:00 Venturi Mask 10.0 09/11/18 00:00 98.0 78 22 101/75 (84) 97 09/10/18 23:00 74 20 101/77 (85) 98 09/10/18 22:00 71 20 97/65 (76) 96 09/10/18 21:30 73 21 101/72 (82) 96 09/10/18 21:00 81 22 101/75 (84) 97 09/10/18 20:42 83 119/89 09/10/18 20:30 84 21 119/89 (99) 96 09/10/18 20:00 Venturi Mask 10.0 45 09/10/18 20:00 Venturi Mask 10.0 09/10/18 20:00 80 09/10/18 20:00 83 21 102/77 (85) 95 09/10/18 20:00 97 Venturi Mask 10.0 45 09/10/18 19:30 98.6 77 18 104/92 (96) 95 09/10/18 19:00 74 26 106/82 (90) 95 09/10/18 18:00 79 26 107/79 (88) 95 09/10/18 17:00 77 26 90/72 (78) 95 09/10/18 16:00 98.2 85 30 108/87 (94) 95 09/10/18 16:00 Venturi Mask 10.0 09/10/18 16:00 85 Intake and Output 09/10/18 09/11/18 18:59 06:59 Intake Total 1194.124 ml 958.708 ml Output Total 1400 ml 1000 ml Balance -205.876 ml -41.292 ml IV Total 834.124 ml 598.708 ml Tube Feeding 360 ml 360 ml Output Urine Total 1400 ml 1000 ml Laboratory Tests Test 09/11/18 05:50 White Blood Count 4.2 K/UL (4.8-10.8) L Red Blood Count 4.34 M/UL (4.70-6.10) L Hemoglobin 14.5 G/DL (14.2-18.0) Hematocrit 41.4 % (42.0-52.0) L Mean Corpuscular Volume 95 FL (80-99) Mean Corpuscular Hemoglobin 33.4 PG (27.0-31.0) H Mean Corpuscular Hemoglobin Concent 35.0 G/DL (32.0-36.0) Red Cell Distribution Width 12.2 % (11.6-14.8) Platelet Count 174 K/UL (150-450) Mean Platelet Volume 8.9 FL (6.5-10.1) Neutrophils (%) (Auto) 52.3 % (45.0-75.0) Lymphocytes (%) (Auto) 27.9 % (20.0-45.0) Monocytes (%) (Auto) 12.2 % (1.0-10.0) H Eosinophils (%) (Auto) 6.4 % (0.0-3.0) H Basophils (%) (Auto) 1.2 % (0.0-2.0) Sodium Level 145 MMOL/L (136-145) Potassium Level 4.3 MMOL/L (3.5-5.1) Chloride Level 106 MMOL/L (98-107) Carbon Dioxide Level 35 MMOL/L (21-32) H Anion Gap 4 mmol/L (5-15) L Blood Urea Nitrogen 25 mg/dL (7-18) H Creatinine 1.0 MG/DL (0.55-1.30) Estimat Glomerular Filtration Rate > 60 mL/min (>60) Glucose Level 90 MG/DL (74-106) Calcium Level 9.2 MG/DL (8.5-10.1) Microbiology Date/Time Source Procedure Growth Status 09/09/18 18:25 Blood Blood Culture - Preliminary NO GROWTH AFTER 24 HOURS Resulted 09/09/18 18:10 Blood Blood Culture - Preliminary NO GROWTH AFTER 24 HOURS Resulted Objective HEENT: Status post craniotomy. Old tracheostomy is closed. He is on face mask. LUNGS: Coarse rhonchi bilaterally, defibrillator in the left subclavian. CARDIOVASCULAR: Irregular S1 and S2 with no gallop. ABDOMEN: Soft. PEG is intact. EXTREMITIES: 1 plus pitting edema. Robby Cantu MD Sep 11, 2018 16:05
--- NOTE | 2018-09-11 16:24 | NUR ---
NURSE NOTES: Dr. Cantu at bedside, updated on pt's condition. Okay to transfer to [facility]
--- NOTE | 2018-09-11 17:39 | NUR ---
NURSE NOTES: Patient sleeping in bed, no acute distress noted. vss. patient was repositioned. SCDs on BLE.
--- NOTE | 2018-09-11 18:39 | Internal Med Progress Note ---
Subjective Date of Service: Sep 11, 2018 Physician Name Delvis Arnold Attending Physician Axel Saez MD Current Medications Medications (Trade) Dose Ordered Sig/[place]onte Route PRN Reason Start Time Stop Time Status Last Admin Dose Admin Acetaminophen (Tylenol) 650 mg Q4H PRN GT FEVER 09/07/18 22:00 10/07/18 21:59 Albuterol/ Ipratropium (Albuterol/ Ipratropium) 3 ml Q4H PRN HHN Shortness of Breath 09/07/18 22:00 09/12/18 21:59 09/10/18 07:19 Benztropine Mesylate (Cogentin) 0.5 mg EVERY 12 HOURS GT 09/08/18 09:00 10/06/18 17:59 09/11/18 08:26 Dextrose (Dextrose 50%) 25 ml Q30M PRN IV Hypoglycemia 09/07/18 22:00 10/06/18 16:59 Dextrose (Dextrose 50%) 50 ml Q30M PRN IV Hypoglycemia 09/07/18 22:00 10/06/18 16:59 Digoxin (Lanoxin) 0.25 mg DAILY ORAL 09/10/18 09:00 10/10/18 08:59 09/11/18 08:27 Furosemide (Lasix) 40 mg EVERY 12 HOURS IV 09/08/18 21:00 10/08/18 20:59 09/11/18 08:26 Haloperidol Lactate (Haldol) 5 mg Q4H PRN IM AGITATION 09/08/18 00:00 10/08/18 00:00 Heparin Sodium (Porcine) (Heparin 5000 units/ml) 5,000 units EVERY 12 HOURS SUBQ 09/08/18 09:00 10/06/18 20:59 09/11/18 08:29 Levetiracetam (Keppra) 1,000 mg Q12HR GT 09/08/18 09:00 10/06/18 20:59 09/11/18 08:29 Lisinopril (Zestril) 10 mg DAILY ORAL 09/09/18 09:00 10/09/18 08:59 09/11/18 08:26 Lorazepam (Ativan 2mg/ml 1ml) 1 mg Q2H PRN IV agitation 09/08/18 10:30 09/15/18 10:29 09/11/18 06:37 Metoprolol Tartrate (Lopressor) 50 mg Q12HR PEG 09/10/18 21:00 10/10/18 20:59 09/11/18 08:27 Morphine Sulfate (Morphine Sulfate) 2 mg Q4H PRN IVP Dyspnea 09/09/18 13:45 09/16/18 13:44 09/10/18 04:51 Ondansetron HCl (Zofran) 4 mg Q6H PRN IVP Nausea & Vomiting 09/07/18 22:00 10/06/18 21:59 Pantoprazole (Protonix) 40 mg DAILY IV 09/08/18 09:00 10/07/18 08:59 09/11/18 08:26 Piperacillin Sod/ Tazobactam Sod 3.375 gm/Sodium Chloride 110 ml @ 27.5 mls/hr Q8H IVPB 09/07/18 23:00 09/13/18 22:59 09/11/18 14:40 Polyethylene Glycol (Miralax) 17 gm DAILYPRN PRN ORAL Constipation 09/07/18 22:00 10/07/18 21:59 Quetiapine Fumarate (SEROquel) 100 mg TID GT 09/08/18 09:00 10/07/18 12:59 09/11/18 17:09 Temazepam (Restoril) 15 mg HSPRN PRN ORAL Insomnia 09/08/18 17:00 09/13/18 16:59 Valproic Acid (Depakene) 500 mg EVERY 12 HOURS GT 09/08/18 09:00 10/06/18 20:59 09/11/18 08:27 Vancomycin HCl (Vanco rx to dose) 1 ea DAILY PRN MISC Per rx protocol 09/08/18 09:00 10/06/18 17:44 Vancomycin HCl 1 gm/Dextrose 275 ml @ 183.708 mls/hr Q8HR@0100,0900,1700 IVPB 09/09/18 09:00 09/14/18 08:59 09/11/18 16:03 Allergies: Coded Allergies: No Known Allergies (Unverified , 03/14/16) ROS Limited/Unobtainable: Yes Subjective 53 YO M admitted with respiratory distress. Now pneumonia. Cover for Int Med- Dr Saez. ICU. Tolerating venturi mask Objective Last Vital Signs Date Time Temp Pulse Resp B/P (MAP) Pulse Ox O2 Delivery O2 Flow Rate FiO2 09/11/18 18:00 99 21 117/75 (89) 99 09/11/18 16:00 Venturi Mask 10.0 09/11/18 16:00 98.8 09/10/18 20:00 45 Laboratory Tests Test 09/11/18 05:50 White Blood Count 4.2 K/UL (4.8-10.8) L Red Blood Count 4.34 M/UL (4.70-6.10) L Hemoglobin 14.5 G/DL (14.2-18.0) Hematocrit 41.4 % (42.0-52.0) L Mean Corpuscular Volume 95 FL (80-99) Mean Corpuscular Hemoglobin 33.4 PG (27.0-31.0) H Mean Corpuscular Hemoglobin Concent 35.0 G/DL (32.0-36.0) Red Cell Distribution Width 12.2 % (11.6-14.8) Platelet Count 174 K/UL (150-450) Mean Platelet Volume 8.9 FL (6.5-10.1) Neutrophils (%) (Auto) 52.3 % (45.0-75.0) Lymphocytes (%) (Auto) 27.9 % (20.0-45.0) Monocytes (%) (Auto) 12.2 % (1.0-10.0) H Eosinophils (%) (Auto) 6.4 % (0.0-3.0) H Basophils (%) (Auto) 1.2 % (0.0-2.0) Sodium Level 145 MMOL/L (136-145) Potassium Level 4.3 MMOL/L (3.5-5.1) Chloride Level 106 MMOL/L (98-107) Carbon Dioxide Level 35 MMOL/L (21-32) H Anion Gap 4 mmol/L (5-15) L Blood Urea Nitrogen 25 mg/dL (7-18) H Creatinine 1.0 MG/DL (0.55-1.30) Estimat Glomerular Filtration Rate > 60 mL/min (>60) Glucose Level 90 MG/DL (74-106) Calcium Level 9.2 MG/DL (8.5-10.1) Microbiology Date/Time Source Procedure Growth Status 09/09/18 18:25 Blood Blood Culture - Preliminary NO GROWTH AFTER 24 HOURS Resulted 09/09/18 18:10 Blood Blood Culture - Preliminary NO GROWTH AFTER 24 HOURS Resulted Intake and Output 09/10/18 09/11/18 19:00 07:00 Intake Total 1386.332 ml 715.000 ml Output Total 1400 ml 1000 ml Balance -13.668 ml -285.000 ml IV Total 1026.332 ml 385.000 ml Tube Feeding 360 ml 330 ml Output Urine Total 1400 ml 1000 ml Objective PHYSICAL EXAMINATION: VITAL SIGNS: Temperature 98.2, blood pressure over 54-58, respiratory rate 24-30, pulse 91-105. GENERAL: The patient is a well-developed and well-nourished male, who is essentially nonverbal. The patient only moans. HEENT: Eyes, pupils equal and responsive to light and accommodation. Extraocular movements are intact. NECK: Supple without lymphadenopathy. CHEST: FULL FACE BIPAP; with bilateral wheezes and rales. CARDIOVASCULAR: Regular rate. S1 and S2 are normal without murmurs, rubs, or gallops. ABDOMEN: Soft, nontender, and nondistended. Positive bowel sounds. No evidence of hepatosplenomegaly. Currently, no rebound or guarding noted. EXTREMITIES: Negative for clubbing, cyanosis, or edema. RECTAL: Not performed. GENITAL: Not performed. NEUROLOGICAL: Cranial nerves II through XII are grossly intact without focal deficits. Assessment/Plan Assessment/Plan ASSESSMENT: This is a 53-year-old male with: 1. Dyspnea. 2. Pneumonia. 3. Atrial fibrillation. 4. Seizure disorder. 5. Dysphagia. 6. Gastroesophageal reflux disease. 7. Schizophrenia. 8. RESPIRATORY FAILURE TREATMENT: 1. Pneumonia/dyspnea. A Pulmonary consultation has been obtained with Dr. Aris Molina. The patient is currently on a Venturi mask. Continue vancomycin and Zosyn. We will follow recommendations of Pulmonary. 2. Seizure disorder. Continue Keppra and Depakote as above. 3. Dysphagia. The patient is currently receiving G-tube feeds. 4. Gastroesophageal reflux disease. Continue omeprazole as above. 5. Schizophrenia. A psychiatric consultation has been obtained with Dr. Stern. 6. Atrial fibrillation. A Cardiology consultation is pending. 7. Venturi mask; ICU STATUS Delvis Arnold MD Sep 11, 2018 18:39
--- NOTE | 2018-09-11 19:00 | NUR ---
NURSE NOTES: Received the patient from HETAL Amaya. Patient resting in bed, easily arousable, opens eyes spontaneously. Patient on venturi mask, fio2 45%, O2 sat 96%. No acute distres noted. Afib with HR 90s-110 noted on the traffic monitor specialist. Gtube intact, running Jevity 1.2 at 30ml/hr. HOB elevated. condom cath intact. Right forearm 20G and left hand 20G intact, asymptomatic. Seizure precaution. Bed in lowest position, locked, side rails upx3, bed alarms on. Will continue to monitor.
--- NOTE | 2018-09-11 19:05 | NUR ---
HAND-OFF: Report given to HETAL Talavera.
--- NOTE | 2018-09-11 19:18 | Consultation ---
History of Present Illness General Date patient seen: Sep 11, 2018 Chief Complaint: Dyspnea/Respdistress Present Illness Allergies: Coded Allergies: No Known Allergies (Unverified , 03/14/16) Medication History Scheduled Bacitracin Zinc* (Bacitracin Zinc*), 1 APPLIC TOPIC DAILY, (Reported) Benztropine Mesylate* (Benztropine Mesylate*), 0.5 MG GT BID, (Reported) Carvedilol (Coreg), 12.5 MG GT BID, (Reported) Cranberry Extract (Cranberry), 425 MG GT BID, (Reported) Levetiracetam* (Levetiracetam*), 1,500 MG GT BID, (Reported) Melatonin (Melatonin), 3 MG GT BEDTIME, (Reported) Multivitamin With Minerals (Multivitamins With Minerals*), 1 TAB GT DAILY, ( Reported) Omeprazole (Omeprazole), 20 MG GT DAILY, (Reported) Quetiapine Fumarate* (Quetiapine Fumarate*), 50 MG GT BID, (Reported) Spironolactone* (Aldactone*), 25 MG GT DAILY, (Reported) Valproic Acid (Valproic Acid), 500 MG GT TID, (Reported) Scheduled PRN Acetaminophen (Acetaminophen), 640 MG GT EVERY 6 HOURS PRN for mild pain, ( Reported) Acetaminophen 160MG/5ML* (Acetaminophen*), 20 ML GT Q4HR PRN for Pain Scale (3-5 ), (Reported) Acetaminophen 160MG/5ML* (Acetaminophen*), 20 ML GT Q4HR PRN for Mild Pain/Temp > 100.5, (Reported) Magnesium Hydroxide* (Milk Of Magnesia*), 30 ML ORAL EVERY 8 HOURS PRN for Constipation, (Reported) Discontinued Medications Cholecalciferol (Vitamin D3)* (Vitamin D*), 5,000 UNITS GT DAILY, (Reported) Discontinued Reason: Pt stopped taking med Docusate Sodium* (Docusate Sodium*), 100 MG GT TWICE A DAY, (Reported) Discontinued Reason: Pt stopped taking med Ferrous Sulfate (Ferrous Sulfate), 7.5 ML GT BID, (Reported) Discontinued Reason: Pt stopped taking med Hydrocodone Bit/Acetaminophen 5-325* ([place] 5-325*), 1 TAB GT EVERY 8 HOURS PRN for For Pain, (Reported) Discontinued Reason: Pt stopped taking med Levetiracetam (Keppra), 1,000 MG GT Q12HR Discontinued Reason: Pt stopped taking med Lorazepam* (Ativan*), 0.5 MG GT EVERY 4 HOURS, (Reported) Discontinued Reason: Pt stopped taking med Multivits W-Min/Ferrous Gluc (Multivitamin-Mineral Liquid), 15 ML GT DAILY, ( Reported) Discontinued Reason: Prescription changed Quetiapine Fumarate* (Seroquel*), 25 MG GT BID, (Reported) Discontinued Reason: Prescription changed Risperidone* (Risperdal*), 0.5 MG ORAL TID Discontinued Reason: Pt stopped taking med Temazepam* (Restoril*), 15 MG GT BEDTIME PRN for Insomnia, (Reported) Discontinued Reason: Pt stopped taking med Valproate Sodium (Valproic Acid), 5 ML GT BID, (Reported) Discontinued Reason: Pt stopped taking med Valproic Acid (Valproic Acid), 500 MG GT EVERY 12 HOURS Discontinued Reason: Pt stopped taking med Patient History Healthcare decision maker GABRIELA CLAYTON Resuscitation status Do Not Resuscitate Advanced Directive on File No Physical Exam Last 24 Hour Vital Signs Date Time Temp Pulse Resp B/P (MAP) Pulse Ox O2 Delivery O2 Flow Rate FiO2 09/11/18 18:00 99 21 117/75 (89) 99 09/11/18 17:00 91 20 108/55 (72) 94 09/11/18 16:00 Venturi Mask 10.0 09/11/18 16:00 98.8 86 22 105/77 (86) 97 09/11/18 16:00 99 09/11/18 15:00 90 21 91/67 (75) 93 09/11/18 14:00 89 20 96/62 (73) 96 09/11/18 13:00 94 20 95/72 (80) 94 09/11/18 12:00 86 09/11/18 12:00 Venturi Mask 10.0 09/11/18 12:00 98.8 93 24 104/82 (89) 100 09/11/18 11:00 86 20 100/61 (74) 96 09/11/18 10:00 76 18 95/79 (84) 97 09/11/18 09:00 83 21 95/54 (68) 97 09/11/18 08:27 92 113/60 09/11/18 08:27 97 09/11/18 08:26 113/60 09/11/18 08:00 Venturi Mask 10.0 09/11/18 08:00 96 09/11/18 08:00 98.6 91 23 99/69 (79) 95 09/11/18 07:05 92 23 113/60 (77) 97 09/11/18 06:04 99 28 113/93 (100) 98 09/11/18 05:00 88 20 98/57 (71) 96 09/11/18 04:00 97 09/11/18 04:00 98.4 94 23 102/79 (87) 97 09/11/18 04:00 Venturi Mask 10.0 09/11/18 03:00 81 19 104/79 (87) 98 09/11/18 02:00 78 20 104/74 (84) 97 09/11/18 01:05 84 19 88/68 (75) 97 09/11/18 00:00 78 09/11/18 00:00 Venturi Mask 10.0 09/11/18 00:00 98.0 78 22 101/75 (84) 97 09/10/18 23:00 74 20 101/77 (85) 98 09/10/18 22:00 71 20 97/65 (76) 96 09/10/18 21:30 73 21 101/72 (82) 96 09/10/18 21:00 81 22 101/75 (84) 97 09/10/18 20:42 83 119/89 09/10/18 20:30 84 21 119/89 (99) 96 09/10/18 20:00 Venturi Mask 10.0 45 09/10/18 20:00 Venturi Mask 10.0 09/10/18 20:00 80 09/10/18 20:00 83 21 102/77 (85) 95 09/10/18 20:00 97 Venturi Mask 10.0 45 09/10/18 19:30 98.6 77 18 104/92 (96) 95 Intake and Output 09/10/18 09/11/18 19:00 07:00 Intake Total 1386.332 ml 715.000 ml Output Total 1400 ml 1000 ml Balance -13.668 ml -285.000 ml IV Total 1026.332 ml 385.000 ml Tube Feeding 360 ml 330 ml Output Urine Total 1400 ml 1000 ml Laboratory Tests Test 09/11/18 05:50 White Blood Count 4.2 K/UL (4.8-10.8) L Red Blood Count 4.34 M/UL (4.70-6.10) L Hemoglobin 14.5 G/DL (14.2-18.0) Hematocrit 41.4 % (42.0-52.0) L Mean Corpuscular Volume 95 FL (80-99) Mean Corpuscular Hemoglobin 33.4 PG (27.0-31.0) H Mean Corpuscular Hemoglobin Concent 35.0 G/DL (32.0-36.0) Red Cell Distribution Width 12.2 % (11.6-14.8) Platelet Count 174 K/UL (150-450) Mean Platelet Volume 8.9 FL (6.5-10.1) Neutrophils (%) (Auto) 52.3 % (45.0-75.0) Lymphocytes (%) (Auto) 27.9 % (20.0-45.0) Monocytes (%) (Auto) 12.2 % (1.0-10.0) H Eosinophils (%) (Auto) 6.4 % (0.0-3.0) H Basophils (%) (Auto) 1.2 % (0.0-2.0) Sodium Level 145 MMOL/L (136-145) Potassium Level 4.3 MMOL/L (3.5-5.1) Chloride Level 106 MMOL/L (98-107) Carbon Dioxide Level 35 MMOL/L (21-32) H Anion Gap 4 mmol/L (5-15) L Blood Urea Nitrogen 25 mg/dL (7-18) H Creatinine 1.0 MG/DL (0.55-1.30) Estimat Glomerular Filtration Rate > 60 mL/min (>60) Glucose Level 90 MG/DL (74-106) Calcium Level 9.2 MG/DL (8.5-10.1) Height (Feet): 5 Height (Inches): 9.00 Weight (Pounds): 181 Medications Current Medications Medications (Trade) Dose Ordered Sig/Davonte Route PRN Reason Start Time Stop Time Status Last Admin Dose Admin Acetaminophen (Tylenol) 650 mg Q4H PRN GT FEVER 09/07/18 22:00 10/07/18 21:59 Albuterol/ Ipratropium (Albuterol/ Ipratropium) 3 ml Q4H PRN HHN Shortness of Breath 09/07/18 22:00 09/12/18 21:59 09/10/18 07:19 Benztropine Mesylate (Cogentin) 0.5 mg EVERY 12 HOURS GT 09/08/18 09:00 10/06/18 17:59 09/11/18 08:26 Dextrose (Dextrose 50%) 25 ml Q30M PRN IV Hypoglycemia 09/07/18 22:00 10/06/18 16:59 Dextrose (Dextrose 50%) 50 ml Q30M PRN IV Hypoglycemia 09/07/18 22:00 10/06/18 16:59 Digoxin (Lanoxin) 0.25 mg DAILY ORAL 09/10/18 09:00 10/10/18 08:59 09/11/18 08:27 Furosemide (Lasix) 40 mg EVERY 12 HOURS IV 09/08/18 21:00 10/08/18 20:59 09/11/18 08:26 Haloperidol Lactate (Haldol) 5 mg Q4H PRN IM AGITATION 09/08/18 00:00 10/08/18 00:00 Heparin Sodium (Porcine) (Heparin 5000 units/ml) 5,000 units EVERY 12 HOURS SUBQ 09/08/18 09:00 10/06/18 20:59 09/11/18 08:29 Levetiracetam (Keppra) 1,000 mg Q12HR GT 09/08/18 09:00 10/06/18 20:59 09/11/18 08:29 Lisinopril (Zestril) 10 mg DAILY ORAL 09/09/18 09:00 10/09/18 08:59 09/11/18 08:26 Lorazepam (Ativan 2mg/ml 1ml) 1 mg Q2H PRN IV agitation 09/08/18 10:30 09/15/18 10:29 09/11/18 06:37 Metoprolol Tartrate (Lopressor) 50 mg Q12HR PEG 09/10/18 21:00 10/10/18 20:59 09/11/18 08:27 Morphine Sulfate (Morphine Sulfate) 2 mg Q4H PRN IVP Dyspnea 09/09/18 13:45 09/16/18 13:44 09/10/18 04:51 Ondansetron HCl (Zofran) 4 mg Q6H PRN IVP Nausea & Vomiting 09/07/18 22:00 10/06/18 21:59 Pantoprazole (Protonix) 40 mg DAILY IV 09/08/18 09:00 10/07/18 08:59 09/11/18 08:26 Piperacillin Sod/ Tazobactam Sod 3.375 gm/Sodium Chloride 110 ml @ 27.5 mls/hr Q8H IVPB 09/07/18 23:00 09/13/18 22:59 09/11/18 14:40 Polyethylene Glycol (Miralax) 17 gm DAILYPRN PRN ORAL Constipation 09/07/18 22:00 10/07/18 21:59 Quetiapine Fumarate (SEROquel) 100 mg TID GT 09/08/18 09:00 10/07/18 12:59 09/11/18 17:09 Temazepam (Restoril) 15 mg HSPRN PRN ORAL Insomnia 09/08/18 17:00 09/13/18 16:59 Valproic Acid (Depakene) 500 mg EVERY 12 HOURS GT 09/08/18 09:00 10/06/18 20:59 09/11/18 08:27 Vancomycin HCl (Vanco rx to dose) 1 ea DAILY PRN MISC Per rx protocol 09/08/18 09:00 10/06/18 17:44 Vancomycin HCl 1 gm/Dextrose 275 ml @ 183.708 mls/hr Q8HR@0100,0900,1700 IVPB 09/09/18 09:00 09/14/18 08:59 09/11/18 16:03 Assessment/Plan Assessment/Plan Hematology Consultation REQ MD: Catalina Saez Date patient seen: Sep 11, 2018 RFC: Leukopenia and anemia ID [id number] y/o M with hx of HTN, CHF, severe cardiomyopathy EF 25% s/p AICD, GERD, schizophrenia, seizure disorder, dysphagia s/p peg, craniotomy, hx of trach now reversed, [facility] resident presents to ED on 09/06 with SOB. Upon admission patient with Afib with RVR and was admitted to ICU. Currently feeling better, on venti mask, remains dnr/dni, heme was consulted for further eval of blood dyscriasias. Allergies: No Known Allergies (Unverified , 03/14/16) Meds Bacitracin Zinc* (Bacitracin Zinc*), 1 APPLIC TOPIC DAILY, (Reported) Benztropine Mesylate* (Benztropine Mesylate*), 0.5 MG GT BID, (Reported) Carvedilol (Coreg), 12.5 MG GT BID, (Reported) Cranberry Extract (Cranberry), 425 MG GT BID, (Reported) Levetiracetam* (Levetiracetam*), 1,500 MG GT BID, (Reported) Melatonin (Melatonin), 3 MG GT BEDTIME, (Reported) Multivitamin With Minerals (Multivitamins With Minerals*), 1 TAB GT DAILY, ( Reported) Omeprazole (Omeprazole), 20 MG GT DAILY, (Reported) Quetiapine Fumarate* (Quetiapine Fumarate*), 50 MG GT BID, (Reported) Spironolactone* (Aldactone*), 25 MG GT DAILY, (Reported) Valproic Acid (Valproic Acid), 500 MG GT TID, (Reported) Scheduled Acetaminophen (Acetaminophen), 640 MG GT EVERY 6 HOURS PRN for mild pain, ( Reported) Acetaminophen 160MG/5ML* (Acetaminophen*), 20 ML GT Q4HR PRN for Pain Scale (3-5 ), (Reported) Acetaminophen 160MG/5ML* (Acetaminophen*), 20 ML GT Q4HR PRN for Mild Pain/Temp > 100.5, (Reported) Magnesium Hydroxide* (Milk Of Magnesia*), 30 ML ORAL EVERY 8 HOURS PRN for Constipation, (Reported) Discontinued Medications Cholecalciferol (Vitamin D3)* (Vitamin D*), 5,000 UNITS GT DAILY, (Reported) Discontinued Reason: Pt stopped taking med Docusate Sodium* (Docusate Sodium*), 100 MG GT TWICE A DAY, (Reported) Discontinued Reason: Pt stopped taking med Ferrous Sulfate (Ferrous Sulfate), 7.5 ML GT BID, (Reported) Discontinued Reason: Pt stopped taking med Hydrocodone Bit/Acetaminophen 5-325* ([place] 5-325*), 1 TAB GT EVERY 8 HOURS PRN for For Pain, (Reported) Discontinued Reason: Pt stopped taking med Levetiracetam (Keppra), 1,000 MG GT Q12HR Discontinued Reason: Pt stopped taking med Lorazepam* (Ativan*), 0.5 MG GT EVERY 4 HOURS, (Reported) Discontinued Reason: Pt stopped taking med Multivits W-Min/Ferrous Gluc (Multivitamin-Mineral Liquid), 15 ML GT DAILY, ( Reported) Discontinued Reason: Prescription changed Quetiapine Fumarate* (Seroquel*), 25 MG GT BID, (Reported) Discontinued Reason: Prescription changed Risperidone* (Risperdal*), 0.5 MG ORAL TID Discontinued Reason: Pt stopped taking med Temazepam* (Restoril*), 15 MG GT BEDTIME PRN for Insomnia, (Reported) Discontinued Reason: Pt stopped taking med Valproate Sodium (Valproic Acid), 5 ML GT BID, (Reported) Discontinued Reason: Pt stopped taking med Valproic Acid (Valproic Acid), 500 MG GT EVERY 12 HOURS Discontinued Reason: Pt stopped taking med GABRIELA MATILDE Resuscitation status Do Not Resuscitate Advanced Directive on File No Patient History Narrative Shx: The patient is a resident of [facility]. The patient denies alcohol or tobacco use. Fhx: non contributory Review of Systems All Other Systems: negative except mentioned in HPI Physical Exam Physical Exam Narrative GENERAL: The patient is a well-developed and well-nourished male, who is essentially nonverbal. The patient only moans. +++ bipap HEENT: Eyes, pupils equal and responsive to light and accommodation. Extraocular movements are intact. NECK: Supple without lymphadenopathy. CHEST: Lungs are clear to auscultation bilaterally without wheezes or rales. CARDIOVASCULAR: Regular rate. S1 and S2 are normal without murmurs, rubs, or gallops. ABDOMEN: Soft, nontender, and nondistended. Positive bowel sounds. No evidence of hepatosplenomegaly. Currently, no rebound or guarding noted. EXTREMITIES: Negative for clubbing, cyanosis, or edema. NEUROLOGICAL: Cranial nerves II through XII are grossly intact without focal deficits. Last 24 Hour Vital Signs Current Medications Medications (Trade) Dose Ordered Sig/Davonte Route PRN Reason Start Time Stop Time Status Last Admin Dose Admin Acetaminophen (Tylenol) 650 mg Q4H PRN GT FEVER 09/07/18 22:00 10/07/18 21:59 Albuterol/ Ipratropium (Albuterol/ Ipratropium) 3 ml Q4H PRN HHN Shortness of Breath 09/07/18 22:00 09/12/18 21:59 09/10/18 07:19 Benztropine Mesylate (Cogentin) 0.5 mg EVERY 12 HOURS GT 09/08/18 09:00 10/06/18 17:59 09/11/18 08:26 Dextrose (Dextrose 50%) 25 ml Q30M PRN IV Hypoglycemia 09/07/18 22:00 10/06/18 16:59 Dextrose (Dextrose 50%) 50 ml Q30M PRN IV Hypoglycemia 09/07/18 22:00 10/06/18 16:59 Digoxin (Lanoxin) 0.25 mg DAILY ORAL 09/10/18 09:00 10/10/18 08:59 09/11/18 08:27 Furosemide (Lasix) 40 mg EVERY 12 HOURS IV 09/08/18 21:00 10/08/18 20:59 09/11/18 08:26 Haloperidol Lactate (Haldol) 5 mg Q4H PRN IM AGITATION 09/08/18 00:00 10/08/18 00:00 Heparin Sodium (Porcine) (Heparin 5000 units/ml) 5,000 units EVERY 12 HOURS SUBQ 09/08/18 09:00 10/06/18 20:59 09/11/18 08:29 Levetiracetam (Keppra) 1,000 mg Q12HR GT 09/08/18 09:00 10/06/18 20:59 09/11/18 08:29 Lisinopril (Zestril) 10 mg DAILY ORAL 09/09/18 09:00 10/09/18 08:59 09/11/18 08:26 Lorazepam (Ativan 2mg/ml 1ml) 1 mg Q2H PRN IV agitation 09/08/18 10:30 09/15/18 10:29 09/11/18 06:37 Metoprolol Tartrate (Lopressor) 50 mg Q12HR PEG 09/10/18 21:00 10/10/18 20:59 09/11/18 08:27 Morphine Sulfate (Morphine Sulfate) 2 mg Q4H PRN IVP Dyspnea 09/09/18 13:45 09/16/18 13:44 09/10/18 04:51 Ondansetron HCl (Zofran) 4 mg Q6H PRN IVP Nausea & Vomiting 09/07/18 22:00 10/06/18 21:59 Pantoprazole (Protonix) 40 mg DAILY IV 09/08/18 09:00 10/07/18 08:59 09/11/18 08:26 Piperacillin Sod/ Tazobactam Sod 3.375 gm/Sodium Chloride 110 ml @ 27.5 mls/hr Q8H IVPB 09/07/18 23:00 09/13/18 22:59 09/11/18 14:40 Polyethylene Glycol (Miralax) 17 gm DAILYPRN PRN ORAL Constipation 09/07/18 22:00 10/07/18 21:59 Quetiapine Fumarate (SEROquel) 100 mg TID GT 09/08/18 09:00 10/07/18 12:59 09/11/18 17:09 Temazepam (Restoril) 15 mg HSPRN PRN ORAL Insomnia 09/08/18 17:00 09/13/18 16:59 Valproic Acid (Depakene) 500 mg EVERY 12 HOURS GT 09/08/18 09:00 10/06/18 20:59 09/11/18 08:27 Vancomycin HCl (Vanco rx to dose) 1 ea DAILY PRN MISC Per rx protocol 09/08/18 09:00 10/06/18 17:44 Vancomycin HCl 1 gm/Dextrose 275 ml @ 183.708 mls/hr Q8HR@0100,0900,1700 IVPB 09/09/18 09:00 09/14/18 08:59 09/11/18 16:03 Last 24 Hour Vital Signs Date Time Temp Pulse Resp B/P (MAP) Pulse Ox O2 Delivery O2 Flow Rate FiO2 09/11/18 18:00 99 21 117/75 (89) 99 09/11/18 17:00 91 20 108/55 (72) 94 09/11/18 16:00 Venturi Mask 10.0 09/11/18 16:00 98.8 86 22 105/77 (86) 97 09/11/18 16:00 99 09/11/18 15:00 90 21 91/67 (75) 93 09/11/18 14:00 89 20 96/62 (73) 96 09/11/18 13:00 94 20 95/72 (80) 94 09/11/18 12:00 86 09/11/18 12:00 Venturi Mask 10.0 09/11/18 12:00 98.8 93 24 104/82 (89) 100 09/11/18 11:00 86 20 100/61 (74) 96 09/11/18 10:00 76 18 95/79 (84) 97 09/11/18 09:00 83 21 95/54 (68) 97 09/11/18 08:27 92 113/60 09/11/18 08:27 97 09/11/18 08:26 113/60 09/11/18 08:00 Venturi Mask 10.0 09/11/18 08:00 96 09/11/18 08:00 98.6 91 23 99/69 (79) 95 09/11/18 07:05 92 23 113/60 (77) 97 09/11/18 06:04 99 28 113/93 (100) 98 09/11/18 05:00 88 20 98/57 (71) 96 09/11/18 04:00 97 09/11/18 04:00 98.4 94 23 102/79 (87) 97 09/11/18 04:00 Venturi Mask 10.0 09/11/18 03:00 81 19 104/79 (87) 98 09/11/18 02:00 78 20 104/74 (84) 97 09/11/18 01:05 84 19 88/68 (75) 97 09/11/18 00:00 78 09/11/18 00:00 Venturi Mask 10.0 09/11/18 00:00 98.0 78 22 101/75 (84) 97 09/10/18 23:00 74 20 101/77 (85) 98 09/10/18 22:00 71 20 97/65 (76) 96 09/10/18 21:30 73 21 101/72 (82) 96 09/10/18 21:00 81 22 101/75 (84) 97 09/10/18 20:42 83 119/89 09/10/18 20:30 84 21 119/89 (99) 96 09/10/18 20:00 Venturi Mask 10.0 45 09/10/18 20:00 Venturi Mask 10.0 09/10/18 20:00 80 09/10/18 20:00 83 21 102/77 (85) 95 09/10/18 20:00 97 Venturi Mask 10.0 45 09/10/18 19:30 98.6 77 18 104/92 (96) 95 Laboratory Tests Test 09/11/18 05:50 White Blood Count 4.2 K/UL (4.8-10.8) L Red Blood Count 4.34 M/UL (4.70-6.10) L Hemoglobin 14.5 G/DL (14.2-18.0) Hematocrit 41.4 % (42.0-52.0) L Mean Corpuscular Volume 95 FL (80-99) Mean Corpuscular Hemoglobin 33.4 PG (27.0-31.0) H Mean Corpuscular Hemoglobin Concent 35.0 G/DL (32.0-36.0) Red Cell Distribution Width 12.2 % (11.6-14.8) Platelet Count 174 K/UL (150-450) Mean Platelet Volume 8.9 FL (6.5-10.1) Neutrophils (%) (Auto) 52.3 % (45.0-75.0) Lymphocytes (%) (Auto) 27.9 % (20.0-45.0) Monocytes (%) (Auto) 12.2 % (1.0-10.0) H Eosinophils (%) (Auto) 6.4 % (0.0-3.0) H Basophils (%) (Auto) 1.2 % (0.0-2.0) Sodium Level 145 MMOL/L (136-145) Potassium Level 4.3 MMOL/L (3.5-5.1) Chloride Level 106 MMOL/L (98-107) Carbon Dioxide Level 35 MMOL/L (21-32) H Anion Gap 4 mmol/L (5-15) L Blood Urea Nitrogen 25 mg/dL (7-18) H Creatinine 1.0 MG/DL (0.55-1.30) Estimat Glomerular Filtration Rate > 60 mL/min (>60) Glucose Level 90 MG/DL (74-106) Calcium Level 9.2 MG/DL (8.5-10.1) HIV (1&2) Antibody Rapid Pending Assessment/Plan # Anemia of chronic disease (or of iron deficiency) due to underlying chronic medical issues, multifactorial --> Anemia workup has been ordered --> No evidence of hemolysis is noted, peripheral smear has been reviewed. --> Hgb goal >7. Transfuse prn. --> Epogen or iron at this time is not particularly indicated --> Medications have been reviewed # Thrombocytopenia and leukopenia - potential causes multifactorial, evaluate liver and viral etiologies to begin, also could be related to underlying medications patient has received. Could be related to prior dic --> Hep panel and HIV ordered --> US abd to evaluate for cirrhosis ordered --> Peripheral smear ordered to evaluate for blasts /schistocytes --> abx and other meds have been reviewed --> ok for ppx if plt >50k w/ either heparin or lovenox --> Transfuse if Plt < 20k and fever, or if Plt < 10k without fever --> as per cards recs and id recs # PNA - CXR: Bilateral left greater than right infiltrates versus edema --> on vanc and zosyn # Gram positive bacteremia- real vs contaminant # Acute resp failure, on Bipap # BLAS, SP # HTN # GERD # Schizophrenia The timing of this note does not necessarily reflect the time of the patient was seen. Greatly appreciate consultation! Blaine aHll MD Sep 11, 2018 19:18
--- NOTE | 2018-09-11 20:00 | NUR ---
NURSE NOTES: Ativan PRN provided for agitation. Scheduled meds given. 50ml Water flush given via GT. New Feed and tubing hung. Currently HR remains in Afib around 80s-99s. Patient remains on venturi mask at 45%, no labored breathing observed, SpO2 96%-100%, afebrile. Oral hygiene provided and patient was repositioned. Secured and checked restraints and verified bilateral radial pulses. Skin remains intact. IV lines also remains patent and intact and asymptomatic.
[2018-09-11] MEDS: Morphine Sulfate 2mg/ml Inj(IV/IM USE ONLY) IVP PRN (21:55)
[2018-09-11] MEDS ORDERED: LORazepam Inj 2mg/ml 1ml IV PRN (22:30)
--- NOTE | 2018-09-11 22:30 | NUR ---
NURSE NOTES:Received pt from ICU, with eyes close, sedated, but easily arousable to tactile stimulation. Afib onthe monitor with rare pvcs, bp stable. afebrile. RT arm swollen around 2+ elevated with pillow. IVF IVPB infusing well per left hand Site atraumatic. Condom cath to gravity with michelle yellow urine, moderate in amt.Pt on 45% venturimask. 02 sat >92% HOB kept elevated watch for any resp. distress.Bilateral soft wrist restraints on maintained for safety to avoid pulling out therapeutic devices.Tolerated fdg at 30ml/hr. check residuals 4-5ml noted. HOB kept elevated. on aspiration precautions.-Will continue to monitor.
--- NOTE | 2018-09-11 22:30 | NUR ---
TRANSFER TO FLOOR: Patient transferred to SDU room 244 bed A, Report given to . Patient stable during transfer. NAD Vitals remained stable.
[2018-09-12] VITALS: BP 102/60
[2018-09-12] MEDS ORDERED: Haloperidol 5mg/ml Inj IM PRN
--- NOTE | 2018-09-12 | NUR ---
NURSE NOTES:Placed pt. NPO after midnight for abdominal stacie in am.
[2018-09-12] MEDS: Vancomycin 1 GM in D5W 275 ML IVPB SCH ×2 (00:35→09:00)
--- NOTE | 2018-09-12 01:02 | NUR ---
NURSE NOTES:Ativan 1mg ivp given due to severe agitation.
[2018-09-12] MEDS ORDERED: Morphine Sulfate 2mg/ml Inj(IV/IM USE ONLY) IVP PRN (01:45)
[2018-09-12] MEDS ORDERED: Albuterol/Ipratropium 3ml neb HHN PRN (02:00)
[2018-09-12] MEDS ORDERED: Acetaminophen 650mg/20.3ml GT PRN (02:00)
--- NOTE | 2018-09-12 02:00 | NUR ---
NURSE NOTES:Left hand iv noted infiltrated.Discontinued left hand heplock and able to insert through Rt Hand with good blood return.
[2018-09-12 04:00] VITALS: BP 102/60
[2018-09-12 04:50] LABS: BASOPHILS % (AUTO) 0.8 % (0.0-2.0); HEMATOCRIT 38.8 % (42.0-52.0); HEMOGLOBIN 13.4 G/DL (14.2-18.0); LYMPHOCYTES % (AUTO) 21.8 % (20.0-45.0); MEAN CORPUSCULAR VOLUME 97 FL (80-99); MONOCYTES % (AUTO) 9.9 % (1.0-10.0); NEUTROPHILS % (AUTO) 61.4 % (45.0-75.0); PLATELET COUNT 156 K/UL (150-450); RED BLOOD COUNT 4.02 M/UL (4.70-6.10); RED CELL DISTRIBUTION WIDTH 12.1 % (11.6-14.8)
--- NOTE | 2018-09-12 04:53 | NUR ---
NURSE NOTES:Haldol 5mg IM Rt deltoid was given due to pt agitation
[2018-09-12 05:18] LABS: ANION GAP 4 mmol/L (5-15); BLOOD UREA NITROGEN 27 mg/dL (7-18); CALCIUM 9.2 MG/DL (8.5-10.1); CARBON DIOXIDE 35 MMOL/L (21-32); CHLORIDE 107 MMOL/L (98-107); CREATININE 1.1 MG/DL (0.55-1.30); POTASSIUM 3.3 MMOL/L (3.5-5.1); SODIUM 146 MMOL/L (136-145)
[2018-09-12] MEDS: Piperacillin/Tazobactam 3.375 GM in NS 110 ML IVPB SCH ×2 (06:39→15:00)
--- NOTE | 2018-09-12 06:45 | NUR ---
NURSE NOTES:Morphine 2mg ivp given for dyspnea and pain scale of 7
--- NOTE | 2018-09-12 07:15 | NUR ---
NURSE NOTES:called Dr Saez for order to start IV on the foot.- awaiting for md to call back.
--- NOTE | 2018-09-12 07:32 | NUR ---
HAND-OFF: Report given to Ligia FONG.
[2018-09-12 08:00] VITALS: BP 112/63
--- NOTE | 2018-09-12 08:00 | NUR ---
NURSE NOTES: Received the patient from [facility]. Patient resting in bed, easily arousable, opens eyes spontaneously. Patient on venturi mask, fio2 45%, O2 sat 96%. No acute distres noted. Afib with HR 80's noted on the pre planning advisor. Gtube intact NPO due to ultrasound in AM. HOB elevated. condom cath intact. IV only on left foot- Dr. Molina aware. seizure precaution. Bed in lowest position, locked, side rails upx3, bed alarms on. Will continue to monitor.
[2018-09-12] MEDS ORDERED: Valproic Acid 250mg/5ml Liquid GT SCH (09:00)
[2018-09-12] MEDS ORDERED: levETIRAcetam 500mg/5ml Liquid GT SCH (09:00)
[2018-09-12] MEDS ORDERED: Benztropine 1mg tab GT SCH (09:00)
[2018-09-12] MEDS ORDERED: Pantoprazole Inj IV SCH (09:00)
[2018-09-12] MEDS ORDERED: Metoprolol Tartrate 50mg tab PEG SCH (09:00)
[2018-09-12] MEDS ORDERED: Lisinopril 10mg tab ORAL SCH (09:00)
[2018-09-12] MEDS ORDERED: Heparin 5000 units/ml inj SUBQ SCH (09:00)
[2018-09-12] MEDS ORDERED: DIGOXIN250 MCG ORAL (11:36)
[2018-09-12] MEDS ORDERED: METOPROLOL TART50 MG PEG (11:36)
[2018-09-12] MEDS ORDERED: SEROQUEL100 MG GT (11:36)
[2018-09-12] MEDS ORDERED: FUROSEMIDE40 MG ORAL (11:37)
--- NOTE | 2018-09-12 11:38 | Pulmonolgy Critical Care Note ---
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 maker Discussed with: nurses, consultants, bilingual case managerexternal relations manager - Objective Last 24 Hour Vital Signs Date Time Temp Pulse Resp B/P (MAP) Pulse Ox O2 Delivery O2 Flow Rate FiO2 09/12/18 09:00 81 102/60 09/12/18 09:00 102/60 09/12/18 09:00 81 09/12/18 08:00 98.2 85 20 112/63 (79) 96 09/12/18 08:00 Venturi Mask 10.0 09/12/18 08:00 87 09/12/18 07:38 97 Venturi Mask 10.0 45 09/12/18 07:38 Venturi Mask 10.0 45 09/12/18 04:00 Venturi Mask 10.0 09/12/18 04:00 97.9 81 20 102/60 (74) 96 09/12/18 03:21 91 09/12/18 00:00 105 21 102/60 (74) 93 09/12/18 00:00 97 09/12/18 00:00 Venturi Mask 10.0 09/11/18 21:00 82 21 103/71 (82) 93 09/11/18 20:28 82 20 Venturi Mask 10.0 45 09/11/18 20:10 104 118/78 09/11/18 20:00 98.3 120 24 124/87 (99) 97 09/11/18 20:00 Venturi Mask 10.0 09/11/18 20:00 120 09/11/18 19:45 Venturi Mask 10.0 45 09/11/18 19:45 96 Venturi Mask 10.0 45 09/11/18 19:00 104 26 118/78 (91) 97 09/11/18 18:00 99 21 117/75 (89) 99 09/11/18 17:00 91 20 108/55 (72) 94 09/11/18 16:00 Venturi Mask 10.0 09/11/18 16:00 98.8 86 22 105/77 (86) 97 09/11/18 16:00 99 09/11/18 15:00 90 21 91/67 (75) 93 09/11/18 14:00 89 20 96/62 (73) 96 09/11/18 13:00 94 20 95/72 (80) 94 09/11/18 12:00 86 09/11/18 12:00 Venturi Mask 10.0 09/11/18 12:00 98.8 93 24 104/82 (89) 100 Status: awake Condition: critical Neck: full ROM Heart: HR/BP stable Abdomen: soft, non-tender Extremities: no C/C/E, edema Micro: Microbiology Date/Time Source Procedure Growth Status 09/09/18 18:25 Blood Blood Culture - Preliminary NO GROWTH AFTER 48 HOURS Resulted 09/09/18 18:10 Blood Blood Culture - Preliminary NO GROWTH AFTER 48 HOURS Resulted Critical Care - Subjective ROS Limited/Unobtainable: No Condition: critical EKG Rhythm: Sinus Rhythm FI02: 45 Vent Support Breath Rate: 16 Vent Support Mode: BiLevel Sputum Amount: None Tube Feeding Amount: 0 I&O: Intake and Output 09/11/18 09/12/18 19:00 07:00 Intake Total 1440.000 ml 200 ml Output Total 750 ml 1200 ml Balance 690.000 ml -1000 ml Intake Free Water 280 ml 50 ml IV Total 770.000 ml Tube Feeding 390 ml 150 ml Output Urine Total 750 ml 1200 ml # Bowel Movements 1 CXR: no changes, some edema Labs: Laboratory Tests Test 09/12/18 02:30 White Blood Count 5.0 K/UL (4.8-10.8) Red Blood Count 4.02 M/UL (4.70-6.10) L Hemoglobin 13.4 G/DL (14.2-18.0) L Hematocrit 38.8 % (42.0-52.0) L Mean Corpuscular Volume 97 FL (80-99) Mean Corpuscular Hemoglobin 33.4 PG (27.0-31.0) H Mean Corpuscular Hemoglobin Concent 34.6 G/DL (32.0-36.0) Red Cell Distribution Width 12.1 % (11.6-14.8) Platelet Count 156 K/UL (150-450) Mean Platelet Volume 7.0 FL (6.5-10.1) Neutrophils (%) (Auto) 61.4 % (45.0-75.0) Lymphocytes (%) (Auto) 21.8 % (20.0-45.0) Monocytes (%) (Auto) 9.9 % (1.0-10.0) Eosinophils (%) (Auto) 6.0 % (0.0-3.0) H Basophils (%) (Auto) 0.8 % (0.0-2.0) Sodium Level 146 MMOL/L (136-145) H Potassium Level 3.3 MMOL/L (3.5-5.1) L Chloride Level 107 MMOL/L (98-107) Carbon Dioxide Level 35 MMOL/L (21-32) H Anion Gap 4 mmol/L (5-15) L Blood Urea Nitrogen 27 mg/dL (7-18) H Creatinine 1.1 MG/DL (0.55-1.30) Estimat Glomerular Filtration Rate > 60 mL/min (>60) Glucose Level 95 MG/DL (74-106) Calcium Level 9.2 MG/DL (8.5-10.1) Hepatitis A IgM Antibody Pending Hepatitis B Surface Antigen Pending Hepatitis B Core IgM Antibody Pending Hepatitis C Antibody Pending Aris Molina MD Sep 12, 2018 11:38
--- NOTE | 2018-09-12 11:45 | NUR ---
*-* DISCHARGE PLANNING *-* PATIENT HAS BEEN REFERRED BACK TO: [facility] P:[phone] F;[phone]
[2018-09-12 12:00] VITALS: BP 110/60
--- NOTE | 2018-09-12 12:32 | Diagnostic Imaging Report ---
Indication: Dyspnea Comparison: 09/09/2018 A single view chest radiograph was obtained. Findings: Vascular congestion and interstitial edema demonstrated with mild cardiomegaly. Pacemaker again noted. IMPRESSION: CHF
--- NOTE | 2018-09-12 13:07 | Infectious Diseases Prog Note ---
Assessment/Plan Assessment/Plan Abx: IV Vancomycin 09/06- Zosyn 09/06- Flagyl x1 09/06 Assessment: PNA -CXR: Bilateral left greater than right infiltrates versus edema -sp cx p Acute CHF: -09/12 CXR: Vascular congestion and interstitial edema demonstrated with mild cardiomegaly. Pacemaker again noted. Afebrile NO leukocytosis Gram positive bacteremia- contaminant -09/06 Bcx 1/ GPC clusters; 09/09 Bcx NTD Acute resp failure, on Bipap- now on VM BLAS, SP HTN CHF severe cardiomyopathy EF 25% s/p AICD GERD schizophrenia seizure disorder dysphagia s/p peg craniotomy hx of trach now reversed SNF resident Plan: -COntinue empiric IV Vancomycin and Zosyn #7/7 for PNA -09/06 SP Flagyl x1 -f/u Repeat Bcx x2, Sp cx -f/u cx -MOnitor CBC/CMP, temperatures -aspiration precautions Thank you for this consultation. Will continue to follow along with you. Discussed with RN Subjective Allergies: Coded Allergies: No Known Allergies (Unverified , 03/14/16) Subjective afebrile no leukocytosis trasnferred from ICU to [facility] VM 45%, 10 L repeat Bcx NTD Objective Vital Signs Last 24 Hour Vital Signs Date Time Temp Pulse Resp B/P (MAP) Pulse Ox O2 Delivery O2 Flow Rate FiO2 09/12/18 09:00 81 102/60 09/12/18 09:00 102/60 09/12/18 09:00 81 09/12/18 08:00 98.2 85 20 112/63 (79) 96 09/12/18 08:00 Venturi Mask 10.0 09/12/18 08:00 87 09/12/18 07:38 97 Venturi Mask 10.0 45 09/12/18 07:38 Venturi Mask 10.0 45 09/12/18 04:00 Venturi Mask 10.0 09/12/18 04:00 97.9 81 20 102/60 (74) 96 09/12/18 03:21 91 09/12/18 00:00 105 21 102/60 (74) 93 09/12/18 00:00 97 09/12/18 00:00 Venturi Mask 10.0 09/11/18 21:00 82 21 103/71 (82) 93 09/11/18 20:28 82 20 Venturi Mask 10.0 45 09/11/18 20:10 104 118/78 09/11/18 20:00 98.3 120 24 124/87 (99) 97 09/11/18 20:00 Venturi Mask 10.0 09/11/18 20:00 120 09/11/18 19:45 Venturi Mask 10.0 45 09/11/18 19:45 96 Venturi Mask 10.0 45 09/11/18 19:00 104 26 118/78 (91) 97 09/11/18 18:00 99 21 117/75 (89) 99 09/11/18 17:00 91 20 108/55 (72) 94 09/11/18 16:00 Venturi Mask 10.0 09/11/18 16:00 98.8 86 22 105/77 (86) 97 09/11/18 16:00 99 09/11/18 15:00 90 21 91/67 (75) 93 09/11/18 14:00 89 20 96/62 (73) 96 Height (Feet): 5 Height (Inches): 9.00 Weight (Pounds): 181 Objective GENERAL: The patient is a well-developed and well-nourished male, who is essentially nonverbal. The patient only moans. HEENT: Eyes, pupils equal and responsive to light and accommodation. Extraocular movements are intact. NECK: Supple without lymphadenopathy. CHEST: Lungs are clear to auscultation bilaterally without wheezes or rales. CARDIOVASCULAR: Regular rate. S1 and S2 are normal without murmurs, rubs, or gallops. ABDOMEN: Soft, nontender, and nondistended. Positive bowel sounds. No evidence of hepatosplenomegaly. Currently, no rebound or guarding noted. EXTREMITIES: Negative for clubbing, cyanosis, or edema. NEUROLOGICAL: Cranial nerves II through XII are grossly intact without focal deficits. Microbiology Date/Time Source Procedure Growth Status 09/09/18 18:25 Blood Blood Culture - Preliminary NO GROWTH AFTER 48 HOURS Resulted 09/09/18 18:10 Blood Blood Culture - Preliminary NO GROWTH AFTER 48 HOURS Resulted Laboratory Tests Test 09/12/18 02:30 White Blood Count 5.0 K/UL (4.8-10.8) Red Blood Count 4.02 M/UL (4.70-6.10) L Hemoglobin 13.4 G/DL (14.2-18.0) L Hematocrit 38.8 % (42.0-52.0) L Mean Corpuscular Volume 97 FL (80-99) Mean Corpuscular Hemoglobin 33.4 PG (27.0-31.0) H Mean Corpuscular Hemoglobin Concent 34.6 G/DL (32.0-36.0) Red Cell Distribution Width 12.1 % (11.6-14.8) Platelet Count 156 K/UL (150-450) Mean Platelet Volume 7.0 FL (6.5-10.1) Neutrophils (%) (Auto) 61.4 % (45.0-75.0) Lymphocytes (%) (Auto) 21.8 % (20.0-45.0) Monocytes (%) (Auto) 9.9 % (1.0-10.0) Eosinophils (%) (Auto) 6.0 % (0.0-3.0) H Basophils (%) (Auto) 0.8 % (0.0-2.0) Sodium Level 146 MMOL/L (136-145) H Potassium Level 3.3 MMOL/L (3.5-5.1) L Chloride Level 107 MMOL/L (98-107) Carbon Dioxide Level 35 MMOL/L (21-32) H Anion Gap 4 mmol/L (5-15) L Blood Urea Nitrogen 27 mg/dL (7-18) H Creatinine 1.1 MG/DL (0.55-1.30) Estimat Glomerular Filtration Rate > 60 mL/min (>60) Glucose Level 95 MG/DL (74-106) Calcium Level 9.2 MG/DL (8.5-10.1) Hepatitis A IgM Antibody Pending Hepatitis B Surface Antigen Pending Hepatitis B Core IgM Antibody Pending Hepatitis C Antibody Pending Current Medications Medications (Trade) Dose Ordered Sig/[place]onte Route PRN Reason Start Time Stop Time Status Last Admin Dose Admin Acetaminophen (Tylenol) 650 mg Q4H PRN GT FEVER 09/12/18 02:00 10/07/18 21:59 Albuterol/ Ipratropium (Albuterol/ Ipratropium) 3 ml Q4H PRN HHN Shortness of Breath 09/12/18 02:00 09/12/18 21:59 Benztropine Mesylate (Cogentin) 0.5 mg EVERY 12 HOURS GT 09/12/18 09:00 10/06/18 17:59 09/12/18 09:00 Dextrose (Dextrose 50%) 25 ml Q30M PRN IV Hypoglycemia 09/11/18 22:30 10/06/18 16:59 Dextrose (Dextrose 50%) 50 ml Q30M PRN IV Hypoglycemia 09/11/18 22:30 10/06/18 16:59 Digoxin (Lanoxin) 0.25 mg DAILY ORAL 09/12/18 09:00 10/10/18 08:59 09/12/18 09:00 Furosemide (Lasix) 40 mg EVERY 12 HOURS IV 09/12/18 09:00 10/08/18 20:59 09/12/18 09:00 Haloperidol Lactate (Haldol) 5 mg Q4H PRN IM AGITATION 09/12/18 00:00 10/08/18 00:00 09/12/18 04:53 Heparin Sodium (Porcine) (Heparin 5000 units/ml) 5,000 units EVERY 12 HOURS SUBQ 09/12/18 09:00 10/06/18 20:59 09/12/18 09:00 Levetiracetam (Keppra) 1,000 mg Q12HR GT 09/12/18 09:00 10/06/18 20:59 09/12/18 09:00 Lisinopril (Zestril) 10 mg DAILY ORAL 09/12/18 09:00 10/09/18 08:59 Lorazepam (Ativan 2mg/ml 1ml) 1 mg Q2H PRN IV agitation 09/11/18 22:30 09/15/18 10:29 09/12/18 01:02 Metoprolol Tartrate (Lopressor) 50 mg Q12HR PEG 09/12/18 09:00 10/10/18 20:59 Morphine Sulfate (Morphine Sulfate) 2 mg Q4H PRN IVP Dyspnea 09/12/18 01:45 09/16/18 13:44 09/12/18 06:44 Pantoprazole (Protonix) 40 mg DAILY IV 09/12/18 09:00 10/07/18 08:59 09/12/18 09:00 Piperacillin Sod/ Tazobactam Sod 3.375 gm/Sodium Chloride 110 ml @ 27.5 mls/hr Q8H IVPB 09/11/18 23:00 09/13/18 22:59 09/12/18 06:39 Quetiapine Fumarate (SEROquel) 100 mg TID GT 09/12/18 09:00 10/07/18 12:59 09/12/18 09:00 Temazepam (Restoril) 15 mg HSPRN PRN ORAL Insomnia 09/12/18 17:00 09/13/18 16:59 Valproic Acid (Depakene) 500 mg EVERY 12 HOURS GT 09/12/18 09:00 10/06/18 20:59 09/12/18 09:00 Vancomycin HCl (Vanco rx to dose) 1 ea DAILY PRN MISC Per rx protocol 09/12/18 09:00 10/06/18 17:44 Vancomycin HCl 1 gm/Dextrose 275 ml @ 183.708 mls/hr Q8HR@0100,0900,1700 IVPB 09/12/18 01:00 09/14/18 08:59 09/12/18 09:00 Anju Cooper M.D. Sep 12, 2018 13:07
--- NOTE | 2018-09-12 14:10 | Cardiac Electrophysiology PN ---
Assessment/Plan Assessment/Plan 1. Non-ST elevation myocardial infarction, likely due to atrial fibrillation with RVR. Creatinine is within normal range. EF 20% to 25%. 2. Severe cardiomyopathy with EF 20-25%. On Lasix 40 mg IV bid, Lisinopril 10, Dig and Lopressor 50 bid 3. Status post dual-chamber defibrillator. Awaiting interrogate device for further evaluation. 4. Atrial fib with RVR. Off Cardizem drip. On Lopressor 50 bid and Digoxin 5. Respiratory failure on face Mask. DNR and DNI 6. History of schizophrenia. 7. History of traumatic brain injury. 8. Dysphagia, status post PEG placement. TEODORO RN Subjective Subjective Transferred out of ICU in atrial fib with controlled rate. Objective Last 24 Hour Vital Signs Date Time Temp Pulse Resp B/P (MAP) Pulse Ox O2 Delivery O2 Flow Rate FiO2 09/12/18 09:00 81 102/60 09/12/18 09:00 102/60 09/12/18 09:00 81 09/12/18 08:00 98.2 85 20 112/63 (79) 96 09/12/18 08:00 Venturi Mask 10.0 09/12/18 08:00 87 09/12/18 07:38 97 Venturi Mask 10.0 45 09/12/18 07:38 Venturi Mask 10.0 45 09/12/18 04:00 Venturi Mask 10.0 09/12/18 04:00 97.9 81 20 102/60 (74) 96 09/12/18 03:21 91 09/12/18 00:00 105 21 102/60 (74) 93 09/12/18 00:00 97 09/12/18 00:00 Venturi Mask 10.0 09/11/18 21:00 82 21 103/71 (82) 93 09/11/18 20:28 82 20 Venturi Mask 10.0 45 09/11/18 20:10 104 118/78 09/11/18 20:00 98.3 120 24 124/87 (99) 97 09/11/18 20:00 Venturi Mask 10.0 09/11/18 20:00 120 09/11/18 19:45 Venturi Mask 10.0 45 09/11/18 19:45 96 Venturi Mask 10.0 45 09/11/18 19:00 104 26 118/78 (91) 97 09/11/18 18:00 99 21 117/75 (89) 99 09/11/18 17:00 91 20 108/55 (72) 94 09/11/18 16:00 Venturi Mask 10.0 09/11/18 16:00 98.8 86 22 105/77 (86) 97 09/11/18 16:00 99 09/11/18 15:00 90 21 91/67 (75) 93 Intake and Output 09/11/18 09/12/18 18:59 06:59 Intake Total 1410.000 ml 230 ml Output Total 750 ml 1200 ml Balance 660.000 ml -970 ml Intake Free Water 280 ml 50 ml IV Total 770.000 ml Tube Feeding 360 ml 180 ml Output Urine Total 750 ml 1200 ml # Bowel Movements 1 Laboratory Tests Test 09/12/18 02:30 White Blood Count 5.0 K/UL (4.8-10.8) Red Blood Count 4.02 M/UL (4.70-6.10) L Hemoglobin 13.4 G/DL (14.2-18.0) L Hematocrit 38.8 % (42.0-52.0) L Mean Corpuscular Volume 97 FL (80-99) Mean Corpuscular Hemoglobin 33.4 PG (27.0-31.0) H Mean Corpuscular Hemoglobin Concent 34.6 G/DL (32.0-36.0) Red Cell Distribution Width 12.1 % (11.6-14.8) Platelet Count 156 K/UL (150-450) Mean Platelet Volume 7.0 FL (6.5-10.1) Neutrophils (%) (Auto) 61.4 % (45.0-75.0) Lymphocytes (%) (Auto) 21.8 % (20.0-45.0) Monocytes (%) (Auto) 9.9 % (1.0-10.0) Eosinophils (%) (Auto) 6.0 % (0.0-3.0) H Basophils (%) (Auto) 0.8 % (0.0-2.0) Sodium Level 146 MMOL/L (136-145) H Potassium Level 3.3 MMOL/L (3.5-5.1) L Chloride Level 107 MMOL/L (98-107) Carbon Dioxide Level 35 MMOL/L (21-32) H Anion Gap 4 mmol/L (5-15) L Blood Urea Nitrogen 27 mg/dL (7-18) H Creatinine 1.1 MG/DL (0.55-1.30) Estimat Glomerular Filtration Rate > 60 mL/min (>60) Glucose Level 95 MG/DL (74-106) Calcium Level 9.2 MG/DL (8.5-10.1) Hepatitis A IgM Antibody Pending Hepatitis B Surface Antigen Pending Hepatitis B Core IgM Antibody Pending Hepatitis C Antibody Pending Microbiology Date/Time Source Procedure Growth Status 09/09/18 18:25 Blood Blood Culture - Preliminary NO GROWTH AFTER 48 HOURS Resulted 09/09/18 18:10 Blood Blood Culture - Preliminary NO GROWTH AFTER 48 HOURS Resulted Objective HEENT: Status post craniotomy. Old tracheostomy is closed. On face mask. LUNGS: Coarse rhonchi bilaterally, defibrillator in the left subclavian. CARDIOVASCULAR: Irregular S1 and S2 with no gallop. ABDOMEN: Soft. PEG is intact. EXTREMITIES: 1 plus pitting edema. Robby Cantu MD Sep 12, 2018 14:10
--- NOTE | 2018-09-12 15:35 | NUR ---
*-* DISCHARGED PLANNED *-* PATIENT IS DISCHARGED TO: [facility]# 25-B DETENTION T:[phone] FOR NURSE TO NURSE REPORT
[2018-09-12] MEDS ORDERED: NS 275ml ONE (15:49)
[2018-09-12] MEDS ORDERED: Tubing IV Secondary IV ONE (15:49)
--- NOTE | 2018-09-12 15:50 | NUR ---
NURSE NOTES: Patient discharged back to [place]- report given to bess Benz going to bed 25-B. Pt vitals stable, no skin issues, on 3L nasal cannula. Pt left with S ambulance in stable condition.
--- NOTE | 2018-09-12 15:50 | Diagnostic Imaging Report ---
Indication:Abdominal pain Technique: Grayscale and duplex Doppler imaging of the abdomen performed. Comparison: None Findings: Study was suboptimal as the patient was combative and contracted. The left kidney and spleen are not imaged. The liver is grossly unremarkable. The right kidney shows no hydronephrosis and measures 10 cm. CBD is 5 mm. There is no obvious ascites. Gallbladder is grossly unremarkable. The portal vein is patent showing monophasic waveform. IMPRESSION: Limited evaluation. No acute findings.
[2018-09-12] MEDS ORDERED: Miralax 17gm pkt ORAL PRN (22:00)
--- NOTE | 2018-09-12 22:54 | General Progress Note ---
Assessment/Plan Assessment/Plan Assessment/Plan # Anemia of chronic disease (or of iron deficiency) due to underlying chronic medical issues, multifactorial --> Anemia workup has been ordered --> No evidence of hemolysis is noted, peripheral smear has been reviewed. --> Hgb goal >7. Transfuse prn. --> Epogen or iron at this time is not particularly indicated --> Medications have been reviewed # Thrombocytopenia and leukopenia - potential causes multifactorial, evaluate liver and viral etiologies to begin, also could be related to underlying medications patient has received. Could be related to prior dic --> Hep panel and HIV ordered --> US abd to evaluate for cirrhosis ordered --> Peripheral smear ordered to evaluate for blasts /schistocytes --> abx and other meds have been reviewed --> ok for ppx if plt >50k w/ either heparin or lovenox --> Transfuse if Plt < 20k and fever, or if Plt < 10k without fever --> as per cards recs and id recs # PNA - CXR: Bilateral left greater than right infiltrates versus edema --> on vanc and zosyn # Gram positive bacteremia- real vs contaminant # Acute resp failure, on Bipap # BLAS, SP # HTN # GERD # Schizophrenia The timing of this note does not necessarily reflect the time of the patient was seen. Greatly appreciate consultation! Subjective ROS Limited/Unobtainable: Yes Allergies: Coded Allergies: No Known Allergies (Unverified , 03/14/16) Subjective 09/12: seen by bedside, afebrile, plt trending up to 156 today, transferred out of ICU, no events Objective Last 24 Hour Vital Signs Date Time Temp Pulse Resp B/P (MAP) Pulse Ox O2 Delivery O2 Flow Rate FiO2 09/12/18 12:00 97.9 81 20 110/60 (77) 96 09/12/18 12:00 85 09/12/18 12:00 Venturi Mask 10.0 09/12/18 09:00 81 102/60 09/12/18 09:00 102/60 09/12/18 09:00 81 09/12/18 08:00 98.2 85 20 112/63 (79) 96 09/12/18 08:00 Venturi Mask 10.0 09/12/18 08:00 87 09/12/18 07:38 97 Venturi Mask 10.0 45 09/12/18 07:38 Venturi Mask 10.0 45 09/12/18 04:00 Venturi Mask 10.0 09/12/18 04:00 97.9 81 20 102/60 (74) 96 09/12/18 03:21 91 09/12/18 00:00 105 21 102/60 (74) 93 09/12/18 00:00 97 09/12/18 00:00 Venturi Mask 10.0 Intake and Output 09/11/18 09/12/18 19:00 07:00 Intake Total 1440.000 ml 200 ml Output Total 750 ml 1200 ml Balance 690.000 ml -1000 ml Intake Free Water 280 ml 50 ml IV Total 770.000 ml Tube Feeding 390 ml 150 ml Output Urine Total 750 ml 1200 ml # Bowel Movements 1 Laboratory Tests 09/12/18 02:30: White Blood Count 5.0, Red Blood Count 4.02L, Hemoglobin 13.4L, Hematocrit 38.8L , Mean Corpuscular Volume 97, Mean Corpuscular Hemoglobin 33.4H, Mean Corpuscular Hemoglobin Concent 34.6, Red Cell Distribution Width 12.1, Platelet Count 156, Mean Platelet Volume 7.0, Neutrophils (%) (Auto) 61.4, Lymphocytes (% ) (Auto) 21.8, Monocytes (%) (Auto) 9.9, Eosinophils (%) (Auto) 6.0H, Basophils (%) (Auto) 0.8, Sodium Level 146H, Potassium Level 3.3L, Chloride Level 107, Carbon Dioxide Level 35H, Anion Gap 4L, Blood Urea Nitrogen 27H, Creatinine 1.1 , Estimat Glomerular Filtration Rate > 60, Glucose Level 95, Calcium Level 9.2, Hepatitis A IgM Antibody [Pending], Hepatitis B Surface Antigen [Pending], Hepatitis B Core IgM Antibody [Pending], Hepatitis C Antibody [Pending] Height (Feet): 5 Height (Inches): 9.00 Weight (Pounds): 181 Objective physical Exam Narrative GENERAL: The patient is a well-developed and well-nourished male, who is essentially nonverbal. The patient only moans. +++ bipap HEENT: Eyes, pupils equal and responsive to light and accommodation. Extraocular movements are intact. NECK: Supple without lymphadenopathy. CHEST: Lungs are clear to auscultation bilaterally without wheezes or rales. CARDIOVASCULAR: Regular rate. S1 and S2 are normal without murmurs, rubs, or gallops. ABDOMEN: Soft, nontender, and nondistended. Positive bowel sounds. No evidence of hepatosplenomegaly. Currently, no rebound or guarding noted. EXTREMITIES: Negative for clubbing, cyanosis, or edema. NEUROLOGICAL: Cranial nerves II through XII are grossly intact without focal deficits. Blaine Hall MD Sep 12, 2018 22:54
--- NOTE | 2018-09-14 14:11 | Discharge Summary ---
Discharge Summary Discharge Summary _ DATE OF ADMISSION: 09/06/2018 DATE OF DISCHARGE: 09/12/2018 DISCHARGED BY: Dr. Saez REASON FOR ADMISSION: 53 years old male with past medical history of hypertension, pacemaker, cerebral hemorrhage with resulting left-sided hemiparesis, seizure disorder , congestive heart failure, dysphagia , diabetes , major depressive disorder, schizophrenia , bipolar disorder prior tracheostomy, status post removal , DNR status , was sent from the senior living facility for respiratory distress. Upon evaluation patient was tachycardic, tachypneic and hypoxic. Pulse oximetry on room air was only 73%. Laboratory workup revealed no leukocytosis , stable hemoglobin and hematocrit. Sodium 148. BUN 27 , creatinine 1.3. Lactic acid 5.7. Phosphorus 8.0. Stable liver parameters. Initial troponin negative- 0.018. EKG revealed sinus tachycardia . Urinalysis revealed pyuria and few bacteria, +3 protein. Chest x-ray demonstrated bilateral left greater than right infiltrates versus edema. Patietn admitted to [facility] for further management. CONSULTANTS: technical services specialist Dr. Palmer pulmonary Dr. Molina ID specialist Dr. Coronado video game creator/oncologist surgery [facility] COURSE: Patient initially admitted to [facility] . Injection Molding Machine Setter followed. Patient developed atrial fibrillation with rapid ventricular response . Injection Molding Machine Setter closely followed. Patient was started on Cardizem drip and was transferred to ICU. Second troponin was elevated. Echocardiogram revealed severely reduced ejection fraction 20-25%, no left ventricular hypertrophy. Global left ventricular hypokinesis. Moderate mitral regurgitation. Right ventricular systolic pressure of 49 , consistent with moderate pulmonary hypertension . Troponin initially from the first normal troponin was trended from to 0.351, and then started to go down ; last troponin - 0.161. No anticoagulation, given history of intracerebral hemorrhage. Per technical services specialist , patient started on intravenous diuretic with close monitoring of volumes and cardiorenal parameters. Patient was on beta-yuli and LOVE inhibitor for management of congestive heart failure. After heart rate stabilized , patient was taken off Cardizem drip and switched to Lopressor and digoxin. Pro BNP trended down from initial 3724 down to 2424. Anti-failure regimen with diuretic, beta-yuli, digoxin and LOVE inhibitor to be continued at the nursing facility. Patient was able to be weaned from the BiPAP to Venturi mask. ABG was stable on 40% of Ventimask. Patient was followed-up with chest x-ray chest x-ray, which showed mixed interstitial alveolar disease , probably due to pulmonary edema with small improvement. Venous duplex bilateral lower extremity revealed no evidence of acute DVT. Plush Cutter closely followed. Infectious disease specialist followed. Blood culture initially revealed 1 out of 4 Staphylococcus capitis. Repeated blood cultures were negative. Initial bacteremia was likely contaminant as per ID specialist. Urine cultures were negative. Patient was continued on empiric vancomycin and Zosyn for pneumonia. Strict aspiration precaution were maintained. G-tube feeding continued. Patient was able to tolerate tube feeding. G tube site care provided. Curtain Roller Assembler followed. Anemia workup was consistent with anemia of chronic disease due to underlying chronic medical issue, multifactorial. No evidence of hemolysis noted. Hemoglobin and hematocrit were closely monitored with goal to keep hemoglobin above 7. Epogen or iron at this time were not indicated. Prior to discharge hemoglobin 13.4 hematocrit 38.8. Hepatitis panel was negative. HIV test was negative. Ultrasound of the abdomen was ordered to evaluate for cirrhosis , which revealed no acute findings. Thrombocytopenia resolved, prior to discharge platelets 156. Renal parameters and electrolytes were closely monitored. Electrolytes corrected as needed and nephrotoxins were avoided. DVT prophylaxis provided. Seizure precaution maintained. Keppra and Depakote continued. No evidence of seizure activity while in the hospital. Bowel regimen instituted. Supportive care provided. Pain management was addressed as needed. Patient clinically stabilized and was ready for transfer to nursing facility [facility]. Overall prognosis poor FINAL DIAGNOSES: Acute hypoxemic respiratory failure , requiring BiPAP Non-STEMI , likely due to atrial fibrillation with rapid ventricular response Atrial fibrillation with rapid ventricular response Severe cardiomyopathy with ejection fraction 20-25% Status post AICD Pneumonia Acute CHF Seizure disorder Dysphagia ,status post PEG placement History of traumatic brain injury with intracerebral hemorrhage Anemia of chronic disease Thrombocytopenia -resolved GERD Schizophrenia DISCHARGE MEDICATIONS: See Medication Reconciliation list. DISCHARGE INSTRUCTIONS: Patient was discharged to the senior living facility. Follow up with medical doctor at the facility. I have been assigned to dictate discharge summary for this account. I was not involved in the patient's management. Nancy Zambraon NP Sep 14, 2018 14:11
== END 2018-09-12 15:50 | DRG 133 ==
LOC: EDBD 14:21 → EMR 14:55 → 2W 15:20 → EDBEDREQ 17:32 → ICU 09-07 20:58 → 2W 09-11 22:30
DX: J96.01 Acute respiratory failure with hypoxia (principal); I21.4 Non-ST elevation (NSTEMI) myocardial infarction; G92 Toxic encephalopathy; J18.9 Pneumonia, unspecified organism; N17.9 Acute kidney failure, unspecified; I11.0 Hypertensive heart disease with heart failure; I50.9 Heart failure, unspecified; D69.6 Thrombocytopenia, unspecified; R13.10 Dysphagia, unspecified; I48.91 Unspecified atrial fibrillation; G40.909 Epilepsy, unspecified, not intractable, without status epilepticus; F20.9 Schizophrenia, unspecified; F09 Unspecified mental disorder due to known physiological condition; Z93.1 Gastrostomy status; K21.9 Gastro-esophageal reflux disease without esophagitis; Z95.810 Presence of automatic (implantable) cardiac defibrillator; I42.9 Cardiomyopathy, unspecified; D64.9 Anemia, unspecified; I69.154 Hemiplegia and hemiparesis following nontraumatic intracerebral hemorrhage affecting left non-dominant side; Z66 Do not resuscitate
CPT/HCPCS: 36415; 36600; 71045; 76705; 80048; 80053; 80069; 80162; 80202; 81003; 82550; 82553; 82803; 82962; 83605; 83735; 83880; 84100; 84484; 85007; 85025; 86703; 86705; 86709; 86803; 87040; 87081; 87086; 87181; 87340; 93005; 93306; 93970; 94640; 94660; 94664; 94760; 96361; 96365; 96368; 99285; J7620; J8499

== ENCOUNTER 2019-02-18 02:44 | Inpatient (IN) | payer MEDICAID ==
[~2019-02-18] VITALS: Ht 170.2 cm; Wt 81.6 kg
[2019-02-18] VITALS (7 sets, daily range): BP systolic 120–139; BP diastolic 75–105
[~2019-02-18 02:44] MED LIST changes: +ACETAMINOP160 MG/5 M GT; +BACITRACIN ZIN1 EACH TOPIC; +CRANBERRY425 MG GT; +DIGOXIN250 MCG ORAL; +FUROSEMIDE40 MG ORAL; +LEVETIRACE100 MG/1 M GT; +MELATONIN3 MG GT; +METOPROLOL TART50 MG PEG; +MULTIVITAMINS1 EAC8 GT; +OMEPRAZOLE20 M2 GT; +QUETIAPINE FUMA50 MG GT; +SEROQUEL100 MG GT
[2019-02-18 02:59] LABS: HEMATOCRIT 36.4 % (42.0-52.0); HEMOGLOBIN 11.6 G/DL (14.2-18.0); MEAN CORPUSCULAR VOLUME 102 FL (80-99); PLATELET COUNT 96 K/UL (150-450); RED BLOOD COUNT 3.57 M/UL (4.70-6.10); RED CELL DISTRIBUTION WIDTH 13.6 % (11.6-14.8); WHITE BLOOD COUNT 8.5 K/UL (4.8-10.8)
--- NOTE | 2019-02-18 03:01 | Emergency Room Report ---
History of Present Illness General Chief Complaint: Dyspnea/Respdistress Source: Patient Present Illness HPI HPI: 53-year-old male with a history of heart failure status post AICD, hypertension, previous cerebral hemorrhage with resultant left-sided hemiparesis , seizure disorder, diabetes, schizophrenia, bipolar disorder, status post reverse tracheostomy who is DNR was sent from care home facility for respiratory distress. EMS was called who found the patient saturating 76% on room air. He was combative and staff gave him 5 mg Versed. He is saturations improved on nonrebreather into the mid 90s. Patient is nonverbal at this time and cannot provide any significant history. He is diaphoretic, increased work of breathing, audible rales on exam. PMH: Cerebral hemorrhage with resultant hemiparesis, heart failure status post AICD, seizure disorder, diabetes, dysphonia, bipolar disorder PSH: Tracheostomy now status post reversal, PEG tube Allergies: Unknown Social Hx: Unknown Allergies: Coded Allergies: No Known Allergies (Unverified , 03/14/16) Nursing Documentation-PMH Past Medical History: No History, Except For Hx Cardiac Problems: Yes - A fib,HEART FAILURE Hx Hypertension: Yes Hx Pacemaker: Yes Hx COPD: Yes Hx Diabetes: Yes Hx Cancer: No Hx Gastrointestinal Problems: Yes - GERD Hx Neurological Problems: Yes Hx Cerebrovascular Accident: Yes - Cerebral hemorrhage with left side hemipharesis Hx Alzheimer's Disease: Yes Hx Seizures: Yes - EPILEPSY Hx Speech Problem: Yes Hx Weakness: Yes - L sided hemiparesis Review of Systems All Other Systems: limited - Unable to obtain due to patient's clinical condition Physical Exam Vital Signs Date Time Temp Pulse Resp B/P (MAP) Pulse Ox O2 Delivery O2 Flow Rate FiO2 02/18/19 02:45 97.7 116 45 120/88 (99) 100 Non-Rebreather 15.0 General: Awake and alert, moderate distress HEENT: NC/AT. EOMI. pupils are approximately 2 mm and minimally reactive bilaterally. Neck: Supple, trachea midline Cardiovascular: Cardiac, S1 and S2 normal. No murmur appreciated Resp: Increased work of breathing, audible rales, diffuse rales in all lung smallwood. Intermittent cough. Nonrebreather applied Abdomen: Abdomen is soft, tube in place. Nondistended. Nontender Skin: Warm to the touch, diaphoretic. MSK: No spontaneous movement in the left upper and left lower extremity. He is moving his right upper and right lower extremity and requires restraint as he is pulling on his IV lines. Neuro: Awake, nonverbal Procedures Critical Care Time Critical Care Time Time spent in the patient's room excluding other procedures that are billed separately was 31 minutes Medical Decision Making ER Course 53-year-old male with multiple medical conditions presents in acute respiratory distress. EMS found him hypoxic at 77% though he is improving on nonrebreather. He has increased work of breathing, diffuse rales in all lung smallwood suspicious for possible pneumonia. Differential includes was not limited to sepsis, pneumonia, ACS, pneumothorax, CHF exacerbation. Will start broad sepsis work-up, chest x-ray, EKG pending. Will transition patient to BiPAP given his work of breathing. Give antibiotics empirically due to strong suspicion for respiratory source. Patient require admission. EKG Diagnostic Results EKG Time: 02:49 EP Interpretation: Difficult to interpret due to baseline artifact. Sinus tachycardia, normal Rate: tachycardiac Rhythm Strip Diag. Results Rhythm Strip Time: 02:49 EP Interpretation: yes - Sinus tachycardia Rate: 110s Chest X-Ray Diagnostic Results Chest X-Ray Diagnostic Results : Chest X-Ray Ordered: Yes # of Views/Limited/Complete: 1 View Indication: Shortness of Breath Interpretation: other - Bilateral infiltrates consistent with pneumonia Electronically Signed by: Electronically signed by Dr. Nahum Sotelo Reevaluation Time: 03:56 Last Vital Signs Date Time Temp Pulse Resp B/P (MAP) Pulse Ox O2 Delivery O2 Flow Rate FiO2 02/18/19 02:45 97.7 116 45 120/88 (99) 100 Non-Rebreather 15.0 Reevaluation Impression Chest x-ray consistent with bilateral infiltrate suggestive of pneumonia. Patient was given cefepime on arrival and is receiving IV fluids. Heart rate is improving. He is tolerating the nonrebreather well. We have received confirmation that he is DNR according to his most recent detention documentations. Lactate returned elevated at 3.40. Renal function is within normal limits. Troponin elevated at 0.327 which is elevated compared to the patient's prior visits and will be given aspirin. He was given Tylenol for his fever. His ABG showed acidosis with a pH of 7.282 and a PCO2 elevated at 59.9. This was prior to initiating BiPAP. We will recheck. He will require admission to stepdown unit. 0600: Lactate is improving. The patient was admitted to Dr. Saez service in the stepdown unit as his PMD is out of town and he is covering for him Please note that this report is being documented using [employer] technology. This can lead to erroneous entry secondary to incorrect interpretation by the dictating instrument. Disposition: ADMITTED INPATIENT Condition: Serious Nahum Sotelo MD Feb 18, 2019 03:01
[2019-02-18 03:10] LABS: ANION GAP 6 mmol/L (5-15); BLOOD UREA NITROGEN 46 mg/dL (7-18); CALCIUM 8.9 MG/DL (8.5-10.1); CARBON DIOXIDE 30 MMOL/L (21-32); CHLORIDE 111 MMOL/L (98-107); CREATININE 1.2 MG/DL (0.55-1.30); POTASSIUM 4.4 MMOL/L (3.5-5.1); SODIUM 147 MMOL/L (136-145)
[2019-02-18] MEDS ORDERED: Acetaminophen 650 MG SUPP RECTAL ONE (03:15)
[2019-02-18] MEDS ORDERED: Cefepime HCl 2 GM in NS 110 ML IV SCH (03:15)
--- NOTE | 2019-02-18 03:15 | Diagnostic Imaging Report ---
EXAM: XR Chest, 1 View CLINICAL HISTORY: SOB TECHNIQUE: Frontal view of the chest. COMPARISON: 09/12/18 FINDINGS: Lungs: Large amount of airspace opacities with central distribution bronchogram indicating pulmonary edema versus pneumonia. Pleural space: Unremarkable. No pneumothorax. Heart: Cardiomegaly. Mediastinum: Unremarkable. Bones/joints: Unremarkable. Tubes, lines and devices: Left pacer is again noted. IMPRESSION: Large amount of airspace opacities with central distribution bronchogram indicating pulmonary edema versus pneumonia. Followup resolution is recommended to rule out potential underlying neoplastic etiologies.
[2019-02-18 03:31] LABS: ALANINE AMINOTRANSFERASE 56 U/L (12-78); ALBUMIN 3.2 G/DL (3.4-5.0); ALBUMIN/GLOBULIN RATIO 0.7 (1.0-2.7); ALKALINE PHOSPHATASE 67 U/L (46-116); ASPARTATE AMINO TRANSFERASE 77 U/L (15-37); BILIRUBIN,TOTAL 1.5 MG/DL (0.2-1.0); CKMB 2.9 NG/ML (0.0-3.6); CREATINE KINASE 1046 U/L (26-308)
[2019-02-18 03:36] LABS: BILIRUBIN,DIRECT 0.5 MG/DL (0.0-0.3)
[2019-02-18 04:18] LABS: APPEARANCE,URINE CLEAR; BILIRUBIN, URINE NEGATIVE (NEGATIVE); GLUCOSE, URINE (UA) NEGATIVE (NEGATIVE); KETONES,URINE 1+ (NEGATIVE); LEUKOCYTE ESTERASE ,URINE 1+ (NEGATIVE); NITRITE,URINE NEGATIVE (NEGATIVE); PH,URINE 5 (4.5-8.0); PROTEIN,URINE 3+ (NEGATIVE); UROBILINOGEN,URINE 8 MG/DL (0.0-1.0)
[2019-02-18 04:20] LABS: COLOR,URINE YELLOW
[2019-02-18] MEDS ORDERED: LORazepam Inj 2mg/ml 1ml IV ONE (06:15)
[2019-02-18] MEDS: Heparin 5000 units/ml inj SUBQ SCH ×2 (09:00→21:00)
[2019-02-18] MEDS ORDERED: Acetaminophen 650mg/20.3ml GT PRN (09:15)
[2019-02-18] MEDS ORDERED: Vancomycin 1.5gm Premix IVPB ONE (10:30)
[2019-02-18] MEDS: Valproic Acid 250mg/5ml Liquid GT SCH ×2 (13:25→17:16)
[2019-02-18] MEDS: Cefepime HCl 1 GM in D5W 55 ML IVPB SCH ×2 (13:26→21:07)
[2019-02-18] MEDS: LORazepam Inj 2mg/ml 1ml IVP PRN (13:34)
--- NOTE | 2019-02-18 22:15 | History and Physical Report ---
DATE OF ADMISSION: 02/18/2019 CHIEF COMPLAINT: The patient is a 53-year-old male who presents with chief complaint of respiratory distress. HISTORY OF PRESENT ILLNESS: The patient was admitted to [facility] in August 2018. Please see history and physical and discharge summary dictated at that time. The patient is a resident of [facility]. The patient has a history of vent-dependent respiratory failure. According to staff at [facility], the patient began to experience shortness of breath and respiratory distress today, 02/18/2019. Pulse oximetry on room air was found to be 76%. The patient was placed on a non-rebreather. The patient was transferred to [facility]. The patient was admitted for respiratory distress to rule out pneumonia. PAST MEDICAL HISTORY: Significant for: 1. Vent-dependent respiratory failure, status post reversal of tracheostomy. 2. Hypertension. 3. Diabetes type 2. 4. Schizophrenia. 5. Gastroesophageal reflux disease. 6. Chronic obstructive pulmonary disease. 7. Hypercholesterolemia. 8. AICD. 9. Seizure disorder. 10. Bipolar depression. PAST SURGICAL HISTORY: Significant for: 1. Tracheostomy. 2. . 3. Tracheostomy reversal. 4. Craniotomy. 5. PEG placement. CURRENT MEDICATIONS: 1. Tylenol 650 mg per G-tube q.4 h. p.r.n. 2. Keppra 1500 mg per G-tube twice daily. 3. Lisinopril 10 mg per G-tube daily. 4. Melatonin 3 mg per G-tube at bedtime. 5. Metoprolol 50 mg per G-tube twice daily. 6. Omeprazole 20 mg per G-tube daily. 7. Seroquel 50 mg per G-tube three times daily. 8. Depakote 500 mg per G-tube three times daily. ALLERGIES: No known drug allergies. SOCIAL HISTORY: The patient is resident of [facility]. The patient is . The patient denies tobacco or alcohol use. PHYSICAL EXAMINATION: VITAL SIGNS: Temperature 100.7, respirations 37, pulse 111, and blood pressure 130/83. The patient is currently on facial BiPAP. GENERAL: The patient is a well-developed and well-nourished male, in moderate respiratory distress. HEENT: Eyes, pupils are equal and responsive to light and accommodation. Extraocular movements are intact. NECK: Supple without lymphadenopathy. CHEST: Diffuse rales at bilateral bases with expiratory wheezes. Otherwise, clear to auscultation. ABDOMEN: Soft, nontender, and nondistended. Positive bowel sounds. No evidence of hepatosplenomegaly. Currently, no rebound or guarding noted. CARDIOVASCULAR: Tachycardic. Regular rhythm. S1 and S2 are normal without murmurs, rubs, or gallops. GENITOURINARY: Not performed. NEUROLOGICAL: Unable to assess. LABORATORY AND DIAGNOSTIC STUDIES: WBC 8.5, hemoglobin 11.6, hematocrit 34.6, and platelets 96,000. Sodium 137, potassium 4.4, chloride 111, CO2 30, BUN 46, creatinine 1.2, and glucose 226. Total bilirubin elevated at 1.5. Troponin elevated at 0.327. BNP elevated at greater than 35,000. A chest x-ray revealed air space opacities consistent with pulmonary edema versus pneumonia. ASSESSMENT: This is a 53-year-old male. 1. Respiratory distress. 2. Congestive heart failure. 3. Elevated troponin. 4. Vent-dependent respiratory failure. 5. Hypertension. 6. Diabetes type 2. 7. Schizophrenia. 8. Gastroesophageal reflux disease. 9. Chronic obstructive pulmonary disease. 10. Hypercholesterolemia. 11. AICD in situ. 12. Seizure disorder. 13. Bipolar depression. TREATMENT: 1. Respiratory distress. This may be secondary to congestive heart failure. Cardiology consultation has been obtained with Dr. Robby Cantu. We will follow recommendations of Cardiology. 2. Congestive heart failure/elevated troponin. As above, a Cardiology consultation has been obtained with Dr. Robby Cantu. 3. Vent-dependent respiratory failure, status post tracheostomy reversal/chronic obstructive pulmonary disease. A Pulmonary consultation has been obtained with Dr. Aris Molina. 4. Hypertension. Continue metoprolol as above. 5. Diabetes type 2. Continue Humalog sliding scale. 6. Schizophrenia. Continue Seroquel as above. 7. Gastroesophageal reflux disease. Continue omeprazole as above. 8. Chronic obstructive pulmonary disease. As above, a Pulmonary consultation has been obtained with Dr. Aris Molina. 9. Hypercholesteremia. Continue atorvastatin. 10. AICD in situ. 11. Seizure disorder. Continue Keppra and Depakote as above. 12. Bipolar depression. Delvis Arnold M.D. DR: NESHA JOB#: [id number] CC:
[2019-02-18] MEDS: Vancomycin 1gm/D5W 275ml IVPB SCH ×2 (22:23)
[2019-02-19] VITALS (13 sets, daily range): BP systolic 91–133; BP diastolic 53–98
[2019-02-19] MEDS: Cefepime HCl 1 GM in D5W 55 ML IVPB SCH ×2 (08:51→21:16)
[2019-02-19] MEDS: Valproic Acid 250mg/5ml Liquid GT SCH ×3 (08:51→17:15)
[2019-02-19] MEDS: Heparin 5000 units/ml inj SUBQ SCH ×2 (08:52→21:00)
--- NOTE | 2019-02-19 08:56 | Diagnostic Imaging Report ---
EXAM: XR Chest, 1 View CLINICAL HISTORY: ABN LABS TECHNIQUE: Frontal view of the chest. COMPARISON: Chest x-ray, 02/18/19 2 49 FINDINGS: Lungs: Bilateral airspace opacities, more consolidated in the bilateral upper lobes and improved aeration bilateral lower lobes. Pleural space: Unremarkable. No pneumothorax. Heart: Cardiomegaly. Mediastinum: Focal narrowed appearance of the mid trachea. Bones/joints: Unremarkable. Tubes, lines and devices: Cardiac pacemaker. IMPRESSION: 1. Bilateral airspace opacities, more consolidated in the bilateral upper lobes and improved aeration bilateral lower lobes. 2. Focal narrowed appearance of the mid trachea.
[2019-02-19] MEDS: Vancomycin 1gm/D5W 275ml IVPB SCH ×2 (11:21)
[2019-02-19 11:48] LABS: HEMATOCRIT 36.1 % (42.0-52.0); HEMOGLOBIN 11.6 G/DL (14.2-18.0); MEAN CORPUSCULAR VOLUME 103 FL (80-99); PLATELET COUNT 118 K/UL (150-450); RED BLOOD COUNT 3.51 M/UL (4.70-6.10); RED CELL DISTRIBUTION WIDTH 13.6 % (11.6-14.8); WHITE BLOOD COUNT 8.9 K/UL (4.8-10.8)
[2019-02-19] MEDS: LORazepam Inj 2mg/ml 1ml IVP PRN ×2 (12:36→19:54)
[2019-02-19 12:53] LABS: ALANINE AMINOTRANSFERASE 58 U/L (12-78); ALBUMIN 2.7 G/DL (3.4-5.0); ALBUMIN/GLOBULIN RATIO 0.7 (1.0-2.7); ALKALINE PHOSPHATASE 61 U/L (46-116); ANION GAP 9 mmol/L (5-15); ASPARTATE AMINO TRANSFERASE 54 U/L (15-37); BILIRUBIN,TOTAL 1.1 MG/DL (0.2-1.0); BLOOD UREA NITROGEN 37 mg/dL (7-18); CALCIUM 8.6 MG/DL (8.5-10.1); CARBON DIOXIDE 29 MMOL/L (21-32); CHLORIDE 116 MMOL/L (98-107); CREATININE 0.9 MG/DL (0.55-1.30); PHOSPHORUS 2.7 MG/DL (2.5-4.9); POTASSIUM 4.3 MMOL/L (3.5-5.1); SODIUM 154 MMOL/L (136-145)
[2019-02-19 13:12] LABS: BILIRUBIN,DIRECT 0.3 MG/DL (0.0-0.3)
--- NOTE | 2019-02-19 13:26 | Cardiology Report ---
APPROVED REPORT EXAM: Two-dimensional and M-mode echocardiogram with Doppler and color Doppler. INDICATION Congestive Heart Failure M-Mode DIMENSIONS IVSd1.3 (0.7-1.1cm)Left Atrium (MM)4.5 (1.6-4.0cm) LVDd6.5 (3.5-5.6cm)Aortic Root3.4 (2.0-3.7cm) PWd1.1 (0.7-1.1cm)Aortic Cusp Exc.2.2 (1.5-2.0cm) LVDs5.1 (2.5-4.0cm) PWs1.5 cm Echogenic material noted in left ventricular apex at the level of apicoinferior wall . Dr. Axel Saez notified 02/18/2019. Left ventricular enlargement. Hypokinetic anterior wall , akinetic posterior and inferior hamilton Left ventricular ejection fraction estimated to be 35-40 %. Mild left ventricular hypertrophy. No evidence of pericardial effusion. Moderate left atrial enlargement. Right cardiac chamber sizes are within normal limits. Focal aortic valve sclerosis with adequate cusp excursion. Thickened mitral valve leaflets with normal excursion. Mild mitral annulus and aortic root calcification. Normal pulmonic valve structure. Normal tricuspid valve structure. IVC dilated at 2.2 cm without physiological collapse, suggestive of increased RA pressure. A color flow and spectral Doppler study was performed and revealed: No aortic regurgitation. Moderate mitral regurgitation. Left ventricular diastolic function could not be determined due to A-Fib. Mild to moderate tricuspid regurgitation. Tricuspid systolic velocities suggests peak right ventricular systolic pressure of 68 mmHg, consistent with severe pulmonary hypertension. Trace pulmonic regurgitation present.
--- NOTE | 2019-02-19 13:52 | Cardiac Electrophysiology PN ---
Assessment/Plan Assessment/Plan 1. Non-ST elevation myocardial infarction. Creatinine is within normal range. EF 20% to 25%. 2. Severe cardiomyopathy with EF 20-25%. Start Lasix 40 mg IV bid, Lisinopril 10, Dig and Coreg 3.125 bid 3. Status post dual-chamber defibrillator. ? Brand Awaiting interrogate device for further evaluation. 4. Atrial fib with RVR. On Coreg 3.125 bid and Digoxin 5. Respiratory failure on Bipap DNR and DNI 6. History of schizophrenia. 7. History of traumatic brain injury. 8. Dysphagia, status post PEG placement. TEODORO RN Objective Last 24 Hour Vital Signs Date Time Temp Pulse Resp B/P (MAP) Pulse Ox O2 Delivery O2 Flow Rate FiO2 02/19/19 12:39 114 30 98 Facial 60 02/19/19 12:00 Bi-pap 02/19/19 12:00 100 02/19/19 10:47 107 33 97 Facial 60 02/19/19 09:21 108 32 96 Facial 60 02/19/19 08:52 109 02/19/19 08:00 Bi-pap 02/19/19 08:00 100 02/19/19 08:00 99.0 111 35 133/98 (110) 98 02/19/19 07:15 109 30 98 Facial 60 02/19/19 04:54 107 30 99 Facial 60 02/19/19 04:00 Bi-pap 02/19/19 04:00 98.6 113 35 120/86 (97) 98 02/19/19 04:00 112 02/19/19 04:00 100 02/19/19 02:31 112 38 98 Facial 70 02/19/19 00:55 120 37 99 Facial 80 02/19/19 00:00 Bi-pap 02/19/19 00:00 132 02/19/19 00:00 99.0 107 40 127/87 (100) 96 02/19/19 00:00 100 02/18/19 22:16 118 39 97 Facial 60 02/18/19 21:05 118 41 97 Facial 60 02/18/19 20:18 100 02/18/19 20:08 Bi-pap 02/18/19 20:00 99.0 123 46 133/92 (106) 94 02/18/19 20:00 123 02/18/19 19:05 127 44 88 Facial 60 02/18/19 18:02 119 37 98 Facial 60 02/18/19 16:00 99.3 129 36 133/105 (114) 91 02/18/19 16:00 100 02/18/19 16:00 Bi-pap 02/18/19 15:23 132 02/18/19 15:05 134 47 93 Facial 80 Intake and Output 02/18/19 02/19/19 19:00 07:00 Intake Total 505.0 ml 490.52290 ml Output Total 475 ml Balance 505.0 ml 15.49587 ml Intake Free Water 20 ml 60 ml IV Total 485.0 ml 430.62100 ml Output Urine Total 475 ml # Voids 3 1 # Bowel Movements 3 Laboratory Tests Test 02/19/19 09:26 02/19/19 10:55 Arterial Blood pH 7.375 (7.350-7.450) Arterial Blood Partial Pressure CO2 49.0 mmHg (35.0-45.0) H Arterial Blood Partial Pressure O2 84.5 mmHg (75.0-100.0) Arterial Blood HCO3 28.0 mmol/L (22.0-26.0) H Arterial Blood Oxygen Saturation 95.9 % (95-100) Arterial Blood Base Excess 2.2 (-2-2) H Booker Test Positive White Blood Count 8.9 K/UL (4.8-10.8) Red Blood Count 3.51 M/UL (4.70-6.10) L Hemoglobin 11.6 G/DL (14.2-18.0) L Hematocrit 36.1 % (42.0-52.0) L Mean Corpuscular Volume 103 FL (80-99) H Mean Corpuscular Hemoglobin 33.1 PG (27.0-31.0) H Mean Corpuscular Hemoglobin Concent 32.1 G/DL (32.0-36.0) Red Cell Distribution Width 13.6 % (11.6-14.8) Platelet Count 118 K/UL (150-450) L Mean Platelet Volume 7.4 FL (6.5-10.1) Neutrophils (%) (Auto) % (45.0-75.0) Lymphocytes (%) (Auto) % (20.0-45.0) Monocytes (%) (Auto) % (1.0-10.0) Eosinophils (%) (Auto) % (0.0-3.0) Basophils (%) (Auto) % (0.0-2.0) Differential Total Cells Counted 100 Neutrophils % (Manual) 83 % (45-75) H Lymphocytes % (Manual) 8 % (20-45) L Monocytes % (Manual) 3 % (1-10) Eosinophils % (Manual) 0 % (0-3) Basophils % (Manual) 0 % (0-2) Band Neutrophils 6 % (0-8) Platelet Estimate Decreased L Platelet Morphology Normal Macrocytosis 1+ Sodium Level 154 MMOL/L (136-145) H Potassium Level 4.3 MMOL/L (3.5-5.1) Chloride Level 116 MMOL/L (98-107) H Carbon Dioxide Level 29 MMOL/L (21-32) Anion Gap 9 mmol/L (5-15) Blood Urea Nitrogen 37 mg/dL (7-18) H Creatinine 0.9 MG/DL (0.55-1.30) Estimat Glomerular Filtration Rate > 60 mL/min (>60) Glucose Level 136 MG/DL (74-106) H Calcium Level 8.6 MG/DL (8.5-10.1) Phosphorus Level 2.7 MG/DL (2.5-4.9) Magnesium Level 2.6 MG/DL (1.8-2.4) H Total Bilirubin 1.1 MG/DL (0.2-1.0) H Direct Bilirubin 0.3 MG/DL (0.0-0.3) Aspartate Amino Transf (AST/SGOT) 54 U/L (15-37) H Alanine Aminotransferase (ALT/SGPT) 58 U/L (12-78) Alkaline Phosphatase 61 U/L (46-116) Troponin I 0.134 ng/mL (0.000-0.056) Pro-B-Type Natriuretic Peptide 72426 pg/mL (0-125) H Total Protein 6.8 G/DL (6.4-8.2) Albumin 2.7 G/DL (3.4-5.0) L Globulin 4.1 g/dL Albumin/Globulin Ratio 0.7 (1.0-2.7) L Digoxin Level 0.4 NG/ML (0.5-2.0) L Microbiology Date/Time Source Procedure Growth Status 02/18/19 02:45 Blood Blood Culture - Preliminary NO GROWTH AFTER 24 HOURS Resulted 02/18/19 02:30 Blood Blood Culture - Preliminary NO GROWTH AFTER 24 HOURS Resulted 02/18/19 02:45 Rectum Received Robby Cantu MD Feb 19, 2019 13:52
--- NOTE | 2019-02-19 14:32 | Internal Med Progress Note ---
Subjective Date of Service: Feb 19, 2019 Physician Name Delvis Arnold Attending Physician Axel Saez MD Current Medications Medications (Trade) Dose Ordered Sig/Davonte Route PRN Reason Start Time Stop Time Status Last Admin Dose Admin Acetaminophen (Tylenol) 650 mg Q4H PRN GT Mild Pain/Temp > 100.5 02/18/19 09:15 03/20/19 09:14 Carvedilol (Coreg) 3.125 mg EVERY 12 HOURS GT 02/19/19 21:00 03/21/19 20:59 Cefepime HCl 1 gm/ Dextrose 55 ml @ 110 mls/hr EVERY 12 HOURS IVPB 02/18/19 12:00 02/25/19 11:59 02/19/19 08:51 Digoxin (Lanoxin) 0.25 mg DAILY GT 02/18/19 12:00 03/20/19 11:59 02/19/19 08:52 Furosemide (Lasix) 40 mg EVERY 12 HOURS IV 02/19/19 21:00 03/21/19 20:59 Heparin Sodium (Porcine) (Heparin 5000 units/ml) 5,000 units EVERY 12 HOURS SUBQ 02/18/19 09:00 03/20/19 08:59 Lansoprazole (Prevacid) 30 mg DAILY GT 02/19/19 09:00 03/20/19 08:59 02/19/19 08:51 Levetiracetam (Keppra) 1,500 mg Q12HR ORAL 02/18/19 09:00 03/20/19 08:59 02/19/19 08:52 Lisinopril (Zestril) 10 mg DAILY GT 02/20/19 09:00 03/22/19 08:59 Lorazepam (Ativan 2mg/ml 1ml) 0.5 mg Q6H PRN IVP For Anxiety 02/18/19 13:30 02/25/19 13:29 02/19/19 12:36 Metronidazole 100 ml @ 100 mls/hr Q12HR IVPB 02/18/19 09:00 02/25/19 08:59 02/19/19 09:43 Valproic Acid (Depakene) 500 mg TID GT 02/18/19 13:00 03/20/19 12:59 02/19/19 13:00 Vancomycin HCl (Vanco rx to dose) 1 ea DAILY PRN MISC Per rx protocol 02/18/19 09:00 03/20/19 08:59 Vancomycin HCl 1 gm/Dextrose 275 ml @ 183.708 mls/hr Q12H IVPB 02/18/19 22:00 02/23/19 21:59 02/19/19 11:21 Allergies: Coded Allergies: No Known Allergies (Unverified , 03/14/16) ROS Limited/Unobtainable: Yes Subjective 53 YO M admitted with respiratory distress. Cover for Int Med-Dr Saez. EVIE Objective Last Vital Signs Date Time Temp Pulse Resp B/P (MAP) Pulse Ox O2 Delivery O2 Flow Rate FiO2 02/19/19 12:39 114 30 98 Facial 60 02/19/19 08:00 99.0 133/98 (110) 02/18/19 06:33 15.0 Laboratory Tests Test 02/19/19 09:26 02/19/19 10:55 Arterial Blood pH 7.375 (7.350-7.450) Arterial Blood Partial Pressure CO2 49.0 mmHg (35.0-45.0) H Arterial Blood Partial Pressure O2 84.5 mmHg (75.0-100.0) Arterial Blood HCO3 28.0 mmol/L (22.0-26.0) H Arterial Blood Oxygen Saturation 95.9 % (95-100) Arterial Blood Base Excess 2.2 (-2-2) H Booker Test Positive White Blood Count 8.9 K/UL (4.8-10.8) Red Blood Count 3.51 M/UL (4.70-6.10) L Hemoglobin 11.6 G/DL (14.2-18.0) L Hematocrit 36.1 % (42.0-52.0) L Mean Corpuscular Volume 103 FL (80-99) H Mean Corpuscular Hemoglobin 33.1 PG (27.0-31.0) H Mean Corpuscular Hemoglobin Concent 32.1 G/DL (32.0-36.0) Red Cell Distribution Width 13.6 % (11.6-14.8) Platelet Count 118 K/UL (150-450) L Mean Platelet Volume 7.4 FL (6.5-10.1) Neutrophils (%) (Auto) % (45.0-75.0) Lymphocytes (%) (Auto) % (20.0-45.0) Monocytes (%) (Auto) % (1.0-10.0) Eosinophils (%) (Auto) % (0.0-3.0) Basophils (%) (Auto) % (0.0-2.0) Differential Total Cells Counted 100 Neutrophils % (Manual) 83 % (45-75) H Lymphocytes % (Manual) 8 % (20-45) L Monocytes % (Manual) 3 % (1-10) Eosinophils % (Manual) 0 % (0-3) Basophils % (Manual) 0 % (0-2) Band Neutrophils 6 % (0-8) Platelet Estimate Decreased L Platelet Morphology Normal Macrocytosis 1+ Sodium Level 154 MMOL/L (136-145) H Potassium Level 4.3 MMOL/L (3.5-5.1) Chloride Level 116 MMOL/L (98-107) H Carbon Dioxide Level 29 MMOL/L (21-32) Anion Gap 9 mmol/L (5-15) Blood Urea Nitrogen 37 mg/dL (7-18) H Creatinine 0.9 MG/DL (0.55-1.30) Estimat Glomerular Filtration Rate > 60 mL/min (>60) Glucose Level 136 MG/DL (74-106) H Calcium Level 8.6 MG/DL (8.5-10.1) Phosphorus Level 2.7 MG/DL (2.5-4.9) Magnesium Level 2.6 MG/DL (1.8-2.4) H Total Bilirubin 1.1 MG/DL (0.2-1.0) H Direct Bilirubin 0.3 MG/DL (0.0-0.3) Aspartate Amino Transf (AST/SGOT) 54 U/L (15-37) H Alanine Aminotransferase (ALT/SGPT) 58 U/L (12-78) Alkaline Phosphatase 61 U/L (46-116) Troponin I 0.134 ng/mL (0.000-0.056) Pro-B-Type Natriuretic Peptide 84392 pg/mL (0-125) H Total Protein 6.8 G/DL (6.4-8.2) Albumin 2.7 G/DL (3.4-5.0) L Globulin 4.1 g/dL Albumin/Globulin Ratio 0.7 (1.0-2.7) L Digoxin Level 0.4 NG/ML (0.5-2.0) L Microbiology Date/Time Source Procedure Growth Status 02/18/19 02:45 Blood Blood Culture - Preliminary NO GROWTH AFTER 24 HOURS Resulted 02/18/19 02:30 Blood Blood Culture - Preliminary NO GROWTH AFTER 24 HOURS Resulted 02/18/19 02:45 Rectum Received Intake and Output 02/18/19 02/19/19 19:00 07:00 Intake Total 505.0 ml 490.85920 ml Output Total 475 ml Balance 505.0 ml 15.36863 ml Intake Free Water 20 ml 60 ml IV Total 485.0 ml 430.30040 ml Output Urine Total 475 ml # Voids 3 1 # Bowel Movements 3 Objective PHYSICAL EXAMINATION: VITAL SIGNS: The patient is currently on facial BiPAP. GENERAL: The patient is a well-developed and well-nourished male, in moderate respiratory distress. HEENT: Eyes, pupils are equal and responsive to light and accommodation. Extraocular movements are intact. NECK: Supple without lymphadenopathy. CHEST: BIPAP; Diffuse rales at bilateral bases with expiratory wheezes. Otherwise, clear to auscultation. ABDOMEN: Soft, nontender, and nondistended. Positive bowel sounds. No evidence of hepatosplenomegaly. Currently, no rebound or guarding noted. CARDIOVASCULAR: Tachycardic. Regular rhythm. S1 and S2 are normal without murmurs, rubs, or gallops. GENITOURINARY: Not performed. NEUROLOGICAL: Unable to assess. Assessment/Plan Assessment/Plan ASSESSMENT: This is a 53-year-old male. 1. Respiratory distress. 2. Congestive heart failure. 3. Elevated troponin. 4. Vent-dependent respiratory failure. 5. Hypertension. 6. Diabetes type 2. 7. Schizophrenia. 8. Gastroesophageal reflux disease. 9. Chronic obstructive pulmonary disease. 10. Hypercholesterolemia. 11. AICD in situ. 12. Seizure disorder. 13. Bipolar depression. 14. NSTEMI TREATMENT: 1. Respiratory distress. This may be secondary to congestive heart failure. Cardiology consultation has been obtained with Dr. Robby Cantu. We will follow recommendations of Cardiology. 2. Congestive heart failure/elevated troponin. As above, a Cardiology consultation has been obtained with Dr. Robby Cantu. 3. Vent-dependent respiratory failure, status post tracheostomy reversal/chronic obstructive pulmonary disease. A Pulmonary consultation has been obtained with Dr. Aris Molina. 4. Hypertension. Continue metoprolol as above. 5. Diabetes type 2. Continue Humalog sliding scale. 6. Schizophrenia. Continue Seroquel as above. 7. Gastroesophageal reflux disease. Continue omeprazole as above. 8. Chronic obstructive pulmonary disease. As above, a Pulmonary consultation has been obtained with Dr. Aris Molina. 9. Hypercholesteremia. Continue atorvastatin. 10. AICD in situ. 11. Seizure disorder. Continue Keppra and Depakote as above. 12. Bipolar depression. 13. NSTEMI-SEE CARDIOLOGY NOTE. Delvis Arnold MD Feb 19, 2019 14:32
[2019-02-19] MEDS ORDERED: Tubing IV Secondary IV ONE (15:36)
[2019-02-19] MEDS ORDERED: NS 275ml ONE (15:36)
--- NOTE | 2019-02-19 18:30 | Consultation ---
DATE OF CONSULTATION: 02/19/2019 CARDIOLOGY CONSULTATION CONSULTING PHYSICIAN: Robby Cantu M.D. REFERRING PHYSICIAN: Axel Saez M.D. REASON FOR CONSULTATION: 1. Shortness of breath. 2. History of congestive heart failure. HISTORY OF PRESENT ILLNESS: The patient is a 53-year-old gentleman with history of severe cardiomyopathy with EF of only 20% as well as history of dual-chamber defibrillator implantation. The patient also has history of atrial fibrillation with rapid ventricular response. The patient has history of respiratory failure and status post tracheostomy, however, the tracheostomy was closing and was on facemask at the retirement. The patient was brought into the hospital for increasing shortness of breath and was put on BiPAP. His troponin was also elevated. The patient is DNR and DNI. The patient also has history of G-tube as well as history of schizophrenia and traumatic brain injury. REVIEW OF SYSTEMS: Cannot be obtained. PAST MEDICAL HISTORY: As mentioned above. FAMILY HISTORY: Noncontributory. SOCIAL HISTORY: He lives in retirement. Does not smoke or drink alcohol. PHYSICAL EXAMINATION: VITAL SIGNS: Blood pressure is 132/98, pulse is 110, respirations 30, and temperature 99. HEAD AND NECK: Show positive JVD. He has a facemask on, but his old tracheostomy is closed. LUNGS: Coarse rhonchi. CARDIOVASCULAR: Shows irregular S1 and S2 with no gallop or murmur. ABDOMEN: Soft. G-tube is intact. EXTREMITIES: A 1+ pitting edema. LABORATORY AND DIAGNOSTIC DATA: Labs show white count of 8.9, hemoglobin 11.6, hematocrit of 36.1, and platelet count is 118,000. Sodium is 140, potassium 4.2, BUN of 37, creatinine 0.9, and glucose of 136. BNP is more than 35,000 and troponin 0.134. ASSESSMENT AND PLAN: 1. Troponin elevation of 0.327 and 0.134. The patient's creatinine is normal. The patient is DNR and DNI and is currently nonverbal. We will treat the patient medically with aspirin and beta-yuli. 2. Severe cardiomyopathy with EF of only 20%. Start Lasix 40 mg IV b.i.d. and lisinopril 10 mg daily, digoxin 0.125 mg daily, and Coreg 3.125 mg b.i.d. 3. Status post dual-chamber defibrillator. The brand is not clear. At this time, we will await the brand until we interrogate the patient. 4. History of atrial fibrillation with rapid ventricular response. On Coreg and digoxin as mentioned above for full anticoagulation at this time. 5. Respiratory failure, currently on BiPAP and Lasix and currently DNR/DNI. 6. Dysphagia, status post PEG placement. 7. History of schizophrenia and traumatic brain injury. Thank you very much for allowing me to participate in the care of this patient. Please do not hesitate to contact me for any questions regarding my evaluation. Robby Cantu M.D. DR: ELBA JOB#: [id number] CC:
[2019-02-19] MEDS: Vancomycin 1 GM in D5W 275 ML IVPB SCH (22:36)
[2019-02-20] VITALS (47 sets, daily range): BP systolic 93–160; BP diastolic 44–91
[2019-02-20 05:23] LABS: BASOPHILS % (AUTO) 1.3 % (0.0-2.0); HEMATOCRIT 36.9 % (42.0-52.0); HEMOGLOBIN 11.5 G/DL (14.2-18.0); LYMPHOCYTES % (AUTO) 7.6 % (20.0-45.0); MEAN CORPUSCULAR VOLUME 104 FL (80-99); MONOCYTES % (AUTO) 6.3 % (1.0-10.0); NEUTROPHILS % (AUTO) 84.8 % (45.0-75.0); PLATELET COUNT 118 K/UL (150-450); RED BLOOD COUNT 3.55 M/UL (4.70-6.10); RED CELL DISTRIBUTION WIDTH 13.5 % (11.6-14.8); WHITE BLOOD COUNT 8.6 K/UL (4.8-10.8)
[2019-02-20 05:35] LABS: ANION GAP 5 mmol/L (5-15); BLOOD UREA NITROGEN 35 mg/dL (7-18); CALCIUM 8.3 MG/DL (8.5-10.1); CARBON DIOXIDE 30 MMOL/L (21-32); CHLORIDE 117 MMOL/L (98-107); CREATININE 0.7 MG/DL (0.55-1.30); POTASSIUM 5.2 MMOL/L (3.5-5.1); SODIUM 152 MMOL/L (136-145)
[2019-02-20] MEDS: Cefepime HCl 1 GM in D5W 55 ML IVPB SCH ×2 (08:11→21:03)
[2019-02-20] MEDS ORDERED: Valproic Acid 250mg/5ml Liquid GT SCH (09:00)
[2019-02-20] MEDS: Heparin 5000 units/ml inj SUBQ SCH ×2 (09:00→21:00)
[2019-02-20] MEDS ORDERED: Lisinopril 10mg tab GT SCH (09:00)
[2019-02-20] MEDS: Lisinopril 10mg tab GT SCH (09:11)
[2019-02-20] MEDS: Vancomycin 1 GM in D5W 275 ML IVPB SCH ×2 (10:11→22:19)
[2019-02-20] MEDS ORDERED: Sterile Water For Inj 1000ml IV ONE (11:05)
[2019-02-20] MEDS ORDERED: Tubing IV Secondary IV ONE (11:05)
[2019-02-20] MEDS ORDERED: NS 275ml ONE (11:05)
--- NOTE | 2019-02-20 11:45 | Pulmonolgy Critical Care Note ---
Critical Care - Asmt/Plan Problems: (1) History of schizophrenia (2) Acute respiratory distress (3) Psychomotor agitation (4) Feeding by G-tube (5) ICD (implantable cardioverter-defibrillator) in place Respiratory: monitor respiratory rate, adjust FIO2, CXR Cardiac: continue pressors, continue to monitor HR/BP Renal: keep IV fluid, check electrolytes Infectious Disease: check cultures Gastrointestinal: continue feedings/current rate Endocrine: monitor blood sugar, check HgA1C Hematologic: transfuse if hgb<8.5 Neurologic: keep patient comfortable Affect: PRN ativan Prophylaxis: Heparin Notes Reviewed: chairperson anesthesiology Discussed with: nurses, consultants, case management assistantmanager of compliance - Objective Last 24 Hour Vital Signs Date Time Temp Pulse Resp B/P (MAP) Pulse Ox O2 Delivery O2 Flow Rate FiO2 02/20/19 10:53 87 23 99 Facial 60 02/20/19 10:30 93 26 121/51 (74) 99 02/20/19 10:00 104 23 122/53 (76) 97 02/20/19 09:30 114 25 114/76 (89) 98 02/20/19 09:14 111 28 99 Facial 60 02/20/19 09:12 106 02/20/19 09:12 106 111/62 02/20/19 09:11 111/62 02/20/19 09:00 104 23 111/62 (78) 98 02/20/19 08:30 108 26 108/66 (80) 99 02/20/19 08:00 70 02/20/19 08:00 102 02/20/19 08:00 98.1 100 23 113/56 (75) 98 02/20/19 08:00 Bi-pap 02/20/19 07:30 105 23 126/91 (103) 97 02/20/19 07:10 124 25 99 Facial 60 02/20/19 07:00 105 22 95/59 (71) 99 02/20/19 06:33 104 110/63 02/20/19 06:30 109 23 122/63 (82) 100 02/20/19 06:00 109 21 104/44 (64) 99 02/20/19 05:30 104 21 123/47 (72) 100 02/20/19 05:20 107 24 99 Facial 70 02/20/19 05:00 104 23 115/66 (82) 99 02/20/19 04:30 116 26 117/71 (86) 99 02/20/19 04:00 70 02/20/19 04:00 122 02/20/19 04:00 98.3 116 22 111/78 (89) 99 02/20/19 04:00 Bi-pap 02/20/19 03:30 114 20 102/72 (82) 100 02/20/19 03:21 113 20 100 Facial 70 02/20/19 03:00 122 22 109/55 (73) 100 02/20/19 02:30 122 24 124/53 (76) 100 02/20/19 02:00 121 22 127/58 (81) 100 02/20/19 01:30 122 24 115/57 (76) 100 02/20/19 01:04 124 24 100 Facial 70 02/20/19 01:00 125 23 102/70 (81) 100 02/20/19 00:30 126 23 120/70 (87) 100 02/20/19 00:00 98.2 131 23 93/53 (66) 100 02/20/19 00:00 121 02/20/19 00:00 Bi-pap 02/20/19 00:00 70 02/19/19 23:30 132 23 95/53 (67) 100 02/19/19 23:00 137 24 106/87 (93) 100 02/19/19 22:46 150 47 100 Facial 80 02/19/19 22:30 142 26 102/87 (92) 100 02/19/19 22:00 145 26 113/72 (86) 100 02/19/19 21:30 166 47 99 Facial 80 02/19/19 21:30 147 27 116/72 (87) 100 02/19/19 21:17 162 129/104 02/19/19 21:00 151 27 121/81 (94) 99 02/19/19 20:41 161 91/69 02/19/19 20:30 153 29 91/65 (74) 99 02/19/19 20:00 166 02/19/19 20:00 98.4 165 29 91/65 (74) 99 02/19/19 20:00 80 02/19/19 20:00 Bi-pap 02/19/19 19:59 166 47 100 Facial 80 02/19/19 19:51 185 126/95 02/19/19 16:53 104 23 96 Facial 40 02/19/19 16:00 Bi-pap 02/19/19 16:00 100 02/19/19 16:00 98.2 110 34 127/82 (97) 98 02/19/19 15:30 122 02/19/19 14:59 112 25 97 Facial 40 02/19/19 12:39 114 30 98 Facial 60 02/19/19 12:00 Bi-pap 02/19/19 12:00 100 02/19/19 12:00 98.2 111 35 133/90 (104) 98 02/19/19 12:00 118 Micro: Microbiology Date/Time Source Procedure Growth Status 02/18/19 02:45 Blood Blood Culture - Preliminary NO GROWTH AFTER 48 HOURS Resulted 02/18/19 02:30 Blood Blood Culture - Preliminary NO GROWTH AFTER 48 HOURS Resulted 02/18/19 02:45 Nasal Nares MRSA Culture - Final NO METHICILLIN RESISTANT STAPH AUREUS... Complete 02/18/19 02:55 Rectum VRE Culture - Final Enterococcus Faecalis - Vre Complete 02/18/19 02:45 Rectum - Final NO CARBAPENEM-RESISTANT ENTEROBACTERI... Complete Critical Care - Subjective ROS Limited/Unobtainable: Yes Condition: critical FI02: 60 Vent Support Mode: BiLevel Sputum Amount: None Tube Feeding Amount: 40 I&O: Intake and Output 02/19/19 02/20/19 18:59 06:59 Intake Total 60 ml 900.000 ml Output Total 500 ml 900 ml Balance -440 ml 0 ml Intake Free Water 60 ml 100 ml IV Total 530.000 ml Tube Feeding 270 ml Output Urine Total 500 ml 900 ml # Voids 2 Labs: Laboratory Tests Test 02/19/19 21:20 02/20/19 04:20 02/20/19 09:17 Vancomycin Level Trough 11.4 ug/mL (5.0-12.0) Valproic Acid (Depakene) Level 65 MCG/ML (50-100) White Blood Count 8.6 K/UL (4.8-10.8) Red Blood Count 3.55 M/UL (4.70-6.10) L Hemoglobin 11.5 G/DL (14.2-18.0) L Hematocrit 36.9 % (42.0-52.0) L Mean Corpuscular Volume 104 FL (80-99) H Mean Corpuscular Hemoglobin 32.5 PG (27.0-31.0) H Mean Corpuscular Hemoglobin Concent 31.2 G/DL (32.0-36.0) L Red Cell Distribution Width 13.5 % (11.6-14.8) Platelet Count 118 K/UL (150-450) L Mean Platelet Volume 6.1 FL (6.5-10.1) L Neutrophils (%) (Auto) 84.8 % (45.0-75.0) H Lymphocytes (%) (Auto) 7.6 % (20.0-45.0) L Monocytes (%) (Auto) 6.3 % (1.0-10.0) Eosinophils (%) (Auto) 0.0 % (0.0-3.0) Basophils (%) (Auto) 1.3 % (0.0-2.0) Sodium Level 152 MMOL/L (136-145) H Potassium Level 5.2 MMOL/L (3.5-5.1) H Chloride Level 117 MMOL/L (98-107) H Carbon Dioxide Level 30 MMOL/L (21-32) Anion Gap 5 mmol/L (5-15) Blood Urea Nitrogen 35 mg/dL (7-18) H Creatinine 0.7 MG/DL (0.55-1.30) Estimat Glomerular Filtration Rate > 60 mL/min (>60) Glucose Level 127 MG/DL (74-106) H Calcium Level 8.3 MG/DL (8.5-10.1) L Troponin I 0.125 ng/mL (0.000-0.056) Arterial Blood pH 7.434 (7.350-7.450) Arterial Blood Partial Pressure CO2 50.7 mmHg (35.0-45.0) H Arterial Blood Partial Pressure O2 83.7 mmHg (75.0-100.0) Arterial Blood HCO3 33.2 mmol/L (22.0-26.0) H Arterial Blood Oxygen Saturation 96.3 % (95-100) Arterial Blood Base Excess 7.8 (-2-2) H Booker Test Positive Aris Molina MD Feb 20, 2019 11:45
--- NOTE | 2019-02-20 12:09 | Cardiology Report ---
APPROVED REPORT EKG Measurement Heart [id number] Atrial fibrillation with rapid ventricular response with premature ventricular or aberrantly conducted complexes Minimal voltage criteria for LVH, may be normal variant Septal infarct, age undetermined Abnormal ECG
--- NOTE | 2019-02-20 14:06 | Cardiac Electrophysiology PN ---
Assessment/Plan Assessment/Plan 1. Non-ST elevation myocardial infarction. Creatinine is within normal range. EF 20% to 25%. 2. Severe cardiomyopathy with EF 20-25%. On Lasix 40 mg IV bid, Lisinopril 10, Dig 0.25 and increase to Coreg 12.5 bid 3. Status post [employer] dual-chamber defibrillator Will interrogated for further eval 4. Atrial fib with RVR. On Coreg 12.5 bid and Digoxin Start Amiodarone 400 bid and decrease Dig to 0.125 5. Respiratory failure on Face Mask DNR and DNI 6. History of schizophrenia. 7. History of traumatic brain injury. 8. Dysphagia, status post PEG placement. DW RN Subjective Subjective Transferred to ICU for atrial fib with RVR up to 200 bpm.Started on Cardizem drip and HR better now. Objective Last 24 Hour Vital Signs Date Time Temp Pulse Resp B/P (MAP) Pulse Ox O2 Delivery O2 Flow Rate FiO2 02/20/19 13:30 87 28 122/60 (80) 94 02/20/19 13:00 89 26 104/55 (71) 96 02/20/19 12:30 85 27 117/56 (76) 96 02/20/19 12:00 60 02/20/19 12:00 Bi-pap 02/20/19 12:00 88 02/20/19 12:00 98.7 87 25 134/52 (79) 99 02/20/19 11:30 82 21 130/87 (101) 98 02/20/19 11:00 89 25 115/73 (87) 99 02/20/19 10:53 87 23 99 Facial 60 02/20/19 10:30 93 26 121/51 (74) 99 02/20/19 10:00 104 23 122/53 (76) 97 02/20/19 09:30 114 25 114/76 (89) 98 02/20/19 09:14 111 28 99 Facial 60 02/20/19 09:12 106 02/20/19 09:12 106 111/62 02/20/19 09:11 111/62 02/20/19 09:00 104 23 111/62 (78) 98 02/20/19 08:30 108 26 108/66 (80) 99 02/20/19 08:00 70 02/20/19 08:00 102 02/20/19 08:00 98.1 100 23 113/56 (75) 98 02/20/19 08:00 Bi-pap 02/20/19 07:30 105 23 126/91 (103) 97 02/20/19 07:10 124 25 99 Facial 60 02/20/19 07:00 105 22 95/59 (71) 99 02/20/19 06:33 104 110/63 02/20/19 06:30 109 23 122/63 (82) 100 02/20/19 06:00 109 21 104/44 (64) 99 02/20/19 05:30 104 21 123/47 (72) 100 02/20/19 05:20 107 24 99 Facial 70 02/20/19 05:00 104 23 115/66 (82) 99 02/20/19 04:30 116 26 117/71 (86) 99 02/20/19 04:00 70 02/20/19 04:00 122 02/20/19 04:00 98.3 116 22 111/78 (89) 99 02/20/19 04:00 Bi-pap 02/20/19 03:30 114 20 102/72 (82) 100 02/20/19 03:21 113 20 100 Facial 70 02/20/19 03:00 122 22 109/55 (73) 100 02/20/19 02:30 122 24 124/53 (76) 100 02/20/19 02:00 121 22 127/58 (81) 100 02/20/19 01:30 122 24 115/57 (76) 100 02/20/19 01:04 124 24 100 Facial 70 02/20/19 01:00 125 23 102/70 (81) 100 02/20/19 00:30 126 23 120/70 (87) 100 02/20/19 00:00 98.2 131 23 93/53 (66) 100 02/20/19 00:00 121 02/20/19 00:00 Bi-pap 02/20/19 00:00 70 02/19/19 23:30 132 23 95/53 (67) 100 02/19/19 23:00 137 24 106/87 (93) 100 02/19/19 22:46 150 47 100 Facial 80 02/19/19 22:30 142 26 102/87 (92) 100 02/19/19 22:00 145 26 113/72 (86) 100 02/19/19 21:30 166 47 99 Facial 80 02/19/19 21:30 147 27 116/72 (87) 100 02/19/19 21:17 162 129/104 02/19/19 21:00 151 27 121/81 (94) 99 02/19/19 20:41 161 91/69 02/19/19 20:30 153 29 91/65 (74) 99 02/19/19 20:00 166 02/19/19 20:00 98.4 165 29 91/65 (74) 99 02/19/19 20:00 80 02/19/19 20:00 Bi-pap 02/19/19 19:59 166 47 100 Facial 80 02/19/19 19:51 185 126/95 02/19/19 16:53 104 23 96 Facial 40 02/19/19 16:00 Bi-pap 02/19/19 16:00 100 02/19/19 16:00 98.2 110 34 127/82 (97) 98 02/19/19 15:30 122 02/19/19 14:59 112 25 97 Facial 40 Intake and Output 02/19/19 02/20/19 18:59 06:59 Intake Total 60 ml 900.000 ml Output Total 500 ml 900 ml Balance -440 ml 0 ml Intake Free Water 60 ml 100 ml IV Total 530.000 ml Tube Feeding 270 ml Output Urine Total 500 ml 900 ml # Voids 2 Laboratory Tests Test 02/19/19 21:20 02/20/19 04:20 02/20/19 09:17 Vancomycin Level Trough 11.4 ug/mL (5.0-12.0) Valproic Acid (Depakene) Level 65 MCG/ML (50-100) White Blood Count 8.6 K/UL (4.8-10.8) Red Blood Count 3.55 M/UL (4.70-6.10) L Hemoglobin 11.5 G/DL (14.2-18.0) L Hematocrit 36.9 % (42.0-52.0) L Mean Corpuscular Volume 104 FL (80-99) H Mean Corpuscular Hemoglobin 32.5 PG (27.0-31.0) H Mean Corpuscular Hemoglobin Concent 31.2 G/DL (32.0-36.0) L Red Cell Distribution Width 13.5 % (11.6-14.8) Platelet Count 118 K/UL (150-450) L Mean Platelet Volume 6.1 FL (6.5-10.1) L Neutrophils (%) (Auto) 84.8 % (45.0-75.0) H Lymphocytes (%) (Auto) 7.6 % (20.0-45.0) L Monocytes (%) (Auto) 6.3 % (1.0-10.0) Eosinophils (%) (Auto) 0.0 % (0.0-3.0) Basophils (%) (Auto) 1.3 % (0.0-2.0) Sodium Level 152 MMOL/L (136-145) H Potassium Level 5.2 MMOL/L (3.5-5.1) H Chloride Level 117 MMOL/L (98-107) H Carbon Dioxide Level 30 MMOL/L (21-32) Anion Gap 5 mmol/L (5-15) Blood Urea Nitrogen 35 mg/dL (7-18) H Creatinine 0.7 MG/DL (0.55-1.30) Estimat Glomerular Filtration Rate > 60 mL/min (>60) Glucose Level 127 MG/DL (74-106) H Calcium Level 8.3 MG/DL (8.5-10.1) L Troponin I 0.125 ng/mL (0.000-0.056) Arterial Blood pH 7.434 (7.350-7.450) Arterial Blood Partial Pressure CO2 50.7 mmHg (35.0-45.0) H Arterial Blood Partial Pressure O2 83.7 mmHg (75.0-100.0) Arterial Blood HCO3 33.2 mmol/L (22.0-26.0) H Arterial Blood Oxygen Saturation 96.3 % (95-100) Arterial Blood Base Excess 7.8 (-2-2) H Booker Test Positive Microbiology Date/Time Source Procedure Growth Status 02/18/19 02:45 Blood Blood Culture - Preliminary NO GROWTH AFTER 48 HOURS Resulted 02/18/19 02:30 Blood Blood Culture - Preliminary NO GROWTH AFTER 48 HOURS Resulted 02/18/19 02:45 Nasal Nares MRSA Culture - Final NO METHICILLIN RESISTANT STAPH AUREUS... Complete 02/18/19 02:55 Rectum VRE Culture - Final Enterococcus Faecalis - Vre Complete 02/18/19 02:45 Rectum - Final NO CARBAPENEM-RESISTANT ENTEROBACTERI... Complete Objective HEAD AND NECK: Show positive JVD. He has a facemask on, but his old tracheostomy is closed. LUNGS: Coarse rhonchi. CARDIOVASCULAR: Shows irregular S1 and S2 with no gallop or murmur. ABDOMEN: Soft. G-tube is intact. EXTREMITIES: 1+ pitting edema. Robby Cantu MD Feb 20, 2019 14:06
[2019-02-20] MEDS: Valproic Acid 250mg/5ml Liquid GT SCH ×2 (16:25→22:19)
--- NOTE | 2019-02-20 19:10 | Internal Med Progress Note ---
Subjective Date of Service: Feb 20, 2019 Physician Name CatalinaDelvis Attending Physician Axel Saez MD Current Medications Medications (Trade) Dose Ordered Sig/Davonte Route PRN Reason Start Time Stop Time Status Last Admin Dose Admin Acetaminophen (Tylenol) 650 mg Q4H PRN GT Mild Pain/Temp > 100.5 02/19/19 21:15 03/20/19 09:14 Amiodarone HCl (Cordarone) 400 mg EVERY 12 HOURS GT 02/20/19 21:00 03/22/19 20:59 Carvedilol (Coreg) 12.5 mg EVERY 12 HOURS GT 02/20/19 21:00 03/21/19 20:59 Cefepime HCl 1 gm/ Dextrose 55 ml @ 110 mls/hr EVERY 12 HOURS IVPB 02/19/19 21:00 02/25/19 11:59 02/20/19 08:11 Digoxin (Lanoxin) 0.125 mg DAILY GT 02/21/19 09:00 03/20/19 11:59 Diltiazem HCl 125 mg/Dextrose 125 ml @ 5 mls/hr Q24H IV 02/20/19 22:00 02/22/19 21:59 02/20/19 15:30 Furosemide (Lasix) 40 mg EVERY 12 HOURS IV 02/19/19 21:00 03/21/19 20:59 02/20/19 09:11 Heparin Sodium (Porcine) (Heparin 5000 units/ml) 5,000 units EVERY 12 HOURS SUBQ 02/19/19 21:00 03/20/19 08:59 Lansoprazole (Prevacid) 30 mg DAILY GT 02/20/19 09:00 03/20/19 08:59 02/20/19 09:11 Levetiracetam (Keppra) 1,500 mg Q12HR GT 02/19/19 21:00 03/20/19 08:59 02/20/19 09:11 Lisinopril (Zestril) 10 mg DAILY GT 02/20/19 09:00 03/22/19 08:59 02/20/19 09:11 Lorazepam (Ativan 2mg/ml 1ml) 0.5 mg Q6H PRN IVP For Anxiety 02/19/19 21:00 02/26/19 20:59 Metronidazole 100 ml @ 100 mls/hr Q12HR IVPB 02/19/19 21:00 02/25/19 08:59 02/20/19 09:10 Valproic Acid (Depakene) 500 mg Q8HR GT 02/20/19 16:00 03/22/19 08:59 02/20/19 16:25 Vancomycin HCl (Vanco rx to dose) 1 ea DAILY PRN MISC Per rx protocol 02/20/19 09:00 03/20/19 08:59 Vancomycin HCl 1 gm/Dextrose 275 ml @ 183.708 mls/hr Q12H IVPB 02/19/19 22:00 02/23/19 21:59 02/20/19 10:11 Allergies: Coded Allergies: No Known Allergies (Unverified , 03/14/16) ROS Limited/Unobtainable: Yes Subjective 53 YO M admitted with respiratory distress. Now pneumonia and NSTEMI. Cover for Int Med-Dr Saez. ICU Objective Last Vital Signs Date Time Temp Pulse Resp B/P (MAP) Pulse Ox O2 Delivery O2 Flow Rate FiO2 02/20/19 18:00 89 22 125/79 (94) 97 02/20/19 16:30 98.4 02/20/19 16:00 Bi-pap 02/20/19 16:00 14.0 55 Laboratory Tests Test 02/19/19 21:20 02/20/19 04:20 02/20/19 09:17 Vancomycin Level Trough 11.4 ug/mL (5.0-12.0) Valproic Acid (Depakene) Level 65 MCG/ML (50-100) White Blood Count 8.6 K/UL (4.8-10.8) Red Blood Count 3.55 M/UL (4.70-6.10) L Hemoglobin 11.5 G/DL (14.2-18.0) L Hematocrit 36.9 % (42.0-52.0) L Mean Corpuscular Volume 104 FL (80-99) H Mean Corpuscular Hemoglobin 32.5 PG (27.0-31.0) H Mean Corpuscular Hemoglobin Concent 31.2 G/DL (32.0-36.0) L Red Cell Distribution Width 13.5 % (11.6-14.8) Platelet Count 118 K/UL (150-450) L Mean Platelet Volume 6.1 FL (6.5-10.1) L Neutrophils (%) (Auto) 84.8 % (45.0-75.0) H Lymphocytes (%) (Auto) 7.6 % (20.0-45.0) L Monocytes (%) (Auto) 6.3 % (1.0-10.0) Eosinophils (%) (Auto) 0.0 % (0.0-3.0) Basophils (%) (Auto) 1.3 % (0.0-2.0) Sodium Level 152 MMOL/L (136-145) H Potassium Level 5.2 MMOL/L (3.5-5.1) H Chloride Level 117 MMOL/L (98-107) H Carbon Dioxide Level 30 MMOL/L (21-32) Anion Gap 5 mmol/L (5-15) Blood Urea Nitrogen 35 mg/dL (7-18) H Creatinine 0.7 MG/DL (0.55-1.30) Estimat Glomerular Filtration Rate > 60 mL/min (>60) Glucose Level 127 MG/DL (74-106) H Calcium Level 8.3 MG/DL (8.5-10.1) L Troponin I 0.125 ng/mL (0.000-0.056) Arterial Blood pH 7.434 (7.350-7.450) Arterial Blood Partial Pressure CO2 50.7 mmHg (35.0-45.0) H Arterial Blood Partial Pressure O2 83.7 mmHg (75.0-100.0) Arterial Blood HCO3 33.2 mmol/L (22.0-26.0) H Arterial Blood Oxygen Saturation 96.3 % (95-100) Arterial Blood Base Excess 7.8 (-2-2) H Booker Test Positive Microbiology Date/Time Source Procedure Growth Status 02/18/19 02:45 Blood Blood Culture - Preliminary NO GROWTH AFTER 48 HOURS Resulted 02/18/19 02:30 Blood Blood Culture - Preliminary NO GROWTH AFTER 48 HOURS Resulted 02/18/19 02:45 Nasal Nares MRSA Culture - Final NO METHICILLIN RESISTANT STAPH AUREUS... Complete 02/18/19 02:55 Rectum VRE Culture - Final Enterococcus Faecalis - Vre Complete 02/18/19 02:45 Rectum - Final NO CARBAPENEM-RESISTANT ENTEROBACTERI... Complete Intake and Output 02/19/19 02/20/19 19:00 07:00 Intake Total 60 ml 940.000 ml Output Total 500 ml 900 ml Balance -440 ml 40.000 ml Intake Free Water 60 ml 100 ml IV Total 540.000 ml Tube Feeding 300 ml Output Urine Total 500 ml 900 ml # Voids 2 Objective PHYSICAL EXAMINATION: VITAL SIGNS: The patient is currently on facial BiPAP. GENERAL: The patient is a well-developed and well-nourished male, in moderate respiratory distress. HEENT: Eyes, pupils are equal and responsive to light and accommodation. Extraocular movements are intact. NECK: Supple without lymphadenopathy. CHEST: BIPAP; Diffuse rales at bilateral bases with expiratory wheezes. Otherwise, clear to auscultation. ABDOMEN: Soft, nontender, and nondistended. Positive bowel sounds. No evidence of hepatosplenomegaly. Currently, no rebound or guarding noted. CARDIOVASCULAR: Tachycardic. Regular rhythm. S1 and S2 are normal without murmurs, rubs, or gallops. GENITOURINARY: Not performed. NEUROLOGICAL: Unable to assess. Assessment/Plan Assessment/Plan ASSESSMENT: This is a 53-year-old male. 1. Respiratory distress. 2. Congestive heart failure. 3. Elevated troponin. 4. Vent-dependent respiratory failure. 5. Hypertension. 6. Diabetes type 2. 7. Schizophrenia. 8. Gastroesophageal reflux disease. 9. Chronic obstructive pulmonary disease. 10. Hypercholesterolemia. 11. AICD in situ. 12. Seizure disorder. 13. Bipolar depression. 14. NSTEMI 15. BUL pneumonia TREATMENT: 1. Respiratory distress. Continue BIPAP per pulmonary=Dr Molina. Cardiology consultation has been obtained with Dr. Robby Cantu. We will follow recommendations of Cardiology. 2. Congestive heart failure/elevated troponin. As above, a Cardiology consultation has been obtained with Dr. Robby Cantu. 3. Vent-dependent respiratory failure, status post tracheostomy reversal/chronic obstructive pulmonary disease. A Pulmonary consultation has been obtained with Dr. Aris Molina. 4. Hypertension. Continue metoprolol as above. 5. Diabetes type 2. Continue Humalog sliding scale. 6. Schizophrenia. Continue Seroquel as above. 7. Gastroesophageal reflux disease. Continue omeprazole as above. 8. Chronic obstructive pulmonary disease. As above, a Pulmonary consultation has been obtained with Dr. Aris Molina. 9. Hypercholesteremia. Continue atorvastatin. 10. AICD in situ. 11. Seizure disorder. Continue Keppra and Depakote as above. 12. Bipolar depression. 13. NSTEMI-SEE CARDIOLOGY NOTE. 14. ABX=vancomycin and cefepime Delvis Arnold MD Feb 20, 2019 19:10
[2019-02-20] MEDS: Amiodarone 200mg tab GT SCH (20:45)
[2019-02-20] MEDS: Carvedilol 12.5mg tab GT SCH (20:45)
[2019-02-20] MEDS: Acetaminophen 650mg/20.3ml GT PRN (22:39)
[2019-02-20] MEDS: LORazepam Inj 2mg/ml 1ml IVP PRN (22:40)
[2019-02-21] VITALS (47 sets, daily range): BP systolic 93–171; BP diastolic 50–130
[2019-02-21 05:17] LABS: BASOPHILS % (AUTO) 0.8 % (0.0-2.0); EOSINOPHILS % (AUTO) 3.4 % (0.0-3.0); HEMATOCRIT 36.6 % (42.0-52.0); HEMOGLOBIN 11.9 G/DL (14.2-18.0); LYMPHOCYTES % (AUTO) 11.4 % (20.0-45.0); MEAN CORPUSCULAR VOLUME 101 FL (80-99); MONOCYTES % (AUTO) 6.6 % (1.0-10.0); NEUTROPHILS % (AUTO) 77.8 % (45.0-75.0); PLATELET COUNT 159 K/UL (150-450); RED BLOOD COUNT 3.62 M/UL (4.70-6.10); RED CELL DISTRIBUTION WIDTH 13.9 % (11.6-14.8); WHITE BLOOD COUNT 6.1 K/UL (4.8-10.8)
[2019-02-21 05:44] LABS: ALANINE AMINOTRANSFERASE 71 U/L (12-78); ALBUMIN 2.4 G/DL (3.4-5.0); ALBUMIN/GLOBULIN RATIO 0.4 (1.0-2.7); ALKALINE PHOSPHATASE 64 U/L (46-116); ANION GAP 5 mmol/L (5-15); ASPARTATE AMINO TRANSFERASE 50 U/L (15-37); BILIRUBIN,TOTAL 0.8 MG/DL (0.2-1.0); BLOOD UREA NITROGEN 41 mg/dL (7-18); CALCIUM 9.1 MG/DL (8.5-10.1); CARBON DIOXIDE 37 MMOL/L (21-32); CHLORIDE 111 MMOL/L (98-107); CREATININE 1.2 MG/DL (0.55-1.30); POTASSIUM 3.5 MMOL/L (3.5-5.1); SODIUM 152 MMOL/L (136-145)
[2019-02-21] MEDS: Valproic Acid 250mg/5ml Liquid GT SCH ×3 (06:10→21:31)
[2019-02-21] MEDS: Cefepime HCl 1 GM in D5W 55 ML IVPB SCH ×2 (08:27→20:57)
[2019-02-21] MEDS: Acetaminophen 650mg/20.3ml GT PRN (08:29)
[2019-02-21] MEDS: Lisinopril 10mg tab GT SCH (08:30)
[2019-02-21] MEDS: Amiodarone 200mg tab GT SCH ×2 (08:31→20:52)
[2019-02-21] MEDS: Carvedilol 12.5mg tab GT SCH ×2 (08:31→20:53)
[2019-02-21] MEDS: LORazepam Inj 2mg/ml 1ml IVP PRN (08:31)
[2019-02-21] MEDS: Heparin 5000 units/ml inj SUBQ SCH ×2 (08:33→20:59)
[2019-02-21] MEDS: Digoxin 0.125mg tab GT SCH (09:35)
[2019-02-21] MEDS: Vancomycin 1 GM in D5W 275 ML IVPB SCH ×2 (09:35→21:31)
--- NOTE | 2019-02-21 10:43 | Diagnostic Imaging Report ---
Indication: Dyspnea Comparison: 02/19/2019 A single view chest radiograph was obtained. Findings: Mixed interstitial alveolar densities within the lungs persist but appear improved overall since the last examination. Heart remains enlarged. Left-sided pacemaker again noted. IMPRESSION: Improved pulmonary edema with moderate residual. Superimposed pneumonia not excluded.
--- NOTE | 2019-02-21 10:57 | Pulmonolgy Critical Care Note ---
Critical Care - Asmt/Plan Problems: (1) History of schizophrenia (2) Acute respiratory distress (3) Psychomotor agitation (4) Feeding by G-tube (5) ICD (implantable cardioverter-defibrillator) in place Respiratory: monitor respiratory rate, adjust FIO2, CXR Cardiac: continue to monitor HR/BP Infectious Disease: check cultures Endocrine: monitor blood sugar, check TSH, check HgA1C Affect: PRN ativan Prophylaxis: Protonix Notes Reviewed: cardio, renal Discussed with: nurses, consultants, [facility] encasermanager area - Objective Last 24 Hour Vital Signs Date Time Temp Pulse Resp B/P (MAP) Pulse Ox O2 Delivery O2 Flow Rate FiO2 02/21/19 10:30 99 22 138/71 (93) 98 02/21/19 10:00 116 22 144/86 (105) 98 02/21/19 09:35 127 02/21/19 09:30 112 25 170/68 (102) 98 02/21/19 09:00 117 25 145/68 (93) 98 02/21/19 08:59 99.0 02/21/19 08:31 103 148/75 02/21/19 08:30 148/75 02/21/19 08:30 104 25 141/65 (90) 96 02/21/19 08:00 Venturi Mask 02/21/19 08:00 103 02/21/19 08:00 99.0 103 30 148/75 (99) 96 02/21/19 07:30 112 24 170/94 (119) 96 02/21/19 07:00 104 30 152/130 (137) 96 02/21/19 06:30 103 32 163/90 (114) 97 02/21/19 06:00 98.6 94 30 163/90 (114) 96 02/21/19 05:30 99 32 155/81 (105) 97 02/21/19 05:00 96 26 152/85 (107) 97 02/21/19 04:30 98 32 155/120 (132) 97 02/21/19 04:00 105 34 155/120 (132) 96 02/21/19 04:00 85 02/21/19 04:00 Venturi Mask 02/21/19 03:30 97.8 95 29 147/69 (95) 97 02/21/19 03:00 88 34 145/95 (112) 96 02/21/19 02:30 93 32 145/95 (112) 96 02/21/19 02:00 93 31 121/64 (83) 97 02/21/19 01:30 91 31 139/75 (96) 96 02/21/19 01:00 80 32 146/94 (111) 95 02/21/19 00:30 91 32 158/78 (104) 97 02/21/19 00:08 97 02/21/19 00:00 Bi-pap 02/20/19 23:53 87 160/74 02/20/19 23:30 86 30 160/74 (102) 97 02/20/19 23:00 98.2 83 27 153/77 (102) 95 02/20/19 22:30 98.6 85 27 138/61 (86) 94 02/20/19 21:30 95 24 134/66 (88) 95 02/20/19 21:00 100 24 120/77 (91) 94 02/20/19 20:45 106 139/77 02/20/19 20:30 101 24 139/77 (97) 94 02/20/19 20:00 97 02/20/19 20:00 Bi-pap 02/20/19 20:00 98.0 96 24 126/86 (99) 94 02/20/19 19:44 94 Venturi Mask 8.0 40 02/20/19 19:30 96 23 128/87 (101) 97 02/20/19 19:00 93 22 143/76 (98) 97 02/20/19 19:00 98 24 94 8.0 40 02/20/19 18:30 93 22 103/73 (83) 97 02/20/19 18:00 89 22 125/79 (94) 97 02/20/19 17:30 88 23 153/69 (97) 96 02/20/19 17:00 95 29 129/81 (97) 95 02/20/19 16:30 98.4 88 23 128/71 (90) 96 02/20/19 16:00 86 23 135/55 (81) 96 02/20/19 16:00 Bi-pap 02/20/19 16:00 90 02/20/19 16:00 14.0 55 02/20/19 15:30 94 28 115/70 (85) 97 02/20/19 15:30 93 127/57 02/20/19 15:00 89 25 129/65 (86) 97 02/20/19 14:30 89 26 114/68 (83) 97 02/20/19 14:00 82 24 123/60 (81) 96 02/20/19 13:30 87 28 122/60 (80) 94 02/20/19 13:00 89 26 104/55 (71) 96 02/20/19 12:30 85 27 117/56 (76) 96 02/20/19 12:00 60 02/20/19 12:00 Bi-pap 02/20/19 12:00 88 02/20/19 12:00 98.7 87 25 134/52 (79) 99 02/20/19 11:30 82 21 130/87 (101) 98 02/20/19 11:00 89 25 115/73 (87) 99 Status: awake Condition: critical HEENT: atraumatic, normocephalic Neck: full ROM Lungs: chest wall tender Heart: HR/BP stable, regular Abdomen: non-tender, feeding tube, tolerating feeding Extremities: no C/C/E, edema, cyanosis Critical Care - Subjective ROS Limited/Unobtainable: Yes Condition: critical EKG Rhythm: V-Paced FI02: 40 Vent Support Mode: BiLevel Sputum Amount: None Tube Feeding Amount: 45 I&O: Intake and Output 02/20/19 02/21/19 19:00 07:00 Intake Total 1117.500 ml 1240.000 ml Output Total 2500 ml 450 ml Balance -1382.500 ml 790.000 ml Intake Free Water 100 ml 180 ml IV Total 532.500 ml 520.000 ml Tube Feeding 485 ml 540 ml Output Urine Total 2500 ml 450 ml Labs: Laboratory Tests Test 02/21/19 04:10 White Blood Count 6.1 K/UL (4.8-10.8) Red Blood Count 3.62 M/UL (4.70-6.10) L Hemoglobin 11.9 G/DL (14.2-18.0) L Hematocrit 36.6 % (42.0-52.0) L Mean Corpuscular Volume 101 FL (80-99) H Mean Corpuscular Hemoglobin 32.8 PG (27.0-31.0) H Mean Corpuscular Hemoglobin Concent 32.4 G/DL (32.0-36.0) Red Cell Distribution Width 13.9 % (11.6-14.8) Platelet Count 159 K/UL (150-450) Mean Platelet Volume 6.3 FL (6.5-10.1) L Neutrophils (%) (Auto) 77.8 % (45.0-75.0) H Lymphocytes (%) (Auto) 11.4 % (20.0-45.0) L Monocytes (%) (Auto) 6.6 % (1.0-10.0) Eosinophils (%) (Auto) 3.4 % (0.0-3.0) H Basophils (%) (Auto) 0.8 % (0.0-2.0) Sodium Level 152 MMOL/L (136-145) H Potassium Level 3.5 MMOL/L (3.5-5.1) Chloride Level 111 MMOL/L (98-107) H Carbon Dioxide Level 37 MMOL/L (21-32) H Anion Gap 5 mmol/L (5-15) Blood Urea Nitrogen 41 mg/dL (7-18) H Creatinine 1.2 MG/DL (0.55-1.30) # Estimat Glomerular Filtration Rate > 60 mL/min (>60) Glucose Level 144 MG/DL (74-106) H Calcium Level 9.1 MG/DL (8.5-10.1) Total Bilirubin 0.8 MG/DL (0.2-1.0) Aspartate Amino Transf (AST/SGOT) 50 U/L (15-37) H Alanine Aminotransferase (ALT/SGPT) 71 U/L (12-78) Alkaline Phosphatase 64 U/L (46-116) Pro-B-Type Natriuretic Peptide 5115 pg/mL (0-125) H Total Protein 7.8 G/DL (6.4-8.2) Albumin 2.4 G/DL (3.4-5.0) L Globulin 5.4 g/dL Albumin/Globulin Ratio 0.4 (1.0-2.7) L Digoxin Level 0.5 NG/ML (0.5-2.0) Aris Molina MD Feb 21, 2019 10:57
--- NOTE | 2019-02-21 12:35 | Cardiac Electrophysiology PN ---
Assessment/Plan Assessment/Plan 1. Non-ST elevation myocardial infarction. Creatinine is within normal range. EF 20% to 25%. 2. Severe cardiomyopathy with EF 20-25%. On Lasix 40 mg IV bid, Lisinopril 10, Dig 0.25 and increase Coreg to 25 bid 3. Status post [employer] dual-chamber defibrillator Will interrogated for further eval 4. Atrial fib with RVR. Increase Coreg to 25 bid and Digoxin On Amiodarone 400 bid and Dig to 0.125 5. Respiratory failure on Face Mask DNR and DNI 6. History of schizophrenia. 7. History of traumatic brain injury. 8. Dysphagia, status post PEG placement. TEODORO RN and Dr Molina Subjective Subjective In ICU for atrial fib with RVR up to 200 bpm.Started on Cardizem drip and HR better now.Cardizem drip DCed by Dr Molina Objective Last 24 Hour Vital Signs Date Time Temp Pulse Resp B/P (MAP) Pulse Ox O2 Delivery O2 Flow Rate FiO2 02/21/19 12:00 93 02/21/19 12:00 Venturi Mask 02/21/19 12:00 87 27 131/71 (91) 98 02/21/19 11:43 94 26 99 Facial 40 02/21/19 11:42 100 Bi-Pap 40 02/21/19 11:30 106 34 154/64 (94) 97 02/21/19 11:00 97 35 171/93 (119) 94 02/21/19 10:30 99 22 138/71 (93) 98 02/21/19 10:00 116 22 144/86 (105) 98 02/21/19 09:35 127 02/21/19 09:30 112 25 170/68 (102) 98 02/21/19 09:00 117 25 145/68 (93) 98 02/21/19 08:59 99.0 02/21/19 08:31 103 148/75 02/21/19 08:30 148/75 02/21/19 08:30 104 25 141/65 (90) 96 02/21/19 08:00 Venturi Mask 02/21/19 08:00 103 02/21/19 08:00 99.0 103 30 148/75 (99) 96 02/21/19 07:30 112 24 170/94 (119) 96 02/21/19 07:00 104 30 152/130 (137) 96 02/21/19 06:30 103 32 163/90 (114) 97 02/21/19 06:00 98.6 94 30 163/90 (114) 96 02/21/19 05:30 99 32 155/81 (105) 97 02/21/19 05:00 96 26 152/85 (107) 97 02/21/19 04:30 98 32 155/120 (132) 97 02/21/19 04:00 105 34 155/120 (132) 96 02/21/19 04:00 85 02/21/19 04:00 Venturi Mask 02/21/19 03:30 97.8 95 29 147/69 (95) 97 02/21/19 03:00 88 34 145/95 (112) 96 02/21/19 02:30 93 32 145/95 (112) 96 02/21/19 02:00 93 31 121/64 (83) 97 02/21/19 01:30 91 31 139/75 (96) 96 02/21/19 01:00 80 32 146/94 (111) 95 02/21/19 00:30 91 32 158/78 (104) 97 02/21/19 00:08 97 02/21/19 00:00 Bi-pap 02/20/19 23:53 87 160/74 02/20/19 23:30 86 30 160/74 (102) 97 02/20/19 23:00 98.2 83 27 153/77 (102) 95 02/20/19 22:30 98.6 85 27 138/61 (86) 94 02/20/19 21:30 95 24 134/66 (88) 95 02/20/19 21:00 100 24 120/77 (91) 94 02/20/19 20:45 106 139/77 02/20/19 20:30 101 24 139/77 (97) 94 02/20/19 20:00 97 02/20/19 20:00 Bi-pap 02/20/19 20:00 98.0 96 24 126/86 (99) 94 02/20/19 19:44 94 Venturi Mask 8.0 40 02/20/19 19:30 96 23 128/87 (101) 97 02/20/19 19:00 93 22 143/76 (98) 97 02/20/19 19:00 98 24 94 8.0 40 02/20/19 18:30 93 22 103/73 (83) 97 02/20/19 18:00 89 22 125/79 (94) 97 02/20/19 17:30 88 23 153/69 (97) 96 02/20/19 17:00 95 29 129/81 (97) 95 02/20/19 16:30 98.4 88 23 128/71 (90) 96 02/20/19 16:00 86 23 135/55 (81) 96 02/20/19 16:00 Bi-pap 02/20/19 16:00 90 02/20/19 16:00 14.0 55 02/20/19 15:30 94 28 115/70 (85) 97 02/20/19 15:30 93 127/57 02/20/19 15:00 89 25 129/65 (86) 97 02/20/19 14:30 89 26 114/68 (83) 97 02/20/19 14:00 82 24 123/60 (81) 96 02/20/19 13:30 87 28 122/60 (80) 94 02/20/19 13:00 89 26 104/55 (71) 96 Intake and Output 02/20/19 02/21/19 19:00 07:00 Intake Total 1117.500 ml 1240.000 ml Output Total 2500 ml 450 ml Balance -1382.500 ml 790.000 ml Intake Free Water 100 ml 180 ml IV Total 532.500 ml 520.000 ml Tube Feeding 485 ml 540 ml Output Urine Total 2500 ml 450 ml Laboratory Tests Test 02/21/19 04:10 White Blood Count 6.1 K/UL (4.8-10.8) Red Blood Count 3.62 M/UL (4.70-6.10) L Hemoglobin 11.9 G/DL (14.2-18.0) L Hematocrit 36.6 % (42.0-52.0) L Mean Corpuscular Volume 101 FL (80-99) H Mean Corpuscular Hemoglobin 32.8 PG (27.0-31.0) H Mean Corpuscular Hemoglobin Concent 32.4 G/DL (32.0-36.0) Red Cell Distribution Width 13.9 % (11.6-14.8) Platelet Count 159 K/UL (150-450) Mean Platelet Volume 6.3 FL (6.5-10.1) L Neutrophils (%) (Auto) 77.8 % (45.0-75.0) H Lymphocytes (%) (Auto) 11.4 % (20.0-45.0) L Monocytes (%) (Auto) 6.6 % (1.0-10.0) Eosinophils (%) (Auto) 3.4 % (0.0-3.0) H Basophils (%) (Auto) 0.8 % (0.0-2.0) Sodium Level 152 MMOL/L (136-145) H Potassium Level 3.5 MMOL/L (3.5-5.1) Chloride Level 111 MMOL/L (98-107) H Carbon Dioxide Level 37 MMOL/L (21-32) H Anion Gap 5 mmol/L (5-15) Blood Urea Nitrogen 41 mg/dL (7-18) H Creatinine 1.2 MG/DL (0.55-1.30) # Estimat Glomerular Filtration Rate > 60 mL/min (>60) Glucose Level 144 MG/DL (74-106) H Calcium Level 9.1 MG/DL (8.5-10.1) Total Bilirubin 0.8 MG/DL (0.2-1.0) Aspartate Amino Transf (AST/SGOT) 50 U/L (15-37) H Alanine Aminotransferase (ALT/SGPT) 71 U/L (12-78) Alkaline Phosphatase 64 U/L (46-116) Pro-B-Type Natriuretic Peptide 5115 pg/mL (0-125) H Total Protein 7.8 G/DL (6.4-8.2) Albumin 2.4 G/DL (3.4-5.0) L Globulin 5.4 g/dL Albumin/Globulin Ratio 0.4 (1.0-2.7) L Digoxin Level 0.5 NG/ML (0.5-2.0) Objective HEAD AND NECK: Positive JVD. On BIPAP but his old tracheostomy is closed. LUNGS: Coarse rhonchi. CARDIOVASCULAR: Shows irregular S1 and S2 with no gallop or murmur. ABDOMEN: Soft. G-tube is intact. EXTREMITIES: 1+ pitting edema. Robby Cantu MD Feb 21, 2019 12:35
--- NOTE | 2019-02-21 18:55 | Internal Med Progress Note ---
Subjective Date of Service: Feb 21, 2019 Physician Name Delvis Arnold Attending Physician Axel Saez MD Current Medications Medications (Trade) Dose Ordered Sig/Davonte Route PRN Reason Start Time Stop Time Status Last Admin Dose Admin Acetaminophen (Tylenol) 650 mg Q4H PRN GT Mild Pain/Temp > 100.5 02/19/19 21:15 03/20/19 09:14 02/21/19 08:29 Amiodarone HCl (Cordarone) 400 mg EVERY 12 HOURS GT 02/20/19 21:00 03/22/19 20:59 02/21/19 08:31 Carvedilol (Coreg) 25 mg EVERY 12 HOURS GT 02/21/19 21:00 03/21/19 20:59 Cefepime HCl 1 gm/ Dextrose 55 ml @ 110 mls/hr EVERY 12 HOURS IVPB 02/19/19 21:00 02/25/19 11:59 02/21/19 08:27 Digoxin (Lanoxin) 0.125 mg DAILY GT 02/21/19 09:00 03/20/19 11:59 02/21/19 09:35 Diltiazem HCl 125 mg/Dextrose 125 ml @ 5 mls/hr Q24H IV 02/20/19 22:00 02/22/19 21:59 02/20/19 23:53 Furosemide (Lasix) 40 mg EVERY 12 HOURS IV 02/19/19 21:00 03/21/19 20:59 02/21/19 08:31 Heparin Sodium (Porcine) (Heparin 5000 units/ml) 5,000 units EVERY 12 HOURS SUBQ 02/19/19 21:00 03/20/19 08:59 02/21/19 08:33 Lansoprazole (Prevacid) 30 mg DAILY GT 02/20/19 09:00 03/20/19 08:59 02/21/19 09:00 Levetiracetam (Keppra) 1,500 mg Q12HR GT 02/19/19 21:00 03/20/19 08:59 02/21/19 08:30 Lisinopril (Zestril) 10 mg DAILY GT 02/20/19 09:00 03/22/19 08:59 02/21/19 08:30 Lorazepam (Ativan 2mg/ml 1ml) 0.5 mg Q6H PRN IVP For Anxiety 02/19/19 21:00 02/26/19 20:59 02/21/19 08:31 Metronidazole 100 ml @ 100 mls/hr Q12HR IVPB 02/19/19 21:00 02/25/19 08:59 02/21/19 08:28 Valproic Acid (Depakene) 500 mg Q8HR GT 02/20/19 16:00 03/22/19 08:59 02/21/19 13:22 Vancomycin HCl (Vanco rx to dose) 1 ea DAILY PRN MISC Per rx protocol 02/20/19 09:00 03/20/19 08:59 Vancomycin HCl 1 gm/Dextrose 275 ml @ 183.708 mls/hr Q12H IVPB 02/19/19 22:00 02/23/19 21:59 02/21/19 09:35 Allergies: Coded Allergies: No Known Allergies (Unverified , 03/14/16) ROS Limited/Unobtainable: Yes Subjective 53 YO M admitted with respiratory distress. Now pneumonia and NSTEMI. Cover for Int Med-Dr Saez. ICU. On full facial BIPAP Objective Last Vital Signs Date Time Temp Pulse Resp B/P (MAP) Pulse Ox O2 Delivery O2 Flow Rate FiO2 02/21/19 18:49 99 Bi-Pap 40 02/21/19 18:49 90 23 02/21/19 18:30 116/70 (85) 02/21/19 16:00 98.8 02/20/19 19:44 8.0 Laboratory Tests Test 02/21/19 04:10 White Blood Count 6.1 K/UL (4.8-10.8) Red Blood Count 3.62 M/UL (4.70-6.10) L Hemoglobin 11.9 G/DL (14.2-18.0) L Hematocrit 36.6 % (42.0-52.0) L Mean Corpuscular Volume 101 FL (80-99) H Mean Corpuscular Hemoglobin 32.8 PG (27.0-31.0) H Mean Corpuscular Hemoglobin Concent 32.4 G/DL (32.0-36.0) Red Cell Distribution Width 13.9 % (11.6-14.8) Platelet Count 159 K/UL (150-450) Mean Platelet Volume 6.3 FL (6.5-10.1) L Neutrophils (%) (Auto) 77.8 % (45.0-75.0) H Lymphocytes (%) (Auto) 11.4 % (20.0-45.0) L Monocytes (%) (Auto) 6.6 % (1.0-10.0) Eosinophils (%) (Auto) 3.4 % (0.0-3.0) H Basophils (%) (Auto) 0.8 % (0.0-2.0) Sodium Level 152 MMOL/L (136-145) H Potassium Level 3.5 MMOL/L (3.5-5.1) Chloride Level 111 MMOL/L (98-107) H Carbon Dioxide Level 37 MMOL/L (21-32) H Anion Gap 5 mmol/L (5-15) Blood Urea Nitrogen 41 mg/dL (7-18) H Creatinine 1.2 MG/DL (0.55-1.30) # Estimat Glomerular Filtration Rate > 60 mL/min (>60) Glucose Level 144 MG/DL (74-106) H Calcium Level 9.1 MG/DL (8.5-10.1) Total Bilirubin 0.8 MG/DL (0.2-1.0) Aspartate Amino Transf (AST/SGOT) 50 U/L (15-37) H Alanine Aminotransferase (ALT/SGPT) 71 U/L (12-78) Alkaline Phosphatase 64 U/L (46-116) Pro-B-Type Natriuretic Peptide 5115 pg/mL (0-125) H Total Protein 7.8 G/DL (6.4-8.2) Albumin 2.4 G/DL (3.4-5.0) L Globulin 5.4 g/dL Albumin/Globulin Ratio 0.4 (1.0-2.7) L Digoxin Level 0.5 NG/ML (0.5-2.0) Intake and Output 02/20/19 02/21/19 18:59 06:59 Intake Total 1110.000 ml 1142.500 ml Output Total 1500 ml 1415 ml Balance -390.000 ml -272.500 ml Intake Free Water 100 ml 80 ml IV Total 540.000 ml 522.500 ml Tube Feeding 470 ml 540 ml Output Urine Total 1500 ml 1415 ml Objective PHYSICAL EXAMINATION: VITAL SIGNS: The patient is currently on facial BiPAP. GENERAL: The patient is a well-developed and well-nourished male, in moderate respiratory distress. HEENT: Eyes, pupils are equal and responsive to light and accommodation. Extraocular movements are intact. NECK: Supple without lymphadenopathy. CHEST: BIPAP; Diffuse rales at bilateral bases with expiratory wheezes. Otherwise, clear to auscultation. ABDOMEN: Soft, nontender, and nondistended. Positive bowel sounds. No evidence of hepatosplenomegaly. Currently, no rebound or guarding noted. CARDIOVASCULAR: Tachycardic. Regular rhythm. S1 and S2 are normal without murmurs, rubs, or gallops. GENITOURINARY: Not performed. NEUROLOGICAL: Unable to assess. Assessment/Plan Assessment/Plan ASSESSMENT: This is a 53-year-old male. 1. Respiratory distress. 2. Congestive heart failure. 3. Elevated troponin. 4. Vent-dependent respiratory failure. 5. Hypertension. 6. Diabetes type 2. 7. Schizophrenia. 8. Gastroesophageal reflux disease. 9. Chronic obstructive pulmonary disease. 10. Hypercholesterolemia. 11. AICD in situ. 12. Seizure disorder. 13. Bipolar depression. 14. NSTEMI 15. BUL pneumonia TREATMENT: 1. Respiratory distress. Continue BIPAP per pulmonary=Dr Molina. Cardiology consultation has been obtained with Dr. Robby Cantu. We will follow recommendations of Cardiology. 2. Congestive heart failure/elevated troponin. As above, a Cardiology consultation has been obtained with Dr. Robby Cantu. 3. Vent-dependent respiratory failure, status post tracheostomy reversal/chronic obstructive pulmonary disease. A Pulmonary consultation has been obtained with Dr. Aris Molina. 4. Hypertension. Continue metoprolol as above. 5. Diabetes type 2. Continue Humalog sliding scale. 6. Schizophrenia. Continue Seroquel as above. 7. Gastroesophageal reflux disease. Continue omeprazole as above. 8. Chronic obstructive pulmonary disease. As above, a Pulmonary consultation has been obtained with Dr. Aris Molina. 9. Hypercholesteremia. Continue atorvastatin. 10. AICD in situ. 11. Seizure disorder. Continue Keppra and Depakote as above. 12. Bipolar depression. 13. NSTEMI-SEE CARDIOLOGY NOTE. 14. ABX=vancomycin and cefepime Delvis Arnold MD Feb 21, 2019 18:55
[2019-02-22] VITALS (27 sets, daily range): BP systolic 96–162; BP diastolic 46–88
[2019-02-22] MEDS: LORazepam Inj 2mg/ml 1ml IVP PRN ×2 (01:13→09:09)
[2019-02-22] MEDS: Valproic Acid 250mg/5ml Liquid GT SCH ×3 (06:03→23:10)
[2019-02-22] MEDS: Acetaminophen 650mg/20.3ml GT PRN (09:06)
[2019-02-22] MEDS: Digoxin 0.125mg tab GT SCH (09:07)
[2019-02-22] MEDS: Carvedilol 12.5mg tab GT SCH (09:07)
[2019-02-22] MEDS: Amiodarone 200mg tab GT SCH ×2 (09:07→21:11)
[2019-02-22] MEDS: Lisinopril 10mg tab GT SCH (09:08)
[2019-02-22] MEDS: Heparin 5000 units/ml inj SUBQ SCH ×2 (09:09→21:24)
[2019-02-22] MEDS: Cefepime HCl 1 GM in D5W 55 ML IVPB SCH ×2 (09:10→21:33)
[2019-02-22 09:11] LABS: BASOPHILS % (AUTO) 0.9 % (0.0-2.0); EOSINOPHILS % (AUTO) 4.8 % (0.0-3.0); HEMATOCRIT 36.4 % (42.0-52.0); HEMOGLOBIN 11.5 G/DL (14.2-18.0); MEAN CORPUSCULAR VOLUME 102 FL (80-99); MONOCYTES % (AUTO) 8.9 % (1.0-10.0); NEUTROPHILS % (AUTO) 70.4 % (45.0-75.0); PLATELET COUNT 157 K/UL (150-450); RED BLOOD COUNT 3.57 M/UL (4.70-6.10); RED CELL DISTRIBUTION WIDTH 13.4 % (11.6-14.8); WHITE BLOOD COUNT 5.5 K/UL (4.8-10.8)
[2019-02-22 09:27] LABS: ALANINE AMINOTRANSFERASE 47 U/L (12-78); ALBUMIN 2.2 G/DL (3.4-5.0); ALBUMIN/GLOBULIN RATIO 0.4 (1.0-2.7); ALKALINE PHOSPHATASE 57 U/L (46-116); ANION GAP 5 mmol/L (5-15); ASPARTATE AMINO TRANSFERASE 32 U/L (15-37); BILIRUBIN,TOTAL 0.4 MG/DL (0.2-1.0); BLOOD UREA NITROGEN 50 mg/dL (7-18); CALCIUM 9.1 MG/DL (8.5-10.1); CHLORIDE 111 MMOL/L (98-107); CREATININE 1.2 MG/DL (0.55-1.30); POTASSIUM 3.3 MMOL/L (3.5-5.1); SODIUM 156 MMOL/L (136-145)
[2019-02-22 09:49] LABS: CARBON DIOXIDE 42 MMOL/L (21-32)
--- NOTE | 2019-02-22 10:15 | Pulmonolgy Critical Care Note ---
Critical Care - Asmt/Plan Problems: (1) History of schizophrenia (2) Acute respiratory distress (3) Psychomotor agitation (4) Feeding by G-tube (5) ICD (implantable cardioverter-defibrillator) in place Respiratory: monitor respiratory rate, adjust FIO2, CXR Cardiac: continue pressors, continue to monitor HR/BP Renal: F/U I&O Infectious Disease: check cultures, continue antibiotics Gastrointestinal: continue feedings/current rate Endocrine: monitor blood sugar Hematologic: monitor H/H, transfuse if hgb<8.5 Neurologic: PRN Ativan, PRN Morphine, keep patient comfortable Affect: PRN ativan Time Spent (Minutes): 40 Notes Reviewed: lead quality technician, cardio, renal Discussed with: nurses, consultants, family independence case managerretail merchandising manager - Objective Last 24 Hour Vital Signs Date Time Temp Pulse Resp B/P (MAP) Pulse Ox O2 Delivery O2 Flow Rate FiO2 02/22/19 09:36 98.6 02/22/19 09:08 128/55 02/22/19 09:07 101 128/55 02/22/19 09:07 101 02/22/19 09:00 100 23 128/55 (79) 96 02/22/19 08:30 103 25 138/65 (89) 97 02/22/19 08:00 95 23 128/68 (88) 97 02/22/19 08:00 Bi-pap 02/22/19 07:30 98.8 94 19 118/57 (77) 98 02/22/19 07:29 98 Bi-Pap 40 02/22/19 07:29 99 22 98 Facial 40 02/22/19 07:00 87 21 109/58 (75) 97 02/22/19 06:30 88 21 120/62 (81) 97 02/22/19 06:00 90 21 118/62 (80) 97 02/22/19 05:30 90 23 131/83 (99) 96 02/22/19 05:30 80 23 108/67 (81) 96 02/22/19 05:23 85 22 98 Facial 40 02/22/19 05:00 80 23 108/67 (81) 96 02/22/19 05:00 Bi-pap 02/22/19 05:00 80 23 108/67 (81) 96 02/22/19 04:57 79 117/61 02/22/19 04:30 82 19 128/60 (82) 98 02/22/19 04:00 98.0 80 19 117/61 (79) 98 02/22/19 04:00 82 02/22/19 03:30 79 21 96/46 (63) 96 02/22/19 03:00 84 20 97 Facial 40 02/22/19 03:00 80 24 103/88 (93) 96 02/22/19 02:00 80 24 106/67 (80) 96 02/22/19 02:00 82 24 106/65 (79) 96 02/22/19 01:30 82 24 110/64 (79) 97 02/22/19 01:00 82 26 107/64 (78) 97 02/22/19 00:53 79 30 98 Facial 40 02/22/19 00:30 79 25 96/73 (81) 98 02/22/19 00:00 97.8 78 24 97/54 (68) 97 02/22/19 00:00 Bi-pap 02/21/19 23:30 77 22 93/55 (68) 98 02/21/19 23:00 78 22 99/54 (69) 98 02/21/19 22:54 86 23 98 Facial 40 02/21/19 22:30 81 22 111/78 (89) 97 02/21/19 22:00 84 22 113/62 (79) 97 02/21/19 21:30 87 18 118/71 (87) 97 02/21/19 21:00 95 19 104/67 (79) 97 02/21/19 20:53 93 111/69 02/21/19 20:42 90 21 99 Facial 40 02/21/19 20:30 90 20 110/69 (83) 98 02/21/19 20:00 85 19 120/50 (73) 98 02/21/19 20:00 86 02/21/19 20:00 Bi-pap 02/21/19 19:30 98.4 87 18 124/52 (76) 98 02/21/19 19:00 90 18 112/62 (79) 98 02/21/19 18:49 99 Bi-Pap 40 02/21/19 18:49 90 23 99 Facial 40 02/21/19 18:30 81 14 116/70 (85) 98 02/21/19 18:00 87 19 116/70 (85) 99 02/21/19 17:38 86 23 99 Facial 40 02/21/19 17:30 84 22 125/70 (88) 99 02/21/19 17:00 84 20 111/64 (80) 98 02/21/19 16:30 82 22 102/67 (79) 98 02/21/19 16:00 98.8 83 23 110/72 (85) 96 02/21/19 16:00 Venturi Mask 02/21/19 16:00 84 02/21/19 15:30 88 25 119/72 (88) 97 02/21/19 15:16 91 23 97 Facial 40 02/21/19 15:00 85 26 106/59 (75) 96 02/21/19 14:30 85 25 100/75 (83) 97 02/21/19 14:00 84 25 112/58 (76) 96 02/21/19 13:30 80 24 113/70 (84) 98 02/21/19 13:27 92 21 96 Facial 40 02/21/19 13:00 87 27 123/71 (88) 98 02/21/19 12:30 99.2 89 30 134/75 (94) 96 02/21/19 12:00 93 02/21/19 12:00 Venturi Mask 02/21/19 12:00 87 27 131/71 (91) 98 02/21/19 11:43 94 26 99 Facial 40 02/21/19 11:42 100 Bi-Pap 40 02/21/19 11:30 106 34 154/64 (94) 97 02/21/19 11:00 97 35 171/93 (119) 94 02/21/19 10:30 99 22 138/71 (93) 98 Status: obtunded Condition: improving HEENT: atraumatic Lungs: clear Heart: HR/BP stable Abdomen: soft Extremities: no C/C/E Critical Care - Subjective ROS Limited/Unobtainable: Yes Condition: critical EKG Rhythm: Sinus Rhythm FI02: 40 Vent Support Mode: BiLevel Sputum Amount: None Tube Feeding Amount: 45 I&O: Intake and Output 02/21/19 02/22/19 19:00 07:00 Intake Total 1040 ml 715 ml Output Total 620 ml 950 ml Balance 420 ml -235 ml Intake Free Water 100 ml 120 ml IV Total 490 ml 55 ml Tube Feeding 450 ml 540 ml Output Urine Total 620 ml 950 ml Labs: Laboratory Tests Test 02/22/19 08:40 White Blood Count 5.5 K/UL (4.8-10.8) Red Blood Count 3.57 M/UL (4.70-6.10) L Hemoglobin 11.5 G/DL (14.2-18.0) L Hematocrit 36.4 % (42.0-52.0) L Mean Corpuscular Volume 102 FL (80-99) H Mean Corpuscular Hemoglobin 32.2 PG (27.0-31.0) H Mean Corpuscular Hemoglobin Concent 31.6 G/DL (32.0-36.0) L Red Cell Distribution Width 13.4 % (11.6-14.8) Platelet Count 157 K/UL (150-450) Mean Platelet Volume 6.3 FL (6.5-10.1) L Neutrophils (%) (Auto) 70.4 % (45.0-75.0) Lymphocytes (%) (Auto) 15.0 % (20.0-45.0) L Monocytes (%) (Auto) 8.9 % (1.0-10.0) Eosinophils (%) (Auto) 4.8 % (0.0-3.0) H Basophils (%) (Auto) 0.9 % (0.0-2.0) Sodium Level 156 MMOL/L (136-145) H Potassium Level 3.3 MMOL/L (3.5-5.1) L Chloride Level 111 MMOL/L (98-107) H Carbon Dioxide Level 42 MMOL/L (21-32) *H Anion Gap 5 mmol/L (5-15) Blood Urea Nitrogen 50 mg/dL (7-18) H Creatinine 1.2 MG/DL (0.55-1.30) Estimat Glomerular Filtration Rate > 60 mL/min (>60) Glucose Level 133 MG/DL (74-106) H Calcium Level 9.1 MG/DL (8.5-10.1) Total Bilirubin 0.4 MG/DL (0.2-1.0) Aspartate Amino Transf (AST/SGOT) 32 U/L (15-37) Alanine Aminotransferase (ALT/SGPT) 47 U/L (12-78) Alkaline Phosphatase 57 U/L (46-116) Total Protein 7.3 G/DL (6.4-8.2) Albumin 2.2 G/DL (3.4-5.0) L Globulin 5.1 g/dL Albumin/Globulin Ratio 0.4 (1.0-2.7) L Vancomycin Level Trough 16.7 ug/mL (5.0-12.0) H Aris Molina MD Feb 22, 2019 10:15
[2019-02-22] MEDS ORDERED: dilTIAZem HCl 60mg tab GT SCH ×2 (10:30→22:00)
[2019-02-22] MEDS ORDERED: Vancomycin 1 GM in D5W 275 ML IVPB SCH (11:00)
--- NOTE | 2019-02-22 11:48 | Internal Med Progress Note ---
Subjective Date of Service: Feb 22, 2019 Physician Name CatalinaDelvis Attending Physician Axel Saez MD Current Medications Medications (Trade) Dose Ordered Sig/[place] Route PRN Reason Start Time Stop Time Status Last Admin Dose Admin Acetaminophen (Tylenol) 650 mg Q4H PRN GT Mild Pain/Temp > 100.5 02/19/19 21:15 03/20/19 09:14 02/22/19 09:06 Amiodarone HCl (Cordarone) 400 mg EVERY 12 HOURS GT 02/20/19 21:00 03/22/19 20:59 02/22/19 09:07 Carvedilol (Coreg) 25 mg EVERY 12 HOURS GT 02/22/19 21:00 03/22/19 20:59 Cefepime HCl 1 gm/ Dextrose 55 ml @ 110 mls/hr EVERY 12 HOURS IVPB 02/19/19 21:00 02/25/19 11:59 02/22/19 09:10 Digoxin (Lanoxin) 0.125 mg DAILY GT 02/21/19 09:00 03/20/19 11:59 02/22/19 09:07 Diltiazem HCl (Cardizem) 60 mg Q8HR GT 02/22/19 22:00 03/24/19 21:59 Furosemide (Lasix) 40 mg EVERY 12 HOURS IV 02/19/19 21:00 03/21/19 20:59 02/22/19 09:08 Heparin Sodium (Porcine) (Heparin 5000 units/ml) 5,000 units EVERY 12 HOURS SUBQ 02/19/19 21:00 03/20/19 08:59 02/22/19 09:09 Lansoprazole (Prevacid) 30 mg DAILY GT 02/20/19 09:00 03/20/19 08:59 02/22/19 09:08 Levetiracetam (Keppra) 1,500 mg Q12HR GT 02/19/19 21:00 03/20/19 08:59 02/22/19 09:06 Lisinopril (Zestril) 10 mg DAILY GT 02/20/19 09:00 03/22/19 08:59 02/22/19 09:08 Lorazepam (Ativan 2mg/ml 1ml) 0.5 mg Q6H PRN IVP For Anxiety 02/19/19 21:00 02/26/19 20:59 02/22/19 09:09 Metronidazole 100 ml @ 100 mls/hr Q12HR IVPB 02/19/19 21:00 02/25/19 08:59 02/22/19 09:10 Valproic Acid (Depakene) 500 mg Q8HR GT 02/20/19 16:00 03/22/19 08:59 02/22/19 06:03 Vancomycin HCl (Vanco rx to dose) 1 ea DAILY PRN MISC Per rx protocol 02/20/19 09:00 03/20/19 08:59 Vancomycin HCl 1 gm/Dextrose 275 ml @ 183.708 mls/hr Q12HR@1100,2300 IVPB 02/22/19 11:00 02/27/19 10:59 02/22/19 11:33 Allergies: Coded Allergies: No Known Allergies (Unverified , 03/14/16) ROS Limited/Unobtainable: Yes Subjective 53 YO M admitted with respiratory distress. Now pneumonia and NSTEMI. Cover for Int Med-Dr Saez. ICU. On BIPAP Objective Last Vital Signs Date Time Temp Pulse Resp B/P (MAP) Pulse Ox O2 Delivery O2 Flow Rate FiO2 02/22/19 11:30 83 146/90 02/22/19 11:00 30 95 02/22/19 09:36 98.6 02/22/19 08:00 Bi-pap 02/22/19 07:29 40 02/20/19 19:44 8.0 Laboratory Tests Test 02/22/19 08:40 White Blood Count 5.5 K/UL (4.8-10.8) Red Blood Count 3.57 M/UL (4.70-6.10) L Hemoglobin 11.5 G/DL (14.2-18.0) L Hematocrit 36.4 % (42.0-52.0) L Mean Corpuscular Volume 102 FL (80-99) H Mean Corpuscular Hemoglobin 32.2 PG (27.0-31.0) H Mean Corpuscular Hemoglobin Concent 31.6 G/DL (32.0-36.0) L Red Cell Distribution Width 13.4 % (11.6-14.8) Platelet Count 157 K/UL (150-450) Mean Platelet Volume 6.3 FL (6.5-10.1) L Neutrophils (%) (Auto) 70.4 % (45.0-75.0) Lymphocytes (%) (Auto) 15.0 % (20.0-45.0) L Monocytes (%) (Auto) 8.9 % (1.0-10.0) Eosinophils (%) (Auto) 4.8 % (0.0-3.0) H Basophils (%) (Auto) 0.9 % (0.0-2.0) Sodium Level 156 MMOL/L (136-145) H Potassium Level 3.3 MMOL/L (3.5-5.1) L Chloride Level 111 MMOL/L (98-107) H Carbon Dioxide Level 42 MMOL/L (21-32) *H Anion Gap 5 mmol/L (5-15) Blood Urea Nitrogen 50 mg/dL (7-18) H Creatinine 1.2 MG/DL (0.55-1.30) Estimat Glomerular Filtration Rate > 60 mL/min (>60) Glucose Level 133 MG/DL (74-106) H Calcium Level 9.1 MG/DL (8.5-10.1) Total Bilirubin 0.4 MG/DL (0.2-1.0) Aspartate Amino Transf (AST/SGOT) 32 U/L (15-37) Alanine Aminotransferase (ALT/SGPT) 47 U/L (12-78) Alkaline Phosphatase 57 U/L (46-116) Total Protein 7.3 G/DL (6.4-8.2) Albumin 2.2 G/DL (3.4-5.0) L Globulin 5.1 g/dL Albumin/Globulin Ratio 0.4 (1.0-2.7) L Vancomycin Level Trough 16.7 ug/mL (5.0-12.0) H Intake and Output 02/21/19 02/22/19 19:00 07:00 Intake Total 1040 ml 715 ml Output Total 620 ml 950 ml Balance 420 ml -235 ml Intake Free Water 100 ml 120 ml IV Total 490 ml 55 ml Tube Feeding 450 ml 540 ml Output Urine Total 620 ml 950 ml Objective PHYSICAL EXAMINATION: VITAL SIGNS: The patient is currently on facial BiPAP. GENERAL: The patient is a well-developed and well-nourished male, in moderate respiratory distress. HEENT: Eyes, pupils are equal and responsive to light and accommodation. Extraocular movements are intact. NECK: Supple without lymphadenopathy. CHEST: BIPAP; Diffuse rales at bilateral bases with expiratory wheezes. Otherwise, clear to auscultation. ABDOMEN: Soft, nontender, and nondistended. Positive bowel sounds. No evidence of hepatosplenomegaly. Currently, no rebound or guarding noted. CARDIOVASCULAR: Tachycardic. Regular rhythm. S1 and S2 are normal without murmurs, rubs, or gallops. GENITOURINARY: Not performed. NEUROLOGICAL: Unable to assess. Assessment/Plan Assessment/Plan ASSESSMENT: This is a 53-year-old male. 1. Respiratory distress. 2. Congestive heart failure. 3. Elevated troponin. 4. Vent-dependent respiratory failure. 5. Hypertension. 6. Diabetes type 2. 7. Schizophrenia. 8. Gastroesophageal reflux disease. 9. Chronic obstructive pulmonary disease. 10. Hypercholesterolemia. 11. AICD in situ. 12. Seizure disorder. 13. Bipolar depression. 14. NSTEMI 15. BUL pneumonia TREATMENT: 1. Respiratory distress. Continue BIPAP per pulmonary=Dr Molina. Cardiology consultation has been obtained with Dr. Robby Cantu. We will follow recommendations of Cardiology. 2. Congestive heart failure/elevated troponin. As above, a Cardiology consultation has been obtained with Dr. Robby Cantu. 3. Vent-dependent respiratory failure, status post tracheostomy reversal/chronic obstructive pulmonary disease. A Pulmonary consultation has been obtained with Dr. Aris Molina. 4. Hypertension. Continue metoprolol as above. 5. Diabetes type 2. Continue Humalog sliding scale. 6. Schizophrenia. Continue Seroquel as above. 7. Gastroesophageal reflux disease. Continue omeprazole as above. 8. Chronic obstructive pulmonary disease. As above, a Pulmonary consultation has been obtained with Dr. Aris Molina. 9. Hypercholesteremia. Continue atorvastatin. 10. AICD in situ. 11. Seizure disorder. Continue Keppra and Depakote as above. 12. Bipolar depression. 13. NSTEMI-SEE CARDIOLOGY NOTE. 14. ABX=vancomycin and cefepime Delvis Arnold MD Feb 22, 2019 11:48
--- NOTE | 2019-02-22 12:20 | Cardiac Electrophysiology PN ---
Assessment/Plan Assessment/Plan 1. Non-ST elevation myocardial infarction. Creatinine is within normal range. EF 20% to 25%. 2. Severe cardiomyopathy with EF 20-25%. On Lasix 40 mg IV bid, Lisinopril 10, Dig 0.25 and increase Coreg to 25 bid 3. Status post [employer] dual-chamber defibrillator 4. Atrial fib with RVR. DC Cardizem drip. On Coreg 25 bid, Amiodarone 400 bid and Dig 0.125 5. Respiratory failure on Face Mask 6. History of schizophrenia. 7. History of traumatic brain injury. 8. Dysphagia, status post PEG placement. 9. DNR and DNI DW RN and Dr Molina Subjective Subjective In ICU for atrial fib with RVR up to 200 bpm. Cardizem drip DCed and HR better now on coreg, dig and amio. Objective Last 24 Hour Vital Signs Date Time Temp Pulse Resp B/P (MAP) Pulse Ox O2 Delivery O2 Flow Rate FiO2 02/22/19 11:30 83 146/90 02/22/19 11:00 85 30 126/52 (76) 95 02/22/19 10:30 91 30 95 02/22/19 10:00 91 29 117/66 (83) 94 02/22/19 09:36 98.6 02/22/19 09:30 102 26 162/67 (98) 93 02/22/19 09:08 128/55 02/22/19 09:07 101 128/55 02/22/19 09:07 101 02/22/19 09:00 100 23 128/55 (79) 96 02/22/19 08:30 103 25 138/65 (89) 97 02/22/19 08:00 95 23 128/68 (88) 97 02/22/19 08:00 97 02/22/19 08:00 Bi-pap 02/22/19 07:30 98.8 94 19 118/57 (77) 98 02/22/19 07:29 98 Bi-Pap 40 02/22/19 07:29 99 22 98 Facial 40 02/22/19 07:00 87 21 109/58 (75) 97 02/22/19 06:30 88 21 120/62 (81) 97 02/22/19 06:00 90 21 118/62 (80) 97 02/22/19 05:30 90 23 131/83 (99) 96 02/22/19 05:30 80 23 108/67 (81) 96 02/22/19 05:23 85 22 98 Facial 40 02/22/19 05:00 80 23 108/67 (81) 96 02/22/19 05:00 Bi-pap 02/22/19 05:00 80 23 108/67 (81) 96 02/22/19 04:57 79 117/61 02/22/19 04:30 82 19 128/60 (82) 98 02/22/19 04:00 98.0 80 19 117/61 (79) 98 02/22/19 04:00 82 02/22/19 03:30 79 21 96/46 (63) 96 02/22/19 03:00 84 20 97 Facial 40 02/22/19 03:00 80 24 103/88 (93) 96 02/22/19 02:00 80 24 106/67 (80) 96 02/22/19 02:00 82 24 106/65 (79) 96 02/22/19 01:30 82 24 110/64 (79) 97 02/22/19 01:00 82 26 107/64 (78) 97 02/22/19 00:53 79 30 98 Facial 40 02/22/19 00:30 79 25 96/73 (81) 98 02/22/19 00:00 97.8 78 24 97/54 (68) 97 02/22/19 00:00 Bi-pap 02/21/19 23:30 77 22 93/55 (68) 98 02/21/19 23:00 78 22 99/54 (69) 98 02/21/19 22:54 86 23 98 Facial 40 02/21/19 22:30 81 22 111/78 (89) 97 02/21/19 22:00 84 22 113/62 (79) 97 02/21/19 21:30 87 18 118/71 (87) 97 02/21/19 21:00 95 19 104/67 (79) 97 02/21/19 20:53 93 111/69 02/21/19 20:42 90 21 99 Facial 40 02/21/19 20:30 90 20 110/69 (83) 98 02/21/19 20:00 85 19 120/50 (73) 98 02/21/19 20:00 86 02/21/19 20:00 Bi-pap 02/21/19 19:30 98.4 87 18 124/52 (76) 98 02/21/19 19:00 90 18 112/62 (79) 98 02/21/19 18:49 99 Bi-Pap 40 02/21/19 18:49 90 23 99 Facial 40 02/21/19 18:30 81 14 116/70 (85) 98 02/21/19 18:00 87 19 116/70 (85) 99 02/21/19 17:38 86 23 99 Facial 40 02/21/19 17:30 84 22 125/70 (88) 99 02/21/19 17:00 84 20 111/64 (80) 98 02/21/19 16:30 82 22 102/67 (79) 98 02/21/19 16:00 98.8 83 23 110/72 (85) 96 02/21/19 16:00 Venturi Mask 02/21/19 16:00 84 02/21/19 15:30 88 25 119/72 (88) 97 02/21/19 15:16 91 23 97 Facial 40 02/21/19 15:00 85 26 106/59 (75) 96 02/21/19 14:30 85 25 100/75 (83) 97 02/21/19 14:00 84 25 112/58 (76) 96 02/21/19 13:30 80 24 113/70 (84) 98 02/21/19 13:27 92 21 96 Facial 40 02/21/19 13:00 87 27 123/71 (88) 98 02/21/19 12:30 99.2 89 30 134/75 (94) 96 Intake and Output 02/21/19 02/22/19 19:00 07:00 Intake Total 1040 ml 715 ml Output Total 620 ml 950 ml Balance 420 ml -235 ml Intake Free Water 100 ml 120 ml IV Total 490 ml 55 ml Tube Feeding 450 ml 540 ml Output Urine Total 620 ml 950 ml Laboratory Tests Test 02/22/19 08:40 White Blood Count 5.5 K/UL (4.8-10.8) Red Blood Count 3.57 M/UL (4.70-6.10) L Hemoglobin 11.5 G/DL (14.2-18.0) L Hematocrit 36.4 % (42.0-52.0) L Mean Corpuscular Volume 102 FL (80-99) H Mean Corpuscular Hemoglobin 32.2 PG (27.0-31.0) H Mean Corpuscular Hemoglobin Concent 31.6 G/DL (32.0-36.0) L Red Cell Distribution Width 13.4 % (11.6-14.8) Platelet Count 157 K/UL (150-450) Mean Platelet Volume 6.3 FL (6.5-10.1) L Neutrophils (%) (Auto) 70.4 % (45.0-75.0) Lymphocytes (%) (Auto) 15.0 % (20.0-45.0) L Monocytes (%) (Auto) 8.9 % (1.0-10.0) Eosinophils (%) (Auto) 4.8 % (0.0-3.0) H Basophils (%) (Auto) 0.9 % (0.0-2.0) Sodium Level 156 MMOL/L (136-145) H Potassium Level 3.3 MMOL/L (3.5-5.1) L Chloride Level 111 MMOL/L (98-107) H Carbon Dioxide Level 42 MMOL/L (21-32) *H Anion Gap 5 mmol/L (5-15) Blood Urea Nitrogen 50 mg/dL (7-18) H Creatinine 1.2 MG/DL (0.55-1.30) Estimat Glomerular Filtration Rate > 60 mL/min (>60) Glucose Level 133 MG/DL (74-106) H Calcium Level 9.1 MG/DL (8.5-10.1) Total Bilirubin 0.4 MG/DL (0.2-1.0) Aspartate Amino Transf (AST/SGOT) 32 U/L (15-37) Alanine Aminotransferase (ALT/SGPT) 47 U/L (12-78) Alkaline Phosphatase 57 U/L (46-116) Total Protein 7.3 G/DL (6.4-8.2) Albumin 2.2 G/DL (3.4-5.0) L Globulin 5.1 g/dL Albumin/Globulin Ratio 0.4 (1.0-2.7) L Vancomycin Level Trough 16.7 ug/mL (5.0-12.0) H Objective HEAD AND NECK: Positive JVD. On BIPAP but his old tracheostomy is closed. LUNGS: Coarse rhonchi. CARDIOVASCULAR: Shows irregular S1 and S2 with no gallop or murmur. ABDOMEN: Soft. G-tube is intact. EXTREMITIES: 1+ pitting edema. Robby Cantu MD Feb 22, 2019 12:20
--- NOTE | 2019-02-22 13:43 | Diagnostic Imaging Report ---
APPROVED REPORT CPT Code: 29788 Present Symptoms Comments: SOB RIGHT LEG: Venous imaging reveals a patent deep venous system. There is no evidence of thrombus within the femoral, popliteal or tibial segments. The greater saphenous vein is also within normal limits. Doppler indicates normal spontaneous flow within these segments. LEFT LEG: Venous imaging reveals recanalized chronic thrombus in the superficial femoral vein. Large collateral vein noted anterior to the superficial femoral artery. Imaging also reveals patency of the common femoral, popliteal and calf veins. The greater saphenous vein is also within normal limits. Doppler indicates normal spontaneous flow within these segments. There is no evidence of acute deep vein thrombosis.
[2019-02-22] MEDS ORDERED: Acetaminophen 650mg/20.3ml GT PRN (14:56)
[2019-02-22] MEDS ORDERED: NS 275ml ONE (16:42)
[2019-02-22] MEDS ORDERED: Tubing IV Secondary IV ONE (16:42)
--- NOTE | 2019-02-22 19:11 | Cardiology Report ---
APPROVED REPORT EKG Measurement Heart [id number] Sinus tachycardia with short [place] Nonspecific ST abnormality Abnormal ECG
[2019-02-22] MEDS ORDERED: Carvedilol 25mg Tab GT SCH (21:00)
[2019-02-22] MEDS: Carvedilol 25mg Tab GT SCH (21:11)
[2019-02-22] MEDS: dilTIAZem HCl 60mg tab GT SCH (23:10)
[2019-02-22] MEDS: Vancomycin 1 GM in D5W 275 ML IVPB SCH (23:13)
[2019-02-23] VITALS (7 sets, daily range): BP systolic 91–127; BP diastolic 55–89
[2019-02-23] MEDS: LORazepam Inj 2mg/ml 1ml IVP PRN (02:12)
[2019-02-23] MEDS: Valproic Acid 250mg/5ml Liquid GT SCH ×3 (05:51→22:49)
[2019-02-23] MEDS: dilTIAZem HCl 60mg tab GT SCH ×3 (05:51→22:49)
[2019-02-23 07:26] LABS: BASOPHILS % (AUTO) 1.3 % (0.0-2.0); EOSINOPHILS % (AUTO) 3.9 % (0.0-3.0); HEMATOCRIT 37.5 % (42.0-52.0); MEAN CORPUSCULAR VOLUME 102 FL (80-99); MONOCYTES % (AUTO) 11.2 % (1.0-10.0); NEUTROPHILS % (AUTO) 67.5 % (45.0-75.0); PLATELET COUNT 167 K/UL (150-450); RED BLOOD COUNT 3.69 M/UL (4.70-6.10); RED CELL DISTRIBUTION WIDTH 13.4 % (11.6-14.8); WHITE BLOOD COUNT 5.9 K/UL (4.8-10.8)
[2019-02-23 07:56] LABS: ANION GAP 3 mmol/L (5-15); BLOOD UREA NITROGEN 43 mg/dL (7-18); CALCIUM 9.1 MG/DL (8.5-10.1); CARBON DIOXIDE 40 MMOL/L (21-32); CHLORIDE 113 MMOL/L (98-107); CREATININE 0.9 MG/DL (0.55-1.30); POTASSIUM 3.7 MMOL/L (3.5-5.1); SODIUM 157 MMOL/L (136-145)
[2019-02-23] MEDS: Cefepime HCl 1 GM in D5W 55 ML IVPB SCH ×2 (08:38→20:50)
[2019-02-23] MEDS: Amiodarone 200mg tab GT SCH ×2 (08:52→20:49)
[2019-02-23] MEDS: Carvedilol 25mg Tab GT SCH ×2 (08:52→20:49)
[2019-02-23] MEDS ORDERED: Digoxin 0.125mg tab GT SCH (09:00)
[2019-02-23] MEDS ORDERED: Lisinopril 10mg tab GT SCH (09:00)
[2019-02-23] MEDS: Heparin 5000 units/ml inj SUBQ SCH ×2 (09:03→20:51)
[2019-02-23] MEDS: Vancomycin 1 GM in D5W 275 ML IVPB SCH ×2 (10:35→22:49)
--- NOTE | 2019-02-23 10:35 | Cardiac Electrophysiology PN ---
Assessment/Plan Assessment/Plan 1. Non-ST elevation myocardial infarction. Creatinine is within normal range. 2. Severe cardiomyopathy with EF 20-25%. On Lasix 40 mg IV bid, Lisinopril 10, Dig 0.25 and Coreg 25 bid 3. Status post [employer] dual-chamber defibrillator 4. Atrial fib with RVR. On Coreg 25 bid, Amiodarone 400 bid and Dig 0.125 5. Respiratory failure on Face Mask 6. History of schizophrenia. 7. History of traumatic brain injury. 8. Dysphagia, status post PEG placement. 9. DNR and DNI DW RN Subjective Subjective Transferred out of ICU and HR better now on coreg, dig and amio. Objective Last 24 Hour Vital Signs Date Time Temp Pulse Resp B/P (MAP) Pulse Ox O2 Delivery O2 Flow Rate FiO2 02/23/19 09:00 Bi-pap 02/23/19 08:52 120/78 02/23/19 08:52 70 02/23/19 08:52 70 120/78 02/23/19 08:38 95 Bi-Pap 40 02/23/19 08:37 80 24 95 Bi-Pap 40 02/23/19 08:34 80 24 95 Full Face 40 02/23/19 08:00 98.1 70 20 120/78 (92) 97 02/23/19 07:37 77 02/23/19 05:51 65 126/89 02/23/19 05:50 65 126/89 (101) 02/23/19 05:28 69 26 97 Full Face 40 02/23/19 04:09 90 02/23/19 04:00 99.3 54 20 105/55 (72) 96 02/23/19 03:00 67 28 96 Full Face 40 02/23/19 02:10 98.2 78 18 110/74 (86) 95 02/23/19 01:20 63 30 97 Full Face 40 02/23/19 00:00 Bi-pap 02/22/19 23:50 99.0 02/22/19 23:32 96 02/22/19 23:10 99.0 70 30 107/69 (82) 95 02/22/19 23:10 70 107/69 02/22/19 22:51 61 21 96 Full Face 40 02/22/19 21:11 99 143/57 02/22/19 20:18 100 20 98 Venturi Mask 8.0 40 02/22/19 20:18 98 Venturi Mask 8.0 40 02/22/19 20:00 100.0 99 20 143/57 (85) 98 02/22/19 20:00 Bi-pap 02/22/19 19:02 93 02/22/19 16:00 96.6 33 19 109/68 (82) 95 02/22/19 16:00 Bi-pap 02/22/19 16:00 86 02/22/19 14:00 83 28 106/56 (73) 95 02/22/19 13:00 78 30 106/56 (73) 94 02/22/19 12:00 Bi-pap 02/22/19 12:00 101 02/22/19 12:00 98.6 72 19 118/50 (72) 93 02/22/19 11:30 83 146/90 02/22/19 11:00 85 30 126/52 (76) 95 Intake and Output 02/22/19 02/23/19 19:00 07:00 Intake Total 860 ml 505 ml Output Total 800 ml 850 ml Balance 60 ml -345 ml Intake Free Water 60 ml 100 ml IV Total 440 ml Tube Feeding 360 ml 405 ml Output Urine Total 800 ml 850 ml # Voids 1 Laboratory Tests Test 02/23/19 05:57 White Blood Count 5.9 K/UL (4.8-10.8) Red Blood Count 3.69 M/UL (4.70-6.10) L Hemoglobin 12.0 G/DL (14.2-18.0) L Hematocrit 37.5 % (42.0-52.0) L Mean Corpuscular Volume 102 FL (80-99) H Mean Corpuscular Hemoglobin 32.5 PG (27.0-31.0) H Mean Corpuscular Hemoglobin Concent 32.1 G/DL (32.0-36.0) Red Cell Distribution Width 13.4 % (11.6-14.8) Platelet Count 167 K/UL (150-450) Mean Platelet Volume 6.7 FL (6.5-10.1) Neutrophils (%) (Auto) 67.5 % (45.0-75.0) Lymphocytes (%) (Auto) 16.0 % (20.0-45.0) L Monocytes (%) (Auto) 11.2 % (1.0-10.0) H Eosinophils (%) (Auto) 3.9 % (0.0-3.0) H Basophils (%) (Auto) 1.3 % (0.0-2.0) Sodium Level 157 MMOL/L (136-145) H Potassium Level 3.7 MMOL/L (3.5-5.1) Chloride Level 113 MMOL/L (98-107) H Carbon Dioxide Level 40 MMOL/L (21-32) H Anion Gap 3 mmol/L (5-15) L Blood Urea Nitrogen 43 mg/dL (7-18) H Creatinine 0.9 MG/DL (0.55-1.30) Estimat Glomerular Filtration Rate > 60 mL/min (>60) Glucose Level 113 MG/DL (74-106) H Calcium Level 9.1 MG/DL (8.5-10.1) Objective HEAD AND NECK: Positive JVD. On BIPAP but his old tracheostomy is closed. LUNGS: Coarse rhonchi. CARDIOVASCULAR: Shows irregular S1 and S2 with no gallop or murmur. ABDOMEN: Soft. G-tube is intact. EXTREMITIES: 1+ pitting edema. Robby Cantu MD Feb 23, 2019 10:35
--- NOTE | 2019-02-23 18:51 | Pulmonology Progress Note ---
Assessment/Plan Problems: (1) Acute respiratory failure (2) Pneumonia (3) Acute respiratory distress (4) History of schizophrenia (5) ICD (implantable cardioverter-defibrillator) in place (6) Agitation (7) Neurologic disorder (8) Feeding by G-tube Assessment/Plan comfort care and end of life care is most appropriate, considering pts, mental status and end stage heart disease. Subjective Constitutional: Reports: no symptoms Allergies: Coded Allergies: No Known Allergies (Unverified , 03/14/16) Objective Last 24 Hour Vital Signs Date Time Temp Pulse Resp B/P (MAP) Pulse Ox O2 Delivery O2 Flow Rate FiO2 02/23/19 16:00 97.9 69 20 117/70 (86) 97 02/23/19 15:41 86 02/23/19 14:38 98 122/71 02/23/19 12:00 97.7 80 20 91/58 (69) 99 02/23/19 11:47 81 02/23/19 09:03 79 27 95 Full Face 40 02/23/19 09:00 Bi-pap 02/23/19 08:52 120/78 02/23/19 08:52 70 02/23/19 08:52 70 120/78 02/23/19 08:38 95 Bi-Pap 40 02/23/19 08:37 80 24 95 Bi-Pap 40 02/23/19 08:34 80 24 95 Full Face 40 02/23/19 08:00 98.1 70 20 120/78 (92) 97 02/23/19 07:37 77 02/23/19 05:51 65 126/89 02/23/19 05:50 65 126/89 (101) 02/23/19 05:28 69 26 97 Full Face 40 02/23/19 04:09 90 02/23/19 04:00 99.3 54 20 105/55 (72) 96 02/23/19 03:00 67 28 96 Full Face 40 02/23/19 02:10 98.2 78 18 110/74 (86) 95 02/23/19 01:20 63 30 97 Full Face 40 02/23/19 00:00 Bi-pap 02/22/19 23:50 99.0 02/22/19 23:32 96 02/22/19 23:10 99.0 70 30 107/69 (82) 95 02/22/19 23:10 70 107/69 02/22/19 22:51 61 21 96 Full Face 40 02/22/19 21:11 99 143/57 02/22/19 20:18 100 20 98 Venturi Mask 8.0 40 02/22/19 20:18 98 Venturi Mask 8.0 40 02/22/19 20:00 100.0 99 20 143/57 (85) 98 02/22/19 20:00 Bi-pap 02/22/19 19:02 93 Intake and Output 02/22/19 02/23/19 19:00 07:00 Intake Total 860 ml 505 ml Output Total 800 ml 850 ml Balance 60 ml -345 ml Intake Free Water 60 ml 100 ml IV Total 440 ml Tube Feeding 360 ml 405 ml Output Urine Total 800 ml 850 ml # Voids 1 General Appearance: WD/WN HEENT: atraumatic Respiratory/Chest: chest wall non-tender, lungs clear Cardiovascular: normal peripheral pulses, normal rate Abdomen: normal bowel sounds, soft, non tender Genitourinary: normal external genitalia Skin: no rash 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 Lymphatic: no neck adenopathy Laboratory Tests 02/23/19 05:57: White Blood Count 5.9, Red Blood Count 3.69L, Hemoglobin 12.0L, Hematocrit 37.5L , Mean Corpuscular Volume 102H, Mean Corpuscular Hemoglobin 32.5H, Mean Corpuscular Hemoglobin Concent 32.1, Red Cell Distribution Width 13.4, Platelet Count 167, Mean Platelet Volume 6.7, Neutrophils (%) (Auto) 67.5, Lymphocytes (% ) (Auto) 16.0L, Monocytes (%) (Auto) 11.2H, Eosinophils (%) (Auto) 3.9H, Basophils (%) (Auto) 1.3, Sodium Level 157H, Potassium Level 3.7, Chloride Level 113H, Carbon Dioxide Level 40H, Anion Gap 3L, Blood Urea Nitrogen 43H, Creatinine 0.9, Estimat Glomerular Filtration Rate > 60, Glucose Level 113H, Calcium Level 9.1 Current Medications Medications (Trade) Dose Ordered Sig/Davonte Route PRN Reason Start Time Stop Time Status Last Admin Dose Admin Acetaminophen (Tylenol) 650 mg Q4H PRN GT Mild Pain/Temp > 100.5 02/22/19 14:56 9/6/19 14:55 02/22/19 21:17 Amiodarone HCl (Cordarone) 400 mg EVERY 12 HOURS GT 02/22/19 21:00 03/22/19 20:59 02/23/19 08:52 Carvedilol (Coreg) 25 mg EVERY 12 HOURS GT 02/22/19 21:00 03/22/19 20:59 02/23/19 08:52 Cefepime HCl 1 gm/ Dextrose 55 ml @ 110 mls/hr EVERY 12 HOURS IVPB 02/22/19 21:00 02/25/19 11:59 02/23/19 08:38 Digoxin (Lanoxin) 0.125 mg DAILY GT 02/23/19 09:00 03/20/19 11:59 02/23/19 08:52 Diltiazem HCl (Cardizem) 60 mg Q8HR GT 02/22/19 22:00 03/24/19 21:59 02/23/19 14:38 Furosemide (Lasix) 40 mg EVERY 12 HOURS IV 02/22/19 21:00 03/21/19 20:59 02/23/19 08:53 Heparin Sodium (Porcine) (Heparin 5000 units/ml) 5,000 units EVERY 12 HOURS SUBQ 02/22/19 21:00 03/20/19 08:59 02/23/19 09:03 Lansoprazole (Prevacid) 30 mg DAILY GT 02/23/19 09:00 03/20/19 08:59 02/23/19 08:51 Levetiracetam (Keppra) 1,500 mg Q12HR GT 02/22/19 21:00 03/20/19 08:59 02/23/19 08:53 Lisinopril (Zestril) 10 mg DAILY GT 02/23/19 09:00 03/22/19 08:59 02/23/19 08:52 Lorazepam (Ativan 2mg/ml 1ml) 0.5 mg Q6H PRN IVP For Anxiety 02/22/19 14:57 03/01/19 14:56 02/23/19 02:12 Metronidazole 100 ml @ 100 mls/hr Q12HR IVPB 02/22/19 21:00 02/25/19 08:59 8/8/19 09:05 Valproic Acid (Depakene) 500 mg Q8HR GT 02/22/19 22:00 03/22/19 08:59 02/23/19 14:38 Vancomycin HCl (Vanco rx to dose) 1 ea DAILY PRN MISC Per rx protocol 02/23/19 09:00 03/20/19 08:59 Vancomycin HCl 1 gm/Dextrose 275 ml @ 183.708 mls/hr Q12HR@1100,2300 IVPB 02/22/19 23:00 02/27/19 10:59 02/23/19 10:35 Aris Molina MD Feb 23, 2019 18:51
--- NOTE | 2019-02-23 19:20 | Internal Med Progress Note ---
Subjective Date of Service: Feb 23, 2019 Physician Name Delvis Arnold Attending Physician Axel Saez MD Current Medications Medications (Trade) Dose Ordered Sig/Davonte Route PRN Reason Start Time Stop Time Status Last Admin Dose Admin Acetaminophen (Tylenol) 650 mg Q4H PRN GT Mild Pain/Temp > 100.5 02/22/19 14:56 03/24/19 14:55 02/22/19 21:17 Amiodarone HCl (Cordarone) 400 mg EVERY 12 HOURS GT 02/22/19 21:00 03/22/19 20:59 02/23/19 08:52 Carvedilol (Coreg) 25 mg EVERY 12 HOURS GT 02/22/19 21:00 03/22/19 20:59 02/23/19 08:52 Cefepime HCl 1 gm/ Dextrose 55 ml @ 110 mls/hr EVERY 12 HOURS IVPB 02/22/19 21:00 02/25/19 11:59 02/23/19 08:38 Digoxin (Lanoxin) 0.125 mg DAILY GT 02/23/19 09:00 03/20/19 11:59 02/23/19 08:52 Diltiazem HCl (Cardizem) 60 mg Q8HR GT 02/22/19 22:00 03/24/19 21:59 02/23/19 14:38 Furosemide (Lasix) 40 mg EVERY 12 HOURS IV 02/22/19 21:00 03/21/19 20:59 02/23/19 08:53 Heparin Sodium (Porcine) (Heparin 5000 units/ml) 5,000 units EVERY 12 HOURS SUBQ 02/22/19 21:00 03/20/19 08:59 02/23/19 09:03 Lansoprazole (Prevacid) 30 mg DAILY GT 02/23/19 09:00 03/20/19 08:59 02/23/19 08:51 Levetiracetam (Keppra) 1,500 mg Q12HR GT 02/22/19 21:00 03/20/19 08:59 02/23/19 08:53 Lisinopril (Zestril) 10 mg DAILY GT 02/23/19 09:00 03/22/19 08:59 02/23/19 08:52 Lorazepam (Ativan 2mg/ml 1ml) 0.5 mg Q6H PRN IVP For Anxiety 02/22/19 14:57 03/01/19 14:56 02/23/19 02:12 Metronidazole 100 ml @ 100 mls/hr Q12HR IVPB 02/22/19 21:00 02/25/19 08:59 02/23/19 09:05 Valproic Acid (Depakene) 500 mg Q8HR GT 02/22/19 22:00 03/22/19 08:59 02/23/19 14:38 Vancomycin HCl (Vanco rx to dose) 1 ea DAILY PRN MISC Per rx protocol 02/23/19 09:00 03/20/19 08:59 Vancomycin HCl 1 gm/Dextrose 275 ml @ 183.708 mls/hr Q12HR@1100,2300 IVPB 02/22/19 23:00 02/27/19 10:59 02/23/19 10:35 Allergies: Coded Allergies: No Known Allergies (Unverified , 03/14/16) ROS Limited/Unobtainable: Yes Subjective 53 YO M admitted with respiratory distress. Now pneumonia and NSTEMI. Cover for Int Med-Dr Saez. On BIPAP Objective Last Vital Signs Date Time Temp Pulse Resp B/P (MAP) Pulse Ox O2 Delivery O2 Flow Rate FiO2 02/23/19 16:00 97.9 69 20 117/70 (86) 97 02/23/19 09:03 Full Face 40 02/22/19 20:18 8.0 Laboratory Tests Test 02/23/19 05:57 White Blood Count 5.9 K/UL (4.8-10.8) Red Blood Count 3.69 M/UL (4.70-6.10) L Hemoglobin 12.0 G/DL (14.2-18.0) L Hematocrit 37.5 % (42.0-52.0) L Mean Corpuscular Volume 102 FL (80-99) H Mean Corpuscular Hemoglobin 32.5 PG (27.0-31.0) H Mean Corpuscular Hemoglobin Concent 32.1 G/DL (32.0-36.0) Red Cell Distribution Width 13.4 % (11.6-14.8) Platelet Count 167 K/UL (150-450) Mean Platelet Volume 6.7 FL (6.5-10.1) Neutrophils (%) (Auto) 67.5 % (45.0-75.0) Lymphocytes (%) (Auto) 16.0 % (20.0-45.0) L Monocytes (%) (Auto) 11.2 % (1.0-10.0) H Eosinophils (%) (Auto) 3.9 % (0.0-3.0) H Basophils (%) (Auto) 1.3 % (0.0-2.0) Sodium Level 157 MMOL/L (136-145) H Potassium Level 3.7 MMOL/L (3.5-5.1) Chloride Level 113 MMOL/L (98-107) H Carbon Dioxide Level 40 MMOL/L (21-32) H Anion Gap 3 mmol/L (5-15) L Blood Urea Nitrogen 43 mg/dL (7-18) H Creatinine 0.9 MG/DL (0.55-1.30) Estimat Glomerular Filtration Rate > 60 mL/min (>60) Glucose Level 113 MG/DL (74-106) H Calcium Level 9.1 MG/DL (8.5-10.1) Intake and Output 02/22/19 02/23/19 19:00 07:00 Intake Total 860 ml 505 ml Output Total 800 ml 850 ml Balance 60 ml -345 ml Intake Free Water 60 ml 100 ml IV Total 440 ml Tube Feeding 360 ml 405 ml Output Urine Total 800 ml 850 ml # Voids 1 Objective PHYSICAL EXAMINATION: VITAL SIGNS: The patient is currently on facial BiPAP. GENERAL: The patient is a well-developed and well-nourished male, in moderate respiratory distress. HEENT: Eyes, pupils are equal and responsive to light and accommodation. Extraocular movements are intact. NECK: Supple without lymphadenopathy. CHEST: BIPAP; Diffuse rales at bilateral bases with expiratory wheezes. Otherwise, clear to auscultation. ABDOMEN: Soft, nontender, and nondistended. Positive bowel sounds. No evidence of hepatosplenomegaly. Currently, no rebound or guarding noted. CARDIOVASCULAR: Tachycardic. Regular rhythm. S1 and S2 are normal without murmurs, rubs, or gallops. GENITOURINARY: Not performed. NEUROLOGICAL: Unable to assess. Assessment/Plan Assessment/Plan ASSESSMENT: This is a 53-year-old male. 1. Respiratory distress. 2. Congestive heart failure. 3. Elevated troponin. 4. Vent-dependent respiratory failure. 5. Hypertension. 6. Diabetes type 2. 7. Schizophrenia. 8. Gastroesophageal reflux disease. 9. Chronic obstructive pulmonary disease. 10. Hypercholesterolemia. 11. AICD in situ. 12. Seizure disorder. 13. Bipolar depression. 14. NSTEMI 15. BUL pneumonia TREATMENT: 1. Respiratory distress. Continue BIPAP per pulmonary=Dr Molina. Cardiology consultation has been obtained with Dr. Robby Cantu. We will follow recommendations of Cardiology. 2. Congestive heart failure/elevated troponin. As above, a Cardiology consultation has been obtained with Dr. Robby Cantu. 3. Vent-dependent respiratory failure, status post tracheostomy reversal/chronic obstructive pulmonary disease. A Pulmonary consultation has been obtained with Dr. Aris Molina. 4. Hypertension. Continue metoprolol as above. 5. Diabetes type 2. Continue Humalog sliding scale. 6. Schizophrenia. Continue Seroquel as above. 7. Gastroesophageal reflux disease. Continue omeprazole as above. 8. Chronic obstructive pulmonary disease. As above, a Pulmonary consultation has been obtained with Dr. Aris Molina. 9. Hypercholesteremia. Continue atorvastatin. 10. AICD in situ. 11. Seizure disorder. Continue Keppra and Depakote as above. 12. Bipolar depression. 13. NSTEMI-SEE CARDIOLOGY NOTE. 14. ABX=vancomycin and cefepime 15. See pulmonary note concerning comfort care Delvis Arnold MD Feb 23, 2019 19:20
[2019-02-24] VITALS: BP 118/68
[2019-02-24] MEDS: LORazepam Inj 2mg/ml 1ml IVP PRN ×2 (02:17→15:02)
[2019-02-24 04:00] VITALS: BP 139/73
[2019-02-24] MEDS: Valproic Acid 250mg/5ml Liquid GT SCH ×3 (06:17→23:18)
[2019-02-24] MEDS: dilTIAZem HCl 60mg tab GT SCH ×3 (06:17→22:00)
[2019-02-24 08:00] VITALS: BP 115/70
[2019-02-24] MEDS: Carvedilol 25mg Tab GT SCH ×2 (08:49→21:00)
[2019-02-24] MEDS: Digoxin 0.125mg tab GT SCH (08:50)
[2019-02-24] MEDS: Lisinopril 10mg tab GT SCH (08:50)
[2019-02-24] MEDS: Heparin 5000 units/ml inj SUBQ SCH ×2 (08:51→23:09)
[2019-02-24] MEDS ORDERED: Acetaminophen 650mg/20.3ml GT PRN (09:00)
[2019-02-24] MEDS ORDERED: Amiodarone 200mg tab GT SCH (09:00)
[2019-02-24] MEDS: Vancomycin 1 GM in D5W 275 ML IVPB SCH (11:00)
[2019-02-24 12:00] VITALS: BP 136/104
[2019-02-24] MEDS: Cefepime HCl 1 GM in D5W 55 ML IVPB SCH ×2 (14:44→23:19)
--- NOTE | 2019-02-24 15:28 | Cardiac Electrophysiology PN ---
Assessment/Plan Assessment/Plan 1. Non-ST elevation myocardial infarction. Creatinine is within normal range. 2. Severe cardiomyopathy with EF 20-25%. On Lasix 40 mg IV bid, Lisinopril 10, Dig 0.125 and Coreg 25 bid 3. Status post [employer] dual-chamber defibrillator 4. Atrial fib with RVR. On Coreg 25 bid, Amiodarone 400 bid, Cardizem 60 q 8 and Dig 0.125 Decrease Amio to 200 daily 5. S/P Respiratory failure on Face Mask 6. History of schizophrenia. 7. History of traumatic brain injury. 8. Dysphagia, S/P PEG placement. 9. DNR and DNI DW RN Subjective Subjective HR better on Coreg, dig and amio. Confused and in restraints on NMB Objective Last 24 Hour Vital Signs Date Time Temp Pulse Resp B/P (MAP) Pulse Ox O2 Delivery O2 Flow Rate FiO2 02/24/19 14:53 89 136/104 02/24/19 08:50 115/70 02/24/19 08:50 73 02/24/19 08:49 73 115/70 02/24/19 08:31 94 Venturi Mask 8.0 40 02/24/19 08:30 76 21 94 Venturi Mask 8.0 40 02/24/19 08:00 97.5 73 20 115/70 (85) 98 02/24/19 06:17 73 139/73 02/24/19 04:00 73 02/24/19 04:00 98.3 75 20 139/73 (95) 99 02/24/19 00:00 98.4 70 20 118/68 (85) 97 02/23/19 22:49 66 127/71 02/23/19 21:42 Venturi Mask 02/23/19 21:00 Bi-pap 02/23/19 20:49 66 127/71 02/23/19 20:00 92 02/23/19 20:00 98.2 66 22 127/71 (89) 97 02/23/19 16:00 97.9 69 20 117/70 (86) 97 02/23/19 15:41 86 Intake and Output 02/23/19 02/24/19 19:00 07:00 Intake Total 2285.000 ml Output Total 850 ml 2400 ml Balance 1435.000 ml -2400 ml Intake Free Water 250 ml IV Total 1585.000 ml Tube Feeding 450 ml Output Urine Total 850 ml 2400 ml # Voids 1 # Bowel Movements 1 Microbiology Date/Time Source Procedure Growth Status 02/22/19 23:00 Blood Blood Culture - Preliminary NO GROWTH AFTER 24 HOURS Resulted 02/22/19 22:50 Blood Blood Culture - Preliminary NO GROWTH AFTER 24 HOURS Resulted Objective HEAD AND NECK: Positive JVD. tracheostomy is closed. S/P Right craniotomy LUNGS: Coarse rhonchi. CARDIOVASCULAR: Shows irregular S1 and S2 with no gallop or murmur. ABDOMEN: Soft. G-tube is intact. EXTREMITIES: 1+ pitting edema. Robby Cantu MD Feb 24, 2019 15:28
[2019-02-24 16:00] VITALS: BP 130/77
--- NOTE | 2019-02-24 17:03 | Internal Med Progress Note ---
Subjective Physician Name Axel Saez Attending Physician Axel Saez MD Current Medications Medications (Trade) Dose Ordered Sig/Davonte Route PRN Reason Start Time Stop Time Status Last Admin Dose Admin Acetaminophen (Tylenol) 650 mg Q4H PRN GT Mild Pain/Temp > 100.5 02/24/19 09:00 03/24/19 08:59 Amiodarone HCl (Cordarone) 200 mg DAILY GT 02/25/19 09:00 03/22/19 20:59 Carvedilol (Coreg) 25 mg EVERY 12 HOURS GT 02/24/19 09:00 03/22/19 20:59 02/24/19 08:49 Cefepime HCl 1 gm/ Dextrose 55 ml @ 110 mls/hr EVERY 12 HOURS IVPB 02/24/19 09:00 03/03/19 08:59 02/24/19 14:44 Digoxin (Lanoxin) 0.125 mg DAILY GT 02/24/19 09:00 03/20/19 11:59 02/24/19 08:50 Diltiazem HCl (Cardizem) 60 mg Q8HR GT 02/24/19 14:00 03/24/19 21:59 02/24/19 14:53 Furosemide (Lasix) 40 mg EVERY 12 HOURS IV 02/24/19 09:00 03/21/19 20:59 02/24/19 08:49 Heparin Sodium (Porcine) (Heparin 5000 units/ml) 5,000 units EVERY 12 HOURS SUBQ 02/24/19 09:00 03/20/19 08:59 02/24/19 08:51 Lansoprazole (Prevacid) 30 mg DAILY GT 02/24/19 09:00 03/20/19 08:59 02/24/19 08:48 Levetiracetam (Keppra) 1,500 mg Q12HR GT 02/24/19 09:00 03/20/19 08:59 02/24/19 08:48 Lisinopril (Zestril) 10 mg DAILY GT 02/24/19 09:00 03/22/19 08:59 02/24/19 08:50 Lorazepam (Ativan 2mg/ml 1ml) 0.5 mg Q6H PRN IVP For Anxiety 02/24/19 09:00 03/01/19 14:56 02/24/19 15:02 Metronidazole 100 ml @ 100 mls/hr Q12HR IVPB 02/24/19 09:00 03/03/19 08:59 02/24/19 13:21 Valproic Acid (Depakene) 500 mg Q8HR GT 02/24/19 14:00 03/22/19 08:59 02/24/19 14:53 Vancomycin HCl (Vanco rx to dose) 1 ea DAILY PRN MISC Per rx protocol 02/24/19 09:00 03/20/19 08:59 Vancomycin HCl 1 gm/Dextrose 275 ml @ 183.708 mls/hr Q12HR@1100,2300 IVPB 02/24/19 11:00 02/27/19 10:59 02/24/19 11:00 Allergies: Coded Allergies: No Known Allergies (Unverified , 03/14/16) Subjective awake, responsive, NAD, on Venti Mask Objective Last Vital Signs Date Time Temp Pulse Resp B/P (MAP) Pulse Ox O2 Delivery O2 Flow Rate FiO2 02/24/19 14:53 89 136/104 02/24/19 12:00 98.0 20 97 02/24/19 09:00 Venturi Mask 02/24/19 08:31 8.0 40 Microbiology Date/Time Source Procedure Growth Status 02/22/19 23:00 Blood Blood Culture - Preliminary NO GROWTH AFTER 24 HOURS Resulted 02/22/19 22:50 Blood Blood Culture - Preliminary NO GROWTH AFTER 24 HOURS Resulted Intake and Output 02/23/19 02/24/19 19:00 07:00 Intake Total 2285.000 ml Output Total 850 ml 2400 ml Balance 1435.000 ml -2400 ml Intake Free Water 250 ml IV Total 1585.000 ml Tube Feeding 450 ml Output Urine Total 850 ml 2400 ml # Voids 1 # Bowel Movements 1 Objective General: No acute distress, awake and responsive. HEENT: NCAT, sclera anicteric, PERRL, EOMI. Neck: Supple, old trach site intact. Lungs: decrease breath sound at bases,no Wheeze or Rales. Heart: Regular rate and rhythm, normal S1/S2, no murmurs Abdomen: soft, nontender, nondistended. Normoactive bowel sounds, PEF site intact. : Meyers cath Extremities: No Cyanosis , clubbing or edema. Neuro: Left side weakness. Skin: warm, no rash, Assessment/Plan Assessment/Plan 1. Non-ST elevation myocardial infarction. Creatinine is within normal range. 2. Severe cardiomyopathy with EF 20-25%. On Lasix 40 mg IV bid, Lisinopril 10, Dig 0.125 and Coreg 25 bid 3. Status post [employer] dual-chamber defibrillator 4. Atrial fib with RVR. On Coreg 25 bid, Amiodarone 400 bid, Cardizem 60 q 8 and Dig 0.125 Decrease Amio to 200 daily 5. S/P Respiratory failure on Face Mask 6. History of schizophrenia. 7. History of traumatic brain injury. 8. Dysphagia, S/P PEG placement. 9. DNR and DNI Plan: Abx: Vanco / Cefepime / Flagyl Monitor labs and cultures F/U with labs. DNR Axel Saez MD Feb 24, 2019 17:03
--- NOTE | 2019-02-24 19:59 | CDS Physician Query ---
Clarification is required for compliance, coding accuracy, and to reflect severity of illness for this patient Dear Dr. Arnold, Date: 02/24/2019 Shoulder Puncher/CDS Name: Maty Chester 53 year old male with 02 sat of 76 % on ra, BNP>35,000 /13,769, Cxr- pulmonary edema, vs pna. Coreg, lisinopril, lasix, Echo, 35-40% EF, Cardiology consulted, documented severe cardiomyopathy with EF 20-25%, CHF documented in H & P /progress notes. "Heart Failure / CHF" documented in Please Clarify: Acuity [] Acute [] Chronic [X] Acute on Chronic Type [X] Systolic [] Diastolic [] Systolic & Diastolic (Combined) [] Other: Present on Admission: [X] Yes [] No [] Clinically Undetermined Physician signature Date Please also document in your Progress Notes and/or Discharge Summary and indicate if the condition was present on admission. AGUILAD
[2019-02-24 20:00] VITALS: BP 92/61
[2019-02-25] VITALS: BP 97/56
[2019-02-25] MEDS: Vancomycin 1 GM in D5W 275 ML IVPB SCH ×3 (01:51→23:33)
[2019-02-25 04:00] VITALS: BP 115/71
[2019-02-25] MEDS: LORazepam Inj 2mg/ml 1ml IVP PRN (05:54)
[2019-02-25] MEDS: dilTIAZem HCl 60mg tab GT SCH ×3 (06:42→22:00)
[2019-02-25] MEDS: Valproic Acid 250mg/5ml Liquid GT SCH ×3 (06:43→23:34)
[2019-02-25 08:00] VITALS: BP 108/79
[2019-02-25] MEDS: Lisinopril 10mg tab GT SCH (09:00)
[2019-02-25] MEDS: Carvedilol 25mg Tab GT SCH ×2 (09:00→21:00)
[2019-02-25] MEDS: Cefepime HCl 1 GM in D5W 55 ML IVPB SCH ×2 (09:00→21:00)
--- NOTE | 2019-02-25 09:33 | Pulmonology Progress Note ---
Assessment/Plan Problems: (1) Acute respiratory failure (2) Pneumonia (3) Acute respiratory distress (4) History of schizophrenia (5) ICD (implantable cardioverter-defibrillator) in place (6) Agitation (7) Neurologic disorder (8) Feeding by G-tube Assessment/Plan comfort care and end of life care is most appropriate, considering pts, mental status and end stage heart disease. Subjective Interval Events: 02/24 late note Constitutional: Reports: no symptoms HEENT: Repors: no symptoms Allergies: Coded Allergies: No Known Allergies (Unverified , 03/14/16) Objective Last 24 Hour Vital Signs Date Time Temp Pulse Resp B/P (MAP) Pulse Ox O2 Delivery O2 Flow Rate FiO2 02/25/19 08:00 97.9 79 18 108/79 (89) 93 02/25/19 06:42 79 115/71 02/25/19 04:00 97.3 79 22 115/71 (86) 98 02/25/19 00:00 97.8 69 22 97/56 (70) 99 02/24/19 22:00 66 92/61 02/24/19 21:00 66 92/61 02/24/19 21:00 Venturi Mask 02/24/19 20:00 97.4 66 22 92/61 (71) 97 02/24/19 16:00 98.6 74 20 130/77 (94) 94 02/24/19 14:53 89 136/104 02/24/19 12:00 98.0 89 20 136/104 (115) 97 Intake and Output 02/24/19 02/25/19 19:00 07:00 Intake Total 1030 ml 695 ml Output Total 750 ml 650 ml Balance 280 ml 45 ml Intake Free Water 50 ml 200 ml IV Total 485 ml Tube Feeding 495 ml 495 ml Output Urine Total 750 ml 650 ml # Voids 2 # Bowel Movements 2 General Appearance: WD/WN HEENT: normocephalic, atraumatic Respiratory/Chest: chest wall non-tender, lungs clear Cardiovascular: normal peripheral pulses, normal rate Abdomen: normal bowel sounds, soft, non tender Genitourinary: normal external genitalia Extremities: no clubbing 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 Microbiology Date/Time Source Procedure Growth Status 02/22/19 23:00 Blood Blood Culture - Preliminary NO GROWTH AFTER 48 HOURS Resulted 02/22/19 22:50 Blood Blood Culture - Preliminary NO GROWTH AFTER 48 HOURS Resulted Current Medications Medications (Trade) Dose Ordered Sig/Davonte Route PRN Reason Start Time Stop Time Status Last Admin Dose Admin Acetaminophen (Tylenol) 650 mg Q4H PRN GT Mild Pain/Temp > 100.5 02/24/19 09:00 03/24/19 08:59 Amiodarone HCl (Cordarone) 200 mg DAILY GT 02/25/19 09:00 03/22/19 20:59 Carvedilol (Coreg) 25 mg EVERY 12 HOURS GT 02/24/19 09:00 03/22/19 20:59 02/24/19 08:49 Cefepime HCl 1 gm/ Dextrose 55 ml @ 110 mls/hr EVERY 12 HOURS IVPB 02/24/19 09:00 03/03/19 08:59 02/24/19 23:19 Digoxin (Lanoxin) 0.125 mg DAILY GT 02/24/19 09:00 03/20/19 11:59 02/24/19 08:50 Diltiazem HCl (Cardizem) 60 mg Q8HR GT 02/24/19 14:00 03/24/19 21:59 02/25/19 06:42 Furosemide (Lasix) 40 mg EVERY 12 HOURS IV 02/24/19 09:00 03/21/19 20:59 02/24/19 08:49 Heparin Sodium (Porcine) (Heparin 5000 units/ml) 5,000 units EVERY 12 HOURS SUBQ 02/24/19 09:00 03/20/19 08:59 02/24/19 23:09 Lansoprazole (Prevacid) 30 mg DAILY GT 02/24/19 09:00 03/20/19 08:59 02/24/19 08:48 Levetiracetam (Keppra) 1,500 mg Q12HR GT 02/24/19 09:00 03/20/19 08:59 02/24/19 23:15 Lisinopril (Zestril) 10 mg DAILY GT 02/24/19 09:00 03/22/19 08:59 02/24/19 08:50 Lorazepam (Ativan 2mg/ml 1ml) 0.5 mg Q6H PRN IVP For Anxiety 02/24/19 09:00 03/01/19 14:56 02/25/19 05:54 Metronidazole 100 ml @ 100 mls/hr Q12HR IVPB 02/24/19 09:00 03/03/19 08:59 02/24/19 23:18 Valproic Acid (Depakene) 500 mg Q8HR GT 02/24/19 14:00 03/22/19 08:59 02/25/19 06:43 Vancomycin HCl (Vanco rx to dose) 1 ea DAILY PRN MISC Per rx protocol 02/24/19 09:00 03/20/19 08:59 Vancomycin HCl 1 gm/Dextrose 275 ml @ 183.708 mls/hr Q12HR@1100,2300 IVPB 02/24/19 11:00 02/27/19 10:59 02/25/19 01:51 Aris Molina MD Feb 25, 2019 09:33
[2019-02-25] MEDS: Digoxin 0.125mg tab GT SCH (09:34)
[2019-02-25] MEDS: Amiodarone 200mg tab GT SCH (09:34)
[2019-02-25] MEDS: Heparin 5000 units/ml inj SUBQ SCH ×2 (09:36→21:01)
[2019-02-25 12:00] VITALS: BP 108/71
[2019-02-25] MEDS ORDERED: NS 275ml ONE (14:57)
[2019-02-25 16:00] VITALS: BP 135/78
--- NOTE | 2019-02-25 16:49 | Cardiac Electrophysiology PN ---
Assessment/Plan Assessment/Plan 1. Non-ST elevation myocardial infarction. 2. Severe cardiomyopathy with EF 20-25%. On Lasix 40 mg IV bid, Lisinopril 10, Dig 0.125 and Coreg 25 bid 3. Status post [employer] dual-chamber defibrillator 4. Atrial fib with RVR. On Coreg 25 bid, Amiodarone 200 daily, Cardizem 60 q 8 and Dig 0.125 5. S/P Respiratory failure on Face Mask 6. History of schizophrenia. 7. History of traumatic brain injury. 8. Dysphagia, S/P PEG placement. 9. DNR and DNI DW RN Subjective Subjective Confused and in restraints on NMB. RN at bedside. DC to snif pending bed. Objective Last 24 Hour Vital Signs Date Time Temp Pulse Resp B/P (MAP) Pulse Ox O2 Delivery O2 Flow Rate FiO2 02/25/19 16:00 98.6 68 18 135/78 (97) 97 02/25/19 13:40 66 108/71 02/25/19 12:00 98.9 66 18 108/71 (83) 93 02/25/19 09:34 79 02/25/19 09:00 108/79 02/25/19 09:00 79 108/79 02/25/19 09:00 Venturi Mask 02/25/19 08:15 94 Venturi Mask 8.0 40 02/25/19 08:15 83 20 94 Venturi Mask 8.0 40 02/25/19 08:00 97.9 79 18 108/79 (89) 93 02/25/19 06:42 79 115/71 02/25/19 04:00 97.3 79 22 115/71 (86) 98 02/25/19 00:00 97.8 69 22 97/56 (70) 99 02/24/19 22:00 66 92/61 02/24/19 21:00 66 92/61 02/24/19 21:00 Venturi Mask 02/24/19 20:00 97.4 66 22 92/61 (71) 97 Intake and Output 02/24/19 02/25/19 18:59 06:59 Intake Total 1080 ml 740 ml Output Total 750 ml 650 ml Balance 330 ml 90 ml Intake Free Water 100 ml 200 ml IV Total 485 ml Tube Feeding 495 ml 540 ml Output Urine Total 750 ml 650 ml # Voids 2 # Bowel Movements 2 Microbiology Date/Time Source Procedure Growth Status 02/22/19 23:00 Blood Blood Culture - Preliminary NO GROWTH AFTER 48 HOURS Resulted 02/22/19 22:50 Blood Blood Culture - Preliminary NO GROWTH AFTER 48 HOURS Resulted Objective HEAD AND NECK: Positive JVD. tracheostomy is closed. S/P Right craniotomy LUNGS: Coarse rhonchi. CARDIOVASCULAR: Shows irregular S1 and S2 with no gallop or murmur. ABDOMEN: Soft. G-tube is intact. EXTREMITIES: 1+ pitting edema. Robby Cantu MD Feb 25, 2019 16:49
--- NOTE | 2019-02-25 17:41 | Internal Med Progress Note ---
Subjective Date of Service: Feb 25, 2019 Physician Name Delvis Arnold Attending Physician Axel Saez MD Current Medications Medications (Trade) Dose Ordered Sig/Davonte Route PRN Reason Start Time Stop Time Status Last Admin Dose Admin Acetaminophen (Tylenol) 650 mg Q4H PRN GT Mild Pain/Temp > 100.5 02/24/19 09:00 03/24/19 08:59 Amiodarone HCl (Cordarone) 200 mg DAILY GT 02/25/19 09:00 03/22/19 20:59 02/25/19 09:34 Carvedilol (Coreg) 25 mg EVERY 12 HOURS GT 02/24/19 09:00 03/22/19 20:59 02/24/19 08:49 Cefepime HCl 1 gm/ Dextrose 55 ml @ 110 mls/hr EVERY 12 HOURS IVPB 02/24/19 09:00 03/03/19 08:59 02/25/19 09:00 Digoxin (Lanoxin) 0.125 mg DAILY GT 02/24/19 09:00 03/20/19 11:59 02/25/19 09:34 Diltiazem HCl (Cardizem) 60 mg Q8HR GT 02/24/19 14:00 03/24/19 21:59 02/25/19 06:42 Furosemide (Lasix) 40 mg EVERY 12 HOURS IV 02/24/19 09:00 03/21/19 20:59 02/25/19 09:35 Heparin Sodium (Porcine) (Heparin 5000 units/ml) 5,000 units EVERY 12 HOURS SUBQ 02/24/19 09:00 03/20/19 08:59 02/25/19 09:36 Lansoprazole (Prevacid) 30 mg DAILY GT 02/24/19 09:00 03/20/19 08:59 02/25/19 09:00 Levetiracetam (Keppra) 1,500 mg Q12HR GT 02/24/19 09:00 03/20/19 08:59 02/25/19 09:35 Lisinopril (Zestril) 10 mg DAILY GT 02/24/19 09:00 03/22/19 08:59 02/24/19 08:50 Lorazepam (Ativan 2mg/ml 1ml) 0.5 mg Q6H PRN IVP For Anxiety 02/24/19 09:00 03/01/19 14:56 02/25/19 05:54 Metronidazole 100 ml @ 100 mls/hr Q12HR IVPB 02/24/19 09:00 03/03/19 08:59 02/25/19 09:35 Valproic Acid (Depakene) 500 mg Q8HR GT 02/24/19 14:00 03/22/19 08:59 02/25/19 13:40 Vancomycin HCl (Vanco rx to dose) 1 ea DAILY PRN MISC Per rx protocol 02/24/19 09:00 03/20/19 08:59 Vancomycin HCl 1 gm/Dextrose 275 ml @ 183.708 mls/hr Q12HR@1100,2300 IVPB 02/24/19 11:00 02/27/19 10:59 02/25/19 13:40 Allergies: Coded Allergies: No Known Allergies (Unverified , 03/14/16) ROS Limited/Unobtainable: Yes Subjective 53 YO M admitted with respiratory distress. Now pneumonia and NSTEMI. Cover for Int Med-Dr Saez. On venturi mask Objective Last Vital Signs Date Time Temp Pulse Resp B/P (MAP) Pulse Ox O2 Delivery O2 Flow Rate FiO2 02/25/19 16:00 98.6 68 18 135/78 (97) 97 02/25/19 09:00 Venturi Mask 02/25/19 08:15 8.0 40 Microbiology Date/Time Source Procedure Growth Status 02/22/19 23:00 Blood Blood Culture - Preliminary NO GROWTH AFTER 48 HOURS Resulted 02/22/19 22:50 Blood Blood Culture - Preliminary NO GROWTH AFTER 48 HOURS Resulted Intake and Output 02/24/19 02/25/19 18:59 06:59 Intake Total 1080 ml 740 ml Output Total 750 ml 650 ml Balance 330 ml 90 ml Intake Free Water 100 ml 200 ml IV Total 485 ml Tube Feeding 495 ml 540 ml Output Urine Total 750 ml 650 ml # Voids 2 # Bowel Movements 2 Objective PHYSICAL EXAMINATION: VITAL SIGNS: The patient is currently on facial BiPAP. GENERAL: The patient is a well-developed and well-nourished male, in moderate respiratory distress. HEENT: Eyes, pupils are equal and responsive to light and accommodation. Extraocular movements are intact. NECK: Supple without lymphadenopathy. CHEST: BIPAP; Diffuse rales at bilateral bases with expiratory wheezes. Otherwise, clear to auscultation. ABDOMEN: Soft, nontender, and nondistended. Positive bowel sounds. No evidence of hepatosplenomegaly. Currently, no rebound or guarding noted. CARDIOVASCULAR: Tachycardic. Regular rhythm. S1 and S2 are normal without murmurs, rubs, or gallops. GENITOURINARY: Not performed. NEUROLOGICAL: Unable to assess. Assessment/Plan Assessment/Plan ASSESSMENT: This is a 53-year-old male. 1. Respiratory distress. 2. Congestive heart failure. 3. Elevated troponin. 4. Vent-dependent respiratory failure. 5. Hypertension. 6. Diabetes type 2. 7. Schizophrenia. 8. Gastroesophageal reflux disease. 9. Chronic obstructive pulmonary disease. 10. Hypercholesterolemia. 11. AICD in situ. 12. Seizure disorder. 13. Bipolar depression. 14. NSTEMI 15. BUL pneumonia TREATMENT: 1. Respiratory distress. Continue venturi mask per pulmonary=Dr Molina. Cardiology consultation has been obtained with Dr. Robby Cantu. We will follow recommendations of Cardiology. 2. Congestive heart failure/elevated troponin. As above, a Cardiology consultation has been obtained with Dr. Robby Cantu. 3. Vent-dependent respiratory failure, status post tracheostomy reversal/chronic obstructive pulmonary disease. A Pulmonary consultation has been obtained with Dr. Aris Molina. 4. Hypertension. Continue metoprolol as above. 5. Diabetes type 2. Continue Humalog sliding scale. 6. Schizophrenia. Continue Seroquel as above. 7. Gastroesophageal reflux disease. Continue omeprazole as above. 8. Chronic obstructive pulmonary disease. As above, a Pulmonary consultation has been obtained with Dr. Aris Molina. 9. Hypercholesteremia. Continue atorvastatin. 10. AICD in situ. 11. Seizure disorder. Continue Keppra and Depakote as above. 12. Bipolar depression. 13. NSTEMI-SEE CARDIOLOGY NOTE. 14. ABX=vancomycin and cefepime 15. See pulmonary note concerning comfort care Delvis Arnold MD Feb 25, 2019 17:41
[2019-02-25 20:00] VITALS: BP 109/78
[2019-02-26] VITALS: BP 127/62
[2019-02-26 04:00] VITALS: BP 110/72
[2019-02-26] MEDS: dilTIAZem HCl 60mg tab GT SCH ×2 (07:05→14:31)
[2019-02-26 08:00] VITALS: BP 141/73
[2019-02-26] MEDS: Valproic Acid 250mg/5ml Liquid GT SCH ×2 (08:13→14:00)
[2019-02-26] MEDS: Carvedilol 25mg Tab GT SCH (11:05)
[2019-02-26] MEDS: Lisinopril 10mg tab GT SCH (11:05)
[2019-02-26] MEDS: Cefepime HCl 1 GM in D5W 55 ML IVPB SCH (11:06)
[2019-02-26] MEDS: Heparin 5000 units/ml inj SUBQ SCH (11:07)
[2019-02-26] MEDS: Digoxin 0.125mg tab GT SCH (11:11)
[2019-02-26] MEDS: Amiodarone 200mg tab GT SCH (11:12)
[2019-02-26 12:00] VITALS: BP 102/77
[2019-02-26] MEDS: Vancomycin 1 GM in D5W 275 ML IVPB SCH (12:33)
[2019-02-26 14:31] VITALS: BP 141/73
[2019-02-26] MEDS ORDERED: Tubing IV Secondary IV ONE (15:23)
[2019-02-26] MEDS ORDERED: NS 275ml ONE (15:23)
--- NOTE | 2019-02-26 15:49 | Internal Med Progress Note ---
Subjective Date of Service: Feb 26, 2019 Physician Name CatalinaDelvis Attending Physician Axel Saez MD Current Medications Medications (Trade) Dose Ordered Sig/[place]onte Route PRN Reason Start Time Stop Time Status Last Admin Dose Admin Acetaminophen (Tylenol) 650 mg Q4H PRN GT Mild Pain/Temp > 100.5 02/24/19 09:00 03/24/19 08:59 Amiodarone HCl (Cordarone) 200 mg DAILY GT 02/25/19 09:00 03/22/19 20:59 02/26/19 11:12 Carvedilol (Coreg) 25 mg EVERY 12 HOURS GT 02/24/19 09:00 03/22/19 20:59 02/26/19 11:05 Cefepime HCl 1 gm/ Dextrose 55 ml @ 110 mls/hr EVERY 12 HOURS IVPB 02/24/19 09:00 03/03/19 08:59 02/26/19 11:06 Digoxin (Lanoxin) 0.125 mg DAILY GT 02/24/19 09:00 03/20/19 11:59 02/26/19 11:11 Diltiazem HCl (Cardizem) 60 mg Q8HR GT 02/24/19 14:00 03/24/19 21:59 02/26/19 14:31 Furosemide (Lasix) 40 mg EVERY 12 HOURS IV 02/24/19 09:00 03/21/19 20:59 02/26/19 11:03 Heparin Sodium (Porcine) (Heparin 5000 units/ml) 5,000 units EVERY 12 HOURS SUBQ 02/24/19 09:00 03/20/19 08:59 02/26/19 11:07 Lansoprazole (Prevacid) 30 mg DAILY GT 02/24/19 09:00 03/20/19 08:59 02/26/19 11:03 Levetiracetam (Keppra) 1,500 mg Q12HR GT 02/24/19 09:00 03/20/19 08:59 02/26/19 11:03 Lisinopril (Zestril) 10 mg DAILY GT 02/24/19 09:00 03/22/19 08:59 02/26/19 11:05 Lorazepam (Ativan 2mg/ml 1ml) 0.5 mg Q6H PRN IVP For Anxiety 02/24/19 09:00 03/01/19 14:56 02/25/19 05:54 Metronidazole 100 ml @ 100 mls/hr Q12HR IVPB 02/24/19 09:00 03/03/19 08:59 02/26/19 11:08 Valproic Acid (Depakene) 500 mg Q8HR GT 02/24/19 14:00 03/22/19 08:59 02/26/19 08:13 Vancomycin HCl (Vanco rx to dose) 1 ea DAILY PRN MISC Per rx protocol 02/24/19 09:00 03/20/19 08:59 Vancomycin HCl 1 gm/Dextrose 275 ml @ 183.708 mls/hr Q12HR@1100,2300 IVPB 02/24/19 11:00 02/27/19 10:59 02/26/19 12:33 Allergies: Coded Allergies: No Known Allergies (Unverified , 03/14/16) ROS Limited/Unobtainable: Yes Subjective 53 YO M admitted with respiratory distress. Now pneumonia and NSTEMI. Cover for Int Med-Dr Saez. Objective Last Vital Signs Date Time Temp Pulse Resp B/P (MAP) Pulse Ox O2 Delivery O2 Flow Rate FiO2 02/26/19 14:31 73 141/73 02/26/19 12:00 97.7 21 100 02/26/19 09:00 Nasal Cannula 2.0 02/26/19 08:12 28 Intake and Output 02/25/19 02/26/19 18:59 06:59 Intake Total 1217.416 ml 1195 ml Output Total 500 ml 500 ml Balance 717.416 ml 695 ml Intake Free Water 100 ml 50 ml IV Total 577.416 ml 1100 ml Tube Feeding 540 ml 45 ml Output Urine Total 500 ml 500 ml # Voids 2 # Bowel Movements 1 Objective PHYSICAL EXAMINATION: VITAL SIGNS: The patient is currently on facial BiPAP. GENERAL: The patient is a well-developed and well-nourished male, in moderate respiratory distress. HEENT: Eyes, pupils are equal and responsive to light and accommodation. Extraocular movements are intact. NECK: Supple without lymphadenopathy. CHEST: Diffuse rales at bilateral bases with expiratory wheezes. Otherwise, clear to auscultation. ABDOMEN: Soft, nontender, and nondistended. Positive bowel sounds. No evidence of hepatosplenomegaly. Currently, no rebound or guarding noted. CARDIOVASCULAR: Tachycardic. Regular rhythm. S1 and S2 are normal without murmurs, rubs, or gallops. GENITOURINARY: Not performed. NEUROLOGICAL: Unable to assess. Assessment/Plan Assessment/Plan ASSESSMENT: This is a 53-year-old male. 1. Respiratory distress. 2. Congestive heart failure. 3. Elevated troponin. 4. Vent-dependent respiratory failure. 5. Hypertension. 6. Diabetes type 2. 7. Schizophrenia. 8. Gastroesophageal reflux disease. 9. Chronic obstructive pulmonary disease. 10. Hypercholesterolemia. 11. AICD in situ. 12. Seizure disorder. 13. Bipolar depression. 14. NSTEMI 15. BUL pneumonia TREATMENT: 1. Respiratory distress. Continue venturi mask per pulmonary=Dr Molina. Cardiology consultation has been obtained with Dr. Robby Cantu. We will follow recommendations of Cardiology. 2. Congestive heart failure/elevated troponin. As above, a Cardiology consultation has been obtained with Dr. Robby Cantu. 3. Vent-dependent respiratory failure, status post tracheostomy reversal/chronic obstructive pulmonary disease. A Pulmonary consultation has been obtained with Dr. Aris Molina. 4. Hypertension. Continue metoprolol as above. 5. Diabetes type 2. Continue Humalog sliding scale. 6. Schizophrenia. Continue Seroquel as above. 7. Gastroesophageal reflux disease. Continue omeprazole as above. 8. Chronic obstructive pulmonary disease. As above, a Pulmonary consultation has been obtained with Dr. Aris Molina. 9. Hypercholesteremia. Continue atorvastatin. 10. AICD in situ. 11. Seizure disorder. Continue Keppra and Depakote as above. 12. Bipolar depression. 13. NSTEMI-SEE CARDIOLOGY NOTE. 14. ABX=vancomycin and cefepime 15. See pulmonary note concerning comfort care Delvis Arnold MD Feb 26, 2019 15:49
--- NOTE | 2019-02-27 10:50 | Discharge Summary ---
Discharge Summary Discharge Summary _ DATE OF ADMISSION: 02/18/2019 DATE OF DISCHARGE: 02/26/2019 DISCHARGED BY: Dr. Saez REASON FOR ADMISSION: 53 years old male with past medical history of respiratory failure, status post reversal of tracheostomy, hypertension, diabetes mellitus type 2, GERD, COPD, hypercholesterolemia, traumatic brain injury , seizure disorder, bipolar depression, schizophrenia, DNR/DNI status, presented with respiratory distress. Patient was sent from the subacute facility for evaluation due to shortness of breath and respiratory distress. Pulse oximetry on room air was found to be 76%. Patient was placed on nonrebreather mask and subsequently was transferred to [facility] for further management. Vital signs revealed tachycardia , tachypnea and hypoxia. Laboratory work-up revealed no leukocytosis, hemoglobin 11.6, hematocrit 36.4, platelets 96. Sodium 147, chloride 111, BUN 46, creatinine 1.2. Lactic acid 3.4. Repeated lactic acid stable. Glucose 226. Total bilirubin 1.5, direct bilirubin 0.5. AST 77. CK 1046. Troponin - 0.327. Pro BNP above 35,000. EKG revealed sinus tachycardia , no acute ischemic changes. Chest x-ray revealed pulmonary edema versus pneumonia. ABG revealed respiratory acidosis with pH 7.28 and PCO2 59.9. Patient was placed on the BiPAP. Patient was pancultured, started on IV fluids and empiric antibiotic and admitted to direct observational unit for further management. CONSULTANTS: track manager Dr. Palmer pulmonary Dr[facility] COURSE: Patient admitted to direct observational unit. Patient initially was on a BiPAP and started on empiric antibiotics for pneumonia. Handheld nebulizing therapy with bronchodilator provided. Patient was followed-up with ABG. Hypercapnia resolved. Patient eventually was able to be weaned from BiPAP to nasal cannula. Venous duplex bilateral lower extremity revealed recanalized chronic thrombus in the superficial femoral vein left lower extremity. No evidence of acute DVT. DVT prophylaxis provided. Echocardiogram revealed hypokinetic anterior wall, akinetic posterior and inferior [place]. Mild left ventricular hypertrophy. Left ventricular ejection fraction estimated to be 35 to 40%. Moderate mitral regurgitation. Right ventricular systolic pressure of 88 consistent with severe pulmonary hypertension. Exercise Physiology Professor followed. Troponin trended down from 0.327 initial down to 0.125. Per track manager, patient had NSTEMI . for which conservative management provided, given DNR/DNI status. Patient had cardiomyopathy and CHF with systolic dysfunction. Patient was on diuresis with IV Lasix with close monitoring of volumes and cardiorenal parameters. ProBNP from 35,000 down to 5115 . Patient was followed-up with chest x-ray . Last chest x-ray demonstrated improved pulmonary edema with moderate residual with superimposed pneumonia. Guideline directed medical therapy for CHF provided with beta-yuli, LOVE inhibitor and Lasix. Patient also noted to have evidence of atrial fibrillation with rapid ventricular response. Patient was on beta-yuli, amiodarone , digoxin and Cardizem. Heart rate stabilized. No anticoagulation . Blood cultures , initial and repeated, were negative. Strict aspiration precaution maintained. G-tube feeding continued. Seizure precaution maintained. Keppra continued. GI prophylaxis provided. Psychiatric medication continued. Supportive care provided. Bowel regimen instituted. Patient clinically stabilized and was ready for transfer back to subacute facility for continuation of care. FINAL DIAGNOSES: Acute hypoxemic hypercapnic respiratory failure, requiring BiPAP -resolved Pneumonia Acute on chronic systolic congestive heart failure NSTEMI Severe cardiomyopathy Status post [place] [employer] dual-chamber defibrillator Atrial fibrillation with rapid ventricular response Pulmonary hypertension History of traumatic brain injury Seizure disorder HTN Diabetes mellitus Dysphagia, feeding by G-tube Schizophrenia Bipolar depression DISCHARGE MEDICATIONS: See Medication Reconciliation list. DISCHARGE INSTRUCTIONS: [facility] Follow up with medical doctor at the facility. I have been assigned to dictate discharge summary for this account. I was not involved in the patient's management. Nancy Zambrano NP Feb 27, 2019 10:50
== END 2019-02-26 15:45 | DRG 190 ==
LOC: EDBD 02:44 → EDUNIT# 02:44 → EMR 03:34 → 2W 03:52 → EDBEDREQ 06:12 → ICU 02-19 19:40 → 2E 02-22 15:00 → 4E 02-24 06:21
DX: I21.4 Non-ST elevation (NSTEMI) myocardial infarction (principal); J96.01 Acute respiratory failure with hypoxia; J18.9 Pneumonia, unspecified organism; Z79.01 Long term (current) use of anticoagulants; I42.8 Other cardiomyopathies; R13.10 Dysphagia, unspecified; Z93.1 Gastrostomy status; F32.9 Major depressive disorder, single episode, unspecified; I69.354 Hemiplegia and hemiparesis following cerebral infarction affecting left non-dominant side; I11.0 Hypertensive heart disease with heart failure; I50.23 Acute on chronic systolic (congestive) heart failure; Z95.810 Presence of automatic (implantable) cardiac defibrillator; Z66 Do not resuscitate; J96.02 Acute respiratory failure with hypercapnia; I48.91 Unspecified atrial fibrillation; G40.909 Epilepsy, unspecified, not intractable, without status epilepticus; E11.9 Type 2 diabetes mellitus without complications; K21.9 Gastro-esophageal reflux disease without esophagitis; J44.0 Chronic obstructive pulmonary disease with (acute) lower respiratory infection; E78.00 Pure hypercholesterolemia, unspecified; F31.9 Bipolar disorder, unspecified
CPT/HCPCS: 36415; 36600; 71045; 80048; 80053; 80162; 80164; 80202; 80299; 81003; 82248; 82550; 82553; 82803; 82962; 83605; 83735; 83880; 84100; 84484; 85007; 85025; 87040; 87081; 93005; 93306; 93970; 94660; 94664; 96361; 96374; 99291; J8499